=== PATIENT | female | born 1950 | race Caucasian/White ===

== ENCOUNTER → 2018-07-20 | Outpatient (CLI) | payer MEDICARE, OTHER ==
--- NOTE | 2018-07-23 17:42 | XCELERA REPORT ---
[address] [address] Lower Extremity Arterial Evaluation Name: GENTRY MENDOZA Age: 67 yrs Gender: Female : 1950 Patient Status: Outpatient Patient Location: Study Date: 07/20/2018 10:54 AM Procedure: A color flow and duplex scan of the lower extremity arteries was performed bilaterally with velocity and waveform anaylsis. Reason For Study: ULCER Ordering Physician: INESSA PARKER Performed By: Mario Blackwood Measurements and Calculations Right Left CHUCKING MACHINE SET UP OPERATOR PSV 127.5 132.8 cm/sec Prox PFA PSV -74.6 -66.8 cm/sec Prox SFA PSV 74.2 97.4 cm/sec Mid SFA PSV -69.5 -126.5cm/sec Dist SFA PSV -72.2 -52.1 cm/sec Prox Pop A PSV 62.9 -92.6 cm/sec Dist SALUD PSV 41.8 88.0 cm/sec Prox SUPPLIER QUALITY SPECIALIST PSV 99.9 cm/sec Dist SUPPLIER QUALITY SPECIALIST PSV 86.6 cm/sec Christopher Pedis PSV 42.0 -84.0 cm/sec Right Side Arterial Evaluation Normal velocity and triphasic waveforms noted from the Common Femoral artery to the infrageniculate vessels. 0 % stenosis. Ankle Brachial index was not done, due to pain. Left Side Arterial Evaluation Normal velocity and triphasic waveforms noted from the Common Femoral artery to the infrageniculate vessels. 0 % stenosis. Ankle Brachial index was not done, due to bandages in place. Interpretation Summary No hemodynamically significant lesions in the bilateral lower extremities, on duplex imaging, at rest. : INESSA PARKER > Adryan Hess
== END ==
LOC: SP 10:22
PROVIDERS: ATTEND Nurse Practitioner
DX: E11.622 Type 2 diabetes mellitus with other skin ulcer (principal); L97.222 Non-pressure chronic ulcer of left calf with fat layer exposed
CPT/HCPCS: 93925

== ENCOUNTER → 2018-07-27 | Outpatient (CLI) | payer MEDICARE, OTHER ==
--- NOTE | 2018-07-27 12:58 | RADIOLOGY REPORT (SQ) ---
EXAM DESCRIPTION: TIBIA FIBULA LEFT COMPLETED DATE/TIME: 07/27/2018 12:21 pm REASON FOR STUDY: NON-PRESSURE CHRONIC ULCER OF LEFT CALF W FAT LAYER EXPOSED L97.222 NON-PRESSURE CHRONIC ULCER OF LEFT CALF W FAT LAYER COMPARISON: None. NUMBER OF VIEWS: Two views. TECHNIQUE: Two radiographic images acquired of the left tibia and fibula to include the knee and ank le in at least one projection. LIMITATIONS: None. FINDINGS: MINERALIZATION: Normal. BONES: No acute fracture. No lytic or blastic lesions. There is periosteal new bone along the dista l 3rd of the left tibia and fibula. This could be related to venous stasis. SOFT TISSUES: Soft tissue ulceration with bandages over the distal left tibia/fibula anterior soft ti ssues. OTHER: No soft tissue radiopaque foreign body or soft tissue gas. Advanced osteoarthritis left knee. Prominent dorsal and plantar calcaneal spurs IMPRESSION: No fracture. Prior osteal new bone along the left tibia and fibula diffusely, could be related to venous stasis TECHNICAL DOCUMENTATION: JOB ID: [id number] [email or web address] All Rights Reserved Reading location - IP/workstation name: [email or web address]
== END ==
LOC: OD 11:54
PROVIDERS: ATTEND Nurse Practitioner
DX: L97.222 Non-pressure chronic ulcer of left calf with fat layer exposed (principal); M17.12 Unilateral primary osteoarthritis, left knee; M77.32 Calcaneal spur, left foot

== ENCOUNTER 2019-03-28 16:15 | Inpatient (IN) | payer MEDICARE, OTHER ==
--- NOTE | 2019-03-28 16:25 | ER Document Report ---
ED Medical Screen (RME) - General Chief Complaint: Leg Pain Stated Complaint: LEG PAIN Time Seen by Provider: 03/28/19 16:19 Mode of Arrival: Ambulatory Information source: Patient Notes: Patient is being treated on an outpatient basis with the wound clinic for a left lower extremity infection. Patient does have a history of peripheral vascular disease chronic kidney disease and diabetes. Patient states her blood sugar has been elevated at times. Patient denies any fever. Patient is currently taking antibiotics to treat her leg infection. Patient states that the wound has been looking worse and she was advised to come here for additional treatment. I have greeted and performed a rapid initial assessment of this patient. A comprehensive ED assessment and evaluation of the patient, analysis of test results and completion of the medical decision making process will be conducted by additional ED providers. TRAVEL OUTSIDE OF THE [place] IN LAST 30 DAYS: No - Related Data Allergies/Adverse Reactions: No Known Allergies Allergy (Verified 03/28/19 16:16) Physical Exam - Vital signs Vitals: Temp Pulse Resp BP Pulse Ox 97.6 F 109 H 22 H 149/95 H 95 03/28/19 16:19 03/28/19 16:19 03/28/19 16:19 03/28/19 16:19 03/28/19 16:19 - General General appearance: Appears well, Alert Notes: Patient with bandage left lower extremity wound with obvious drainage seeping through wound. Course - Vital Signs Vital signs: Temp Pulse Resp BP Pulse Ox 97.6 F 109 H 22 H 149/95 H 95 03/28/19 16:19 03/28/19 16:19 03/28/19 16:19 03/28/19 16:19 03/28/19 16:19
[2019-03-28 17:06] LABS: ABSOLUTE BASOPHILS # (AUTO) 0.1 10^3/uL (0.0-0.2); ABSOLUTE EOSINOPHILS # (AUTO) 0.2 10^3/uL (0.0-0.6); ABSOLUTE LYMPHOCYTES (AUTO) 0.7 10^3/uL (0.5-4.7); ABSOLUTE MONOCYTES (AUTO) 0.8 10^3/uL (0.1-1.4); ABSOLUTE NEUT (AUTO) 5.6 10^3/uL (1.7-8.2); BASOPHILS % (AUTO) 1.1 % (0-2); EOSINOPHILS % (AUTO) 2.1 % (0-6); HEMATOCRIT 34.8 % (36.0-47.0); HEMOGLOBIN 10.9 g/dL (12.0-15.5); LYMPHOCYTES % (AUTO) 9.2 % (13-45); MEAN CORPUSCULAR HEMOGLOBIN 24.9 pg (27.0-33.4); MEAN CORPUSCULAR HGB CONC 31.5 g/dL (32.0-36.0); MEAN CORPUSCULAR VOLUME 79 fl (80-97); MONOCYTES % (AUTO) 10.5 % (3-13); PLATELET COUNT 211 10^3/uL (150-450); RED BLOOD COUNT 4.39 10^6/uL (3.72-5.28); RED CELL DISTRIBUTION WIDTH 19.8 % (11.5-14.0); SEGMENTED NEUTROPHILS % (AUTO) 77.1 % (42-78); TOTAL CELLS COUNTED % (AUTO) 100 %; WHITE BLOOD COUNT 7.3 10^3/uL (4.0-10.5)
[2019-03-28 17:30] LABS: ALANINE AMINOTRANSFERASE 19 U/L (9-52); ALBUMIN 3.3 g/dL (3.5-5.0); ALKALINE PHOSPHATASE 91 U/L (38-126); ANION GAP 5 (5-19); ASPARTATE AMINO TRANSFERASE 27 U/L (14-36); BILIRUBIN,DIRECT 0.3 mg/dL (0.0-0.4); BILIRUBIN,TOTAL 0.5 mg/dL (0.2-1.3); BLOOD UREA NITROGEN 31 mg/dL (7-20); CALCIUM 9.5 mg/dL (8.4-10.2); CARBON DIOXIDE 26 mmol/L (22-30); CHLORIDE 105 mmol/L (98-107); GLUCOSE 156 mg/dL (75-110); TOTAL PROTEIN 6.6 g/dL (6.3-8.2)
[2019-03-28] MEDS ORDERED: VANCOMYCIN HCL INJ 1000 MG VIAL IV ONE (20:13)
[2019-03-28] MEDS ORDERED: MORPHINE SULFATE 10 MG/ML INJ IV ONE (20:13)
--- NOTE | 2019-03-28 20:30 | EKG REPORT ---
SEVERITY:- ABNORMAL ECG - ATRIAL FIBRILLATION INCOMPLETE RBBB AND LAFB ANTERIOR INFARCT, OLD : Confirmed by: Bruce Salomon 28-Mar-2019 20:30:30
--- NOTE | 2019-03-28 20:40 | ER Document Report ---
ED General - General Chief Complaint: Leg Pain Stated Complaint: LEG PAIN Time Seen by Provider: 03/28/19 16:19 Mode of Arrival: Ambulatory TRAVEL OUTSIDE OF THE [place] IN LAST 30 DAYS: No - HPI Notes: Patient is a 68-year-old female that presents to the emergency department for ch ief complaint of left leg wound. She has a chronic wound on her left lower extremity that has been managed by wound care for the last 2 years. she states she saw them today and they were concerned that the wound has gotten significantly worse. She reports increased pain and redness over the left lower extremity for the last week. She reports significant increase in pain over her left lower extremity for the last week. She also reports increased drainage from the wound. She is currently on Cipro and states this is her "third round" of antibiotics. She is concerned that the wound is getting worse despite outpatient management. She denies fevers and chills. She denies any chest pain, cough, congestion, nausea/vomiting and abdominal pain. Patient usually takes hydrocodone at home which does give her some symptomatic improvement. She states she has not had any pain medication today. Past Medical History: Hypertension, CKD, peripheral vascular disease, diabetes Past Surgical History: Reviewed in chart Social History: Lives at home. Denies tobacco and alcohol use Family History: Reviewed and noncontributory for presenting illness Allergies: Reviewed, see documented allergy list. REVIEW OF SYSTEMS: CONSTITUTIONAL : No fever No chills No diaphoresis No recent illness EENT: No vision changes No congestion No sore throat CARDIOVASCULAR: No chest pain No palpitations RESPIRATORY: No shortness of breath No cough No difficulty breathing GASTROINTESTINAL: No abdominal pain No nausea No vomiting No diarrhea GENITOURINARY: No dysuria No hematuria No difficulty urinating MUSCULOSKELETAL: No back pain leg pain No arm pain SKIN: No rashes leg lesions LYMPHATIC: No swollen, enlarged glands. NEUROLOGICAL: No lightheadedness No headache No weakness No paresthesias PSYCHIATRIC: No anxiety No depression PHYSICAL EXAMINATION: Vital signs reviewed, nursing noted reviewed. GENERAL: Well-appearing, obese and in no acute distress. HEAD: Atraumatic, normocephalic. EYES: Eyes appear normal, extraocular movements intact, sclera anicteric, conjunctiva are normal. ENT: nares patent, oropharynx clear without exudates. Moist mucous membranes. NECK: Normal range of motion, supple without lymphadenopathy LUNGS: Breath sounds clear to auscultation bilaterally and equal. No wheezes rales or rhonchi. HEART: Regular rate and rhythm without murmurs ABDOMEN: Soft, nontender, normoactive bowel sounds. No rebound, guarding, or rigidity. No masses appreciated. EXTREMITIES: Left lower extremity wound and tenderness with surrounding erythema. Bilateral lower extremity edema. NEUROLOGICAL: No focal neurological deficits. Moves all extremities spontaneously Motor and sensory grossly intact on exam. PSYCH: Normal mood, normal affect. SKIN: Warm, Dry, normal turgor, circumferential left lower extremity wound with multiple areas of granulation tissue, copious amounts of serosanguineous drainage, diffusely erythematous and tender to palpation. - Related Data Allergies/Adverse Reactions: No Known Allergies Allergy (Verified 03/28/19 16:16) Past Medical History - General Information source: Patient - Social History Smoking Status: Never Smoker Chew tobacco use (# tins/day): No Drug Abuse: None Family History: Reviewed & Not Pertinent Patient has suicidal ideation: No Patient has homicidal ideation: No - Past Medical History Cardiac Medical History: Reports: Hx Atrial Fibrillation, Hx Hypertension Endocrine Medical History: Reports: Hx Diabetes Mellitus Type 2 Renal/ Medical History: Denies: Hx Peritoneal Dialysis Physical Exam - Vital signs Vitals: Temp Pulse Resp BP Pulse Ox 97.6 F 109 H 22 H 149/95 H 95 03/28/19 16:19 03/28/19 16:19 03/28/19 16:19 03/28/19 16:19 03/28/19 16:19 Course - Re-evaluation Re-evalutation: 03/28/19 20:40 vitals reviewed. Nursing notes reviewed. Patient is afebrile and nontoxic in appearance but was tachycardic and tachypneic meeting Sirs criteria. Blood cultures and lactate have been obtained. She has an extensive wound to her left lower extremity reports increased redness pain and drainage concerning for acute infection that is not responding to outpatient therapy with Cipro. Patient was given a dose of vancomycin in the ED. X-ray will be obtained to evaluate for underlying osteomyelitis. Patient's lab work shows no leukocytosis. She has baseline renal insufficiency and anemia. Patient's potassium did come back elevated at 6.0, repeat potassium has been ordered to confirm this lab test. Repeat potassium is still elevated. Patient given insulin, D50, Kayexalate, and calcium for her hyperkalemia. She will be admitted to the hospital for monitoring of her hyperkalemia as well as lower extremity infection. Care dis cussed with Dr. Isbell who has accepted admission. Laboratory 03/28/19 03/28/19 16:35 16:35 WBC 7.3 RBC 4.39 Hgb 10.9 L Hct 34.8 L MCV 79 L MCH 24.9 L MCHC 31.5 L RDW 19.8 H Plt Count 211 Seg Neutrophils % 77.1 Lymphocytes % 9.2 L Monocytes % 10.5 Eosinophils % 2.1 Basophils % 1.1 Absolute Neutrophils 5.6 Absolute Lymphocytes 0.7 Absolute Monocytes 0.8 Absolute Eosinophils 0.2 Absolute Basophils 0.1 Sodium 135.6 L Potassium 6.0 H* Chloride 105 Carbon Dioxide 26 Anion Gap 5 BUN 31 H Creatinine 1.54 H Est GFR ( Amer) 40 L Est GFR (Non-Af Amer) 33 L Glucose 156 H Calcium 9.5 Total Bilirubin 0.5 Direct Bilirubin 0.3 Neonat Total Bilirubin Not Reportable Neonat Direct Bilirubin Not Reportable Neonat Indirect Bili Not Reportable AST 27 ALT 19 Alkaline Phosphatase 91 Total Protein 6.6 Albumin 3.3 L 03/28/19 21:25 - Vital Signs Vital signs: Temp Pulse Resp BP Pulse Ox 97.6 F 109 H 22 H 149/95 H 95 03/28/19 16:19 03/28/19 16:19 03/28/19 16:19 03/28/19 16:19 03/28/19 16:19 - Laboratory Result Diagrams: 03/28/19 16:35 03/28/19 19:50 Laboratory results interpreted by me: 03/28/19 03/28/19 03/28/19 16:35 16:35 19:50 Hgb 10.9 L Hct 34.8 L MCV 79 L MCH 24.9 L MCHC 31.5 L RDW 19.8 H Lymphocytes % 9.2 L ESR Sodium 135.6 L Potassium 6.0 H* 5.6 H BUN 31 H Creatinine 1.54 H Est GFR ( Amer) 40 L Est GFR (Non-Af Amer) 33 L Glucose 156 H C-Reactive Protein Albumin 3.3 L 03/28/19 03/28/19 19:50 20:45 Hgb Hct MCV MCH MCHC RDW Lymphocytes % ESR 43 H Sodium Potassium BUN Creatinine Est GFR ( Amer) Est GFR (Non-Af Amer) Glucose C-Reactive Protein 24.1 H Albumin Discharge - Discharge Clinical Impression: Left leg cellulitis, Hyperkalemia Condition: Stable Disposition: ADMITTED INPATIENT Admitting Provider: Sukhi (Hospitalist) Unit Admitted: Telemetry
[2019-03-28] MEDS ORDERED: SODIUM POLYSTYRENE SULFONATE 15 GM/60 ML PO ONE (20:58)
[2019-03-28] MEDS ORDERED: INSULIN REG, HUMAN 100 UNIT/ML 3 ML VIAL (PYX) IV ONE (20:58)
[2019-03-28] MEDS ORDERED: CALCIUM GLUCONATE 1000 MG/10 ML INJ IV ONE (20:58)
[2019-03-28] MEDS ORDERED: DEXTROSE 50%-WATER 25 GM/50 ML DISP.SYRIN IV ONE (20:58)
[2019-03-28] MEDS ORDERED: MAG HYDROX/AL HYDROX/SIMETH SUSP 30 ML UDCUP PO PRN (21:18)
[2019-03-28] MEDS ORDERED: ONDANSETRON HCL INJ/PF 4 MG/2 ML SDV IV PRN (21:18)
[2019-03-28] MEDS ORDERED: MAGNESIUM HYDROXIDE SUSP 30 ML UDCUP PO PRN (21:18)
[2019-03-28] MEDS ORDERED: ACETAMINOPHEN 325 MG TABLET PO PRN (21:26)
[2019-03-28] MEDS ORDERED: INSULIN REG, HUMAN 100 UNIT/ML 3 ML VIAL (PYX) SUBCUT PRN (21:26)
[2019-03-28] MEDS ORDERED: PIPERACILLIN/TAZOBACTAM 3.375 GM VIAL IV ONE (21:27)
[2019-03-28] MEDS ORDERED: VANCOMYCIN HCL INJ 1000 MG VIAL IV SCH (21:30)
[2019-03-28] MEDS ORDERED: GLUCAGON,HUMAN RECOMB 1 MG INJ IM PRN (21:31)
[2019-03-28] MEDS ORDERED: DEXTROSE 50%-WATER 25 GM/50 ML DISP.SYRIN IV PRN ×2 (21:31)
[2019-03-28] MEDS ORDERED: DEXTROSE 40% GEL 15 GM TUBE PO PRN ×2 (21:31)
[2019-03-28] MEDS ORDERED: PIPERACILLIN SODIUM/TAZOBACTAM 3.375 GM in NORMAL SALINE 100 ML IV ONE (22:00)
[2019-03-28] MEDS ORDERED: HEPARIN SOD (PORCINE) 5,000 UNIT/ML 1 ML VIAL SUBCUT SCH (22:00)
--- NOTE | 2019-03-28 22:08 | RADIOLOGY REPORT (SQ) ---
EXAM DESCRIPTION: RadLex: XR TIBIA FIBULA 2 VIEWS Views: 2 CLINICAL HISTORY: 68 years Female, wound, diabetic COMPARISON: 07/27/2018 FINDINGS: Severe chronic degenerative changes are partially visualized in the knee, grossly similar to the prior exam. There is severe loss of joint space, sclerosis and remodeling of the tibial plateau. Slight lateral subluxation of the tibia is similar. No acute fracture. There is some chronic periosteal reaction along the distal shafts of the tibia and fibula. No suspicious focal lesion. No lytic bone changes. IMPRESSION: 1. No acute fracture 2. No radiographic evidence for osteomyelitis 3. Severe chronic degenerative changes of the knee, grossly similar to the 07/27/2018 exam
[2019-03-28] MEDS: RIVAROXABAN 10 MG TABLET PO SCH (23:20)
[2019-03-28] MEDS: GLIPIZIDE 5 MG TABLET PO SCH (23:20)
[2019-03-29] MEDS: MORPHINE SULFATE 10 MG/ML INJ IV PRN ×5 (00:02→16:23)
[2019-03-29] MEDS: NORMAL SALINE 1000 ML 1,000 ML IV PRN ×3 (00:12→12:32)
[2019-03-29] MEDS ORDERED: PIPERACILLIN/TAZOBACTAM 3.375 GM VIAL IV ONE (00:19)
--- NOTE | 2019-03-29 03:26 | PDOC H&P ---
History of Present Illness Admission Date/PCP: 03/28/19 21:14 Patient complains of: Worsening wound History of Present Illness: GENTRY JACOBS is a 68 year old female who presents to the emergency room with a worsening wound of her leg. She admits a chronic left lower extremity wound with a chronic/recurrent infection for over 2 years. She states that for the last several days she has noted increasing redness and swelling with tenderness to palpation over the entire anterior tibial surface of her left lower leg. This prompted her to make a visit to the wound clinic and she was subsequently redirected to the ER for admission. She describes the pain as a constant, mild to moderate achiness of the left anterior lower leg without radiation. The pain is slightly increased with palpation and more significantly increased with walking. She has not identified any alleviating factors for her pain. She admits prior similar episodes on numerous occasions in the past related to venous stasis ulcers of her bilateral lower extremities. In the emergency room she was found to have significant erythema and edema of the left lower extremity and antibiotic therapy was initiated at the request of the wound care clinic. Patient was subsequently admitted to the hospital for further care. Past Medical History Cardiac Medical History: Reports: Atrial Fibrillation, Hypertension Denies: DVT, Pulmonary Embolism Pulmonary Medical History: Denies: Asthma, Chronic Obstructive Pulmonary Disease (COPD) EENT Medical History: Denies: Cataracts, Ears - Hearing aids Neurological Medical History: Denies: Hemorrhagic CVA, Ischemic CVA, Multiple Sclerosis, Seizures Endocrine Medical History: Reports: Diabetes Mellitus Type 2, Obesity Denies: Diabetes Mellitus Type 1, Hyperthyroidism, Hypothyroidism Renal/ Medical History: Reports: Chronic Kidney Disease Denies: Nephrolithiasis Malignancy Medical History: Reports: Breast Cancer GI Medical History: Denies: Cirrhosis, Hepatitis Musculoskeltal Medical History: Denies: Arthritis, Gout Skin Medical History: Denies: Eczema, Psoriasis Psychiatric Medical History: Denies: Alcohol Dependency, Substance Abuse, Tobacco Dependency Traumatic Medical History: Reports: None Hematology: Denies: Anemia, Bleeding Tendencies Infectious Medical History: Reports: Methicillin-Resistant Staph Aureus - And a previous infection of a venous stasis ulcer requiring vancomycin Past Surgical History Past Surgical History: For prior skin graft attempts for leg ulcerations, all failed. Past Surgical History: Reports: Other - Right lumpectomy and axillary lymph node dissection Social History Information Source: Patient Lives with: Spouse/Significant other Smoking Status: Never Smoker Frequency of Alcohol Use: Occasional Hx Recreational Drug Use: No Drugs: None Hx Prescription Drug Abuse: No - Advance Directive Resuscitation Status: Full Code Surrogate healthcare decision maker:: Vikram Jacobs Family History Family History: DM, Malignancy, Other - Kidney disease. denies: CAD, Hypertension Parental Family History Reviewed: Yes Children Family History Reviewed: No Sibling(s) Family History Reviewed.: Yes Medication/Allergy Home Medications: Furosemide [Lasix 20 mg Tablet] 20 mg PO DAILY 03/28/19 Glipizide [Glocotrol 5 Mg Tablet] 5 mg PO Q12 03/28/19 Hydrocodone/Acetaminophen [[place] 5-325 mg Tablet] 1 tab PO Q8HP PRN 03/28/19 Metoprolol Tartrate [Lopressor] 50 mg PO DAILY 03/28/19 Rivaroxaban [Xarelto] 20 mg PO QPM 03/28/19 Allergies/Adverse Reactions: adhesive Allergy (Verified 03/29/19 01:43) bacitracin [From Neosporin ([id number])] Allergy (Verified 03/29/19 01:43) latex Allergy (Verified 03/29/19 01:43) neomycin [From Neosporin ([id number])] Allergy (Verified 03/29/19 01:43) polymyxin B [From Neosporin ([id number])] Allergy (Verified 03/29/19 01:43) sulfur dioxide Allergy (Verified 03/29/19 01:43) Review of Systems Constitutional: ABSENT: anorexia, chills, fever(s) Eyes: ABSENT: visual disturbances, other - Eye pain Ears: ABSENT: hearing changes, other - Ear pain Nose, Mouth, and Throat: ABSENT: mouth pain, sore throat Cardiovascular: ABSENT: chest pain, palpitations Respiratory: ABSENT: cough, dyspnea Gastrointestinal: ABSENT: abdominal pain, constipation, diarrhea, nausea, vomiting Genitourinary: ABSENT: dysuria, hematuria Musculoskeletal: ABSENT: back pain, joint swelling, muscle weakness Integumentary: PRESENT: as per HPI, erythema, wounds. ABSENT: pruritus, rash Neurological: ABSENT: confusion, convulsions, focal weakness, memory loss, syncope Psychiatric: ABSENT: anxiety, depression Endocrine: ABSENT: cold intolerance, heat intolerance Hematologic/Lymphatic: ABSENT: easy bleeding, easy bruising Physical Exam Vital Signs: Temp Pulse Resp BP Pulse Ox 97.6 F 109 H 22 H 149/95 H 95 03/28/19 16:19 03/28/19 16:19 03/28/19 16:19 03/28/19 16:19 03/28/19 16:19 Intake & Output 03/26/19 03/27/19 03/28/19 23:59 23:59 23:59 Weight 131.5 kg General appearance: PRESENT: no acute distress, cooperative, morbidly obese Head exam: PRESENT: atraumatic, normocephalic Eye exam: ABSENT: conjunctival injection, scleral icterus Ear exam: PRESENT: normal external ear exam. ABSENT: bleeding, drainage Mouth exam: PRESENT: dry mucosa, neck supple Neck exam: ABSENT: thyromegaly, tracheal deviation Respiratory exam: PRESENT: clear to auscultation dwayne, symmetrical, unlabored Cardiovascular exam: PRESENT: RRR. ABSENT: clicks, gallop, rubs Pulses: PRESENT: normal radial pulses. ABSENT: normal dorsalis pedis pul - Dorsalis pedis pulses are mildly diminished bilaterally secondary to chronic edema of the lower extremities. Vascular exam: PRESENT: normal capillary refill, other - Circumferential venous stasis changes of the bilateral lower extremities.. ABSENT: pallor GI/Abdominal exam: PRESENT: normal bowel sounds, soft Rectal exam: PRESENT: deferred Extremities exam: PRESENT: pedal edema - Bilateral lower extremities, +2 edema - Bilateral lower extremities Musculoskeletal exam: ABSENT: deformity, dislocation Neurological exam: PRESENT: alert, oriented to person, oriented to place, oriented to time, oriented to situation, CN II-XII grossly intact. ABSENT: motor sensory deficit Psychiatric exam: PRESENT: appropriate affect, normal mood Skin exam: PRESENT: dry, erythema - Left anterior tibial surface/wound, warm, other - Venous stasis ulceration with superficial cellulitis left anterior tibial surface.. ABSENT: jaundice, rash, urticaria Results Laboratory Results: 03/28/19 16:35 03/28/19 19:50 03/28/19 03/28/19 03/28/19 16:35 16:35 19:50 WBC 7.3 RBC 4.39 Hgb 10.9 L Hct 34.8 L MCV 79 L MCH 24.9 L MCHC 31.5 L RDW 19.8 H Plt Count 211 Seg Neutrophils % 77.1 Lymphocytes % 9.2 L Monocytes % 10.5 Eosinophils % 2.1 Basophils % 1.1 Absolute Neutrophils 5.6 Absolute Lymphocytes 0.7 Absolute Monocytes 0.8 Absolute Eosinophils 0.2 Absolute Basophils 0.1 Sodium 135.6 L Potassium 6.0 H* 5.6 H Chloride 105 Carbon Dioxide 26 Anion Gap 5 BUN 31 H Creatinine 1.54 H Est GFR ( Amer) 40 L Est GFR (Non-Af Amer) 33 L Glucose 156 H Calcium 9.5 Total Bilirubin 0.5 AST 27 ALT 19 Alkaline Phosphatase 91 Total Protein 6.6 Albumin 3.3 L Assessment and Plan - Diagnosis (1) Chronic venous hypertension with inflammation Qualifiers: Laterality: left Qualified Code(s): I87.322 - Chronic venous hypertension (idiopathic) with inflammation of left lower extremity Is this a current diagnosis for this admission?: Yes Plan: Patient will be treated with IV antibiotics utilizing vancomycin and Zosyn. She will be monitored closely with daily CBCs and metabolic profiles. Additionally she will have a daily magnesium level performed. Consultation with the wound care clinic/general surgery for further input into her management will be undertaken during the daytime hours. (2) Chronic venous hypertension with ulcer Is this a current diagnosis for this admission?: Yes Plan: Patient will be treated with IV antibiotics utilizing vancomycin and Zosyn. She will be monitored closely with daily CBCs and metabolic profiles. Additionally she will have a daily magnesium level performed. Consultation with the wound care clinic/general surgery for further input into her management will be undertaken during the daytime hours. (3) Chronic venous stasis dermatitis of both lower extremities Is this a current diagnosis for this admission?: Yes Plan: Patient will be treated with IV antibiotics utilizing vancomycin and Zosyn. She will be monitored closely with daily CBCs and metabolic profiles. Additionally she will have a daily magnesium level performed. Consultation with the wound care clinic/general surgery for further input into her management will be undertaken during the daytime hours. (4) Hyperkalemia Is this a current diagnosis for this admission?: Yes Plan: Patient was treated emergently in the emergency room and will be treated with IV fluid and monitoring of her potassium level with daily metabolic profiles and magnesium levels. (5) Chronic kidney disease, stage III (moderate) Is this a current diagnosis for this admission?: Yes Plan: Patient's chronic kidney disease will be monitored on a daily basis with metabolic profiles. Further evaluation be performed as needed. (6) Diabetes mellitus type 2 in obese Is this a current diagnosis for this admission?: Yes Plan: Hemoglobin A1c will be obtained to evaluate the patient's current therapy. She will be continued on her current medication and a sliding scale utilizing regular insulin for the treatment of hyperglycemia will be instituted according to the results of before meals and at bedtime Accu-Cheks. (7) Essential hypertension Is this a current diagnosis for this admission?: Yes Plan: Patient be continued on her usual medications for hypertension. Her vital signs were followed closely throughout her hospital course with changes made to her regimen only if required. (8) Morbid obesity with BMI of 45.0-49.9, adult Is this a current diagnosis for this admission?: Yes Plan: A dietary consultation will be obtained for patient's evaluation and recommendations for diet and lifestyle changes that may help to improve the patient's overall health and well-being. - Time Time Spent with patient: 25-34 minutes Medications reviewed and adjusted accordingly: Yes Anticipated discharge: Home - Inpatient Certification Based on my medical assessment, after consideration of the patient's comorbidities, presenting symptoms, or acuity I expect that the services needed warrant INPATIENT care.: Yes I certify that my determination is in accordance with my understanding of Medicare's requirements for reasonable and necessary INPATIENT services [42 CFR 412.3e].: Yes Medical Necessity: Failure to Improve With Outpatient Therapy, Significant C omorbidiites Make Outpatient Treatment Too Risky, Need Close Monitoring Due to Risk of Patient Decompensation, Need for IV Antibiotics, Risk of Complication if Not Cared For in Hospital
--- NOTE | 2019-03-29 03:31 | ADVANCED CARE ---
- Diagnosis (1) Chronic venous hypertension with inflammation Diagnosis Current: Yes (2) Chronic venous hypertension with ulcer Diagnosis Current: Yes (3) Chronic venous stasis dermatitis of both lower extremities Diagnosis Current: Yes (4) Hyperkalemia Diagnosis Current: Yes (5) Chronic kidney disease, stage III (moderate) Diagnosis Current: Yes (6) Diabetes mellitus type 2 in obese Diagnosis Current: Yes (7) Essential hypertension Diagnosis Current: Yes (8) Morbid obesity with BMI of 45.0-49.9, adult Diagnosis Current: Yes Attendance: Patient and myself Resuscitation Status: Full Code Discussion: After discussion the patient wishes to remain a full CODE STATUS for any cardiac or respiratory arrest that may occur during her hospital course. She further wishes to name her son Vikram Jacobs as her designated surrogate medical decision maker. She is not desirous of discussing a living will at this point in time. Care Planning Goals: 1. Patient remained full CODE STATUS for resuscitation during his hospital stay. 2. Vikram Jacobs will be named as her designated surrogate medical decision- maker. Document(s) Completed: Following will be entered into the patient's permanent medical record and medical orders via the EMR data and order filler: 1. Patient remained full CODE STATUS for resuscitation during his hospital stay. 2. Vikram Jacobs will be named as her designated surrogate medical decision- maker. Time Spent: 10 minutes
[2019-03-29] MEDS: PANTOPRAZOLE SODIUM 40 MG TABLET.DR PO SCH ×2 (05:57→17:37)
[2019-03-29 07:20] LABS: HEMOGLOBIN 10.2 g/dL (12.0-15.5); MEAN CORPUSCULAR HEMOGLOBIN 24.5 pg (27.0-33.4); MEAN CORPUSCULAR VOLUME 79 fl (80-97); PLATELET COUNT 190 10^3/uL (150-450); RED BLOOD COUNT 4.17 10^6/uL (3.72-5.28); RED CELL DISTRIBUTION WIDTH 19.4 % (11.5-14.0); WHITE BLOOD COUNT 5.1 10^3/uL (4.0-10.5)
[2019-03-29 07:45] LABS: ANION GAP 5 (5-19); BLOOD UREA NITROGEN 28 mg/dL (7-20); CALCIUM 9.2 mg/dL (8.4-10.2); CARBON DIOXIDE 26 mmol/L (22-30); CHLORIDE 108 mmol/L (98-107); GLUCOSE 95 mg/dL (75-110); POTASSIUM 4.9 mmol/L (3.6-5.0)
[2019-03-29 07:59] LABS: FREE T3 4.41 pg/mL (2.77-5.27); FREE T4 (FREE THYROXINE) 1.43 ng/dL (0.78-2.19)
[2019-03-29 08:13] LABS: THYROID STIMULATING HORMONE 2.05 uIU/mL (0.47-4.68)
[2019-03-29] MEDS: GLIPIZIDE 5 MG TABLET PO SCH ×2 (10:44→18:17)
[2019-03-29] MEDS: DOCUSATE SODIUM 100 MG CAPSULE PO SCH ×2 (10:44→17:34)
[2019-03-29] MEDS: FUROSEMIDE 20 MG TABLET PO SCH (10:44)
[2019-03-29] MEDS: METOPROLOL TARTRATE 50 MG TABLET PO SCH (10:45)
[2019-03-29] MEDS ORDERED: FLUCONAZOLE 100 MG TABLET PO ONE (12:30)
--- NOTE | 2019-03-29 13:36 | PDOC PROGRESS REPORT ---
Subjective Progress Note for:: 03/29/19 Subjective:: GENTRY MENDOZA is a 68 year old female who presents to the emergency room with a worsening wound of her leg. She admits a chronic left lower extremity wound with a chronic/recurrent infection for over 2 years. She states that for the last several days she has noted increasing redness and swelling with tenderness to palpation over the entire anterior tibial surface of her left lower leg. This prompted her to make a visit to the wound clinic and she was subsequently redirected to the ER for admission. She describes the pain as a constant, mild to moderate achiness of the left anterior lower leg without radiation. The pain is slightly increased with palpation and more significantly increased with walking. She has not identified any alleviating factors for her pain. She admits prior similar episodes on numerous occasions in the past related to venous stasis ulcers of her bilateral lower extremities. In the emergency room she was found to have significant erythema and edema of the left lower extremity and antibiotic therapy was initiated at the request of the wound care clinic. Patient was subsequently admitted to the hospital for further care. 03/29/2019. No acute events overnight. Patient complaining of bilateral lower extremity pain worse on the left side. Stating that she has been having chronic bilateral lower extremity ulcers worse on the left side for the last 20 years with extensive work-up. Patient does not want to involve surgery and does not want to have any surgeries at this point. Patient wants to continue medical care at this point. Patient denies any fever, chills, nausea, vomiting, diarrhea, constipation or any urinary symptoms. Reason For Visit: CHRONIC WOUND INFECTIN,HYPERKALEMIA Physical Exam Vital Signs: Temp Pulse Resp BP Pulse Ox 97.5 F 78 18 113/65 99 03/29/19 09:00 03/29/19 09:00 03/29/19 09:00 03/29/19 09:00 03/28/19 23:13 Intake & Output 03/28/19 03/29/19 03/30/19 06:59 06:59 06:59 Intake Total 1100 983 Output Total 1300 Balance -200 983 Weight 135 kg General appearance: PRESENT: morbidly obese Head exam: PRESENT: atraumatic, normocephalic Respiratory exam: PRESENT: clear to auscultation dwayne. ABSENT: rales, rhonchi, wheezes Cardiovascular exam: PRESENT: RRR. ABSENT: diastolic murmur, rubs, systolic murmur GI/Abdominal exam: PRESENT: normal bowel sounds, soft. ABSENT: distended, guarding, mass, organolmegaly, rebound, tenderness Extremities exam: PRESENT: full ROM, other - Left lower extremity multiple shallow ulcers over the woods. No active discharge. No foul smell.. ABSENT: calf tenderness, clubbing, pedal edema Neurological exam: PRESENT: alert, awake, oriented to person, oriented to place, oriented to time, oriented to situation, CN II-XII grossly intact. ABSENT: motor sensory deficit Results Laboratory Results: 03/29/19 05:52 03/29/19 05:52 03/28/19 03/28/19 03/28/19 16:35 16:35 19:50 WBC 7.3 RBC 4.39 Hgb 10.9 L Hct 34.8 L MCV 79 L MCH 24.9 L MCHC 31.5 L RDW 19.8 H Plt Count 211 Seg Neutrophils % 77.1 Lymphocytes % 9.2 L Monocytes % 10.5 Eosinophils % 2.1 Basophils % 1.1 Absolute Neutrophils 5.6 Absolute Lymphocytes 0.7 Absolute Monocytes 0.8 Absolute Eosinophils 0.2 Absolute Basophils 0.1 Sodium 135.6 L Potassium 6.0 H* 5.6 H Chloride 105 Carbon Dioxide 26 Anion Gap 5 BUN 31 H Creatinine 1.54 H Est GFR ( Amer) 40 L Est GFR (Non-Af Amer) 33 L Glucose 156 H Lactic Acid Calcium 9.5 Magnesium Total Bilirubin 0.5 AST 27 ALT 19 Alkaline Phosphatase 91 C-Reactive Protein Total Protein 6.6 Albumin 3.3 L TSH Free T4 Free T3 pg/mL 03/28/19 03/28/19 03/29/19 19:50 20:45 05:52 WBC 5.1 RBC 4.17 Hgb 10.2 L Hct 33.0 L MCV 79 L MCH 24.5 L MCHC 31.0 L RDW 19.4 H Plt Count 190 Seg Neutrophils % Lymphocytes % Monocytes % Eosinophils % Basophils % Absolute Neutrophils Absolute Lymphocytes Absolute Monocytes Absolute Eosinophils Absolute Basophils Sodium Potassium Chloride Carbon Dioxide Anion Gap BUN Creatinine Est GFR ( Amer) Est GFR (Non-Af Amer) Glucose Lactic Acid 1.0 Calcium Magnesium Total Bilirubin AST ALT Alkaline Phosphatase C-Reactive Protein 24.1 H Total Protein Albumin TSH Free T4 Free T3 pg/mL 03/29/19 03/29/19 05:52 05:52 WBC RBC Hgb Hct MCV MCH MCHC RDW Plt Count Seg Neutrophils % Lymphocytes % Monocytes % Eosinophils % Basophils % Absolute Neutrophils Absolute Lymphocytes Absolute Monocytes Absolute Eosinophils Absolute Basophils Sodium 138.5 Potassium 4.9 Chloride 108 H Carbon Dioxide 26 Anion Gap 5 BUN 28 H Creatinine 1.40 H Est GFR ( Amer) 45 L Est GFR (Non-Af Amer) 37 L Glucose 95 Lactic Acid Calcium 9.2 Magnesium 2.1 Total Bilirubin AST ALT Alkaline Phosphatase C-Reactive Protein Total Protein Albumin TSH 2.05 Free T4 1.43 Free T3 pg/mL 4.41 Impressions: Tibia/Fibula X-Ray 03/28/19 20:14 IMPRESSION: 1. No acute fracture 2. No radiographic evidence for osteomyelitis 3. Severe chronic degenerative changes of the knee, grossly similar to the 07/27/2018 exam Assessment and Plan - Diagnosis (1) Infected stasis ulcer of left lower extremity Is this a current diagnosis for this admission?: Yes Plan: Has established care as outpatient in the wound clinic. Received p.o. a ntibiotics which were not effective. Patient has had extensive bilateral lower extremity work-up and a skin graft from upper thigh to left lower extremity which has failed. Patient sees Dr. Katarina Hess vascular surgeon as outpatient. Patient does not want surgery to be involved. She does not want any surgery at this point. Day 2 IV antibiotics. Day 2 IV vancomycin. Continue wound care, follow-up wound and blood culture. (2) Chronic venous stasis dermatitis of both lower extremities Is this a current diagnosis for this admission?: Yes Plan: Patient had established care as outpatient in the wound clinic with Dr. Katarina Hess. Continue wound care, compression stockings, lower extremity elevation. Outpatient wound clinic follow-up. (3) Morbid obesity with BMI of 45.0-49.9, adult Is this a current diagnosis for this admission?: Yes Plan: Diet and lifestyle modification advised. (4) Diabetes mellitus type 2 in obese Is this a current diagnosis for this admission?: Yes Plan: Well controlled. A1c 6.9. Diabetic diet, sliding scale insulin, long-acting insulin, pre-meal insulin, Accu-Chek, hypoglycemia protocol. Adjust dosage as needed. Restart home meds upon discharge. Outpatient PCP follow-up.
[2019-03-29] MEDS: RIVAROXABAN 10 MG TABLET PO SCH (17:37)
[2019-03-29] MEDS: INSULIN REG, HUMAN 100 UNIT/ML 3 ML VIAL (PYX) SUBCUT SCH ×2 (18:17→21:53)
[2019-03-29] MEDS: VANCOMYCIN HCL 1,000 MG in DEXTROSE 5%-WATER 250 ML IV SCH (21:52)
[2019-03-30 05:16] LABS: HEMATOCRIT 34.5 % (36.0-47.0); HEMOGLOBIN 10.8 g/dL (12.0-15.5); MEAN CORPUSCULAR HEMOGLOBIN 24.6 pg (27.0-33.4); MEAN CORPUSCULAR HGB CONC 31.2 g/dL (32.0-36.0); MEAN CORPUSCULAR VOLUME 79 fl (80-97); PLATELET COUNT 165 10^3/uL (150-450); RED BLOOD COUNT 4.37 10^6/uL (3.72-5.28); RED CELL DISTRIBUTION WIDTH 19.6 % (11.5-14.0); WHITE BLOOD COUNT 5.3 10^3/uL (4.0-10.5)
[2019-03-30 05:32] LABS: ANION GAP 7 (5-19); BLOOD UREA NITROGEN 28 mg/dL (7-20); CALCIUM 9.5 mg/dL (8.4-10.2); CARBON DIOXIDE 24 mmol/L (22-30); CHLORIDE 106 mmol/L (98-107); GLUCOSE 151 mg/dL (75-110); POTASSIUM 4.8 mmol/L (3.6-5.0)
[2019-03-30] MEDS: PANTOPRAZOLE SODIUM 40 MG TABLET.DR PO SCH ×2 (06:21→18:52)
[2019-03-30] MEDS: INSULIN REG, HUMAN 100 UNIT/ML 3 ML VIAL (PYX) SUBCUT SCH ×4 (07:36→21:08)
--- NOTE | 2019-03-30 10:48 | PDOC PROGRESS REPORT ---
Subjective Progress Note for:: 03/30/19 Subjective:: GENTRY MENDOZA is a 68 year old female who presents to the emergency room with a worsening wound of her leg. She admits a chronic left lower extremity wound with a chronic/recurrent infection for over 2 years. She states that for the last several days she has noted increasing redness and swelling with tenderness to palpation over the entire anterior tibial surface of her left lower leg. This prompted her to make a visit to the wound clinic and she was subsequently redirected to the ER for admission. She describes the pain as a constant, mild to moderate achiness of the left anterior lower leg without radiation. The pain is slightly increased with palpation and more significantly increased with walking. She has not identified any alleviating factors for her pain. She admits prior similar episodes on numerous occasions in the past related to venous stasis ulcers of her bilateral lower extremities. In the emergency room she was found to have significant erythema and edema of the left lower extremity and antibiotic therapy was initiated at the request of the wound care clinic. Patient was subsequently admitted to the hospital for further care. 03/29/2019. No acute events overnight. Patient complaining of bilateral lower extremity pain worse on the left side. Stating that she has been having chronic bilateral lower extremity ulcers worse on the left side for the last 20 years with extensive work-up. Patient does not want to involve surgery and does not want to have any surgeries at this point. Patient wants to continue medical care at this point. Patient denies any fever, chills, nausea, vomiting, diarrhea, constipation or any urinary symptoms. 03/30/2019. No acute events overnight. Patient stating that her bilateral lower extremity pain improving compared to yesterday, denies any fever, chills, nausea, vomiting, diarrhea, constipation or any urinary symptoms. Patient still adamant about not undergoing any surgery and does not want surgery to be consulted. She was advised that we will better if at least we consult Dr. Katarina Hess and she agreed to it. Reason For Visit: CHRONIC WOUND INFECTIN,HYPERKALEMIA Physical Exam Vital Signs: Temp Pulse Resp BP Pulse Ox 97.8 F 65 18 149/77 H 98 03/30/19 09:06 03/30/19 09:06 03/30/19 09:06 03/30/19 09:06 03/30/19 09:06 Intake & Output 03/29/19 03/30/19 03/31/19 06:59 06:59 06:59 Intake Total 1100 2683 Output Total 1300 4100 Balance -200 -1417 Weight 135 kg 136 kg General appearance: PRESENT: no acute distress, morbidly obese, well-developed, well-nourished Head exam: PRESENT: atraumatic, normocephalic Respiratory exam: PRESENT: clear to auscultation dwyane. ABSENT: rales, rhonchi, wheezes Cardiovascular exam: PRESENT: RRR. ABSENT: diastolic murmur, rubs, systolic murmur GI/Abdominal exam: PRESENT: normal bowel sounds, soft. ABSENT: distended, guarding, mass, organolmegaly, rebound, tenderness Extremities exam: PRESENT: full ROM, other - Bilateral lower extremity venous s tasis. Left lower extremity anterior woods multiple shallow ulcers, granulation tissue. No active discharge.. ABSENT: calf tenderness, clubbing, pedal edema Neurological exam: PRESENT: alert, awake, oriented to person, oriented to place, oriented to time, oriented to situation, CN II-XII grossly intact. ABSENT: motor sensory deficit Results Laboratory Results: 03/30/19 04:41 03/30/19 04:41 03/30/19 03/30/19 04:41 04:41 WBC 5.3 RBC 4.37 Hgb 10.8 L Hct 34.5 L MCV 79 L MCH 24.6 L MCHC 31.2 L RDW 19.6 H Plt Count 165 Sodium 136.6 L Potassium 4.8 Chloride 106 Carbon Dioxide 24 Anion Gap 7 BUN 28 H Creatinine 1.49 H Est GFR ( Amer) 42 L Est GFR (Non-Af Amer) 35 L Glucose 151 H Calcium 9.5 Magnesium 2.0 Impressions: Tibia/Fibula X-Ray 03/28/19 20:14 IMPRESSION: 1. No acute fracture 2. No radiographic evidence for osteomyelitis 3. Severe chronic degenerative changes of the knee, grossly similar to the 07/27/2018 exam Assessment and Plan - Diagnosis (1) Infected stasis ulcer of left lower extremity Is this a current diagnosis for this admission?: Yes Plan: Has established care as outpatient in the wound clinic. Received p.o. antibiotics which were not effective. Patient has had extensive bilateral lower extremity work-up and a skin graft from upper thigh to left lower extremity which has failed. Patient sees Dr. Katarina Hess vascular surgeon as outpatient. Patient does not want surgery to be involved. She does not want any surgery at this point. Day 3 IV antibiotics. Day 3 IV vancomycin. Received 1 dose of Zosyn on admission. Continue wound care, follow-up wound and blood culture. Dr. Katarina Hess consulted. Pending recommendations. (2) Chronic venous stasis dermatitis of both lower extremities Is this a current diagnosis for this admission?: Yes Plan: Patient had established care as outpatient in the wound clinic with Dr. Katarina Hess. Continue wound care, compression stockings, lower extremity elevation. Outpatient wound clinic follow-up. (3) Morbid obesity with BMI of 45.0-49.9, adult Is this a current diagnosis for this admission?: Yes Plan: Diet and lifestyle modification advised. (4) Diabetes mellitus type 2 in obese Is this a current diagnosis for this admission?: Yes Plan: Well controlled. A1c 6.9. Diabetic diet, sliding scale insulin, long-acting insulin, pre-meal insulin, Accu-Chek, hypoglycemia protocol. Adjust dosage as needed. Restart home meds upon discharge. Outpatient PCP follow-up. (5) Acute kidney injury superimposed on CKD Is this a current diagnosis for this admission?: Yes Plan: Likely due to vancomycin. Baseline 1.5. Renally adjust vancomycin dosage. BMP tomorrow. Monitor volume status and electrolytes. Replace as needed. If no improvement will switch vancomycin to p.o. based on wound culture sensitivity. (6) Anemia Qualifiers: Anemia type: unspecified type Qualified Code(s): D64.9 - Anemia, unspecified Is this a current diagnosis for this admission?: Yes Plan: Likely combination of anemia of chronic disease and CKD. Denies any nosebleeds, hematemesis, hemoptysis, hematochezia, melena, hematuria, vaginal bleeding, easy bruising or any history of malignancy. Pending iron panel. Monitor H&H. (7) Morbid obesity with BMI of 40.0-44.9, adult Is this a current diagnosis for this admission?: Yes Plan: Diet and lifestyle modification recommended.
[2019-03-30 11:10] LABS: IRON(TIBC) 36.9 ug/dL (37-170)
[2019-03-30 11:32] LABS: ABSOLUTE RETICS # 0.049 10^6/uL (0.028-0.122); RETICULOCYTE COUNT (AUTO) 1.12 % (0.66-2.85)
[2019-03-30] MEDS: METOPROLOL TARTRATE 50 MG TABLET PO SCH (11:38)
[2019-03-30] MEDS: FUROSEMIDE 20 MG TABLET PO SCH (11:39)
[2019-03-30] MEDS: DOCUSATE SODIUM 100 MG CAPSULE PO SCH ×2 (11:39→19:00)
[2019-03-30] MEDS: GLIPIZIDE 5 MG TABLET PO SCH ×2 (11:41→18:41)
[2019-03-30 11:47] LABS: FERRITIN 9.95 ng/mL (11.1-264.0)
[2019-03-30 12:19] LABS: FOLATE > 20.00 ng/mL (>2.76)
[2019-03-30] MEDS: NORMAL SALINE 1000 ML 1,000 ML IV PRN ×2 (13:05→19:52)
[2019-03-30] MEDS ORDERED: ONDANSETRON HCL INJ/PF 4 MG/2 ML SDV IV PRN (13:30)
[2019-03-30] MEDS: MORPHINE SULFATE 10 MG/ML INJ IV PRN ×3 (15:19→22:33)
[2019-03-30] MEDS: RIVAROXABAN 10 MG TABLET PO SCH (18:40)
[2019-03-30] MEDS: VANCOMYCIN HCL 1,000 MG in DEXTROSE 5%-WATER 250 ML IV SCH (21:08)
[2019-03-30] MEDS: TEMAZEPAM 15 MG CAPSULE PO PRN (21:09)
[2019-03-31 05:14] LABS: HEMATOCRIT 31.8 % (36.0-47.0); HEMOGLOBIN 10.1 g/dL (12.0-15.5); MEAN CORPUSCULAR HEMOGLOBIN 24.9 pg (27.0-33.4); MEAN CORPUSCULAR HGB CONC 31.8 g/dL (32.0-36.0); MEAN CORPUSCULAR VOLUME 79 fl (80-97); PLATELET COUNT 163 10^3/uL (150-450); RED BLOOD COUNT 4.06 10^6/uL (3.72-5.28); RED CELL DISTRIBUTION WIDTH 19.5 % (11.5-14.0); WHITE BLOOD COUNT 4.5 10^3/uL (4.0-10.5)
[2019-03-31 05:34] LABS: ANION GAP 5 (5-19); BLOOD UREA NITROGEN 25 mg/dL (7-20); CALCIUM 9.5 mg/dL (8.4-10.2); CARBON DIOXIDE 24 mmol/L (22-30); CHLORIDE 108 mmol/L (98-107); GLUCOSE 101 mg/dL (75-110); POTASSIUM 4.7 mmol/L (3.6-5.0)
[2019-03-31] MEDS: MORPHINE SULFATE 10 MG/ML INJ IV PRN ×4 (06:40→20:25)
[2019-03-31] MEDS: PANTOPRAZOLE SODIUM 40 MG TABLET.DR PO SCH ×2 (06:40→17:50)
[2019-03-31] MEDS: NORMAL SALINE 1000 ML 1,000 ML IV PRN (06:41)
[2019-03-31] MEDS: INSULIN REG, HUMAN 100 UNIT/ML 3 ML VIAL (PYX) SUBCUT SCH ×4 (07:31→21:27)
[2019-03-31] MEDS ORDERED: DAPTOMYCIN INJ 500 MG VIAL IV SCH (11:00)
[2019-03-31] MEDS: FUROSEMIDE 20 MG TABLET PO SCH (11:02)
[2019-03-31] MEDS: DOCUSATE SODIUM 100 MG CAPSULE PO SCH ×2 (11:03→17:50)
[2019-03-31] MEDS: GLIPIZIDE 5 MG TABLET PO SCH ×2 (11:03→17:50)
[2019-03-31] MEDS: METOPROLOL TARTRATE 50 MG TABLET PO SCH (11:03)
--- NOTE | 2019-03-31 11:08 | PDOC PROGRESS REPORT ---
Subjective Progress Note for:: 03/31/19 Subjective:: GENTRY MENDOZA is a 68 year old female who presents to the emergency room with a worsening wound of her leg. She admits a chronic left lower extremity wound with a chronic/recurrent infection for over 2 years. She states that for the last several days she has noted increasing redness and swelling with tenderness to palpation over the entire anterior tibial surface of her left lower leg. This prompted her to make a visit to the wound clinic and she was subsequently redirected to the ER for admission. She describes the pain as a constant, mild to moderate achiness of the left anterior lower leg without radiation. The pain is slightly increased with palpation and more significantly increased with walking. She has not identified any alleviating factors for her pain. She admits prior similar episodes on numerous occasions in the past related to venous stasis ulcers of her bilateral lower extremities. In the emergency room she was found to have significant erythema and edema of the left lower extremity and antibiotic therapy was initiated at the request of the wound care clinic. Patient was subsequently admitted to the hospital for further care. 03/29/2019. No acute events overnight. Patient complaining of bilateral lower extremity pain worse on the left side. Stating that she has been having chronic bilateral lower extremity ulcers worse on the left side for the last 20 years with extensive work-up. Patient does not want to involve surgery and does not want to have any surgeries at this point. Patient wants to continue medical care at this point. Patient denies any fever, chills, nausea, vomiting, diarrhea, constipation or any urinary symptoms. 03/30/2019. No acute events overnight. Patient stating that her bilateral lower extremity pain improving compared to yesterday, denies any fever, chills, nausea, vomiting, diarrhea, constipation or any urinary symptoms. Patient still adamant about not undergoing any surgery and does not want surgery to be consulted. She was advised that we will better if at least we consult Dr. Katarina Hess and she agreed to it. 03/31/2019. No acute events overnight, reporting moderate improvement of bilateral lower extremity pain, denies any fever, chills, nausea, vomiting, diarrhea, constipation or any urinary symptoms. Wound culture is positive for MRSA and MSSA. Reason For Visit: CHRONIC WOUND INFECTIN,HYPERKALEMIA Physical Exam Vital Signs: Temp Pulse Resp BP Pulse Ox 97.7 F 76 18 136/74 H 95 03/31/19 08:51 03/31/19 08:51 03/31/19 08:51 03/31/19 08:51 03/31/19 08:51 Intake & Output 03/30/19 03/31/19 04/01/19 06:59 06:59 06:59 Intake Total 2683 5534 Output Total 4100 2600 Balance -1417 2934 Weight 136 kg 135.9 kg General appearance: PRESENT: no acute distress, obese, well-developed, well- nourished Head exam: PRESENT: atraumatic, normocephalic Respiratory exam: PRESENT: clear to auscultation dwayne. ABSENT: rales, rhonchi, wheezes Cardiovascular exam: PRESENT: RRR. ABSENT: diastolic murmur, rubs, systolic murmur GI/Abdominal exam: PRESENT: normal bowel sounds, soft. ABSENT: distended, guarding, mass, organolmegaly, rebound, tenderness Neurological exam: PRESENT: alert, awake, oriented to person, oriented to place, oriented to time, oriented to situation, CN II-XII grossly intact. ABSENT: motor sensory deficit Results Laboratory Results: 03/31/19 04:51 03/31/19 04:51 03/30/19 03/30/19 03/31/19 04:41 04:41 04:51 WBC 4.5 RBC 4.06 Hgb 10.1 L Hct 31.8 L MCV 79 L MCH 24.9 L MCHC 31.8 L RDW 19.5 H Plt Count 163 Retic Count (auto) 1.12 Absolute Retic 0.049 Sodium Potassium Chloride Carbon Dioxide Anion Gap BUN Creatinine Est GFR ( Amer) Est GFR (Non-Af Amer) Glucose Calcium Magnesium Iron 36.9 L TIBC 441 % Saturation 8 Ferritin 9.95 L Vitamin B12 290.0 Folate > 20.00 03/31/19 04:51 WBC RBC Hgb Hct MCV MCH MCHC RDW Plt Count Retic Count (auto) Absolute Retic Sodium 137.0 Potassium 4.7 Chloride 108 H Carbon Dioxide 24 Anion Gap 5 BUN 25 H Creatinine 1.42 H Est GFR ( Amer) 44 L Est GFR (Non-Af Amer) 37 L Glucose 101 Calcium 9.5 Magnesium 1.9 Iron TIBC % Saturation Ferritin Vitamin B12 Folate 03/29/19 10:54 Leg - Cellulitis Gram Stain - Final 03/29/19 10:54 Leg - Cellulitis Wound Culture - Final Mrsa (Meth Resis Staph Aureus) Staphylococcus Aureus Impressions: Tibia/Fibula X-Ray 03/28/19 20:14 IMPRESSION: 1. No acute fracture 2. No radiographic evidence for osteomyelitis 3. Severe chronic degenerative changes of the knee, grossly similar to the 07/27/2018 exam Assessment and Plan - Diagnosis (1) Infected stasis ulcer of left lower extremity Is this a current diagnosis for this admission?: Yes Plan: Due to MRSA/MSSA. Has established care as outpatient in the wound clinic. Received p.o. antibiotics which were not effective. Patient has had extensive bilateral lower extremity work-up and a skin graft from upper thigh to left lower extremity which has failed. Patient sees Dr. Katarina Hess vascular surgeon as outpatient. Patient does not want surgery to be involved. She does not want any surgery at this point. Day 4 IV antibiotics. Day 1 daptomycin. Day 3 IV vancomycin. DC vancomycin. Note: Wound cultures positive for MRSA/MSSA sensitive Bactrim, daptomycin and vancomycin only. Not a candidate for Bactrim and vancomycin due to worsening KLEBER. Switch to daptomycin. Received 1 dose of Zosyn on admission. Continue wound care, follow-up wound and blood culture. Dr. Katarina Hess consulted. Pending recommendations. (2) Chronic venous stasis dermatitis of both lower extremities Is this a current diagnosis for this admission?: Yes Plan: Patient had established care as outpatient in the wound clinic with Dr. Katarina Hess. Continue wound care, compression stockings, lower extremity elevation. Outpatient wound clinic follow-up. (3) Morbid obesity with BMI of 45.0-49.9, adult Is this a current diagnosis for this admission?: Yes Plan: Diet and lifestyle modification advised. (4) Diabetes mellitus type 2 in obese Is this a current diagnosis for this admission?: Yes Plan: Well controlled. A1c 6.9. Diabetic diet, sliding scale insulin, long-acting insulin, pre-meal insulin, Accu-Chek, hypoglycemia protocol. Adjust dosage as needed. Restart home meds upon discharge. Outpatient PCP follow-up. (5) Acute kidney injury superimposed on CKD Is this a current diagnosis for this admission?: Yes Plan: Likely due to vancomycin. Baseline 1.5. DC vancomycin. BMP tomorrow. Monitor volume status and electrolytes. Replace as needed. If no improvement will consult nephrology. (6) Anemia Qualifiers: Anemia type: unspecified type Qualified Code(s): D64.9 - Anemia, unspecified Is this a current diagnosis for this admission?: Yes Plan: Likely combination of anemia of chronic disease and CKD. Denies any nosebleeds, hematemesis, hemoptysis, hematochezia, melena, hematuria, vaginal bleeding, easy bruising or any history of malignancy. 03/30/2019. Serum iron 36.9, TIBC 441, saturation 8, ferritin 9.95. Pending stool occult blood. If positive will consult GI/surgery for endoscopy/colonoscopy. Start on supplemental ferrous sulfate. Monitor H&H.
[2019-03-31] MEDS: DAPTOMYCIN IV SCH (13:11)
[2019-03-31] MEDS: NORMAL SALINE IV SCH (13:11)
--- NOTE | 2019-03-31 13:36 | RADIOLOGY REPORT (SQ) ---
EXAM DESCRIPTION: CHEST SINGLE VIEW COMPLETED DATE/TIME: 03/31/2019 1:18 pm REASON FOR STUDY: CENTRAL LINE PLACEMENT VERIFICATION COMPARISON: None. EXAM PARAMETERS: NUMBER OF VIEWS: One view. TECHNIQUE: Single frontal radiographic view of the chest acquired. RADIATION DOSE: NA LIMITATIONS: None. FINDINGS: LUNGS AND PLEURA: No opacities, masses or pneumothorax. No pleural effusion. MEDIASTINUM AND HILAR STRUCTURES: No masses. Contour normal. HEART AND VASCULAR STRUCTURES: Cardiomegaly. BONES: No acute findings. HARDWARE: Central line on the left side. Tip of the catheter in the region of the cavoatrial junctio n. OTHER: No other significant finding. IMPRESSION: NO PNEUMOTHORAX FOLLOWING CENTRAL LINE PLACEMENT. TECHNICAL DOCUMENTATION: JOB ID: [id number] [employer]- All Rights Reserved Reading location - IP/workstation name: [email or web address]
[2019-03-31] MEDS: RIVAROXABAN 10 MG TABLET PO SCH (17:50)
[2019-03-31] MEDS: TEMAZEPAM 15 MG CAPSULE PO PRN (20:26)
[2019-04-01] MEDS: MORPHINE SULFATE 10 MG/ML INJ IV PRN ×3 (00:35→20:38)
[2019-04-01] MEDS: PANTOPRAZOLE SODIUM 40 MG TABLET.DR PO SCH ×2 (05:37→17:18)
[2019-04-01] MEDS: INSULIN REG, HUMAN 100 UNIT/ML 3 ML VIAL (PYX) SUBCUT SCH ×4 (07:55→22:01)
[2019-04-01] MEDS: GLIPIZIDE 5 MG TABLET PO SCH ×2 (10:34→17:18)
[2019-04-01] MEDS: DOCUSATE SODIUM 100 MG CAPSULE PO SCH ×2 (10:35→17:32)
[2019-04-01] MEDS: FUROSEMIDE 20 MG TABLET PO SCH ×2 (10:35→17:18)
[2019-04-01] MEDS: METOPROLOL TARTRATE 50 MG TABLET PO SCH (10:35)
--- NOTE | 2019-04-01 12:38 | PDOC PROGRESS REPORT ---
Subjective Progress Note for:: 04/01/19 Subjective:: GENTRY MENDOZA is a 68 year old female who presents to the emergency room with a worsening wound of her leg. She admits a chronic left lower extremity wound with a chronic/recurrent infection for over 2 years. She states that for the last several days she has noted increasing redness and swelling with tenderness to palpation over the entire anterior tibial surface of her left lower leg. This prompted her to make a visit to the wound clinic and she was subsequently redirected to the ER for admission. She describes the pain as a constant, mild to moderate achiness of the left anterior lower leg without radiation. The pain is slightly increased with palpation and more significantly increased with walking. She has not identified any alleviating factors for her pain. She admits prior similar episodes on numerous occasions in the past related to venous stasis ulcers of her bilateral lower extremities. In the emergency room she was found to have significant erythema and edema of the left lower extremity and antibiotic therapy was initiated at the request of the wound care clinic. Patient was subsequently admitted to the hospital for further care. 03/29/2019. No acute events overnight. Patient complaining of bilateral lower extremity pain worse on the left side. Stating that she has been having chronic bilateral lower extremity ulcers worse on the left side for the last 20 years with extensive work-up. Patient does not want to involve surgery and does not want to have any surgeries at this point. Patient wants to continue medical care at this point. Patient denies any fever, chills, nausea, vomiting, diarrhea, constipation or any urinary symptoms. 03/30/2019. No acute events overnight. Patient stating that her bilateral lower extremity pain improving compared to yesterday, denies any fever, chills, nausea, vomiting, diarrhea, constipation or any urinary symptoms. Patient still adamant about not undergoing any surgery and does not want surgery to be consulted. She was advised that we will better if at least we consult Dr. Katarina Hess and she agreed to it. 03/31/2019. No acute events overnight, reporting moderate improvement of bilateral lower extremity pain, denies any fever, chills, nausea, vomiting, diarrhea, constipation or any urinary symptoms. Wound culture is positive for MRSA and MSSA. 04/01/2019. No acute events overnight. Reporting moderate improvement of bilateral lower extremity pain. Denies any fever, chills, nausea, vomiting, diarrhea, constipation or any urinary symptoms. Pending PT and vascular surgeon evaluation. Reason For Visit: CHRONIC WOUND INFECTIN,HYPERKALEMIA Physical Exam Vital Signs: Temp Pulse Resp BP Pulse Ox 97.7 F 80 18 174/77 H 99 04/01/19 12:07 04/01/19 12:07 04/01/19 12:07 04/01/19 12:07 04/01/19 12:07 Intake & Output 03/31/19 04/01/19 04/02/19 06:59 06:59 06:59 Intake Total 5534 3077 Output Total 2600 2925 Balance 2934 152 Weight 135.9 kg 165.4 kg General appearance: PRESENT: no acute distress, well-developed, well-nourished Head exam: PRESENT: atraumatic, normocephalic Respiratory exam: PRESENT: clear to auscultation dwayne. ABSENT: rales, rhonchi, wheezes Cardiovascular exam: PRESENT: RRR. ABSENT: diastolic murmur, rubs, systolic murmur GI/Abdominal exam: PRESENT: normal bowel sounds, soft. ABSENT: distended, guarding, mass, organolmegaly, rebound, tenderness Extremities exam: PRESENT: full ROM. ABSENT: calf tenderness, clubbing, pedal edema Neurological exam: PRESENT: alert, awake, oriented to person, oriented to place, oriented to time, oriented to situation, CN II-XII grossly intact. ABSENT: motor sensory deficit Skin exam: PRESENT: other - Left lower extremity below-knee anterior aspect several shallow ulcers, with granulation tissue, no active discharge. Results Laboratory Results: 03/31/19 04:51 03/31/19 04:51 03/29/19 10:54 Leg - Cellulitis Gram Stain - Final 03/29/19 10:54 Leg - Cellulitis Wound Culture - Final Mrsa (Meth Resis Staph Aureus) Staphylococcus Aureus Impressions: Tibia/Fibula X-Ray 03/28/19 20:14 IMPRESSION: 1. No acute fracture 2. No radiographic evidence for osteomyelitis 3. Severe chronic degenerative changes of the knee, grossly similar to the 07/27/2018 exam Chest X-Ray 03/31/19 13:00 IMPRESSION: NO PNEUMOTHORAX FOLLOWING CENTRAL LINE PLACEMENT. Assessment and Plan - Diagnosis (1) Infected stasis ulcer of left lower extremity Is this a current diagnosis for this admission?: Yes Plan: Improving. Due to MRSA/MSSA. Has established care as outpatient in the wound clinic. Received p.o. antibiotics which were not effective. Patient has had extensive bilateral lower extremity work-up and a skin graft from upper thigh to left lower extremity which has failed. Patient sees Dr. Katarina Hess vascular surgeon as outpatient. Patient does not want surgery to be involved. She does not want any surgery at this point. Day 5 IV antibiotics. Day 2 daptomycin. Day 3 IV vancomycin. DC vancomycin. Note: Wound cultures positive for MRSA/MSSA sensitive Bactrim, daptomycin and vancomycin only. Not a candidate for Bactrim and vancomycin due to worsening KLEBER. Switch to daptomycin. Received 1 dose of Zosyn on admission. Continue wound care, follow-up wound and blood culture. Dr. Katarina Hess consulted. Pending recommendations. (2) Chronic venous stasis dermatitis of both lower extremities Is this a current diagnosis for this admission?: Yes Plan: Patient had established care as outpatient in the wound clinic with Dr. Katarina Hess. Continue wound care, compression stockings, lower extremity elevation. Outpatient wound clinic follow-up. (3) Morbid obesity with BMI of 45.0-49.9, adult Is this a current diagnosis for this admission?: Yes Plan: Diet and lifestyle modification advised. (4) Diabetes mellitus type 2 in obese Is this a current diagnosis for this admission?: Yes Plan: Well controlled. A1c 6.9. Diabetic diet, sliding scale insulin, long-acting insulin, pre-meal insulin, Accu-Chek, hypoglycemia protocol. Adjust dosage as needed. Restart home meds upon discharge. Outpatient PCP follow-up. (5) Acute kidney injury superimposed on CKD Is this a current diagnosis for this admission?: Yes Plan: Likely due to vancomycin. Baseline 1.5. DC vancomycin 03/30/2019. BMP tomorrow. Monitor volume status and electrolytes. Replace as needed. If no improvement will consult nephrology. (6) Anemia Qualifiers: Anemia type: unspecified type Qualified Code(s): D64.9 - Anemia, unspecified Is this a current diagnosis for this admission?: Yes Plan: Likely combination of anemia of chronic disease and CKD. Denies any nosebleeds, hematemesis, hemoptysis, hematochezia, melena, hematuria, vaginal bleeding, easy bruising or any history of malignancy. 03/30/2019. Serum iron 36.9, TIBC 441, saturation 8, ferritin 9.95. Pending stool occult blood. If positive will consult GI/surgery for endoscopy/colonoscopy. Start on supplemental ferrous sulfate. Monitor H&H. (7) Hypertension Is this a current diagnosis for this admission?: Yes Plan: Not optimized. Switch metoprolol once daily to Coreg 12.5 mg p.o. twice daily. Increase Lasix to 20 mg p.o. twice daily. Monitor vitals, adjust meds as needed. Outpatient PCP follow-up.
[2019-04-01] MEDS: DAPTOMYCIN IV SCH (13:17)
[2019-04-01] MEDS: NORMAL SALINE IV SCH (13:17)
[2019-04-01] MEDS: RIVAROXABAN 10 MG TABLET PO SCH (17:18)
--- NOTE | 2019-04-01 18:37 | PDOC CONSULTATION ---
Consultation Consult Date: 04/01/19 Provider Consulted: NA MARTÍNEZ Consult reason:: Left leg ulcer, cellulitis. History of Present Illness Admission Date/PCP: 03/28/19 21:14 History of Present Illness: GENTRY MENDOZA is a 68 year old female Past Medical History Cardiac Medical History: Reports: Atrial Fibrillation, Hypertension Denies: DVT, Pulmonary Embolism Pulmonary Medical History: Denies: Asthma, Chronic Obstructive Pulmonary Disease (COPD) EENT Medical History: Denies: Cataracts, Ears - Hearing aids Neurological Medical History: Denies: Hemorrhagic CVA, Ischemic CVA, Multiple Sclerosis, Seizures Endocrine Medical History: Reports: Diabetes Mellitus Type 2, Obesity Denies: Diabetes Mellitus Type 1, Hyperthyroidism, Hypothyroidism Renal/ Medical History: Reports: Chronic Kidney Disease Denies: Nephrolithiasis Malignancy Medical History: Reports: Breast Cancer GI Medical History: Denies: Cirrhosis, Hepatitis Musculoskeltal Medical History: Denies: Arthritis, Gout Skin Medical History: Denies: Eczema, Psoriasis Psychiatric Medical History: Denies: Alcohol Dependency, Substance Abuse, Tobacco Dependency Traumatic Medical History: Reports: None Hematology: Denies: Anemia, Bleeding Tendencies Infectious Medical History: Reports: Methicillin-Resistant Staph Aureus - And a previous infection of a venous stasis ulcer requiring vancomycin Past Surgical History Past Surgical History: Reports: Other - Right lumpectomy and axillary lymph node dissection Social History Lives with: Spouse/Significant other Smoking Status: Never Smoker Number of Years Smokin Frequency of Alcohol Use: Occasional Hx Recreational Drug Use: No Drugs: None Hx Prescription Drug Abuse: No - Advance Directive Resuscitation Status: Full Code Family History Family History: DM, Malignancy, Other - Kidney disease. denies: CAD, Hypertension Parental Family History Reviewed: No Children Family History Reviewed: No Sibling(s) Family History Reviewed.: No Medication/Allergy Home Medications: Furosemide [Lasix 20 mg Tablet] 20 mg PO DAILY 03/28/19 Glipizide [Glocotrol 5 Mg Tablet] 5 mg PO Q12 03/28/19 Hydrocodone/Acetaminophen [[place] 5-325 mg Tablet] 1 tab PO Q8HP PRN 03/28/19 Metoprolol Tartrate [Lopressor] 50 mg PO DAILY 03/28/19 Rivaroxaban [Xarelto] 20 mg PO QPM 03/28/19 Allergies/Adverse Reactions: adhesive Allergy (Verified 03/29/19 01:43) bacitracin [From Neosporin ([id number])] Allergy (Verified 03/29/19 01:43) latex Allergy (Verified 03/29/19 01:43) neomycin [From Neosporin ([id number])] Allergy (Verified 03/29/19 01:43) polymyxin B [From Neosporin ([id number])] Allergy (Verified 03/29/19 01:43) sulfur dioxide Allergy (Verified 03/29/19 01:43) Physical Exam Vital Signs: Temp Pulse Resp BP Pulse Ox 97.7 F 82 18 174/77 H 99 04/01/19 12:07 04/01/19 14:00 04/01/19 12:07 04/01/19 12:07 04/01/19 12:07 Intake & Output 03/31/19 04/01/19 04/02/19 06:59 06:59 06:59 Intake Total 5534 3077 50 Output Total 2600 2925 Balance 2934 152 50 Weight 135.9 kg 165.4 kg Additional comments: Constitutional: Well-developed well-nourished lady, obese body habitus. No apparent acute distress. Eyes: Mucous membranes pink and moist, pupils equal and reactive to light. Co njunctiva normal. Cornea normal. Respiratory: Normal respiratory effort. Skin: Significant for stasis changes, hyperpigmentation, fragile skin and ulceration in the left leg. Psychiatric: Judgment, memory, insight seem normal. Mood is pleasant and appropriate. Extremities: Upper extremities show normal range of movement. Pulses present noted to the radial arteries. Capillary refill normal. No cyanosis noted. No muscle wasting noted. Lower extremities show Significant for stasis changes, hyperpigmentation, fragile skin and ulceration in the left leg. Results Laboratory Results: 03/31/19 04:51 03/31/19 04:51 Impressions: Tibia/Fibula X-Ray 03/28/19 20:14 IMPRESSION: 1. No acute fracture 2. No radiographic evidence for osteomyelitis 3. Severe chronic degenerative changes of the knee, grossly similar to the 07/27/2018 exam Chest X-Ray 03/31/19 13:00 IMPRESSION: NO PNEUMOTHORAX FOLLOWING CENTRAL LINE PLACEMENT. Assessment & Plan - Diagnosis (1) Infected stasis ulcer of left lower extremity Is this a current diagnosis for this admission?: Yes (2) Diabetes mellitus type 2 in obese Is this a current diagnosis for this admission?: Yes (3) Essential hypertension Is this a current diagnosis for this admission?: Yes (4) Morbid obesity with BMI of 40.0-44.9, adult Is this a current diagnosis for this admission?: Yes - Plan Summary Plan Summary: This patient is well-known to me she is being treated at the wound clinic for ch ronic stasis dermatitis in the left lower extremity. She has been hospitalized for cellulitis which is recurrent. At this point her wounds actually seem much better than I have noted in some time. I would continue existing treatment which is topical application of Xeroform. I would add use of sequential compression devices. Leg elevation while seated or in bed. Little evidence of cellulitis remains locally and I defer to the primary physicians. I believe she can be discharged whenever her parameters white blood cell count and so forth are adequately controlled. At home she will resume her normal regime of compression and dressings at the wound clinic and by an home health.
[2019-04-01] MEDS: CARVEDILOL 6.25 MG TABLET PO SCH (22:01)
[2019-04-02] MEDS: MORPHINE SULFATE 10 MG/ML INJ IV PRN (05:30)
[2019-04-02] MEDS: PANTOPRAZOLE SODIUM 40 MG TABLET.DR PO SCH (05:31)
[2019-04-02] MEDS ORDERED: DIPHENHYDRAMINE HCL 25 MG CAPSULE PO PRN (05:59)
[2019-04-02 06:05] LABS: ABSOLUTE EOSINOPHILS # (AUTO) 0.2 10^3/uL (0.0-0.6); ABSOLUTE LYMPHOCYTES (AUTO) 0.6 10^3/uL (0.5-4.7); ABSOLUTE MONOCYTES (AUTO) 0.5 10^3/uL (0.1-1.4); ABSOLUTE NEUT (AUTO) 3.2 10^3/uL (1.7-8.2); BASOPHILS % (AUTO) 1.1 % (0-2); EOSINOPHILS % (AUTO) 4.1 % (0-6); HEMATOCRIT 33.8 % (36.0-47.0); HEMOGLOBIN 10.6 g/dL (12.0-15.5); LYMPHOCYTES % (AUTO) 13.5 % (13-45); MEAN CORPUSCULAR HEMOGLOBIN 24.5 pg (27.0-33.4); MEAN CORPUSCULAR HGB CONC 31.4 g/dL (32.0-36.0); MEAN CORPUSCULAR VOLUME 78 fl (80-97); MONOCYTES % (AUTO) 11.6 % (3-13); PLATELET COUNT 184 10^3/uL (150-450); RED BLOOD COUNT 4.33 10^6/uL (3.72-5.28); RED CELL DISTRIBUTION WIDTH 18.8 % (11.5-14.0); SEGMENTED NEUTROPHILS % (AUTO) 69.7 % (42-78); TOTAL CELLS COUNTED % (AUTO) 100 %; WHITE BLOOD COUNT 4.5 10^3/uL (4.0-10.5)
[2019-04-02 06:28] LABS: ALANINE AMINOTRANSFERASE 22 U/L (9-52); ALBUMIN 2.9 g/dL (3.5-5.0); ALKALINE PHOSPHATASE 85 U/L (38-126); ASPARTATE AMINO TRANSFERASE 21 U/L (14-36); BILIRUBIN,DIRECT 0.2 mg/dL (0.0-0.4); BILIRUBIN,TOTAL 0.7 mg/dL (0.2-1.3); BLOOD UREA NITROGEN 23 mg/dL (7-20); CALCIUM 9.7 mg/dL (8.4-10.2); CARBON DIOXIDE 27 mmol/L (22-30); GLUCOSE 112 mg/dL (75-110); POTASSIUM 4.2 mmol/L (3.6-5.0)
[2019-04-02 06:40] LABS: ANION GAP 6 (5-19); CHLORIDE 105 mmol/L (98-107)
[2019-04-02] MEDS: INSULIN REG, HUMAN 100 UNIT/ML 3 ML VIAL (PYX) SUBCUT SCH ×2 (07:33→12:21)
[2019-04-02] MEDS: GLIPIZIDE 5 MG TABLET PO SCH (09:41)
[2019-04-02] MEDS: DOCUSATE SODIUM 100 MG CAPSULE PO SCH (09:41)
[2019-04-02] MEDS: FUROSEMIDE 20 MG TABLET PO SCH (09:42)
[2019-04-02] MEDS: CARVEDILOL 6.25 MG TABLET PO SCH (09:42)
[2019-04-02] MEDS: DAPTOMYCIN IV SCH (11:46)
[2019-04-02] MEDS: NORMAL SALINE IV SCH (11:46)
[2019-04-02] MEDS ORDERED: AMLODIPINE BESYLATE 5 MG TABLET PO ONE (12:00)
[2019-04-02 12:44] VITALS: BP 136/74
--- NOTE | 2019-04-02 13:56 | PDOC DISCHARGE SUMMARY ---
General - Admit/Disc Date/PCP Admission Date/Primary Care Provider: 03/28/19 21:14 Discharge Date: 04/02/19 - Discharge Diagnosis (1) Infected stasis ulcer of left lower extremity Is this a current diagnosis for this admission?: Yes (2) Chronic venous stasis dermatitis of both lower extremities Is this a current diagnosis for this admission?: Yes (3) Morbid obesity with BMI of 45.0-49.9, adult Is this a current diagnosis for this admission?: Yes (4) Diabetes mellitus type 2 in obese Is this a current diagnosis for this admission?: Yes (5) Acute kidney injury superimposed on CKD Is this a current diagnosis for this admission?: Yes (6) Anemia Is this a current diagnosis for this admission?: Yes (7) Hypertension Is this a current diagnosis for this admission?: Yes - Additional Information Resuscitation Status: Full Code Discharge Diet: Diabetic Discharge Activity: Activity As Tolerated, Balance Activity w/Rest, Keep Legs Elevated Prescriptions: Amlodipine Besylate [Norvasc 2.5 mg Tablet] 2.5 mg PO DAILY 30 Days #30 tablet Metoprolol Tartrate [Lopressor] 50 mg PO BID 30 Days #60 tablet Home Medications: Furosemide [Lasix 20 mg Tablet] 20 mg PO DAILY 03/28/19 Glipizide [Glucotrol 5 mg Tablet] 5 mg PO Q12 03/28/19 Hydrocodone/Acetaminophen [[place] 5-325 mg Tablet] 1 tab PO Q8HP PRN 03/28/19 Rivaroxaban [Xarelto] 20 mg PO QPM 03/28/19 Amlodipine Besylate [Norvasc 2.5 mg Tablet] 2.5 mg PO DAILY 30 Days #30 tablet 04/02/19 Metoprolol Tartrate [Lopressor] 50 mg PO BID 30 Days #60 tablet 04/02/19 History of Present Illness History of Present Illness: GENTRY MENDOZA is a 68 year old female who presents to the emergency room with a worsening wound of her leg. She admits a chronic left lower extremity wound with a chronic/recurrent infection for over 2 years. She states that for the last several days she has noted increasing redness and swelling with tenderness to palpation over the entire anterior tibial surface of her left lower leg. This prompted her to make a visit to the wound clinic and she was subsequently redirected to the ER for admission. She describes the pain as a constant, mild to moderate achiness of the left anterior lower leg without radiation. The pain is slightly increased with palpation and more significantly increased with walking. She has not identified any alleviating factors for her pain. She admits prior similar episodes on numerous occasions in the past related to venous stasis ulcers of her bilateral lower extremities. In the emergency room she was found to have significant erythema and edema of the left lower extremity and antibiotic therapy was initiated at the request of the wound care clinic. Patient was subsequently admitted to the hospital for further care. Hospital Course Hospital Course: (1) Infected stasis ulcer of left lower extremity Significant improvement. Wound culture positive for MRSA/MSSA. Has established care as outpatient in the wound clinic. Received p.o. antibiotics which were not effective. Patient has had extensive bilateral lower extremity work-up and a skin graft from upper thigh to left lower extremity which has failed. Patient sees Dr. Katarina Hess vascular surgeon as outpatient. Patient does not want surgery to be involved. She does not want any surgery at this point. Received 6 days of IV antibiotics. Received 3 days of daptomycin. Received 3 days of IV vancomycin. It had to be stopped due to worsening renal function. Received 1 dose of Zosyn on admission. Note: Wound cultures positive for MRSA/MSSA sensitive Bactrim, daptomycin and vancomycin only. Not a candidate for Bactrim and vancomycin due to worsening KLEBER. Switched to daptomycin. Dr. Katarina Hess consulted saw the patient and commended follow-up as outpatient. Refer to note. (2) Chronic venous stasis dermatitis of both lower extremities Patient had established care as outpatient in the wound clinic with Dr. Katarina Hess. Continue wound care, compression stockings, lower extremity elevation. Outpatient wound clinic follow-up. (3) Morbid obesity with BMI of 45.0-49.9, adult Diet and lifestyle modification advised. (4) Diabetes mellitus type 2 in obese Well controlled. A1c 6.9. Diabetic diet, sliding scale insulin, long-acting insulin, pre-meal insulin, Accu-Chek, hypoglycemia protocol. Adjust dosage as needed. Asked to restart home meds upon discharge. Follow-up with PCP. (5) Acute kidney injury superimposed on CKD Likely due to vancomycin. Baseline 1.5. DC vancomycin 03/30/2019. BMP tomorrow. Monitor volume status and electrolytes. Replace as needed. If no improvement will consult nephrology. (6) Anemia Likely combination of anemia of chronic disease and CKD. Denied any nosebleeds, hematemesis, hemoptysis, hematochezia, melena, hematuria, vaginal bleeding, easy bruising or any history of malignancy. 03/30/2019. Serum iron 36.9, TIBC 441, saturation 8, ferritin 9.95. H&H remained stable. Stool guaiac ordered unfortunately not done. As per primary nurse had a bowel movement last night and was not collected. Has not had a bowel movement today. (7) Hypertension Not optimized. Increased metoprolol to 50 mg bid and added amlodipine 2.5 mg p.o. daily. Increase Lasix to 20 mg p.o. twice daily. Monitor vitals, adjust meds as needed. Outpatient PCP follow-up. Discharged on metoprolol 50 mg p.o. twice daily, amlodipine 2.5 mg p.o. daily, Lasix 20 mg p.o. daily. (8) A. fib RVR Rate controlled and anticoagulated with Xarelto. Discharged on metoprolol 50 mg p.o. twice daily and Xarelto. Physical Exam Vital Signs: Temp Pulse Resp BP Pulse Ox 97.6 F 76 20 136/74 H 98 04/02/19 12:40 04/02/19 12:40 04/02/19 12:40 04/02/19 12:40 04/02/19 12:40 Intake & Output 04/01/19 04/02/19 04/03/19 06:59 06:59 06:59 Intake Total 3077 1680 290 Output Total 2925 2600 900 Balance 152 -920 -610 Weight 165.4 kg 167.9 kg General appearance: PRESENT: obese Head exam: PRESENT: atraumatic, normocephalic Respiratory exam: PRESENT: clear to auscultation dwayne. ABSENT: rales, rhonchi, wheezes Cardiovascular exam: PRESENT: RRR. ABSENT: diastolic murmur, rubs, systolic murmur GI/Abdominal exam: PRESENT: normal bowel sounds, soft. ABSENT: distended, guarding, mass, organolmegaly, rebound, tenderness Extremities exam: PRESENT: full ROM. ABSENT: calf tenderness, clubbing, pedal edema Musculoskeletal exam: PRESENT: other - Left lower extremity below-knee anterior aspect multiple shallow ulcers, clean noninfected. Neurological exam: PRESENT: alert, awake, oriented to person, oriented to place, oriented to time, oriented to situation, CN II-XII grossly intact. ABSENT: motor sensory deficit Results Laboratory Results: 04/02/19 05:50 04/02/19 05:50 04/02/19 04/02/19 05:50 05:50 WBC 4.5 RBC 4.33 Hgb 10.6 L Hct 33.8 L MCV 78 L MCH 24.5 L MCHC 31.4 L RDW 18.8 H Plt Count 184 Seg Neutrophils % 69.7 Lymphocytes % 13.5 Monocytes % 11.6 Eosinophils % 4.1 Basophils % 1.1 Absolute Neutrophils 3.2 Absolute Lymphocytes 0.6 Absolute Monocytes 0.5 Absolute Eosinophils 0.2 Absolute Basophils 0.0 Sodium 138.2 Potassium 4.2 Chloride 105 Carbon Dioxide 27 Anion Gap 6 BUN 23 H Creatinine 1.38 H Est GFR ( Amer) 46 L Est GFR (Non-Af Amer) 38 L Glucose 112 H Calcium 9.7 Total Bilirubin 0.7 AST 21 ALT 22 Alkaline Phosphatase 85 Total Protein 6.0 L Albumin 2.9 L Impressions: Tibia/Fibula X-Ray 03/28/19 20:14 IMPRESSION: 1. No acute fracture 2. No radiographic evidence for osteomyelitis 3. Severe chronic degenerative changes of the knee, grossly similar to the 07/27/2018 exam Chest X-Ray 03/31/19 13:00 IMPRESSION: NO PNEUMOTHORAX FOLLOWING CENTRAL LINE PLACEMENT. Qualifiers - * PATIENT BEING DISCHARGED WITH ANY OF THE FOLLOWING DIAGNOSIS: No Acute Heart Failure - Is this a Heart Failure Patient?: No
[2019-04-02] MEDS ORDERED: METOPROLOL TARTRATE 50 MG TABLET PO SCH (22:00)
--- NOTE | 2019-05-15 17:35 | OPERATIVE REPORT E ---
Operative Report NAME: GENTRY MENDOZA : 1950 AGE: 68Y DATE OF SURGERY: 03/31/2019 ROOM: 403 OPERATION: PLACEMENT OF CENTRAL LINE. SURGEON: XIN MELTNO M.D. ANESTHESIA: Local. INDICATION: This is a 68-year-old female, admitted for infected wounds of the lower extremities, and needed IV antibiotics. She has poor peripheral veins for IV access, and I was requested to place a central line on 03/31/2019. PROCEDURE: The patient was placed in Trendelenburg position and left internal jugular vein identified with ultrasound. The left neck was subsequently prepped and draped in the usual sterile fashion. Local anesthesia infiltrated along the side of the internal jugular vein. Again with the use of the ultrasound, the left internal jugular vein was subsequently punctured percutaneously, and fluid aspirated was dark blood and nonpulsatile. Guidewire passed through the needle toward the area of the superior vena cava, and the needle was removed and the puncture site dilated, and a triple lumen catheter inserted through the guidewire to a distance of about 18 cm. The guidewire was removed and all three ports aspirated blood easily. The catheter was then anchored to the skin with 3-0 silk. Biopatch placed at the insertion site and a transparent dressing placed around the Biopatch and catheter. Chest x-ray was then obtained, which showed good position of the catheter in the cavoatrial area and no evidence of pneumothorax. The patient tolerated the procedure well. DICTATING PHYSICIAN: XIN MELTON M.D. [id number] PHY#: [id number] ID: [id number] JOB#: [id number] ACCT: [id number] cc:XIN MELTON M.D. >
== END 2019-04-02 15:28 | disposition home or self-care (01) | DRG 300 ==
LOC: ER 16:15 → EH 21:14 → 4N 22:48
PROVIDERS: ADMIT Emergency Medicine; ATTEND Emergency Medicine
PROC: 02HV33Z Insertion of Infusion Device into Superior Vena Cava, Percutaneous Approach (ICD-10-PCS; principal; 2019-03-31)
PROC: B548ZZA Ultrasonography of Superior Vena Cava, Guidance (ICD-10-PCS; 2019-03-31)
DX: I87.332 Chronic venous hypertension (idiopathic) with ulcer and inflammation of left lower extremity (principal); L97.829 Non-pressure chronic ulcer of other part of left lower leg with unspecified severity; Z68.42 Body mass index [BMI] 45.0-49.9, adult; N17.9 Acute kidney failure, unspecified; L97.828 Non-pressure chronic ulcer of other part of left lower leg with other specified severity; L03.116 Cellulitis of left lower limb; E11.622 Type 2 diabetes mellitus with other skin ulcer; E66.01 Morbid (severe) obesity due to excess calories; B95.62 Methicillin resistant Staphylococcus aureus infection as the cause of diseases classified elsewhere; E11.22 Type 2 diabetes mellitus with diabetic chronic kidney disease; I12.9 Hypertensive chronic kidney disease with stage 1 through stage 4 chronic kidney disease, or unspecified chronic kidney disease; N18.9 Chronic kidney disease, unspecified; I48.91 Unspecified atrial fibrillation; I87.2 Venous insufficiency (chronic) (peripheral); N18.3 Chronic kidney disease, stage 3 (moderate); E87.5 Hyperkalemia; D63.1 Anemia in chronic kidney disease; Z79.02 Long term (current) use of antithrombotics/antiplatelets; Z79.84 Long term (current) use of oral hypoglycemic drugs; Z88.1 Allergy status to other antibiotic agents; Z88.8 Allergy status to other drugs, medicaments and biological substances; Z91.040 Latex allergy status
CPT/HCPCS: 11042; 11045; 36415; 71045; 80048; 80053; 82607; 82728; 82746; 82962; 83036; 83540; 83550; 83605; 83735; 84132; 84439; 84443; 84481; 85025; 85027; 85045; 85652; 86140; 87040; 87070; 87077; 87186; 87205; 93005; 93010; 96374; 96375; 99284; C1751; J0610; J0878; J1815; J2270; J2543; J3370; J3490; J7030; J7050; J7060

== ENCOUNTER → 2019-04-25 | Outpatient (CLI) | payer MEDICARE, OTHER ==
[2019-04-25 15:27] LABS: ABSOLUTE EOSINOPHILS # (AUTO) 0.2 10^3/uL (0.0-0.6); ABSOLUTE LYMPHOCYTES (AUTO) 0.8 10^3/uL (0.5-4.7); ABSOLUTE MONOCYTES (AUTO) 0.7 10^3/uL (0.1-1.4); ABSOLUTE NEUT (AUTO) 5.6 10^3/uL (1.7-8.2); BASOPHILS % (AUTO) 0.6 % (0-2); EOSINOPHILS % (AUTO) 2.3 % (0-6); HEMATOCRIT 36.2 % (36.0-47.0); HEMOGLOBIN 11.2 g/dL (12.0-15.5); LYMPHOCYTES % (AUTO) 10.9 % (13-45); MEAN CORPUSCULAR HEMOGLOBIN 24.4 pg (27.0-33.4); MEAN CORPUSCULAR HGB CONC 30.9 g/dL (32.0-36.0); MEAN CORPUSCULAR VOLUME 79 fl (80-97); MONOCYTES % (AUTO) 9.7 % (3-13); PLATELET COUNT 244 10^3/uL (150-450); RED CELL DISTRIBUTION WIDTH 18.2 % (11.5-14.0); SEGMENTED NEUTROPHILS % (AUTO) 76.5 % (42-78); TOTAL CELLS COUNTED % (AUTO) 100 %; WHITE BLOOD COUNT 7.4 10^3/uL (4.0-10.5)
[2019-04-25 15:48] LABS: ALANINE AMINOTRANSFERASE 19 U/L (9-52); ALBUMIN 3.6 g/dL (3.5-5.0); ALKALINE PHOSPHATASE 103 U/L (38-126); ANION GAP 8 (5-19); ASPARTATE AMINO TRANSFERASE 21 U/L (14-36); BILIRUBIN,DIRECT 0.3 mg/dL (0.0-0.4); BILIRUBIN,TOTAL 0.5 mg/dL (0.2-1.3); BLOOD UREA NITROGEN 32 mg/dL (7-20); C-REACTIVE PROTEIN 25.5 mg/L (<10.0); CALCIUM 10.1 mg/dL (8.4-10.2); CARBON DIOXIDE 26 mmol/L (22-30); CHLORIDE 106 mmol/L (98-107); GLUCOSE 167 mg/dL (75-110); POTASSIUM 4.9 mmol/L (3.6-5.0); TOTAL PROTEIN 7.1 g/dL (6.3-8.2)
[2019-04-25 16:05] LABS: ERYTHROCYTE SEDIMENTATION RATE 51 mm/hr (0-30)
== END ==
LOC: WC 14:54
PROVIDERS: ATTEND Nurse Practitioner Family
DX: L97.222 Non-pressure chronic ulcer of left calf with fat layer exposed (principal)
CPT/HCPCS: 36415; 80053; 85025; 85652; 86140

== ENCOUNTER → 2019-06-28 | Outpatient (CLI) | payer MEDICARE, OTHER | LOC: SP 09:53 | PROVIDERS: ATTEND Surgery | DX: L97.522 Non-pressure chronic ulcer of other part of left foot with fat layer exposed (principal) | CPT/HCPCS: 93925; 93970 ==

== ENCOUNTER → 2019-07-07 | Outpatient (CLI) | payer MEDICARE, OTHER ==
--- NOTE | 2019-07-07 14:31 | RADIOLOGY REPORT (SQ) ---
EXAM DESCRIPTION: TIBIA FIBULA LEFT COMPLETED DATE/TIME: 07/07/2019 2:17 pm REASON FOR STUDY: NON-PRESSURE CHRONIC ULCER OF LEFT CALF W FAT LAYER EXPOSED L97.222 NON-PRESSURE CHRONIC ULCER OF LEFT CALF W FAT LAYER E11.622 TYPE 2 DIABETES MELLITUS WITH OTHER SKIN ULCER COMPARISON: None. NUMBER OF VIEWS: Two views. TECHNIQUE: Two radiographic images acquired of the left tibia and fibula to include the knee and ank le in at least one projection. LIMITATIONS: None. FINDINGS: MINERALIZATION: Normal. BONES: There is smooth subperiosteal new bone in the mid to distal fibula and tibia. There is no bon e destruction. SOFT TISSUES: No obvious swelling or foreign body. OTHER: No other significant finding. IMPRESSION: There is benign-appearing subperiosteal new bone in the distal tibia and fibula. Consid er three-phase bone scan for further evaluation. There is no evidence of osteomyelitis. TECHNICAL DOCUMENTATION: JOB ID: [id number] [employer]- All Rights Reserved Reading location - IP/workstation name: [email or web address]
[2019-07-07 14:35] LABS: ABSOLUTE EOSINOPHILS # (AUTO) 0.2 10^3/uL (0.0-0.6); ABSOLUTE LYMPHOCYTES (AUTO) 0.8 10^3/uL (0.5-4.7); ABSOLUTE MONOCYTES (AUTO) 0.5 10^3/uL (0.1-1.4); ABSOLUTE NEUT (AUTO) 4.1 10^3/uL (1.7-8.2); BASOPHILS % (AUTO) 0.8 % (0-2); EOSINOPHILS % (AUTO) 3.1 % (0-6); HEMATOCRIT 35.8 % (36.0-47.0); HEMOGLOBIN 11.1 g/dL (12.0-15.5); LYMPHOCYTES % (AUTO) 13.8 % (13-45); MEAN CORPUSCULAR HEMOGLOBIN 23.7 pg (27.0-33.4); MEAN CORPUSCULAR VOLUME 77 fl (80-97); MONOCYTES % (AUTO) 9.1 % (3-13); PLATELET COUNT 238 10^3/uL (150-450); RED BLOOD COUNT 4.68 10^6/uL (3.72-5.28); RED CELL DISTRIBUTION WIDTH 17.9 % (11.5-14.0); SEGMENTED NEUTROPHILS % (AUTO) 73.2 % (42-78); TOTAL CELLS COUNTED % (AUTO) 100 %; WHITE BLOOD COUNT 5.6 10^3/uL (4.0-10.5)
[2019-07-07 14:55] LABS: ALBUMIN 3.4 g/dL (3.5-5.0); ALKALINE PHOSPHATASE 79 U/L (38-126); ANION GAP 8 (5-19); ASPARTATE AMINO TRANSFERASE 19 U/L (14-36); BILIRUBIN,DIRECT 0.2 mg/dL (0.0-0.4); BILIRUBIN,TOTAL 0.6 mg/dL (0.2-1.3); BLOOD UREA NITROGEN 25 mg/dL (7-20); CALCIUM 10.5 mg/dL (8.4-10.2); CARBON DIOXIDE 28 mmol/L (22-30); CHLORIDE 103 mmol/L (98-107); GLUCOSE 162 mg/dL (75-110); POTASSIUM 4.9 mmol/L (3.6-5.0); TOTAL PROTEIN 6.9 g/dL (6.3-8.2)
[2019-07-07 15:28] LABS: ERYTHROCYTE SEDIMENTATION RATE 38 mm/hr (0-30)
== END ==
LOC: WC 13:44
PROVIDERS: ATTEND Surgery
DX: E11.622 Type 2 diabetes mellitus with other skin ulcer (principal); L97.222 Non-pressure chronic ulcer of left calf with fat layer exposed
CPT/HCPCS: 36415; 80053; 83036; 85025; 85652; 86140

== ENCOUNTER → 2019-08-02 | Outpatient (CLI) | payer MEDICARE, OTHER ==
--- NOTE | 2019-08-02 15:50 | RADIOLOGY REPORT (SQ) ---
EXAM DESCRIPTION: NM 3 PHASE BONE SCAN COMPLETED DATE/TIME: 08/02/2019 12:43 pm REASON FOR STUDY: (L97.222)NON-PRESSURE CHRONIC ULCER OF LEFT CALF W FAT LAYER EXPOSED L97.222 NON- PRESSURE CHRONIC ULCER OF LEFT CALF W FAT LAYER COMPARISON: No available imaging studies for comparison. RADIONUCLIDE AND DOSE: 21.8 millicuries Tc99m HDP. The route of agent administration: Intravenous. ADDITIONAL DRUGS AND DOSES: None. TECHNIQUE: Following injection of the radiopharmaceutical, serial blood flow images acquired. Equil ibrium blood pool images then acquired. Routine delayed images at 3 hour acquired of the areas of cl inical concern with additional focused images as needed. AREA OF INTEREST: Legs LIMITATIONS: Patient refused whole-body scan. Imaging was obtained of the lower legs FINDINGS: VASCULAR FLOW IMAGES: Asymmetric area of increased blood flow noted within the left lower extremity. BLOOD POOL IMAGES: Blood pool images demonstrate asymmetrically increased uptake within the soft tiss ues of the left lower leg. BONES: Increased uptake at the knees and feet bilaterally in a pattern most suggestive of degenerativ e change. There is additional diffuse uptake noted on the delayed images in the tibia and midfoot on the left. KIDNEYS: Not imaged OTHER: No other significant finding. IMPRESSION: 1. Asymmetric increased uptake within the flow and blood pool images of the left lower extremity compatible with hyperemia and likely corresponding to known ulceration. 2. Delayed images demonstrate mild diffuse increased uptake within the left distal tib-fib likely co rresponding to known periosteal reaction and likely reactive. COMMENT: Quality measure 147: Current bone scan is compared with any available plain radiographs, p rior bone scans, and CT/MRI. TECHNICAL DOCUMENTATION: JOB ID: [id number] [employer]- All Rights Reserved Reading location - IP/workstation name: [email or web address]
== END ==
LOC: RAD 08:30
PROVIDERS: ATTEND Nurse Practitioner Family
DX: L97.222 Non-pressure chronic ulcer of left calf with fat layer exposed (principal)
CPT/HCPCS: 78315; A9561; Q9969

== ENCOUNTER → 2019-08-30 | Outpatient (CLI) | payer MEDICARE, OTHER ==
[2019-08-30 13:48] LABS: ABSOLUTE BASOPHILS # (AUTO) 0.1 10^3/uL (0.0-0.2); ABSOLUTE EOSINOPHILS # (AUTO) 0.2 10^3/uL (0.0-0.6); ABSOLUTE LYMPHOCYTES (AUTO) 0.6 10^3/uL (0.5-4.7); ABSOLUTE MONOCYTES (AUTO) 0.4 10^3/uL (0.1-1.4); ABSOLUTE NEUT (AUTO) 3.7 10^3/uL (1.7-8.2); BASOPHILS % (AUTO) 1.1 % (0-2); HEMATOCRIT 34.2 % (36.0-47.0); HEMOGLOBIN 10.6 g/dL (12.0-15.5); LYMPHOCYTES % (AUTO) 12.7 % (13-45); MEAN CORPUSCULAR HEMOGLOBIN 24.1 pg (27.0-33.4); MEAN CORPUSCULAR HGB CONC 30.9 g/dL (32.0-36.0); MEAN CORPUSCULAR VOLUME 78 fl (80-97); MONOCYTES % (AUTO) 8.5 % (3-13); PLATELET COUNT 215 10^3/uL (150-450); RED BLOOD COUNT 4.39 10^6/uL (3.72-5.28); RED CELL DISTRIBUTION WIDTH 17.3 % (11.5-14.0); SEGMENTED NEUTROPHILS % (AUTO) 73.7 % (42-78); TOTAL CELLS COUNTED % (AUTO) 100 %
[2019-08-30 14:18] LABS: ALBUMIN 3.2 g/dL (3.5-5.0); ALKALINE PHOSPHATASE 77 U/L (38-126); ANION GAP 9 (5-19); ASPARTATE AMINO TRANSFERASE 19 U/L (14-36); BILIRUBIN,DIRECT 0.1 mg/dL (0.0-0.4); BILIRUBIN,TOTAL 0.4 mg/dL (0.2-1.3); BLOOD UREA NITROGEN 32 mg/dL (7-20); C-REACTIVE PROTEIN 23.4 mg/L (<10.0); CALCIUM 9.9 mg/dL (8.4-10.2); CARBON DIOXIDE 26 mmol/L (22-30); CHLORIDE 104 mmol/L (98-107); GLUCOSE 202 mg/dL (75-110); POTASSIUM 4.5 mmol/L (3.6-5.0); TOTAL PROTEIN 6.5 g/dL (6.3-8.2)
[2019-08-30 14:35] LABS: ERYTHROCYTE SEDIMENTATION RATE 42 mm/hr (0-30)
== END ==
LOC: OD 12:01
PROVIDERS: ATTEND Preventive Medicine Undersea and Hyperbaric Medicine
DX: L97.222 Non-pressure chronic ulcer of left calf with fat layer exposed (principal)
CPT/HCPCS: 36415; 80053; 85025; 85652; 86140

== ENCOUNTER 2019-10-11 14:22 | Inpatient (IN) | payer MEDICARE, OTHER ==
--- NOTE | 2019-10-11 16:42 | ER Document Report ---
ED Medical Screen (RME) - General Chief Complaint: Leg Pain Stated Complaint: LEFT LEG PAIN Time Seen by Provider: 10/11/19 16:36 Primary Care Provider: STEVENSON RAMOS DPM [Primary Care Provider] - Follow up as needed Mode of Arrival: Wheelchair Information source: Patient Notes: 69-year-old female with history of diabetes and leg sore for over a year presents emergency department for worsening wound. She reports she was at the wound care center and they sent her over here. She reports area has increased in redness and the wound is deeper. Denies fever vomiting. Reports the wound started after she tripped and fell on her leg and had a rug burn on the carpet. I have greeted and performed a rapid initial assessment of this patient. A comprehensive ED assessment and evaluation of the patient, analysis of test results and completion of the medical decision making process will be conducted by additional ED providers. TRAVEL OUTSIDE OF THE [place] IN LAST 30 DAYS: No - Related Data Allergies/Adverse Reactions: adhesive Allergy (Verified 03/29/19 01:43) bacitracin [From Neosporin ([id number])] Allergy (Verified 03/29/19 01:43) latex Allergy (Verified 03/29/19 01:43) neomycin [From Neosporin ([id number]-[id number])] Allergy (Verified 03/29/19 01:43) polymyxin B [From Neosporin ([id number]-sxb-beoeu)] Allergy (Verified 03/29/19 01:43) sulfur dioxide Allergy (Verified 03/29/19 01:43) Past Medical History - Past Medical History Cardiac Medical History: Reports: Hx Atrial Fibrillation, Hx Hypertension Denies: Hx DVT, Hx Pulmonary Embolism Pulmonary Medical History: Denies: Hx Asthma, Hx COPD Neurological Medical History: Denies: Hx Seizures Endocrine Medical History: Reports: Hx Diabetes Mellitus Type 2. Denies: Hx Diabetes Mellitus Type 1, Hx Hyperthyroidism, Hx Hypothyroidism Renal/ Medical History: Denies: Hx Peritoneal Dialysis Malignancy Medical History: Reports: Hx Breast Cancer GI Medical History: Denies: Hx Cirrhosis, Hx Hepatitis Musculoskeltal Medical History: Denies Hx Arthritis, Denies Hx Gout Skin Medical History: Denies Hx Eczema, Denies Hx Psoriasis Infectious Medical History: Reports: Hx MRSA - And a previous infection of a venous stasis ulcer requiring vancomycin. Denies: Hx Hepatitis Past Surgical History: Reports: Other - Right lumpectomy and axillary lymph node dissection Physical Exam - Vital signs Vitals: Temp Pulse Resp BP Pulse Ox 97.9 F 78 18 123/72 97 10/11/19 16:13 10/11/19 16:13 10/11/19 16:13 10/11/19 16:13 10/11/19 16:13 Course - Vital Signs Vital signs: Temp Pulse Resp BP Pulse Ox 97.9 F 78 18 123/72 97 10/11/19 16:13 10/11/19 16:13 10/11/19 16:13 10/11/19 16:13 10/11/19 16:13 Doctor's Discharge - Discharge Referrals: STEVENSON RAMOS DPM [Primary Care Provider] - Follow up as needed
[2019-10-11] MEDS ORDERED: OXYCODONE-ACETAMINOPHEN 5-325 MG TABLET PO ONE (16:43)
--- NOTE | 2019-10-11 17:49 | RADIOLOGY REPORT (SQ) ---
EXAM DESCRIPTION: TIBIA FIBULA LEFT COMPLETED DATE/TIME: 10/11/2019 5:16 pm REASON FOR STUDY: infection COMPARISON: None. NUMBER OF VIEWS: Two views. TECHNIQUE: Two radiographic images acquired of the left tibia and fibula to include the knee and ank le in at least one projection. LIMITATIONS: None. FINDINGS: MINERALIZATION: Normal. BONES: No fracture dislocation. There is some smooth subperiosteal new bone in the tibia. There is some slightly irregular subperiosteal new bone in the fibula. SOFT TISSUES: No obvious swelling or foreign body. OTHER: No other significant finding. IMPRESSION: Cannot exclude osteomyelitis in the fibula. TECHNICAL DOCUMENTATION: JOB ID: [id number] [employer]- All Rights Reserved Reading location - IP/workstation name: [email or web address]
[2019-10-11 18:27] LABS: ABSOLUTE BASOPHILS # (AUTO) 0.1 10^3/uL (0.0-0.2); ABSOLUTE EOSINOPHILS # (AUTO) 0.4 10^3/uL (0.0-0.6); ABSOLUTE LYMPHOCYTES (AUTO) 0.9 10^3/uL (0.5-4.7); ABSOLUTE MONOCYTES (AUTO) 0.6 10^3/uL (0.1-1.4); ABSOLUTE NEUT (AUTO) 5.5 10^3/uL (1.7-8.2); BASOPHILS % (AUTO) 1.4 % (0-2); EOSINOPHILS % (AUTO) 4.7 % (0-6); HEMATOCRIT 32.7 % (36.0-47.0); HEMOGLOBIN 10.1 g/dL (12.0-15.5); LYMPHOCYTES % (AUTO) 12.4 % (13-45); MEAN CORPUSCULAR HEMOGLOBIN 24.2 pg (27.0-33.4); MEAN CORPUSCULAR HGB CONC 30.9 g/dL (32.0-36.0); MEAN CORPUSCULAR VOLUME 78 fl (80-97); MONOCYTES % (AUTO) 7.4 % (3-13); PLATELET COUNT 337 10^3/uL (150-450); RED BLOOD COUNT 4.19 10^6/uL (3.72-5.28); RED CELL DISTRIBUTION WIDTH 17.5 % (11.5-14.0); SEGMENTED NEUTROPHILS % (AUTO) 74.1 % (42-78); TOTAL CELLS COUNTED % (AUTO) 100 %; WHITE BLOOD COUNT 7.5 10^3/uL (4.0-10.5)
[2019-10-11 18:46] LABS: ALBUMIN 3.2 g/dL (3.5-5.0); ALKALINE PHOSPHATASE 113 U/L (38-126); ANION GAP 9 (5-19); ASPARTATE AMINO TRANSFERASE 20 U/L (14-36); BILIRUBIN,DIRECT 0.3 mg/dL (0.0-0.4); BILIRUBIN,TOTAL 0.4 mg/dL (0.2-1.3); BLOOD UREA NITROGEN 20 mg/dL (7-20); CALCIUM 10.1 mg/dL (8.4-10.2); CARBON DIOXIDE 29 mmol/L (22-30); CHLORIDE 99 mmol/L (98-107); GLUCOSE 170 mg/dL (75-110); POTASSIUM 4.8 mmol/L (3.6-5.0); TOTAL PROTEIN 6.9 g/dL (6.3-8.2)
--- NOTE | 2019-10-11 21:41 | ER Document Report ---
ED Extremity Problem, Lower - General Chief Complaint: Leg Pain Stated Complaint: LEFT LEG PAIN Time Seen by Provider: 10/11/19 16:36 Primary Care Provider: STEVENSON RAMOS DPM [ACTIVE STAFF] - Follow up as needed Mode of Arrival: Wheelchair Notes: 69-year-old woman with a chronic diabetic ulcer and cellulitis presents to the emergency department. She states that she was seen at the wound care clinic earlier today and told to come to the emergency department where she needs to be given IV antibiotics. Patient states that she is a diabetic and she has been dealing with this ulcer for some time. It is now gotten redder, more swollen and painful. TRAVEL OUTSIDE OF THE [place] IN LAST 30 DAYS: No - Related Data Allergies/Adverse Reactions: adhesive Allergy (Verified 10/11/19 16:42) bacitracin [From Neosporin ([id number]-[id number])] Allergy (Verified 10/11/19 16:42) latex Allergy (Verified 10/11/19 16:42) neomycin [From Neosporin ([id number]-gpt-yoimp)] Allergy (Verified 10/11/19 16:42) polymyxin B [From Neosporin ([id number]-hdg-gmqam)] Allergy (Verified 10/11/19 16:42) sulfur dioxide Allergy (Verified 10/11/19 16:42) Home Medications: hydrocodone,glipizide Past Medical History - General Information source: Patient - Social History Smoking Status: Never Smoker Frequency of alcohol use: None Family History: DM, Malignancy, Other - Kidney disease. denies: CAD, Hypertension Patient has suicidal ideation: No Patient has homicidal ideation: No - Past Medical History Cardiac Medical History: Reports: Hx Atrial Fibrillation, Hx Hypertension Denies: Hx DVT, Hx Pulmonary Embolism Pulmonary Medical History: Denies: Hx Asthma, Hx COPD Neurological Medical History: Denies: Hx Seizures Endocrine Medical History: Reports: Hx Diabetes Mellitus Type 2. Denies: Hx Diabetes Mellitus Type 1, Hx Hyperthyroidism, Hx Hypothyroidism Renal/ Medical History: Denies: Hx Peritoneal Dialysis Malignancy Medical History: Reports: Hx Breast Cancer GI Medical History: Denies: Hx Cirrhosis, Hx Hepatitis Musculoskeletal Medical History: Denies Hx Arthritis, Denies Hx Gout Skin Medical History: Denies Hx Eczema, Denies Hx Psoriasis Infectious Medical History: Reports: Hx MRSA - And a previous infection of a venous stasis ulcer requiring vancomycin. Denies: Hx Hepatitis Past Surgical History: Reports: Other - Right lumpectomy and axillary lymph node dissection - Immunizations Hx Pneumococcal Vaccination: 10/04/13 Physical Exam - Vital signs Vitals: Temp Pulse Resp BP Pulse Ox 97.9 F 78 18 123/72 97 10/11/19 16:13 10/11/19 16:13 10/11/19 16:13 10/11/19 16:13 10/11/19 16:13 Course - Re-evaluation Re-evalutation: 10/11/19 22:12 Chronic diabetic ulcer with no increased signs and symptoms of infection. History of MRSA and worsening symptoms sent to the emergency department from wound care clinic today for admission and IV antibiotics. Discussed the patient with the hospitalist I reviewed the patient's current status, labs, blood cultures, wound culture and IV antibiotics were discussed. He will admit the patient to the hospital for further evaluation and treatment. - Vital Signs Vital signs: Temp Pulse Resp BP Pulse Ox 97.9 F 78 18 123/72 97 10/11/19 16:13 10/11/19 16:13 10/11/19 16:13 10/11/19 16:13 10/11/19 16:13 - Laboratory Result Diagrams: 10/11/19 17:44 10/11/19 17:44 Laboratory results interpreted by me: 10/11/19 10/11/19 17:44 17:44 Hgb 10.1 L Hct 32.7 L MCV 78 L MCH 24.2 L MCHC 30.9 L RDW 17.5 H Lymph % (Auto) 12.4 L Sodium 136.5 L Creatinine 1.57 H Est GFR ( Amer) 39 L Est GFR (MDRD) Non-Af 32 L Glucose 170 H Albumin 3.2 L 10/11/19 22:14 I have reviewed laboratory data and used this information for the treatment decisions regarding the patient. - Diagnostic Test Radiology reviewed: Image reviewed, Reports reviewed - X-ray left tib-fib: Findings with some concern for early osteomyelitis in the fibula. Discharge - Discharge Clinical Impression: Left leg cellulitis, Infected stasis ulcer of left lower extremity Condition: Good Disposition: ADMITTED INPATIENT Admitting Provider: Sukhi (Hospitalist) Unit Admitted: Medical Floor Referrals: STEVENSON RAMOS DPM [ACTIVE STAFF] - Follow up as needed
[2019-10-11] MEDS ORDERED: PIPERACILLIN/TAZOBACTAM 3.375 GM VIAL IV ONE (22:05)
[2019-10-11] MEDS ORDERED: VANCOMYCIN HCL INJ 1000 MG VIAL IV ONE (22:06)
[2019-10-11] MEDS ORDERED: MAG HYDROX/AL HYDROX/SIMETH SUSP 30 ML UDCUP PO PRN (22:53)
[2019-10-11] MEDS ORDERED: MAGNESIUM HYDROXIDE SUSP 30 ML UDCUP PO PRN (22:53)
[2019-10-11] MEDS ORDERED: PROMETHAZINE HCL INJ 25 MG/1 ML VIAL IV PRN (22:53)
[2019-10-11] MEDS ORDERED: ACETAMINOPHEN 325 MG TABLET PO PRN (22:59)
[2019-10-11] MEDS ORDERED: MORPHINE SULFATE 10 MG/ML INJ IV PRN ×2 (22:59)
[2019-10-11] MEDS ORDERED: LORAZEPAM INJ 2 MG/1 ML VIAL IV PRN (23:00)
[2019-10-11] MEDS ORDERED: VANCOMYCIN HCL INJ 1000 MG VIAL IV SCH (23:00)
[2019-10-11] MEDS ORDERED: PIPERACILLIN/TAZOBACTAM 3.375 GM VIAL IV SCH (23:00)
[2019-10-11] MEDS ORDERED: DEXTROSE 40% GEL 15 GM TUBE PO PRN ×2 (23:02)
[2019-10-11] MEDS ORDERED: GLUCAGON,HUMAN RECOMB 1 MG INJ IM PRN (23:02)
[2019-10-11] MEDS ORDERED: DEXTROSE 50%-WATER 25 GM/50 ML DISP.SYRIN IV PRN ×2 (23:02)
[2019-10-11] MEDS ORDERED: VANCOMYCIN HCL INJ 1000 MG VIAL IV PRN (23:44)
[2019-10-11] MEDS ORDERED: VANCOMYCIN HCL 2,000 MG in DEXTROSE 5%-WATER 500 ML IV ONE (23:45)
--- NOTE | 2019-10-12 00:34 | PDOC H&P ---
History of Present Illness Admission Date/PCP: 10/11/2019 22:18 SHERLEY WONG MD Patient complains of: Worsening of left leg ulcer History of Present Illness: GENTRY MENDOZA is a 69 year old female who presented to the emergency room, at the behest of her wound care clinic provider after being seen today, for wo rsening of her left lower extremity wound. Patient was instructed to come to the emergency room for further evaluation and treatment with admission for IV antibiotic therapy due to increased redness and swelling of her left lower extremity with an increased depth of the ulceration over the anterior left woods. She admits chronic ulceration and recurrent infections of the left lower extremity for the last 3 years, including infection with MRSA. She admits to associated moderate generalized aching pain in the left lower extremity worsened by weightbearing and any pressure applied to the area. She denies all other associated or accompanying signs and symptoms. She admits to numerous prior s imilar episodes with several prior hospitalizations. She has not identified any additional aggravating or ameliorating factors for her left lower leg wound. In the emergency room she was found to have a chronic ulceration of the left lower extremity with acute erythema and edema at the margins of the wound consistent with an acute cellulitis. Wound and blood cultures were obtained and the patie nt was started on IV antibiotics, utilizing vancomycin and Zosyn, and admitted to the hospital for further evaluation treatment. Past Medical History Cardiac Medical History: Reports: Atrial Fibrillation, Hypertension Denies: Congestive Heart Failure, Coronary Artery Disease, DVT, Myocardial Infarction, Hyperlipidema, Pulmonary Embolism Pulmonary Medical History: Denies: Asthma, Chronic Obstructive Pulmonary Disease (COPD) EENT Medical History: Denies: Cataracts, Ears - Hearing aids Neurological Medical History: Denies: Hemorrhagic CVA, Ischemic CVA, Seizures Endocrine Medical History: Reports: Diabetes Mellitus Type 2, Obesity Denies: Diabetes Mellitus Type 1, Hyperthyroidism, Hypothyroidism Renal/ Medical History: Reports: Chronic Kidney Disease Denies: Nephrolithiasis Malignancy Medical History: Reports: Breast Cancer GI Medical History: Denies: Cirrhosis, Crohn's Disease, Gastroesophageal Reflux Disease, Hepatitis, Peptic Ulcer Disease, Ulcerative Colitis Musculoskeltal Medical History: Denies: Arthritis, Gout Skin Medical History: Denies: Eczema, Psoriasis Psychiatric Medical History: Denies: Alcohol Dependency, Substance Abuse, Tobacco Dependency Traumatic Medical History: Reports: None Hematology: Denies: Anemia, Bleeding Tendencies Infectious Medical History: Reports: Methicillin-Resistant Staph Aureus - And a previous infection of a venous stasis ulcer requiring vancomycin Past Surgical History Past Surgical History: Multiple skin grafts for wound treatment of leg ulcers without successful outcomes. Past Surgical History: Reports: Other - Right lumpectomy and axillary lymph node dissection Social History Information Source: Patient Lives with: Spouse/Significant other Smoking Status: Never Smoker Electronic Cigarette use?: No Frequency of Alcohol Use: Occasional Hx Recreational Drug Use: No Drugs: None Hx Prescription Drug Abuse: No - Advance Directive Resuscitation Status: Full Code Surrogate healthcare decision maker:: Vikram Mendoza Family History Family History: DM, Malignancy, Other - Kidney disease. denies: CAD, Hypertension Parental Family History Reviewed: Yes Children Family History Reviewed: No Sibling(s) Family History Reviewed.: Yes Medication/Allergy Home Medications: Furosemide [Lasix 20 mg Tablet] 20 mg PO DAILY 03/28/19 Glipizide [Glucotrol 5 mg Tablet] 5 mg PO Q12 03/28/19 Hydrocodone/Acetaminophen [[place] 5-325 mg Tablet] 1 tab PO Q8HP PRN 03/28/19 Rivaroxaban [Xarelto] 20 mg PO QPM 03/28/19 Amlodipine Besylate [Norvasc 2.5 mg Tablet] 2.5 mg PO DAILY 30 Days #30 tablet 04/02/19 Metoprolol Tartrate [Lopressor] 50 mg PO BID 30 Days #60 tablet 04/02/19 Allergies/Adverse Reactions: adhesive Allergy (Verified 10/11/19 16:42) bacitracin [From Neosporin ([id number])] Allergy (Verified 10/11/19 16:42) latex Allergy (Verified 10/11/19 16:42) neomycin [From Neosporin (tev-bmn-uzdon)] Allergy (Verified 10/11/19 16:42) polymyxin B [From Neosporin (sci-qhi-blyho)] Allergy (Verified 10/11/19 16:42) sulfur dioxide Allergy (Verified 10/11/19 16:42) Review of Systems Constitutional: ABSENT: chills, fever(s) Eyes: ABSENT: visual disturbances, other - Eye pain Ears: ABSENT: hearing changes, other - Ear pain Nose, Mouth, and Throat: ABSENT: headache(s), mouth pain, sore throat Cardiovascular: ABSENT: chest pain, palpitations Respiratory: ABSENT: cough, dyspnea Gastrointestinal: ABSENT: abdominal pain, constipation, diarrhea, nausea, vomiting Musculoskeletal: ABSENT: deformity, joint swelling Integumentary: PRESENT: as per HPI, wounds - Chronic ulceration of left lower extremity anterior tibial surface with newly noted local erythema and edema. ABSENT: pruritus, rash Neurological: ABSENT: confusion, convulsions, focal weakness, memory loss, syncope Psychiatric: ABSENT: anxiety, depression Endocrine: ABSENT: cold intolerance, heat intolerance, polydipsia, polyphagia, polyuria Hematologic/Lymphatic: ABSENT: easy bleeding, easy bruising Allergic/Immunologic: ABSENT: seasonal rhinorrhea Physical Exam Vital Signs: Temp Pulse Resp BP Pulse Ox 97.9 F 78 18 123/72 97 10/11/19 16:13 10/11/19 16:13 10/11/19 16:13 10/11/19 16:13 10/11/19 16:13 Intake & Output 10/09/19 10/10/19 10/11/19 23:59 23:59 23:59 Weight 140 kg General appearance: PRESENT: no acute distress, cooperative, morbidly obese Head exam: PRESENT: atraumatic, normocephalic Eye exam: PRESENT: conjunctiva pink. ABSENT: conjunctival injection, scleral icterus Ear exam: PRESENT: normal external ear exam. ABSENT: bleeding, drainage Mouth exam: PRESENT: dry mucosa, neck supple Neck exam: PRESENT: thyromegaly, tracheal deviation Respiratory exam: PRESENT: clear to auscultation dwayne, symmetrical, unlabored Cardiovascular exam: PRESENT: RRR. ABSENT: clicks, gallop, rubs Pulses: PRESENT: normal radial pulses. ABSENT: normal dorsalis pedis pul - Decreased dorsalis pedis pulses (trace to +1) of the bilateral lower extremities noted. Vascular exam: PRESENT: normal capillary refill. ABSENT: pallor GI/Abdominal exam: PRESENT: normal bowel sounds, soft Rectal exam: PRESENT: deferred Extremities exam: PRESENT: pedal edema - 2+, tenderness - Generalized tenderness to palpation over the left lower extremity anterior surface below the knee, +2 edema - 2+ pretibial pitting edema of the bilateral lower extremities left s lightly worse than right. ABSENT: joint swelling Musculoskeletal exam: ABSENT: deformity, dislocation Neurological exam: PRESENT: alert, oriented to person, oriented to place, oriented to time, oriented to situation, CN II-XII grossly intact. ABSENT: motor sensory deficit Psychiatric exam: PRESENT: appropriate affect, normal mood Skin exam: PRESENT: dry, warm, other - Chronic ulceration of left lower extremity anterior tibial surface with local erythema and edema at the margins of the large ulcer.. ABSENT: jaundice, rash, urticaria Results Laboratory Results: 10/11/19 17:44 10/11/19 17:44 10/11/19 10/11/19 17:44 17:44 WBC 7.5 RBC 4.19 Hgb 10.1 L Hct 32.7 L MCV 78 L MCH 24.2 L MCHC 30.9 L RDW 17.5 H Plt Count 337 Seg Neutrophils % 74.1 Sodium 136.5 L Potassium 4.8 Chloride 99 Carbon Dioxide 29 Anion Gap 9 BUN 20 Creatinine 1.57 H Est GFR ( Amer) 39 L Glucose 170 H Calcium 10.1 Total Bilirubin 0.4 AST 20 Alkaline Phosphatase 113 Total Protein 6.9 Albumin 3.2 L Impressions: Tibia/Fibula X-Ray 10/11/19 16:40 IMPRESSION: Cannot exclude osteomyelitis in the fibula. Assessment and Plan - Diagnosis (1) Infected stasis ulcer of left lower extremity Is this a current diagnosis for this admission?: Yes (2) Chronic venous stasis dermatitis of both lower extremities Is this a current diagnosis for this admission?: Yes (3) Anemia Qualifiers: Anemia type: due to chronic kidney disease Chronic kidney disease stage: stage 3 (moderate) Qualified Code(s): N18.3 - Chronic kidney disease, stage 3 (moderate); D63.1 - Anemia in chronic kidney disease Is this a current diagnosis for this admission?: Yes (4) Chronic kidney disease, stage III (moderate) Is this a current diagnosis for this admission?: Yes (5) Essential hypertension Is this a current diagnosis for this admission?: Yes (6) Diabetes mellitus type 2 in obese Is this a current diagnosis for this admission?: Yes (7) Morbid obesity with BMI of 45.0-49.9, adult Is this a current diagnosis for this admission?: Yes - Plan Summary Summary: Patient is admitted to the medical floor where she will receive routine supportive and symptomatic cares. She will receive IV antibiotics utilizing vancomycin and Zosyn. Blood and wound cultures have been obtained in the emergency room prior to antibiotic therapy initiation. A routine surgical consultation will be obtained for comanagement of wound care. Patient will receive morphine sulfate 2 to 4 mg IV every 2 hours on an as-needed basis for pain using a sliding scale for dosage. She will receive Ativan 1 mg IV every 4 hours as needed anxiety or restlessness. She will be continued on her usual home medications for her chronic medical illnesses as appropriate. She will be continued on a diabetic diet with cardiac corrections. She will have before meals and at bedtime Accu-Cheks with hyperglycemia being treated utilizing a sliding scale regular insulin and hypoglycemia being treated per established protocol. Daily CBCs, metabolic profiles and magnesium levels will be followed as needed. Hemoglobin A1c will be obtained. - Time Time Spent with patient: 15-24 minutes Medications reviewed and adjusted accordingly: Yes Anticipated discharge: Home - Inpatient Certification Based on my medical assessment, after consideration of the patient's comorbidities, presenting symptoms, or acuity I expect that the services needed warrant INPATIENT care.: Yes I certify that my determination is in accordance with my understanding of Medicare's requirements for reasonable and necessary INPATIENT services [42 CFR 412.3e].: Yes Medical Necessity: Need For IV Fluids, Need for IV Antibiotics, Risk of Complication if Not Cared For in Hospital
[2019-10-12] MEDS: MORPHINE SULFATE 10 MG/ML INJ IV PRN ×3 (01:34→07:38)
[2019-10-12] MEDS: PANTOPRAZOLE SODIUM 40 MG TABLET.DR PO SCH (05:22)
[2019-10-12] MEDS: GLIPIZIDE 5 MG TABLET PO SCH ×2 (07:40→16:02)
[2019-10-12] MEDS: INSULIN REG, HUMAN 100 UNIT/ML 3 ML VIAL (PYX) SUBCUT SCH ×2 (07:40→11:53)
[2019-10-12 07:44] LABS: HEMATOCRIT 30.2 % (36.0-47.0); HEMOGLOBIN 9.3 g/dL (12.0-15.5); MEAN CORPUSCULAR HEMOGLOBIN 23.8 pg (27.0-33.4); MEAN CORPUSCULAR HGB CONC 30.8 g/dL (32.0-36.0); MEAN CORPUSCULAR VOLUME 77 fl (80-97); PLATELET COUNT 261 10^3/uL (150-450); RED BLOOD COUNT 3.91 10^6/uL (3.72-5.28); RED CELL DISTRIBUTION WIDTH 17.1 % (11.5-14.0); WHITE BLOOD COUNT 6.8 10^3/uL (4.0-10.5)
[2019-10-12 08:14] LABS: ANION GAP 5 (5-19); BLOOD UREA NITROGEN 18 mg/dL (7-20); CALCIUM 9.7 mg/dL (8.4-10.2); CARBON DIOXIDE 28 mmol/L (22-30); CHLORIDE 103 mmol/L (98-107); GLUCOSE 175 mg/dL (75-110)
[2019-10-12] MEDS: TORSEMIDE 20 MG TABLET PO SCH (09:58)
[2019-10-12] MEDS: DOCUSATE SODIUM 100 MG CAPSULE PO SCH ×2 (09:58→17:10)
[2019-10-12] MEDS: METOPROLOL TARTRATE 50 MG TABLET PO SCH ×2 (10:00→17:31)
[2019-10-12] MEDS: PIPERACILLIN SODIUM/TAZOBACTAM 3.375 GM in NORMAL SALINE 100 ML IV SCH ×2 (10:08→17:28)
--- NOTE | 2019-10-12 10:59 | PDOC CONSULTATION ---
Consultation Consult Date: 10/12/19 Provider Consulted: XIN MELTON Consult reason:: Venous stasis ulcer along the left lower leg with cellulitis History of Present Illness Admission Date/PCP: 10/11/19 22:47 SHERLEY WONG MD History of Present Illness: GENTRY MENDOZA is a 69 year old female patient is claimed that she has been having problems with her left lower leg wound and being followed in the wound care center for the past 3 years. Patient sent to the ER by the wound care doct or on 10/11/2023 cellulitis. She denies any fever or chills. She has varicose veins in the left leg and she claims Dr. Hess supposed to do some extirpation of the varicose veins. Past Medical History Cardiac Medical History: Reports: Atrial Fibrillation, Hypertension Denies: Congestive Heart Failure, Coronary Artery Disease, DVT, Myocardial Infarction, Hyperlipidema, Pulmonary Embolism Pulmonary Medical History: Denies: Asthma, Chronic Obstructive Pulmonary Disease (COPD) EENT Medical History: Denies: Cataracts, Ears - Hearing aids Neurological Medical History: Denies: Hemorrhagic CVA, Ischemic CVA, Seizures Endocrine Medical History: Reports: Diabetes Mellitus Type 2, Obesity Denies: Diabetes Mellitus Type 1, Hyperthyroidism, Hypothyroidism Renal/ Medical History: Reports: Chronic Kidney Disease Denies: Nephrolithiasis Malignancy Medical History: Reports: Breast Cancer GI Medical History: Denies: Cirrhosis, Crohn's Disease, Gastroesophageal Reflux Disease, Hepatitis, Peptic Ulcer Disease, Ulcerative Colitis Musculoskeltal Medical History: Denies: Arthritis, Gout Skin Medical History: Denies: Eczema, Psoriasis Psychiatric Medical History: Denies: Alcohol Dependency, Substance Abuse, Tobacco Dependency Traumatic Medical History: Reports: None Hematology: Denies: Anemia, Bleeding Tendencies Infectious Medical History: Reports: Methicillin-Resistant Staph Aureus - And a previous infection of a venous stasis ulcer requiring vancomycin Past Surgical History Past Surgical History: Reports: Other - Right lumpectomy and axillary lymph node dissection Social History Lives with: Spouse/Significant other Smoking Status: Never Smoker Electronic Cigarette use?: No Frequency of Alcohol Use: Occasional Hx Recreational Drug Use: No Drugs: None Hx Prescription Drug Abuse: No - Advance Directive Resuscitation Status: Full Code Family History Family History: DM, Malignancy, Other - Kidney disease. denies: CAD, Hypertension Parental Family History Reviewed: Yes Children Family History Reviewed: No Medication/Allergy Home Medications: Furosemide [Lasix 20 mg Tablet] 20 mg PO DAILY 03/28/19 Glipizide [Glucotrol 5 mg Tablet] 5 mg PO Q12 03/28/19 Hydrocodone/Acetaminophen [[place] 5-325 mg Tablet] 1 tab PO Q8HP PRN 03/28/19 Rivaroxaban [Xarelto] 20 mg PO QPM 03/28/19 Amlodipine Besylate [Norvasc 2.5 mg Tablet] 2.5 mg PO DAILY 30 Days #30 tablet 04/02/19 Metoprolol Tartrate [Lopressor] 50 mg PO BID 30 Days #60 tablet 04/02/19 Ferrous Sulfate [Feosol 325 mg Tablet] 325 mg PO DAILY 10/12/19 Gabapentin [Neurontin 300 mg Capsule] 300 mg PO Q8HP PRN 10/12/19 Allergies/Adverse Reactions: adhesive Allergy (Verified 10/11/19 16:42) bacitracin [From Neosporin ([id number])] Allergy (Verified 10/11/19 16:42) latex Allergy (Verified 10/11/19 16:42) neomycin [From Neosporin ([id number])] Allergy (Verified 10/11/19 16:42) polymyxin B [From Neosporin ([id number])] Allergy (Verified 10/11/19 16:42) sulfur dioxide Allergy (Verified 10/11/19 16:42) Review of Systems Constitutional: PRESENT: as per HPI Musculoskeletal: PRESENT: other - Pains along the left lower leg stasis ulcer site. Physical Exam Vital Signs: Temp Pulse Resp BP Pulse Ox 98.5 F 117 H 20 114/50 L 96 10/12/19 08:28 10/12/19 08:28 10/12/19 08:28 10/12/19 08:28 10/12/19 08:28 Intake & Output 10/11/19 10/12/19 10/13/19 06:59 06:59 06:59 Intake Total 500 Balance 500 Weight 142.5 kg General appearance: PRESENT: mild distress Head exam: PRESENT: atraumatic Eye exam: PRESENT: conjunctiva pink Mouth exam: PRESENT: moist Neck exam: PRESENT: full ROM Respiratory exam: PRESENT: clear to auscultation dwayne Cardiovascular exam: PRESENT: RRR Pulses: PRESENT: normal radial pulses, other - Unable to definitely palpate left ankle per pulses. There is some edema that may preclude palpating the pulses the left foot is warm though Vascular exam: PRESENT: normal capillary refill GI/Abdominal exam: PRESENT: soft Rectal exam: PRESENT: deferred Extremities exam: PRESENT: tenderness - Along the almost circumferential full- thickness venous stasis ulcer but no definite necrotic area to debride at this time Musculoskeletal exam: PRESENT: ambulatory Neurological exam: PRESENT: alert, oriented to person, oriented to place, oriented to time, oriented to situation Psychiatric exam: PRESENT: appropriate affect Skin exam: PRESENT: other - Positive erythema along the venous stasis ulcer on the left lower leg just above the ankle. Results Laboratory Results: 10/12/19 06:48 10/12/19 06:48 10/11/19 10/11/19 10/12/19 17:44 17:44 06:48 WBC 7.5 6.8 RBC 4.19 3.91 Hgb 10.1 L 9.3 L Hct 32.7 L 30.2 L MCV 78 L 77 L MCH 24.2 L 23.8 L MCHC 30.9 L 30.8 L RDW 17.5 H 17.1 H Plt Count 337 261 Seg Neutrophils % 74.1 Sodium 136.5 L Potassium 4.8 Chloride 99 Carbon Dioxide 29 Anion Gap 9 BUN 20 Creatinine 1.57 H Est GFR ( Amer) 39 L Glucose 170 H Calcium 10.1 Magnesium Total Bilirubin 0.4 AST 20 Alkaline Phosphatase 113 Total Protein 6.9 Albumin 3.2 L 10/12/19 06:48 WBC RBC Hgb Hct MCV MCH MCHC RDW Plt Count Seg Neutrophils % Sodium 136.0 L Potassium 5.0 Chloride 103 Carbon Dioxide 28 Anion Gap 5 BUN 18 Creatinine 1.37 H Est GFR ( Amer) 46 L Glucose 175 H Calcium 9.7 Magnesium 2.0 Total Bilirubin AST Alkaline Phosphatase Total Protein Albumin 10/12/19 06:48 NT-Pro-B Natriuret Pep 3010 H Impressions: Tibia/Fibula X-Ray 10/11/19 16:40 IMPRESSION: Cannot exclude osteomyelitis in the fibula. Assessment & Plan - Diagnosis (1) Infected stasis ulcer of left lower extremity Is this a current diagnosis for this admission?: Yes - Time Time Spent: 30 to 50 Minutes - Inpatient Certification Medical Necessity: Need for Pain Control, Need for IV Antibiotics - Plan Summary Plan Summary: 69-year-old female with known venous insufficiency of the left leg is been having venous stasis ulcer along the left lower leg for the past 3 years. She has been going to the wound care center for this. Yesterday patient was referred to ED by wound care doctor for cellulitis of the left lower leg ulcer site. Recommendations: Start wet-to-dry dressing over the left leg venous ulcer every 12 hours. Continue with IV antibiotic therapy. We will follow-up the next 24 to 48hours to make sure there is no worsening of the ulcerative areas.
[2019-10-12] MEDS: OXYCODONE HCL IR 5 MG TABLET PO PRN ×2 (14:17→18:29)
--- NOTE | 2019-10-12 15:31 | PDOC PROGRESS REPORT ---
Subjective Progress Note for:: 10/12/19 Subjective:: The patient is a 69-year-old female with a past medical history of atrial fibrillation, hypertension, DM 2, obesity, CKD, and breast cancer who is followed by the wound care clinic for a chronic left lower extremity wound previously positive for MRSA and was admitted 10/11/2019 for cellulitis of the left lower extremity. Patient was seen on morning rounds. She is found resting in bed, comfortably, on room air preparing to eat her lunch. She tells me that she is feeling much better today. She does continue to have pain to her left lower leg, however, notes that this is also somewhat improved. She does declined to have me take off the dressing to look at the wound directly. She otherwise denies fever, chills, chest pain, palpitations, dyspnea, orthopnea, abdominal pain, nausea vomiting and diarrhea. She has a good appetite. She has no other questions or concerns. No concerns per nursing. Reason For Visit: CHRONIC VENOUS STASIS ULCER LEFT LOWER EXTREMITY Physical Exam Vital Signs: Temp Pulse Resp BP Pulse Ox 98.1 F 102 H 12 115/64 96 10/12/19 11:13 10/12/19 11:13 10/12/19 11:13 10/12/19 11:13 10/12/19 11:13 Intake & Output 10/11/19 10/12/19 10/13/19 06:59 06:59 06:59 Intake Total 600 Balance 600 Weight 142.5 kg General appearance: PRESENT: no acute distress, cooperative, morbidly obese, well-developed, well-nourished Head exam: PRESENT: atraumatic, normocephalic Eye exam: PRESENT: conjunctiva pink, EOMI, PERRLA. ABSENT: scleral icterus Ear exam: PRESENT: normal external ear exam Mouth exam: PRESENT: moist, tongue midline Respiratory exam: PRESENT: clear to auscultation dwayne, symmetrical, unlabored. ABSENT: rales, rhonchi, wheezes Cardiovascular exam: PRESENT: RRR, +S1, +S2. ABSENT: diastolic murmur, rubs, systolic murmur Pulses: PRESENT: normal dorsalis pedis pul Vascular exam: PRESENT: normal capillary refill GI/Abdominal exam: PRESENT: normal bowel sounds, soft. ABSENT: distended, guarding, mass, organolmegaly, rebound, tenderness Rectal exam: PRESENT: deferred Extremities exam: PRESENT: full ROM. ABSENT: calf tenderness, clubbing, pedal edema Neurological exam: PRESENT: alert, awake, oriented to person, oriented to place, oriented to time, oriented to situation, CN II-XII grossly intact. ABSENT: motor sensory deficit Psychiatric exam: PRESENT: appropriate affect, normal mood. ABSENT: homicidal ideation, suicidal ideation Skin exam: PRESENT: dry, warm, other - Wound to left lower extremity; not visual ized per patient request. Toes of the left foot with good cap refill; no erythema or edema. No erythema or edema extending proximally from the dry dressing to her mid lower leg.. ABSENT: cyanosis, intact, rash Results Laboratory Results: 10/12/19 06:48 10/12/19 06:48 10/11/19 10/11/19 10/12/19 17:44 17:44 06:48 WBC 7.5 6.8 RBC 4.19 3.91 Hgb 10.1 L 9.3 L Hct 32.7 L 30.2 L MCV 78 L 77 L MCH 24.2 L 23.8 L MCHC 30.9 L 30.8 L RDW 17.5 H 17.1 H Plt Count 337 261 Seg Neutrophils % 74.1 Sodium 136.5 L Potassium 4.8 Chloride 99 Carbon Dioxide 29 Anion Gap 9 BUN 20 Creatinine 1.57 H Est GFR ( Amer) 39 L Glucose 170 H Calcium 10.1 Magnesium Total Bilirubin 0.4 AST 20 Alkaline Phosphatase 113 Total Protein 6.9 Albumin 3.2 L 10/12/19 06:48 WBC RBC Hgb Hct MCV MCH MCHC RDW Plt Count Seg Neutrophils % Sodium 136.0 L Potassium 5.0 Chloride 103 Carbon Dioxide 28 Anion Gap 5 BUN 18 Creatinine 1.37 H Est GFR ( Amer) 46 L Glucose 175 H Calcium 9.7 Magnesium 2.0 Total Bilirubin AST Alkaline Phosphatase Total Protein Albumin 10/12/19 06:48 NT-Pro-B Natriuret Pep 3010 H Impressions: Tibia/Fibula X-Ray 10/11/19 16:40 IMPRESSION: Cannot exclude osteomyelitis in the fibula. Assessment and Plan - Diagnosis (1) Infected stasis ulcer of left lower extremity Is this a current diagnosis for this admission?: Yes Plan: Blood cultures pending. Wound culture shows gram-negative rods. Patient has been admitted to the medical floor. She is empirically placed on IV vancomycin and Zosyn. Surgery has been consulted; recommends continued wet-to-dry dressing changes. Keep extremity elevated. (2) Anemia Qualifiers: Anemia type: due to chronic kidney disease Chronic kidney disease stage: stage 3 (moderate) Qualified Code(s): N18.3 - Chronic kidney disease, stage 3 (moderate); D63.1 - Anemia in chronic kidney disease Is this a current diagnosis for this admission?: Yes Plan: Patient was admitted with her baseline hemoglobin of 10.1; has drifted down to 9.3 with IV fluids. Continue to monitor and replace as necessary. Continue multivitamin with iron supplementation. We will check anemia panel with a.m. lab work. (3) Chronic kidney disease, stage III (moderate) Is this a current diagnosis for this admission?: Yes Plan: Stable and at baseline renal function with a creatinine of 1.37 and BUN of 18. Avoid nephrotoxic medications as able. Pharmacy to dose vancomycin. Monitor chemistries. (4) Chronic venous stasis dermatitis of both lower extremities Is this a current diagnosis for this admission?: Yes Plan: Evaluation management as above. Followed by Dr. Katarina Hess as an outpatient. (5) Diabetes mellitus type 2 in obese Is this a current diagnosis for this admission?: Yes Plan: A1C 7.6% Patient is placed on a consistent carb/cardiac diet. Accu-Cheks before meals and at bedtime with Humalog for sliding scale coverage. Continue home dose glipizide. Hypoglycemia protocol. Registered dietitian is consulted. (6) Hypertension Is this a current diagnosis for this admission?: Yes Plan: Continue home dose amlodipine and metoprolol Cardiac diet. (7) Morbid obesity with BMI of 50.0-59.9, adult Is this a current diagnosis for this admission?: Yes Plan: Dietary discretion and lifestyle modification are recommended. We will have the registered dietitian meet with the patient. - Time Time Spent with patient: 25-34 minutes Medications reviewed and adjusted accordingly: Yes Anticipated discharge: Home with Homehealth
[2019-10-12] MEDS: INSULIN LISPRO 100 UNIT/ML 3 ML VIAL SUBCUT SCH (16:02)
[2019-10-12] MEDS: RIVAROXABAN 10 MG TABLET PO SCH (16:02)
[2019-10-12] MEDS: GABAPENTIN 300 MG CAPSULE PO PRN (18:30)
[2019-10-13] MEDS: INSULIN LISPRO 100 UNIT/ML 3 ML VIAL SUBCUT SCH ×5 (00:36→21:27)
[2019-10-13] MEDS: VANCOMYCIN HCL 1,250 MG in DEXTROSE 5%-WATER 250 ML IV SCH ×2 (00:41→21:07)
[2019-10-13] MEDS: PIPERACILLIN SODIUM/TAZOBACTAM 3.375 GM in NORMAL SALINE 100 ML IV SCH ×3 (02:30→17:13)
[2019-10-13 05:10] LABS: HEMATOCRIT 29.4 % (36.0-47.0); HEMOGLOBIN 9.2 g/dL (12.0-15.5); MEAN CORPUSCULAR HEMOGLOBIN 24.2 pg (27.0-33.4); MEAN CORPUSCULAR HGB CONC 31.3 g/dL (32.0-36.0); MEAN CORPUSCULAR VOLUME 77 fl (80-97); PLATELET COUNT 236 10^3/uL (150-450); RED BLOOD COUNT 3.81 10^6/uL (3.72-5.28); RED CELL DISTRIBUTION WIDTH 17.6 % (11.5-14.0); RETICULOCYTE COUNT (AUTO) 1.83 % (0.66-2.85)
[2019-10-13 05:18] LABS: ANION GAP 6 (5-19); BLOOD UREA NITROGEN 18 mg/dL (7-20); CALCIUM 9.7 mg/dL (8.4-10.2); CARBON DIOXIDE 27 mmol/L (22-30); CHLORIDE 104 mmol/L (98-107); GLUCOSE 115 mg/dL (75-110)
[2019-10-13] MEDS: PANTOPRAZOLE SODIUM 40 MG TABLET.DR PO SCH (06:10)
[2019-10-13] MEDS: AMLODIPINE BESYLATE 2.5 MG TABLET PO SCH (09:21)
[2019-10-13] MEDS: MULTIVITAMINS W-IRON TABLET, CHEWABLE PO SCH (09:22)
[2019-10-13] MEDS: GLIPIZIDE 5 MG TABLET PO SCH ×2 (09:23→17:12)
[2019-10-13] MEDS: METOPROLOL TARTRATE 50 MG TABLET PO SCH ×2 (09:23→17:13)
[2019-10-13] MEDS: FERROUS SULFATE 325 MG TABLET PO SCH (09:23)
[2019-10-13] MEDS: OXYCODONE HCL IR 5 MG TABLET PO PRN ×2 (09:24→16:22)
[2019-10-13] MEDS: DOCUSATE SODIUM 100 MG CAPSULE PO SCH ×2 (09:32→17:10)
[2019-10-13] MEDS: TORSEMIDE 20 MG TABLET PO SCH (09:32)
--- NOTE | 2019-10-13 11:59 | PDOC PROGRESS REPORT ---
Subjective Progress Note for:: 10/13/19 Subjective:: Less pains along the venous stasis ulcer site on the left leg Reason For Visit: CHRONIC VENOUS STASIS ULCER LEFT LOWER EXTREMITY Physical Exam Vital Signs: Temp Pulse Resp BP Pulse Ox 97.9 F 90 19 122/59 L 96 10/13/19 08:23 10/13/19 08:23 10/13/19 08:23 10/13/19 08:23 10/13/19 08:23 Intake & Output 10/12/19 10/13/19 10/14/19 06:59 06:59 06:59 Intake Total 1890 250 Balance 1890 250 Weight 142.5 kg 143.8 kg Exam: Inflammation along the left lower leg venous stasis ulcer site appears to be getting better. Results Laboratory Results: 10/13/19 04:37 10/13/19 04:37 10/13/19 10/13/19 04:37 04:37 WBC 5.0 RBC 3.81 Hgb 9.2 L Hct 29.4 L MCV 77 L MCH 24.2 L MCHC 31.3 L RDW 17.6 H Plt Count 236 Retic Count (auto) 1.83 Sodium 137.1 Potassium 5.0 Chloride 104 Carbon Dioxide 27 Anion Gap 6 BUN 18 Creatinine 1.40 H Est GFR ( Amer) 45 L Glucose 115 H Calcium 9.7 Iron 37.0 TIBC 342 % Saturation 11 Ferritin 13.30 Vitamin B12 497.0 Folate 14.80 10/12/19 06:48 NT-Pro-B Natriuret Pep 3010 H Impressions: Tibia/Fibula X-Ray 10/11/19 16:40 IMPRESSION: Cannot exclude osteomyelitis in the fibula. Assessment & Plan - Diagnosis (1) Infected stasis ulcer of left lower extremity Is this a current diagnosis for this admission?: Yes - Time Time Spent with patient: 15-24 minutes - Inpatient Certification Medical Necessity: Need for IV Antibiotics - Plan Summary Plan Summary: Plans: Continue with the wet-to-dry dressing to the left lower leg venous stasis ulcer 1-2 times a day. Continue IV antibiotics. Patient can be followed up at the wound care center on OPD basis when discharge d. We will sign off and call for any questions.
--- NOTE | 2019-10-13 12:51 | PDOC PROGRESS REPORT ---
Subjective Progress Note for:: 10/13/19 Reason For Visit: CHRONIC VENOUS STASIS ULCER LEFT LOWER EXTREMITY 10/13/2019 Infection of venous stasis ulcer left lower extremity Physical Exam Vital Signs: Temp Pulse Resp BP Pulse Ox 97.9 F 90 19 122/59 L 96 10/13/19 08:23 10/13/19 08:23 10/13/19 08:23 10/13/19 08:23 10/13/19 08:23 Intake & Output 10/12/19 10/13/19 10/14/19 06:59 06:59 06:59 Intake Total 1890 250 Balance 1890 250 Weight 142.5 kg 143.8 kg General appearance: PRESENT: no acute distress, other - Resting comfortably Respiratory exam: PRESENT: clear to auscultation dwayne. ABSENT: rales, rhonchi, wheezes Cardiovascular exam: PRESENT: RRR. ABSENT: diastolic murmur, rubs, systolic murmur Extremities exam: PRESENT: other - Deferred to surgery Neurological exam: PRESENT: alert, awake, oriented to person, oriented to place, oriented to time, oriented to situation, CN II-XII grossly intact. ABSENT: motor sensory deficit Skin exam: PRESENT: dry, intact, warm. ABSENT: cyanosis, rash Results Laboratory Results: 10/13/19 04:37 10/13/19 04:37 10/13/19 10/13/19 04:37 04:37 WBC 5.0 RBC 3.81 Hgb 9.2 L Hct 29.4 L MCV 77 L MCH 24.2 L MCHC 31.3 L RDW 17.6 H Plt Count 236 Retic Count (auto) 1.83 Sodium 137.1 Potassium 5.0 Chloride 104 Carbon Dioxide 27 Anion Gap 6 BUN 18 Creatinine 1.40 H Est GFR ( Amer) 45 L Glucose 115 H Calcium 9.7 Iron 37.0 TIBC 342 % Saturation 11 Ferritin 13.30 Vitamin B12 497.0 Folate 14.80 10/12/19 06:48 NT-Pro-B Natriuret Pep 3010 H Impressions: Tibia/Fibula X-Ray 10/11/19 16:40 IMPRESSION: Cannot exclude osteomyelitis in the fibula. Assessment and Plan - Diagnosis (1) Infected stasis ulcer of left lower extremity Is this a current diagnosis for this admission?: Yes (2) Morbid obesity with BMI of 50.0-59.9, adult Is this a current diagnosis for this admission?: Yes (3) Anemia Qualifiers: Anemia type: due to chronic kidney disease Chronic kidney disease stage: stage 3 (moderate) Qualified Code(s): N18.3 - Chronic kidney disease, stage 3 (moderate); D63.1 - Anemia in chronic kidney disease Is this a current diagnosis for this admission?: Yes (4) Chronic kidney disease, stage III (moderate) Is this a current diagnosis for this admission?: Yes (5) Essential hypertension Is this a current diagnosis for this admission?: Yes - Plan Summary Summary: 10/13/2019 Patient was seen by general surgery who recommended wet-to-dry dressings 1 or 2 times daily Continuation of IV antibiotics Follow-up with wound care on an outpatient basis Patient is currently on IV vancomycin and Zosyn Temperature 97.9 pulse of 90, blood pressure 122/59 ,O2 sat 96% on room air Globin has stabilized at 9.2 MCV is low at 77 MCH is low at 24 MCHC is low at 31 236,000 Patient came in with a creatinine of 1.57 it is now 1.40. Came in with a BUN of 20 and is now 18 B12 and folate is normal. Iron panel is normal. Glucose running high 256 Wound cultures growing out gram-negative rods, looks like Augmentin could be the antibiotic she is discharged home on, blood cultures are negative x24 hours Possibly discharge blood cultures have any 48 to 72 hours - Time Time Spent with patient: 25-34 minutes
[2019-10-13] MEDS: RIVAROXABAN 10 MG TABLET PO SCH (17:13)
[2019-10-13] MEDS: MORPHINE SULFATE 10 MG/ML INJ IV PRN (18:43)
[2019-10-14] MEDS: OXYCODONE HCL IR 5 MG TABLET PO PRN ×3 (01:51→17:30)
[2019-10-14] MEDS: MORPHINE SULFATE 10 MG/ML INJ IV PRN ×2 (03:30→23:18)
[2019-10-14] MEDS: PIPERACILLIN SODIUM/TAZOBACTAM 3.375 GM in NORMAL SALINE 100 ML IV SCH ×3 (03:31→17:26)
[2019-10-14 05:28] LABS: HEMATOCRIT 27.4 % (36.0-47.0); HEMOGLOBIN 8.7 g/dL (12.0-15.5); MEAN CORPUSCULAR HEMOGLOBIN 24.3 pg (27.0-33.4); MEAN CORPUSCULAR HGB CONC 31.7 g/dL (32.0-36.0); MEAN CORPUSCULAR VOLUME 77 fl (80-97); PLATELET COUNT 237 10^3/uL (150-450); RED BLOOD COUNT 3.57 10^6/uL (3.72-5.28); RED CELL DISTRIBUTION WIDTH 17.5 % (11.5-14.0); WHITE BLOOD COUNT 5.8 10^3/uL (4.0-10.5)
[2019-10-14] MEDS: GABAPENTIN 300 MG CAPSULE PO PRN (06:01)
[2019-10-14] MEDS: PANTOPRAZOLE SODIUM 40 MG TABLET.DR PO SCH (06:01)
[2019-10-14] MEDS: INSULIN LISPRO 100 UNIT/ML 3 ML VIAL SUBCUT SCH ×4 (08:13→22:50)
[2019-10-14] MEDS: GLIPIZIDE 5 MG TABLET PO SCH ×2 (08:13→17:26)
[2019-10-14] MEDS: TORSEMIDE 20 MG TABLET PO SCH (10:11)
[2019-10-14] MEDS: DOCUSATE SODIUM 100 MG CAPSULE PO SCH ×2 (10:11→17:32)
[2019-10-14] MEDS: METOPROLOL TARTRATE 50 MG TABLET PO SCH ×2 (10:20→17:26)
[2019-10-14] MEDS: FERROUS SULFATE 325 MG TABLET PO SCH (10:20)
[2019-10-14] MEDS: AMLODIPINE BESYLATE 2.5 MG TABLET PO SCH (10:20)
[2019-10-14] MEDS: MULTIVITAMINS W-IRON TABLET, CHEWABLE PO SCH (10:20)
--- NOTE | 2019-10-14 14:24 | PDOC PROGRESS REPORT ---
Subjective Progress Note for:: 10/14/19 Reason For Visit: CHRONIC VENOUS STASIS ULCER LEFT LOWER EXTREMITY 10/14/2019 Chronic venous stasis with a 3-year history of MRSA left lower extremity, obesity, anemia, chronic kidney disease, hypertension Physical Exam Vital Signs: Temp Pulse Resp BP Pulse Ox 97.4 F 83 19 131/67 H 100 10/14/19 08:00 10/14/19 08:00 10/14/19 08:00 10/14/19 08:00 10/14/19 08:00 Intake & Output 10/13/19 10/14/19 10/15/19 06:59 06:59 06:59 Intake Total 1890 1640 100 Output Total 1530 Balance 1890 110 100 Weight 143.8 kg 146.6 kg General appearance: PRESENT: no acute distress Respiratory exam: PRESENT: clear to auscultation dwayne. ABSENT: rales, rhonchi, wheezes Cardiovascular exam: PRESENT: RRR. ABSENT: diastolic murmur, rubs, systolic murmur Extremities exam: PRESENT: +1 edema, other - Chronic venous stasis of the left lower extremity, no significant edema. Neurological exam: PRESENT: alert, awake, oriented to person, oriented to place, oriented to time, oriented to situation, CN II-XII grossly intact. ABSENT: motor sensory deficit Psychiatric exam: PRESENT: appropriate affect, normal mood. ABSENT: homicidal ideation, suicidal ideation Results Laboratory Results: 10/14/19 04:55 10/13/19 04:37 10/14/19 04:55 WBC 5.8 RBC 3.57 L Hgb 8.7 L Hct 27.4 L MCV 77 L MCH 24.3 L MCHC 31.7 L RDW 17.5 H Plt Count 237 10/12/19 06:48 NT-Pro-B Natriuret Pep 3010 H Impressions: Tibia/Fibula X-Ray 10/11/19 16:40 IMPRESSION: Cannot exclude osteomyelitis in the fibula. Assessment and Plan - Diagnosis (1) Infected stasis ulcer of left lower extremity Is this a current diagnosis for this admission?: Yes (2) Morbid obesity with BMI of 50.0-59.9, adult Is this a current diagnosis for this admission?: Yes (3) Anemia Qualifiers: Anemia type: due to chronic kidney disease Chronic kidney disease stage: stage 3 (moderate) Qualified Code(s): N18.3 - Chronic kidney disease, stage 3 (moderate); D63.1 - Anemia in chronic kidney disease Is this a current diagnosis for this admission?: Yes (4) Chronic kidney disease, stage III (moderate) Is this a current diagnosis for this admission?: Yes (5) Essential hypertension Is this a current diagnosis for this admission?: Yes - Plan Summary Summary: 10/13/2019 Patient was seen by general surgery who recommended wet-to-dry dressings 1 or 2 times daily Continuation of IV antibiotics Follow-up with wound care on an outpatient basis Patient is currently on IV vancomycin and Zosyn Temperature 97.9 pulse of 90, blood pressure 122/59 ,O2 sat 96% on room air HemoGlobin has stabilized at 9.2 ,MCV is low at 77, MCH is low at 24, MCHC is low at 31 236,000 Patient came in with a creatinine of 1.57 it is now 1.40. Came in with a BUN of 20 and is now 18 B12 and folate is normal. Iron panel is normal. Glucose running high 256 Wound cultures growing out gram-negative rods, looks like Augmentin could be the antibiotic she is discharged home on, blood cultures are negative x24 hours Patient has had PICC lines the past. 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 She states since she has been here just in the last 48 hours her left leg is much less painful less red less edematous. Told her I think what we should do is continue the IV antibiotics for another couple of days and talk about sending her home on Wednesday on p.o. antibiotics. She already has home health established. She is already been to the wound care clinic She is agreeable to this Possibly discharge after blood cultures have any 48 to 72 hours 10/14/2019 Temperature 97.9, pulse 81, blood pressure 123/61 Plan to discharge patient Wednesday CBC is grossly normal hemoglobin is down slightly to 8.7 Patient's glucoses are still running slightly high 3 of IV vancomycin and Zosyn Plan to discharge home on Augmentin - Time Time Spent with patient: 25-34 minutes
[2019-10-14] MEDS: RIVAROXABAN 10 MG TABLET PO SCH (17:26)
[2019-10-14] MEDS: VANCOMYCIN HCL 1,250 MG in DEXTROSE 5%-WATER 250 ML IV SCH (22:50)
[2019-10-15] MEDS: PIPERACILLIN SODIUM/TAZOBACTAM 3.375 GM in NORMAL SALINE 100 ML IV SCH ×2 (02:04→09:48)
[2019-10-15] MEDS: OXYCODONE HCL IR 5 MG TABLET PO PRN ×3 (02:09→13:04)
[2019-10-15] MEDS: PANTOPRAZOLE SODIUM 40 MG TABLET.DR PO SCH (06:39)
[2019-10-15] MEDS: GABAPENTIN 300 MG CAPSULE PO PRN (06:39)
[2019-10-15] MEDS: GLIPIZIDE 5 MG TABLET PO SCH (08:06)
[2019-10-15] MEDS: INSULIN LISPRO 100 UNIT/ML 3 ML VIAL SUBCUT SCH ×2 (08:06→13:04)
[2019-10-15] MEDS: TORSEMIDE 20 MG TABLET PO SCH (09:41)
[2019-10-15] MEDS: DOCUSATE SODIUM 100 MG CAPSULE PO SCH (09:41)
[2019-10-15] MEDS: METOPROLOL TARTRATE 50 MG TABLET PO SCH (09:47)
[2019-10-15] MEDS: MULTIVITAMINS W-IRON TABLET, CHEWABLE PO SCH (09:47)
[2019-10-15] MEDS: FERROUS SULFATE 325 MG TABLET PO SCH (09:47)
[2019-10-15] MEDS: AMLODIPINE BESYLATE 2.5 MG TABLET PO SCH (09:47)
[2019-10-15 14:42] VITALS: BP 120/63
--- NOTE | 2019-10-15 15:58 | PDOC DISCHARGE SUMMARY ---
Impression - Admit/DC Date/PCP Admission Date/Primary Care Provider: 10/11/19 22:47 SHERLEY WONG MD Discharge Date: 10/15/19 - Discharge Diagnosis (1) Infected stasis ulcer of left lower extremity Is this a current diagnosis for this admission?: Yes (2) Morbid obesity with BMI of 50.0-59.9, adult Is this a current diagnosis for this admission?: Yes (3) Anemia Is this a current diagnosis for this admission?: Yes (4) Chronic kidney disease, stage III (moderate) Is this a current diagnosis for this admission?: Yes (5) Essential hypertension Is this a current diagnosis for this admission?: Yes - Assessment Summary: 10/13/2019 Patient was seen by general surgery who recommended wet-to-dry dressings 1 or 2 times daily Continuation of IV antibiotics Follow-up with wound care on an outpatient basis Patient is currently on IV vancomycin and Zosyn Temperature 97.9 pulse of 90, blood pressure 122/59 ,O2 sat 96% on room air HemoGlobin has stabilized at 9.2 ,MCV is low at 77, MCH is low at 24, MCHC is low at 31 236,000 Patient came in with a creatinine of 1.57 it is now 1.40. Came in with a BUN of 20 and is now 18 B12 and folate is normal. Iron panel is normal. Glucose running high 256 Wound cultures growing out gram-negative rods, looks like Augmentin could be the antibiotic she is discharged home on, blood cultures are negative x24 hours Patient has had PICC lines the past. 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 She states since she has been here just in the last 48 hours her left leg is much less painful less red less edematous. Told her I think what we should do is continue the IV antibiotics for another couple of days and talk about sending her home on Wednesday on p.o. antibiotics. She already has home health established. She is already been to the wound care clinic She is agreeable to this Possibly discharge after blood cultures have any 48 to 72 hours 10/14/2019 Temperature 97.9, pulse 81, blood pressure 123/61 Plan to discharge patient Wednesday CBC is grossly normal hemoglobin is down slightly to 8.7 Patient's glucoses are still running slightly high 3 of IV vancomycin and Zosyn Plan to discharge home on Augmentin 10/15/2019 She was discharged home today to follow-up with the wound care clinic Wet to dry dressings twice daily Wrote for Augmentin 875 number 20 tablets 1 twice daily White blood cell count is normal still 5.8 Patient is medically stable for discharge, she is to follow-up with her primary care provider next week - Additional Information Resuscitation Status: Full Code Discharge Diet: Diabetic Discharge Activity: Balance Activity w/Rest Referrals: Wound Care [Provider Group] SHERLEY WONG MD [Primary Care Provider] - NA MARTÍNEZ MD [ACTIVE STAFF] - Prescriptions: Amox Tr/Potassium Clavulanate [Augmentin 875-125 mg Tablet] 1 tab PO BID #20 tablet Home Medications: Furosemide [Lasix 20 mg Tablet] 20 mg PO DAILY 03/28/19 Glipizide [Glucotrol 5 mg Tablet] 5 mg PO Q12 03/28/19 Hydrocodone/Acetaminophen [[place] 5-325 mg Tablet] 1 tab PO Q8HP PRN 03/28/19 Rivaroxaban [Xarelto] 20 mg PO QPM 03/28/19 Amlodipine Besylate [Norvasc 2.5 mg Tablet] 2.5 mg PO DAILY 30 Days #30 tablet 04/02/19 Metoprolol Tartrate [Lopressor] 50 mg PO BID 30 Days #60 tablet 04/02/19 Ferrous Sulfate [Feosol 325 mg Tablet] 325 mg PO DAILY 10/12/19 Gabapentin [Neurontin 300 mg Capsule] 300 mg PO Q8HP PRN 10/12/19 Acetaminophen [Tylenol 325 mg Tablet] 650 mg PO Q4HP PRN tablet 10/15/19 Amox Tr/Potassium Clavulanate [Augmentin 875-125 mg Tablet] 1 tab PO BID #20 tablet 10/15/19 Docusate Sodium [Colace 100 mg Capsule] 100 mg PO BID capsule 10/15/19 Multivitamins W-Iron [Flintstones Chewable Multivit W/Fe Tab] 2 tab PO DAILY tab.chew 10/15/19 History of Present Illiness History of Present Illness: GENTRY MENDOZA is a 69 year old female Physical Exam Vital Signs: Temp Pulse Resp BP Pulse Ox 97.3 F 76 16 105/56 L 98 10/15/19 13:13 10/15/19 13:13 10/15/19 13:13 10/15/19 13:13 10/15/19 13:13 Intake & Output 10/14/19 10/15/19 10/16/19 06:59 06:59 06:59 Intake Total 8628 668 450 Output Total 1530 980 Balance 110 -312 450 Weight 146.6 kg 146.5 kg Results Laboratory Results: WBC 5.8 10^3/uL (4.0-10.5) 10/14/19 04:55 RBC 3.57 10^6/uL (3.72-5.28) L 10/14/19 04:55 Hgb 8.7 g/dL (12.0-15.5) L 10/14/19 04:55 Hct 27.4 % (36.0-47.0) L 10/14/19 04:55 MCV 77 fl (80-97) L 10/14/19 04:55 MCH 24.3 pg (27.0-33.4) L 10/14/19 04:55 MCHC 31.7 g/dL (32.0-36.0) L 10/14/19 04:55 RDW 17.5 % (11.5-14.0) H 10/14/19 04:55 Plt Count 237 10^3/uL (150-450) 10/14/19 04:55 Lymph % (Auto) 12.4 % (13-45) L 10/11/19 17:44 [place] % (Auto) 7.4 % (3-13) 10/11/19 17:44 Eos % (Auto) 4.7 % (0-6) 10/11/19 17:44 Baso % (Auto) 1.4 % (0-2) 10/11/19 17:44 Reticulocyte # 0.070 10^6/uL (0.028-0.122) 10/13/19 04:37 Absolute Neuts (auto) 5.5 10^3/uL (1.7-8.2) 10/11/19 17:44 Absolute Lymphs (auto) 0.9 10^3/uL (0.5-4.7) 10/11/19 17:44 Absolute Monos (auto) 0.6 10^3/uL (0.1-1.4) 10/11/19 17:44 Absolute Eos (auto) 0.4 10^3/uL (0.0-0.6) 10/11/19 17:44 Absolute Basos (auto) 0.1 10^3/uL (0.0-0.2) 10/11/19 17:44 Seg Neutrophils % 74.1 % (42-78) 10/11/19 17:44 Retic Count (auto) 1.83 % (0.66-2.85) 10/13/19 04:37 Sodium 137.1 mmol/L (137-145) 10/13/19 04:37 Potassium 5.0 mmol/L (3.6-5.0) 10/13/19 04:37 Chloride 104 mmol/L (98-107) 10/13/19 04:37 Carbon Dioxide 27 mmol/L (22-30) 10/13/19 04:37 Anion Gap 6 (5-19) 10/13/19 04:37 BUN 18 mg/dL (7-20) 10/13/19 04:37 Creatinine 1.40 mg/dL (0.52-1.25) H 10/13/19 04:37 Est GFR ( Amer) 45 (>60) L 10/13/19 04:37 Est GFR (MDRD) Non-Af 37 (>60) L 10/13/19 04:37 Glucose 115 mg/dL (75-110) H 10/13/19 04:37 POC Glucose 252 mg/dL (70-110) H 10/15/19 11:08 Hemoglobin A1c % 7.6 % (4.7-6.0) H 10/12/19 06:48 Calcium 9.7 mg/dL (8.4-10.2) 10/13/19 04:37 Magnesium 2.0 mg/dL (1.6-2.3) 10/12/19 06:48 Iron 37.0 ug/dL (37-170) 10/13/19 04:37 TIBC 342 ug/dL (250-450) 10/13/19 04:37 % Saturation 11 % 10/13/19 04:37 Ferritin 13.30 ng/mL (11.1-264.0) 10/13/19 04:37 Total Bilirubin 0.4 mg/dL (0.2-1.3) 10/11/19 17:44 Direct Bilirubin 0.3 mg/dL (0.0-0.4) 10/11/19 17:44 Neonat Total Bilirubin Not Reportable 10/11/19 17:44 Neonat Direct Bilirubin Not Reportable 10/11/19 17:44 Neonat Indirect Bili Not Reportable 10/11/19 17:44 AST 20 U/L (14-36) 10/11/19 17:44 ALT 14 U/L (<35) 10/11/19 17:44 Alkaline Phosphatase 113 U/L (38-126) 10/11/19 17:44 NT-Pro-B Natriuret Pep 3010 pg/mL (<125) H 10/12/19 06:48 Total Protein 6.9 g/dL (6.3-8.2) 10/11/19 17:44 Albumin 3.2 g/dL (3.5-5.0) L 10/11/19 17:44 Vitamin B12 497.0 pg/mL (239-931) 10/13/19 04:37 Folate 14.80 ng/mL (>2.76) 10/13/19 04:37 10/12/19 06:48 NT-Pro-B Natriuret Pep 3010 H Impressions: Tibia/Fibula X-Ray 10/11/19 16:40 IMPRESSION: Cannot exclude osteomyelitis in the fibula. Stroke Is this a Stroke Patient?: No Acute Heart Failure - Is this a Heart Failure Patient?: No
== END 2019-10-15 13:40 | disposition home or self-care (01) | DRG 300 ==
LOC: ER 14:22 → EH 22:47 → 4S 10-12 04:58
PROVIDERS: ADMIT Emergency Medicine; ATTEND Emergency Medicine
DX: I87.332 Chronic venous hypertension (idiopathic) with ulcer and inflammation of left lower extremity (principal); L03.116 Cellulitis of left lower limb; L97.829 Non-pressure chronic ulcer of other part of left lower leg with unspecified severity; Z68.43 Body mass index [BMI] 50.0-59.9, adult; E11.622 Type 2 diabetes mellitus with other skin ulcer; E66.01 Morbid (severe) obesity due to excess calories; E11.628 Type 2 diabetes mellitus with other skin complications; I48.91 Unspecified atrial fibrillation; N18.3 Chronic kidney disease, stage 3 (moderate); D63.1 Anemia in chronic kidney disease; I12.9 Hypertensive chronic kidney disease with stage 1 through stage 4 chronic kidney disease, or unspecified chronic kidney disease; E11.22 Type 2 diabetes mellitus with diabetic chronic kidney disease; Z85.3 Personal history of malignant neoplasm of breast; Z83.3 Family history of diabetes mellitus; Z86.14 Personal history of Methicillin resistant Staphylococcus aureus infection; Z88.8 Allergy status to other drugs, medicaments and biological substances; Z88.3 Allergy status to other anti-infective agents; Z91.040 Latex allergy status; Z79.84 Long term (current) use of oral hypoglycemic drugs
CPT/HCPCS: 36415; 80048; 80053; 82607; 82728; 82746; 82962; 83036; 83540; 83550; 83735; 83880; 85025; 85027; 85045; 87040; 87070; 87077; 87186; 87205; 99284; J1815; J2060; J2270; J2543; J3370; J3490; J7050; J7060

== ENCOUNTER 2020-05-11 10:33 | Inpatient (IN) | payer MEDICARE, OTHER ==
[2020-05-11 11:23] LABS: ABSOLUTE BASOPHILS # (AUTO) 0.1 10^3/uL (0.0-0.2); ABSOLUTE EOSINOPHILS # (AUTO) 0.1 10^3/uL (0.0-0.6); ABSOLUTE LYMPHOCYTES (AUTO) 0.5 10^3/uL (0.5-4.7); ABSOLUTE MONOCYTES (AUTO) 0.4 10^3/uL (0.1-1.4); BASOPHILS % (AUTO) 1.2 % (0-2); HEMOGLOBIN 16.1 g/dL (12.0-15.5); LYMPHOCYTES % (AUTO) 10.3 % (13-45); MEAN CORPUSCULAR HEMOGLOBIN 31.2 pg (27.0-33.4); MEAN CORPUSCULAR HGB CONC 32.8 g/dL (32.0-36.0); MEAN CORPUSCULAR VOLUME 95 fl (80-97); MONOCYTES % (AUTO) 8.1 % (3-13); PLATELET COUNT 101 10^3/uL (150-450); RED BLOOD COUNT 5.14 10^6/uL (3.72-5.28); RED CELL DISTRIBUTION WIDTH 15.7 % (11.5-14.0); SEGMENTED NEUTROPHILS % (AUTO) 79.4 % (42-78); TOTAL CELLS COUNTED % (AUTO) 100 %
[2020-05-11 11:25] LABS: PROTHROMBIN TIME 14.4 SEC (11.4-15.4)
--- NOTE | 2020-05-11 11:29 | RADIOLOGY REPORT (SQ) ---
EXAM DESCRIPTION: CHEST SINGLE VIEW IMAGES COMPLETED DATE/TIME: 05/11/2020 9:57 am REASON FOR STUDY: bed 6 difficulty breeathing COMPARISON: 03/31/2020 EXAM PARAMETERS: NUMBER OF VIEWS: One view. TECHNIQUE: Single frontal radiographic view of the chest acquired. RADIATION DOSE: NA LIMITATIONS: Respiratory motion obscures detail. FINDINGS: LUNGS AND PLEURA: Within the limits of the exam there is no evidence of acute consolidatio n. Evaluation for pneumothorax is limited. MEDIASTINUM AND HILAR STRUCTURES: No masses. Contour normal. HEART AND VASCULAR STRUCTURES: Moderate cardiomegaly. Probable mild pulmonary edema. BONES: No acute findings. HARDWARE: None in the chest. OTHER: No other significant finding. IMPRESSION: Moderate cardiomegaly with probably mild pulmonary edema. Evaluation is somewhat limite d due to motion. No focal consolidation. TECHNICAL DOCUMENTATION: JOB ID: [id number] 2010 [employer]- All Rights Reserved Reading location - IP/workstation name: [email or web address]
[2020-05-11 11:38] LABS: ALBUMIN 3.8 g/dL (3.5-5.0); ALKALINE PHOSPHATASE 94 U/L (38-126); ANION GAP 10 (5-19); ASPARTATE AMINO TRANSFERASE 27 U/L (14-36); BILIRUBIN,DIRECT 0.4 mg/dL (0.0-0.4); BILIRUBIN,TOTAL 2.2 mg/dL (0.2-1.3); BLOOD UREA NITROGEN 22 mg/dL (7-20); CALCIUM 10.8 mg/dL (8.4-10.2); CARBON DIOXIDE 26 mmol/L (22-30); CHLORIDE 102 mmol/L (98-107); GLUCOSE 207 mg/dL (75-110); POTASSIUM 4.6 mmol/L (3.6-5.0); TOTAL PROTEIN 7.6 g/dL (6.3-8.2)
[2020-05-11] MEDS ORDERED: METOPROLOL TARTRATE PF/INJ 5 MG/5 ML SDV IV ONE ×2 (11:41→18:29)
[2020-05-11 11:55] LABS: TROPONIN I 0.057 ng/mL
[2020-05-11] MEDS ORDERED: METOPROLOL TARTRATE 50 MG TABLET PO ONE (12:09)
[2020-05-11 12:54] LABS: VENOUS BLOOD BASE EXCESS -0.4 mmol/L; VENOUS BLOOD HCO3 27.5 mmol/L (20-32); VENOUS BLOOD PCO2 56.7 mmHg (35-63); VENOUS BLOOD PH 7.3 (7.30-7.42)
[2020-05-11] MEDS ORDERED: FUROSEMIDE INJ/PF 40 MG/4 ML SDV IV ONE (12:59)
[2020-05-11] MEDS ORDERED: MORPHINE SULFATE 10 MG/ML INJ IV ONE ×2 (13:01→15:27)
[2020-05-11] MEDS ORDERED: NITROGLYCERIN 2% OINTMENT 1 GM PACKET TP ONE (13:01)
[2020-05-11 15:09] LABS: APPEARANCE,URINE SLIGHTLY-CLOUDY; BILIRUBIN,URINE NEGATIVE (NEGATIVE); COLOR,URINE YELLOW; GLUCOSE, URINE NEGATIVE (NEGATIVE); KETONES,URINE NEGATIVE (NEGATIVE); LEUKOCYTE ESTERASE,URINE SMALL (NEGATIVE); NITRITE,URINE NEGATIVE (NEGATIVE); PROTEIN,URINE 100 mg/dL (NEGATIVE); URINE SPECIFIC GRAVITY 1.008; UROBILINOGEN,URINE NEGATIVE mg/dL (<2.0)
[2020-05-11] MEDS ORDERED: ONDANSETRON HCL INJ/PF 4 MG/2 ML SDV IV ONE ×2 (15:28→16:51)
--- NOTE | 2020-05-11 17:17 | RADIOLOGY REPORT (SQ) ---
EXAM DESCRIPTION: CTA CHEST IMAGES COMPLETED DATE/TIME: 05/11/2020 3:24 pm REASON FOR STUDY: elevated d dimer/a fib. D-dimer 6.93. COMPARISON: Chest radiograph same date. TECHNIQUE: CT scan of the chest performed using helical scanning technique with dynamic intravenous contrast injection. Images reviewed with lung, soft tissue and bone windows. Reconstructed coronal and sagittal MPR images reviewed. Additional 3 dimensional post-processing performed to develop Maximal Intensity Projection images (ME P). All images stored on PACS. All CT scanners at this facility use dose modulation, iterative reconstruction, and/or weight based d osing when appropriate to reduce radiation dose to as low as reasonably achievable (ALARA). [facility]: Dose Right [facility]: CareDose [facility]: Dose Right [facility]: Teradose 4D [facility]: [employer] CONTRAST TYPE AND DOSE: contrast/concentration: Isovue 350.00 mmol/ml; Total Contrast Delivered: 100 .0 ml; Total Saline Delivered: 80.0 ml Contrast bolus optimized for the pulmonary arteries. Not diagnostic for the aorta. RENAL FUNCTION: Creatinine 1.25 today. RADIATION DOSE: CT Rad equipment meets quality standard of care and radiation dose reduction techniq ues were employed. CTDIvol: 29.8 - 29.8 mGy. DLP: 989 mGy-cm. . LIMITATIONS: None. FINDINGS: LUNGS AND PLEURA: The trachea has normal caliber and appearance. No focal consolidation o r pleural effusion. Respiratory motion obscures detail somewhat. No suspicious pulmonary nodules ar e identified. AORTA AND GREAT VESSELS: No aneurysm. Contrast bolus not optimized for the aorta. HEART: There is marked cardiomegaly. No pericardial effusion. No significant coronary artery calcifi cations. PULMONARY ARTERIES: There is no pulmonary embolism. The pulmonary arteries are enlarged with main pu lmonary artery measuring 42 mm diameter, right pulmonary artery measuring 35 mm diameter and left pul monary artery measuring 33 mm diameter. HILAR AND MEDIASTINAL STRUCTURES: No identified masses or abnormal nodes. HARDWARE: None in the chest. UPPER ABDOMEN: There is reflux of contrast into the hepatic veins. Small hiatal hernia. THYROID AND OTHER SOFT TISSUES: No masses. No adenopathy. BONES: Spondylosis and degenerative disc disease in the thoracic spine. No suspicious bone lesions. 3D MIPS: Confirm above findings. OTHER: No other significant finding. IMPRESSION: 1. There is no pulmonary embolism. No acute pulmonary disease. 2. Marked cardiomegaly. There is reflux of contrast into the hepatic veins which can be seen with el evated right heart pressure/right heart failure. Clinical correlation. 3. Pulmonary artery enlargement which can be seen with pulmonary arterial hypertension. Echocardiogr am may provide additional information. COMMENT: Quality ID # [id number]: Final reports with documentation of one or more dose reduction techniques (e.g., Automated exposure control, adjustment of the mA and/or kV according to patient size, use of iterative reconstruction technique) TECHNICAL DOCUMENTATION: JOB ID: [id number] 2010 [email or web address]- All Rights Reserved Reading location - IP/workstation name: [email or web address]
[2020-05-11] MEDS ORDERED: NALOXONE HCL INJ/PF 0.4 MG/1 ML SDV ONE (18:38)
[2020-05-11] MEDS ORDERED: NALOXONE HCL INJ/PF 0.4 MG/1 ML SDV IV ONE (18:38)
[2020-05-11] MEDS ORDERED: CEFTRIAXONE 1 GM/D5W RTU 1 GM/50 ML RTUPB IV ONE (19:06)
[2020-05-11] MEDS ORDERED: AZITHROMYCIN INJ 500 MG VIAL IV ONE (19:07)
[2020-05-11] MEDS ORDERED: METRONIDAZOLE 500 MG/NS RTU 100 ML IV ONE (19:08)
--- NOTE | 2020-05-11 19:50 | EKG REPORT ---
SEVERITY:- ABNORMAL ECG - ATRIAL FIBRILLATION, V-RATE 77-155 LEFT ANTERIOR FASCICULAR BLOCK EXTENSIVE ANTEROLATERAL INFARCT, AGE INDETERMINATE : Confirmed by: Martin To MD 11-May-2020 19:50:02
--- NOTE | 2020-05-11 19:51 | EKG REPORT ---
SEVERITY:- ABNORMAL ECG - ATRIAL FIBRILLATION, V-RATE 70-144 NONSPECIFIC INTRAVENTRICULAR CONDUCTION DELAY ANTEROLATERAL INFARCT, OLD : Confirmed by: Martin To MD 11-May-2020 19:51:00
--- NOTE | 2020-05-11 20:06 | RADIOLOGY REPORT (SQ) ---
EXAM DESCRIPTION: CHEST SINGLE VIEW IMAGES COMPLETED DATE/TIME: 05/11/2020 7:36 pm REASON FOR STUDY: DB COMPARISON: CT angiogram chest 05/11/2020. Chest x-ray 05/11/2020 at 10:49 hours EXAM PARAMETERS: NUMBER OF VIEWS: One view. TECHNIQUE: Single frontal radiographic view of the chest acquired on 05/11/2020 at 19:38 hours. RADIATION DOSE: NA LIMITATIONS: None. FINDINGS: LUNGS AND PLEURA: No consolidation, pneumothorax or pleural effusion. MEDIASTINUM AND HILAR STRUCTURES: Stable. HEART AND VASCULAR STRUCTURES: The heart is enlarged. There is mild central vascular congestion. BONES: Multilevel degenerative changes at the spine. HARDWARE: None in the chest. IMPRESSION: Cardiomegaly. Mild central vascular congestion. TECHNICAL DOCUMENTATION: JOB ID: [id number] 2010 [employer]- All Rights Reserved Reading location - IP/workstation name: [email or web address]
[2020-05-11] MEDS ORDERED: MAG HYDROX/AL HYDROX/SIMETH SUSP 30 ML UDCUP PO PRN (20:16)
[2020-05-11] MEDS ORDERED: ONDANSETRON HCL INJ/PF 4 MG/2 ML SDV IV PRN (20:16)
[2020-05-11] MEDS ORDERED: MAGNESIUM HYDROXIDE SUSP 30 ML UDCUP PO PRN (20:16)
--- NOTE | 2020-05-11 20:18 | ER Document Report ---
Entered by JESUS VILLATORO SCRIBE 05/11/20 1147 Acting as scribe for:ABBIE CHAWLA MD ED Cardiac - General Chief Complaint: Shortness Of Breath Stated Complaint: SHORTNESS OF BREATH Time Seen by Provider: 05/11/20 11:14 Information source: Patient Notes: This 69 year old female patient presents to the emergency department today with complaints of an irregular fast heart rhythm. Patient reports she has chronic Afib and last night her heart rhythm was faster than normal. Patient states she takes Xarelto for her Afib and states she was not able to sleep last night. Denies chest pain, but states her chest is uncomfortable. Denies a history of CHF and states her lower extremities are normal in size. Patient reports loss of taste/smell, N, and V x1 this morning. Denies cough or fever. TRAVEL OUTSIDE OF THE [place] IN LAST 30 DAYS: No - Related Data Allergies/Adverse Reactions: adhesive Allergy (Verified 10/11/19 16:42) bacitracin [From Neosporin ([id number])] Allergy (Verified 10/11/19 16:42) latex Allergy (Verified 10/11/19 16:42) neomycin [From Neosporin ([id number]-[id number])] Allergy (Verified 10/11/19 16:42) polymyxin B [From Neosporin ([id number])] Allergy (Verified 10/11/19 16:42) sulfur dioxide Allergy (Verified 10/11/19 16:42) Home Medications: Gabapentin, Stool Softener, Iron, Lasix, Glipizide, Januvia, Xarelto Past Medical History - General Information source: Patient - Social History Smoking Status: Unknown if Ever Smoked Family History: DM, Malignancy, Other - Kidney disease - Past Medical History Cardiac Medical History: Reports: Hx Atrial Fibrillation, Hx Hypertension Denies: Hx Congestive Heart Failure Endocrine Medical History: Reports: Hx Diabetes Mellitus Type 2 Malignancy Medical History: Reports: Hx Breast Cancer Infectious Medical History: Reports: Hx MRSA - And a previous infection of a venous stasis ulcer requiring vancomycin Past Surgical History: Reports: Other - Right lumpectomy and axillary lymph node dissection - Immunizations Hx Pneumococcal Vaccination: 10/04/13 Review of Systems - Review of Systems Constitutional: See HPI. denies: Fever EENT: See HPI, Other - Loss of taste/smell Cardiovascular: See HPI, Heart racing. denies: Chest pain Respiratory: See HPI. denies: Cough Gastrointestinal: See HPI, Nausea, Vomiting - x1 Genitourinary: No symptoms reported Female Genitourinary: No symptoms reported Musculoskeletal: See HPI. denies: Leg swelling Skin: No symptoms reported Hematologic/Lymphatic: No symptoms reported Neurological/Psychological: No symptoms reported -: Yes All other systems reviewed and negative Physical Exam - Vital signs Vitals: Resp 20 05/11/20 10:39 - General General appearance: Alert In distress: Mild - HEENT Head: Normocephalic, Atraumatic Eyes: Normal Pupils: PERRL - Respiratory Respiratory status: No respiratory distress Chest status: Nontender Breath sounds: Other - Diminished in bases bilaterally. No: Rales Chest palpation: Normal - Cardiovascular Rhythm: Irregularly irregular. No: Tachycardia Murmur: No - Abdominal Inspection: Morbidly Obese Distension: No distension Bowel sounds: Normal Tenderness: Nontender - Extremities General upper extremity: Normal inspection. No: Edema Notes: Chronic stasis dermatitis of bilateral lower extremities. LLE is wrapped to cover a chronic ulcer. Brawny edema of RLE. No pitting edema of bilateral LE. - Neurological Neuro grossly intact: Yes Cognition: Normal Orientation: AAOx4 Speech: Normal - Psychological Associated symptoms: Normal affect, Normal mood - Skin Skin Temperature: Warm Skin Moisture: Dry Skin Color: Normal Course - Re-evaluation Re-evalutation: 05/11/20 12:13 Currently patient is IV is not working properly therefore change medications to Lopressor tartrate 50 mg p.o. at this time. 05/11/20 20:19 Patient had a sedative effect from the morphine that was given because patient to be sleepy and with decreased arousal and decreased respirations so therefore patient was given Narcan to reverse the morphine patient was placed on a BiPAP for perhaps 10 to 15minutes and patient was graduated from BiPAP to nasal cannula as patient's arousable status and inspiratory effort and respirations all improved patient became much more alert was able to talk and had no neurolo gical consequence. - Vital Signs Vital signs: Temp Pulse Resp BP Pulse Ox 98.5 F 124 H 16 152/94 H 92 05/11/20 10:54 05/11/20 10:54 05/11/20 18:30 05/11/20 17:31 05/11/20 18:30 05/11/20 20:20 Vital signs stable heart rate continues to range in the low 90s to 120 at this time. - Laboratory Result Diagrams: 05/11/20 10:43 05/11/20 10:43 Laboratory results interpreted by me: 05/11/20 05/11/20 05/11/20 10:43 10:43 10:43 Hgb 16.1 H Hct 49.0 H RDW 15.7 H Plt Count 101 L Lymph % (Auto) 10.3 L Seg Neutrophils % 79.4 H D-Dimer BUN 22 H Est GFR ( Amer) 51 L Est GFR (MDRD) Non-Af 42 L Glucose 207 H POC Glucose Calcium 10.8 H Total Bilirubin 2.2 H NT-Pro-B Natriuret Pep 97487 H Urine Protein Urine Blood Ur Leukocyte Esterase 05/11/20 05/11/20 05/11/20 10:43 14:23 18:34 Hgb Hct RDW Plt Count Lymph % (Auto) Seg Neutrophils % D-Dimer 6.73 H BUN Est GFR ( Amer) Est GFR (MDRD) Non-Af Glucose POC Glucose 183 H Calcium Total Bilirubin NT-Pro-B Natriuret Pep Urine Protein 100 H Urine Blood LARGE H Ur Leukocyte Esterase SMALL H 05/11/20 20:21 Laboratory shows a elevated d-dimer and an elevated BNP of 10,000 and urinalysis shows a large amount of blood leukocyte esterase small nitrite negative urine. Patient's hemoglobin was 16.1 consistent with some hemoconcentration. Patient is BUN is 22 and a bilirubin of 2.2 GFR is low at 42. - Diagnostic Test Radiology reviewed: Image reviewed, Reports reviewed Radiology results interpreted by me: 05/11/20 20:23 Chest x-ray initial showed some cardiomegaly but no evidence of congestive heart failure. Second chest x-ray shows cardiomegaly with some early changes of CHF present. CT scan angiogram of chest shows no pulmonary emboli or any other significant abnormality. - EKG Interpretation by Me Additional EKG results interpreted by me: 05/11/20 20:25 Twelve-lead EKG initial shows A. fib with a ventricular rate of 77 and 155 with a left anterior fascicular block. anterior lateral infarct age indeterminate. Second twelve-lead EKG shows A. fib ventricular rate [address]-T wave changes anterior lateral infarct old. Critical Care Note - Critical Care Note Total time excluding time spent on procedures (mins): 60 - Time spent with patient and congestive heart failure and rapid atrial fibrillation with RVR.. Management of atrial fib with tachycardia through IV medications for rate control and blood pressure management. Also determine if patient had had an acute [place] in the face of chest discomfort and RVR for over 24 hours. Discussion with admit hospitalist regarding patient's admission status. Discharge - Discharge Clinical Impression: CHF (congestive heart failure), Atrial fibrillation with rapid ventricular response, Venous stasis ulcer of left lower extremity, Morbid obesity with BMI of 50.0-59.9, adult, Chronic kidney disease, stage III (moderate) Condition: Fair Disposition: ADMITTED INPATIENT Admitting Provider: Sukhi (Hospitalist) Unit Admitted: I[facility] I personally performed the services described in the documentation, reviewed and edited the documentation which was dictated to the scribe in my presence, and it accurately records my words and actions.
[2020-05-11] MEDS ORDERED: MELATONIN 5 MG TABLET PO PRN (20:30)
[2020-05-11] MEDS ORDERED: LORAZEPAM INJ 2 MG/1 ML VIAL IV PRN (20:30)
[2020-05-11] MEDS ORDERED: GUAIFENESIN SYRP 200 MG/10 ML UDC PO PRN (20:30)
[2020-05-11] MEDS ORDERED: MORPHINE SULFATE 10 MG/ML INJ IV PRN (20:30)
[2020-05-11] MEDS ORDERED: DEXTROSE 40% GEL 15 GM TUBE PO PRN ×2 (20:33)
[2020-05-11] MEDS ORDERED: GLUCAGON,HUMAN RECOMB 1 MG INJ IM PRN (20:33)
[2020-05-11] MEDS ORDERED: DEXTROSE 50%-WATER 25 GM/50 ML DISP.SYRIN IV PRN ×2 (20:33)
[2020-05-11] MEDS ORDERED: RIVAROXABAN 15 MG TABLET PO ONE (21:30)
[2020-05-11 21:41] LABS: ARTERIAL BLOOD BASE EXCESS -5.5 mmol/L; ARTERIAL BLOOD H2CO3 3.19 mmol/L (1.05-1.35); ARTERIAL BLOOD HCO3 28.8 mmol/L (20-24); ARTERIAL BLOOD O2 SATURATION 92.6 % (94-98); ARTERIAL BLOOD PO2 93.1 mmHg (80-100); ARTERIAL BLOOD TOTAL CO2 32.1 mmol/L (21-25)
[2020-05-11 21:45] LABS: ARTERIAL BLOOD PH 7.05 (7.35-7.45)
[2020-05-11] MEDS ORDERED: RIVAROXABAN 15 MG TABLET ONE (21:49)
[2020-05-11] MEDS ORDERED: FUROSEMIDE INJ/PF 40 MG/4 ML SDV IV SCH (22:00)
[2020-05-11] MEDS: INSULIN REG, HUMAN 100 UNIT/ML 3 ML VIAL (PYX) SUBCUT SCH ×2 (22:18)
[2020-05-11 22:21] LABS: CREATINE KINASE MB 1.81 ng/mL (<4.55)
[2020-05-11] MEDS: METOPROLOL SUCCINATE 50 MG TAB.SR.24H PO SCH (22:21)
[2020-05-11 22:29] LABS: TROPONIN I 0.042 ng/mL
--- NOTE | 2020-05-11 23:13 | RADIOLOGY REPORT (SQ) ---
EXAM DESCRIPTION: Bilateral lower extremity venous duplex exam CLINICAL HISTORY: 69 years Female; elevated d dimer/bilat swollen legs TECHNIQUE: Multiple grayscale sonographic images of both legs were obtained utilizing a high-frequency linear array transducer supplemented with color Doppler, compression and augmentation techniques. COMPARISON: Bilateral lower extremity venous duplex exam 06/28/2019 FINDINGS: Exam is limited secondary to patient's body habitus. The mid and distal femoral vein was not visualized in either leg. Right leg veins: Normal compression and augmentation is identified from the level of the common femoral vein to the calf veins. Normal color flow and spectral waveforms. Subcutaneous edema is present in the lower leg. Calf veins are not well seen. No popliteal cyst at the common femoral vein the waveform is pulsatile raising the possibility of elevated right heart pressures or valvular heart disease. Left leg veins: Normal compression and augmentation is identified from the level of the common femoral vein to the calf veins. Normal color flow. The spectral waveforms at the level of the common femoral vein are pulsatile suggesting valvular heart disease or elevated right heart pressures. Edema is present in the lower leg. The calf veins are not well seen. A bandage is present in the left leg below the knee IMPRESSION: 1. Limited examination demonstrating no definitive lower extremity DVT bilaterally. 2. Pulsatile waveforms at the central veins bilaterally suggesting either elevated right heart pressures or valvular heart disease.
[2020-05-11 23:36] LABS: ARTERIAL BLOOD BASE EXCESS -4.5 mmol/L; ARTERIAL BLOOD HCO3 29.1 mmol/L (20-24); ARTERIAL BLOOD PO2 48.8 mmHg (80-100); ARTERIAL BLOOD TOTAL CO2 32.2 mmol/L (21-25)
[2020-05-11 23:44] LABS: ARTERIAL BLOOD FIO2 35%; ARTERIAL BLOOD PCO2 99.6 mmHg (35-45); ARTERIAL BLOOD PH 7.08 (7.35-7.45)
[2020-05-12] MEDS ORDERED: SUCCINYLCHOLINE CHLORIDE INJ 200 MG/10 ML VIAL IV ONE (00:54)
[2020-05-12] MEDS ORDERED: ETOMIDATE INJ/PF 20 MG/10 ML SDV IV ONE (00:54)
--- NOTE | 2020-05-12 01:22 | RADIOLOGY REPORT (SQ) ---
EXAM DESCRIPTION: XR CHEST 1 VIEW COMPLETED DATE/TME: 05/12/2020 00:00 CLINICAL HISTORY: 69 years, Female, post intubation COMPARISON: 05/11/2020 chest x-ray at 7:40 PM NUMBER OF VIEWS: 1 TECHNIQUE: Portable chest LIMITATIONS: None. FINDINGS: Cardiomegaly. Tip of the endotracheal tube is only 9.6 mm above the kota. Consider retraction by 2 to 3 cm. Enteric tube, the distal tip is not seen. No pneumothorax. Megaly. Atheromatous change thoracic aorta. Lungs clear IMPRESSION: Tip of the endotracheal tube is only 9.6 mm above the kota. Slight retraction recommended. Enteric tube partially seen. Other findings stable copyright 2010 [employer]- All Rights Reserved
[2020-05-12] MEDS ORDERED: RINGERS SOLUTION,LACTATED 1,000 ML IV PRN (03:02)
[2020-05-12] MEDS ORDERED: DEXTROSE 50%-WATER 25 GM/50 ML DISP.SYRIN IV PRN ×2 (03:02)
[2020-05-12] MEDS ORDERED: GLUCAGON,HUMAN RECOMB 1 MG INJ SUBCUT PRN (03:02)
[2020-05-12] MEDS ORDERED: DEXTROSE 40% GEL 15 GM TUBE PO PRN ×2 (03:02)
[2020-05-12 03:38] LABS: HEMATOCRIT 51.8 % (36.0-47.0); HEMOGLOBIN 16.5 g/dL (12.0-15.5); MEAN CORPUSCULAR HEMOGLOBIN 30.9 pg (27.0-33.4); MEAN CORPUSCULAR HGB CONC 31.9 g/dL (32.0-36.0); MEAN CORPUSCULAR VOLUME 97 fl (80-97); RED BLOOD COUNT 5.34 10^6/uL (3.72-5.28); RED CELL DISTRIBUTION WIDTH 15.6 % (11.5-14.0)
[2020-05-12 03:51] LABS: ANION GAP 8 (5-19); BLOOD UREA NITROGEN 27 mg/dL (7-20); CALCIUM 10.6 mg/dL (8.4-10.2); CARBON DIOXIDE 29 mmol/L (22-30); CHLORIDE 101 mmol/L (98-107); GLUCOSE 242 mg/dL (75-110); POTASSIUM 5.3 mmol/L (3.6-5.0)
[2020-05-12 03:54] LABS: ARTERIAL BLOOD HCO3 26.4 mmol/L (20-24); ARTERIAL BLOOD PO2 73.7 mmHg (80-100)
[2020-05-12 03:55] LABS: ARTERIAL BLOOD TOTAL CO2 28.8 mmol/L (21-25)
[2020-05-12 03:56] LABS: ARTERIAL BLOOD BASE EXCESS -4.6 mmol/L; ARTERIAL BLOOD FIO2 60%; ARTERIAL BLOOD O2 SATURATION 89.8 % (94-98); ARTERIAL BLOOD PH 7.16 (7.35-7.45)
[2020-05-12 03:57] LABS: ARTERIAL BLOOD PCO2 76.4 mmHg (35-45)
[2020-05-12 03:57] LABS: PLATELET COUNT 94 10^3/uL (150-450)
[2020-05-12 04:01] LABS: CREATINE KINASE MB 3.17 ng/mL (<4.55); TROPONIN I 0.041 ng/mL
[2020-05-12 04:04] LABS: ABSOLUTE LYMPHOCYTES# (MANUAL) 0.1 10^3/uL (0.5-4.7); ABSOLUTE MONOCYTES # (MANUAL) 0.4 10^3/uL (0.1-1.4); ANISOCYTOSIS 1+; BASOPHILS % (MANUAL) 0 % (0-2); EOSINOPHILS % (MANUAL) 1 % (0-6); LYMPHOCYTES % (MANUAL) 2 % (13-45); MONOCYTES % (MANUAL) 5 % (3-13); PLATELET COMMENT DECREASED; POLYCHROMASIA SLIGHT; SEGMENTED NEUTROPHILS % (MAN) 92 % (42-78); TOTAL CELLS COUNTED 100
[2020-05-12 04:05] LABS: OVALOCYTES SLIGHT; TEAR DROP CELLS SLIGHT
--- NOTE | 2020-05-12 05:54 | CRITICAL CARE ADMISSION REPORT ---
HPI Date:: 05/12/20 Time:: 01:00 Reason for ICU Reason:: Respiratory Failure Admission Date/Time & PCP: Admission Date/Time: 05/11/20 20:29 Primary Care Provider: HPI: 69-year-old female history of chronic atrial fibrillation, HTN, CHF, DM 2 as well as MRSA infection of a venous stasis ulcer and a history of breast cancer. Patient initially presented to the ED with complaints of palpitations and chest discomfort. She also reported a loss of taste and smell as well as nausea and vomiting x1. (Rapid Covid test negative). Upon arrival to the emergency room, she had atrial fibrillation with RVR which improved with metoprolol. At 1 point she was hypertensive (150s / 90s ) and was treated with nitroglycerin. She also complained of chest discomfort and was given morphine. Patient began to have mental status changes and became lethargic. She was given Narcan with good response. She again became less responsive and was started on BiPAP support and again administered Narcan. Patient awoke, was taken off the BiPAP and an ABG was obtained: 7.05/CO2 106/PaO2 93.1. She was placed back on BiPAP once again and a follow-up ABG showed only mild improvement. It was at this time that I was called by the medicine service who was originally going to accept her for admission. Upon arrival to the ED to evaluate the patient, she was being prepared for intubation. I spoke to her son Vikram who is her next of kin and despite her wishes to be DNR, he felt that intubation was appropriate at this time. Patient was intubated without event and she was transferred to the intensive care unit for vent weaning. Patient had received etomidate and succinylcholine for intubation. She remains intubated in the intensive care unit and is still lethargic with inconsistent minute ventilation on spontaneous mode. She has otherwise been hemodynamically stable with no rhythm instability. History obtained from:: Medical Record - Diagnosis/Plan (1) Respiratory failure requiring intubation Is this a current diagnosis for this admission?: Yes Plan: Patient is intermittently awake and alert. Her respiratory dynamics show good lung compliance with spontaneous respirations which are inconsistent ranging fro m 200 mL when sleeping to 700 mL when awake. Patient should remain on PRVC at this time until more consistently awake. Plan will be to extubate this morning if she continues to tolerate the weaning process. (2) Atrial fibrillation with rapid ventricular response Is this a current diagnosis for this admission?: Yes Plan: Rapid ventricular response had resolved in the emergency department. No subsequent events. Continue metoprolol. (3) Chronic kidney disease, stage III (moderate) Is this a current diagnosis for this admission?: Yes Plan: Patient has a mild but acute rise in her BUN and creatinine. We will continue to follow and administer IV fluids to optimize renal perfusion. Past Medical History Cardiac Medical History: Reports: Atrial Fibrillation, Hypertension Denies: Congestive Heart Failure, Coronary Artery Disease, DVT, Myocardial Infarction, Hyperlipidema, Pulmonary Embolism Pulmonary Medical History: Denies: Asthma, Chronic Obstructive Pulmonary Disease (COPD) EENT Medical History: Denies: Cataracts, Ears - Hearing aids Neurological Medical History: Denies: Hemorrhagic CVA, Ischemic CVA, Seizures Endocrine Medical History: Reports: Diabetes Mellitus Type 2 Denies: Diabetes Mellitus Type 1, Hyperthyroidism, Hypothyroidism Renal/ Medical History: Reports: Chronic Kidney Disease Denies: Nephrolithiasis Malignancy Medical History: Reports: Breast Cancer GI Medical History: Denies: Cirrhosis, Crohn's Disease, Gastroesophageal Reflux Disease, Hepatitis, Peptic Ulcer Disease, Ulcerative Colitis Musculoskeltal Medical History: Denies: Arthritis, Gout Skin Medical History: Denies: Eczema, Psoriasis Psychiatric Medical History: Denies: Alcohol Dependency, Depression, Substance Abuse, Tobacco Dependency Traumatic Medical History: Reports: None Hematology: Denies: Anemia, Bleeding Tendencies Infectious Medical History: Reports: Methicillin-Resistant Staph Aureus - previous infection of a venous stasis ulcer requiring vancomycin Past Surgical History Past Surgical History: Reports: Other - Right lumpectomy and axillary lymph node dissection Social/Family History - Social History Lives with: Spouse/Significant other Smoking Status: Never Smoker Frequency of Alcohol Use: Occasional Hx Recreational Drug Use: No Drugs: None Hx Prescription Drug Abuse: No - Medication/Allergies Home Medications: Furosemide [Lasix 20 mg Tablet] 20 mg PO DAILY 03/28/19 Glipizide [Glucotrol 5 mg Tablet] 5 mg PO Q12 03/28/19 Hydrocodone/Acetaminophen [Rodeo 5-325 mg Tablet] 1 tab PO Q8HP PRN 03/28/19 Rivaroxaban [Xarelto] 20 mg PO QPM 03/28/19 Amlodipine Besylate [Norvasc 2.5 mg Tablet] 2.5 mg PO DAILY 30 Days #30 tablet 04/02/19 Metoprolol Tartrate [Lopressor] 50 mg PO BID 30 Days #60 tablet 04/02/19 Ferrous Sulfate [Feosol 325 mg Tablet] 325 mg PO DAILY 10/12/19 Gabapentin [Neurontin 300 mg Capsule] 300 mg PO Q8HP PRN 10/12/19 Acetaminophen [Tylenol 325 mg Tablet] 650 mg PO Q4HP PRN tablet 10/15/19 Amox Tr/Potassium Clavulanate [Augmentin 875-125 mg Tablet] 1 tab PO BID #20 tablet 10/15/19 Docusate Sodium [Colace 100 mg Capsule] 100 mg PO BID capsule 10/15/19 Multivitamins W-Iron [Flintstones Chewable Multivit W/Fe Tab] 2 tab PO DAILY tab.chew 10/15/19 Allergies/Adverse Reactions: adhesive Allergy (Verified 10/11/19 16:42) bacitracin [From Neosporin ([id number])] Allergy (Verified 10/11/19 16:42) latex Allergy (Verified 10/11/19 16:42) neomycin [From Neosporin ([id number])] Allergy (Verified 10/11/19 16:42) polymyxin B [From Neosporin ([id number])] Allergy (Verified 10/11/19 16:42) sulfur dioxide Allergy (Verified 10/11/19 16:42) Review of Systems ROS unobtainable: Due to endotracheal tube, Due to mental status Physical Exam Vital Signs: Temp Pulse Resp BP Pulse Ox 97.7 F 93 12 149/107 H 96 05/12/20 03:37 05/12/20 02:17 05/12/20 02:17 05/12/20 02:17 05/12/20 03:35 Intake & Output 05/10/20 05/11/20 05/12/20 06:59 06:59 06:59 Output Total 935 Balance -935 Weight 145.3 kg Weight/Height Weight 145.3 kg Height 5 ft 6 in General appearance: PRESENT: morbidly obese Head exam: PRESENT: atraumatic, normocephalic Eye exam: PRESENT: conjunctival injection, EOMI, PERRLA Mouth exam: PRESENT: neck supple Throat exam: ABSENT: tonsillar erythema, tonsillar exudate Neck exam: PRESENT: full ROM Respiratory exam: PRESENT: decreased breath sounds, symmetrical Cardiovascular exam: PRESENT: irregular rhythm Extremities exam: PRESENT: pedal edema, +2 edema Neurological exam: PRESENT: CN II-XII grossly intact, other - Patient's mental status is inconsistent. Able to follow commands intermittently. Psychiatric exam: PRESENT: agitated, anxious Skin exam: PRESENT: rash, other - Erythema under left breast Tubes/Lines: PRESENT: Endotracheal Tube Laboratory/Radiographs Laboratory Results: 05/12/20 03:10 05/12/20 03:10 05/11/20 05/11/20 05/11/20 10:43 10:43 10:43 WBC 5.0 RBC 5.14 Hgb 16.1 H Hct 49.0 H MCV 95 MCH 31.2 MCHC 32.8 RDW 15.7 H Plt Count 101 L Seg Neutrophils % 79.4 H Carbonic Acid HCO3/H2CO3 Ratio ABG pH ABG pCO2 ABG pO2 ABG HCO3 ABG O2 Saturation ABG Base Excess VBG pH VBG pCO2 VBG HCO3 VBG Base Excess FiO2 Sodium 138.3 Potassium 4.6 Chloride 102 Carbon Dioxide 26 Anion Gap 10 BUN 22 H Creatinine 1.25 Est GFR ( Amer) 51 L Glucose 207 H Lactic Acid 1.7 Calcium 10.8 H Magnesium Total Bilirubin 2.2 H AST 27 Alkaline Phosphatase 94 Total Protein 7.6 Albumin 3.8 Urine Color Urine Appearance Urine pH Ur Specific Sloan Urine Protein Urine Glucose (UA) Urine Ketones Urine Blood Urine Nitrite Ur Leukocyte Esterase Urine WBC (Auto) Urine RBC (Auto) 05/11/20 05/11/20 05/11/20 12:20 12:51 14:23 WBC RBC Hgb Hct MCV MCH MCHC RDW Plt Count Seg Neutrophils % Carbonic Acid HCO3/H2CO3 Ratio ABG pH ABG pCO2 ABG pO2 ABG HCO3 ABG O2 Saturation ABG Base Excess VBG pH 7.30 VBG pCO2 56.7 VBG HCO3 27.5 VBG Base Excess -0.4 FiO2 Sodium Potassium Chloride Carbon Dioxide Anion Gap BUN Creatinine Est GFR ( Amer) Glucose Lactic Acid 1.3 Calcium Magnesium Total Bilirubin AST Alkaline Phosphatase Total Protein Albumin Urine Color YELLOW Urine Appearance SLIGHTLY-CLOUDY Urine pH 5.0 Ur Specific Sloan 1.008 Urine Protein 100 H Urine Glucose (UA) NEGATIVE Urine Ketones NEGATIVE Urine Blood LARGE H Urine Nitrite NEGATIVE Ur Leukocyte Esterase SMALL H Urine WBC (Auto) 34 Urine RBC (Auto) 18 05/11/20 05/11/20 05/11/20 18:26 21:27 23:10 WBC RBC Hgb Hct MCV MCH MCHC RDW Plt Count Seg Neutrophils % Carbonic Acid 3.19 H 3.00 H HCO3/H2CO3 Ratio 9:1 9:1 ABG pH 7.05 L* 7.08 L* ABG pCO2 106.0 H* 99.6 H* ABG pO2 93.1 48.8 L ABG HCO3 28.8 H 29.1 H ABG O2 Saturation 92.6 L 67.0 L ABG Base Excess -5.5 -4.5 VBG pH VBG pCO2 VBG HCO3 VBG Base Excess FiO2 44% 35% Sodium Potassium Chloride Carbon Dioxide Anion Gap BUN Creatinine Est GFR ( Amer) Glucose Lactic Acid 1.2 Calcium Magnesium Total Bilirubin AST Alkaline Phosphatase Total Protein Albumin Urine Color Urine Appearance Urine pH Ur Specific Sloan Urine Protein Urine Glucose (UA) Urine Ketones Urine Blood Urine Nitrite Ur Leukocyte Esterase Urine WBC (Auto) Urine RBC (Auto) 05/12/20 05/12/20 05/12/20 02:34 03:10 03:10 WBC 7.0 RBC 5.34 H Hgb 16.5 H Hct 51.8 H MCV 97 MCH 30.9 MCHC 31.9 L RDW 15.6 H Plt Count 94 L Seg Neutrophils % Not Reportable Carbonic Acid 2.30 H HCO3/H2CO3 Ratio 11:1 ABG pH 7.16 L* ABG pCO2 76.4 H* ABG pO2 73.7 L ABG HCO3 26.4 H ABG O2 Saturation 89.8 L ABG Base Excess -4.6 VBG pH VBG pCO2 VBG HCO3 VBG Base Excess FiO2 60% Sodium Potassium Chloride Carbon Dioxide Anion Gap BUN Creatinine Est GFR ( Amer) Glucose Lactic Acid Calcium Magnesium 2.0 Total Bilirubin AST Alkaline Phosphatase Total Protein Albumin Urine Color Urine Appearance Urine pH Ur Specific Sloan Urine Protein Urine Glucose (UA) Urine Ketones Urine Blood Urine Nitrite Ur Leukocyte Esterase Urine WBC (Auto) Urine RBC (Auto) 05/12/20 03:10 WBC RBC Hgb Hct MCV MCH MCHC RDW Plt Count Seg Neutrophils % Carbonic Acid HCO3/H2CO3 Ratio ABG pH ABG pCO2 ABG pO2 ABG HCO3 ABG O2 Saturation ABG Base Excess VBG pH VBG pCO2 VBG HCO3 VBG Base Excess FiO2 Sodium 138.0 Potassium 5.3 H Chloride 101 Carbon Dioxide 29 Anion Gap 8 BUN 27 H Creatinine 1.60 H Est GFR ( Amer) 38 L Glucose 242 H Lactic Acid Calcium 10.6 H Magnesium Total Bilirubin AST Alkaline Phosphatase Total Protein Albumin Urine Color Urine Appearance Urine pH Ur Specific Sloan Urine Protein Urine Glucose (UA) Urine Ketones Urine Blood Urine Nitrite Ur Leukocyte Esterase Urine WBC (Auto) Urine RBC (Auto) 05/11/20 05/11/20 05/11/20 10:43 12:20 21:40 Creatine Kinase 39 CK-MB (CK-2) Troponin I 0.057 0.054 NT-Pro-B Natriuret Pep [id number] H 05/11/20 05/12/20 05/12/20 21:40 03:10 03:10 Creatine Kinase 173 H CK-MB (CK-2) 1.81 3.17 Troponin I 0.042 0.041 NT-Pro-B Natriuret Pep 05/12/20 03:10 Creatine Kinase CK-MB (CK-2) Troponin I NT-Pro-B Natriuret Pep [id number] H Impressions: Venous Doppler Study 05/11/20 14:45 IMPRESSION: 1. Limited examination demonstrating no definitive lower extremity DVT bilaterally. 2. Pulsatile waveforms at the central veins bilaterally suggesting either elevated right heart pressures or valvular heart disease. Chest/Abdomen CTA 05/11/20 14:47 IMPRESSION: 1. There is no pulmonary embolism. No acute pulmonary disease. 2. Marked cardiomegaly. There is reflux of contrast into the hepatic veins which can be seen with elevated right heart pressure/right heart failure. Clinical correlation. 3. Pulmonary artery enlargement which can be seen with pulmonary arterial hypertension. Echocardiogram may provide additional information. Chest X-Ray 05/12/20 00:00 IMPRESSION: Tip of the endotracheal tube is only 9.6 mm above the kota. Slight retraction recommended. Enteric tube partially seen. Other findings stable copyright 2010 [email or web address]- All Rights Reserved All labs, radiographs, diagnostic studies and EKGs were personally reviewed: Yes In addition, reports of radiographic and diagnostic studies were read: Yes Critical Time Critical Time (minutes): 74 -: The care of a critically ill patient is dynamic. This note represents a static moment in the admission process. Orders and treatments may be given simultaneously and urgently, and time is not hospital sales representative of the treatment process. This patient requires Critical Care secondary to life threatening organ or limb dysfunction. Without Critical Care services, the patient is at risk for increased mortality and morbidity.
[2020-05-12] MEDS ORDERED: PANTOPRAZOLE SODIUM 40 MG TABLET.DR PO SCH (06:00)
[2020-05-12] MEDS: INSULIN REG, HUMAN 100 UNIT/ML 3 ML VIAL (PYX) SUBCUT SCH ×4 (06:06→23:59)
[2020-05-12] MEDS: HEPARIN SOD (PORCINE) 5,000 UNIT/ML 1 ML VIAL SUBCUT SCH ×3 (06:06→22:15)
--- NOTE | 2020-05-12 06:39 | PDOC H&P ---
History of Present Illness Admission Date/PCP: 05/11/2020 19:48 [facility] Patient complains of: Dyspnea History of Present Illness: GENTRY JACOBS is a 69 year old female who presents the emergency room with a 1 day history of dyspnea. At the time of my evaluation the patient was sedated therefore the following is taken from the best available reliable source. She admitted developing dyspnea last evening which progressively worsened over the course of the night becoming moderately severe and increased in severity with activity/exertion this morning resulting in her coming to the emergency room. Her dyspnea was accompanied by orthopnea and a generalized vague chest discomfo rt. Her dyspnea was associated with an increase in her heart rate which she first noted last night, that has persisted throughout the day and was still present in the ER. Her dyspnea was also associated with nausea and vomiting x1 this morning and dysgeusia. She denied other accompanying or associated signs and symptoms. She admitted prior similar episodes due to her atrial fibrillation with a rapid ventricular response. She had not identified any additional aggravating or ameliorating factors for her dyspnea. In the emergency room she was found to have a BNP of 10,100. Her EKG showed atrial fibrillation with a rapid ventricular response and her troponin was 0.057 with a repeat troponin several hours later of 0.054. Her D-dimer was 6.7 but her chest and abdomen CTA was negative for PEs but did demonstrate pulmonary artery enlargement and reflux of contrast into the pulmonary veins consistent with pulmonary hypertension and right-sided heart failure. She did confess to the emergency room physician that she had stopped taking Xarelto and her other medications 2 weeks ago because she could no longer afford medication. She was subsequently admitted to the hospital for further evaluation and treatment. Past Medical History Past Medical History: Patient was sedated at the time my evaluation and therefore past medical history, past surgical history, social history and family history are obtained from the best available reliable source. Cardiac Medical History: Reports: Atrial Fibrillation, Hypertension Denies: Congestive Heart Failure, Coronary Artery Disease, DVT, Myocardial Infarction, Hyperlipidema, Pulmonary Embolism Pulmonary Medical History: Denies: Asthma, Chronic Obstructive Pulmonary Disease (COPD) EENT Medical History: Denies: Cataracts, Ears - Hearing aids Neurological Medical History: Denies: Hemorrhagic CVA, Ischemic CVA, Seizures Endocrine Medical History: Reports: Diabetes Mellitus Type 2 Denies: Diabetes Mellitus Type 1, Hyperthyroidism, Hypothyroidism Renal/ Medical History: Reports: Chronic Kidney Disease Denies: Nephrolithiasis Malignancy Medical History: Reports: Breast Cancer GI Medical History: Denies: Cirrhosis, Crohn's Disease, Gastroesophageal Reflux Disease, Hepatitis, Peptic Ulcer Disease, Ulcerative Colitis Musculoskeltal Medical History: Denies: Arthritis, Gout Skin Medical History: Denies: Eczema, Psoriasis Psychiatric Medical History: Denies: Alcohol Dependency, Substance Abuse, Tobacco Dependency Traumatic Medical History: Reports: None Hematology: Denies: Anemia, Bleeding Tendencies Infectious Medical History: Reports: Methicillin-Resistant Staph Aureus - previous infection of a venous stasis ulcer requiring vancomycin Past Surgical History Past Surgical History: Patient was sedated at the time my evaluation and therefore past medical history, past surgical history, social history and family history are obtained from the best available reliable source. Past Surgical History: Reports: Other - Right lumpectomy and axillary lymph node dissection Social History Information Source: Patient Lives with: Spouse/Significant other Smoking Status: Never Smoker Electronic Cigarette use?: No Frequency of Alcohol Use: Occasional Hx Recreational Drug Use: No Drugs: None Hx Prescription Drug Abuse: No Past Social History Note: Patient was sedated at the time my evaluation and therefore past medical h istory, past surgical history, social history and family history are obtained from the best available reliable source. - Advance Directive Resuscitation Status: Full Code Surrogate healthcare decision maker:: Vikram Jacobs Family History Family History: DM, Malignancy, Other - Kidney disease. denies: CAD, Hypertension Family History: Patient was sedated at the time my evaluation and therefore past medical history, past surgical history, social history and family history are obtained from the best available reliable source. Parental Family History Reviewed: Yes Children Family History Reviewed: No Sibling(s) Family History Reviewed.: Yes Medication/Allergy Home Medications: Furosemide [Lasix 20 mg Tablet] 20 mg PO DAILY 03/28/19 Glipizide [Glucotrol 5 mg Tablet] 5 mg PO Q12 03/28/19 Hydrocodone/Acetaminophen [[place] 5-325 mg Tablet] 1 tab PO Q8HP PRN 03/28/19 Rivaroxaban [Xarelto] 20 mg PO QPM 03/28/19 Amlodipine Besylate [Norvasc 2.5 mg Tablet] 2.5 mg PO DAILY 30 Days #30 tablet 04/02/19 Metoprolol Tartrate [Lopressor] 50 mg PO BID 30 Days #60 tablet 04/02/19 Ferrous Sulfate [Feosol 325 mg Tablet] 325 mg PO DAILY 10/12/19 Gabapentin [Neurontin 300 mg Capsule] 300 mg PO Q8HP PRN 10/12/19 Acetaminophen [Tylenol 325 mg Tablet] 650 mg PO Q4HP PRN tablet 10/15/19 Amox Tr/Potassium Clavulanate [Augmentin 875-125 mg Tablet] 1 tab PO BID #20 tablet 10/15/19 Docusate Sodium [Colace 100 mg Capsule] 100 mg PO BID capsule 10/15/19 Multivitamins W-Iron [Flintstones Chewable Multivit W/Fe Tab] 2 tab PO DAILY tab.chew 10/15/19 Allergies/Adverse Reactions: adhesive Allergy (Verified 10/11/19 16:42) bacitracin [From Neosporin ([id number])] Allergy (Verified 10/11/19 16:42) latex Allergy (Verified 10/11/19 16:42) neomycin [From Neosporin ([id number])] Allergy (Verified 10/11/19 16:42) polymyxin B [From Neosporin ([id number])] Allergy (Verified 10/11/19 16:42) sulfur dioxide Allergy (Verified 10/11/19 16:42) Review of Systems ROS unobtainable: Other - Patient is sedated at the time of my evaluation therefore direct review of systems information is unavailable Physical Exam Vital Signs: Temp Pulse Resp BP Pulse Ox 98.5 F 124 H 16 152/94 H 92 05/11/20 10:54 05/11/20 10:54 05/11/20 18:30 05/11/20 17:31 05/11/20 18:30 Intake & Output 05/09/20 05/10/20 05/11/20 23:59 23:59 23:59 Output Total 720 Balance -720 Weight 152 kg General appearance: PRESENT: no acute distress, morbidly obese, other - Sedated Head exam: PRESENT: atraumatic, normocephalic Eye exam: PRESENT: conjunctiva pink. ABSENT: conjunctival injection, scleral icterus Ear exam: PRESENT: normal external ear exam. ABSENT: bleeding, drainage Mouth exam: PRESENT: dry mucosa, neck supple Neck exam: PRESENT: JVD - Bilateral at 30 degrees elevation. ABSENT: thyromegaly, tracheal deviation Respiratory exam: PRESENT: rales - Bibasilar fine rales, symmetrical. ABSENT: wheezes Cardiovascular exam: PRESENT: irregular rhythm - Irregularly irregular rate and rhythm. ABSENT: clicks, gallop, rubs Pulses: PRESENT: normal carotid pulses, normal radial pulses Vascular exam: PRESENT: normal capillary refill. ABSENT: pallor GI/Abdominal exam: PRESENT: normal bowel sounds, soft Rectal exam: PRESENT: deferred Extremities exam: PRESENT: pedal edema - Bipedal edema, other - 3+ pitting edema of the bilateral lower extremities left being worse than the right Musculoskeletal exam: ABSENT: deformity, dislocation Neurological exam: PRESENT: altered - Sedated at the time of my evaluation severely limiting examination, reflexes normal Psychiatric exam: PRESENT: other - Sedated precluding further evaluation Skin exam: PRESENT: dry, intact, warm, other - Venous stasis dermatitis of bilateral lower extremities is noted. ABSENT: jaundice, rash, urticaria Results Laboratory Results: 05/11/20 10:43 05/11/20 10:43 05/11/20 05/11/20 05/11/20 10:43 10:43 10:43 WBC 5.0 RBC 5.14 Hgb 16.1 H Hct 49.0 H MCV 95 MCH 31.2 MCHC 32.8 RDW 15.7 H Plt Count 101 L Seg Neutrophils % 79.4 H VBG pH VBG pCO2 VBG HCO3 VBG Base Excess Sodium 138.3 Potassium 4.6 Chloride 102 Carbon Dioxide 26 Anion Gap 10 BUN 22 H Creatinine 1.25 Est GFR ( Amer) 51 L Glucose 207 H Lactic Acid 1.7 Calcium 10.8 H Total Bilirubin 2.2 H AST 27 Alkaline Phosphatase 94 Total Protein 7.6 Albumin 3.8 Urine Color Urine Appearance Urine pH Ur Specific [place] Urine Protein Urine Glucose (UA) Urine Ketones Urine Blood Urine Nitrite Ur Leukocyte Esterase Urine WBC (Auto) Urine RBC (Auto) 05/11/20 05/11/20 05/11/20 12:20 12:51 14:23 WBC RBC Hgb Hct MCV MCH MCHC RDW Plt Count Seg Neutrophils % VBG pH 7.30 VBG pCO2 56.7 VBG HCO3 27.5 VBG Base Excess -0.4 Sodium Potassium Chloride Carbon Dioxide Anion Gap BUN Creatinine Est GFR ( Amer) Glucose Lactic Acid 1.3 Calcium Total Bilirubin AST Alkaline Phosphatase Total Protein Albumin Urine Color YELLOW Urine Appearance SLIGHTLY-CLOUDY Urine pH 5.0 Ur Specific [place] 1.008 Urine Protein 100 H Urine Glucose (UA) NEGATIVE Urine Ketones NEGATIVE Urine Blood LARGE H Urine Nitrite NEGATIVE Ur Leukocyte Esterase SMALL H Urine WBC (Auto) 34 Urine RBC (Auto) 18 05/11/20 18:26 WBC RBC Hgb Hct MCV MCH MCHC RDW Plt Count Seg Neutrophils % VBG pH VBG pCO2 VBG HCO3 VBG Base Excess Sodium Potassium Chloride Carbon Dioxide Anion Gap BUN Creatinine Est GFR ( Amer) Glucose Lactic Acid 1.2 Calcium Total Bilirubin AST Alkaline Phosphatase Total Protein Albumin Urine Color Urine Appearance Urine pH Ur Specific [place] Urine Protein Urine Glucose (UA) Urine Ketones Urine Blood Urine Nitrite Ur Leukocyte Esterase Urine WBC (Auto) Urine RBC (Auto) 05/11/20 05/11/20 10:43 12:20 Troponin I 0.057 0.054 NT-Pro-B Natriuret Pep 41223 H Impressions: Chest X-Ray 05/11/20 10:36 IMPRESSION: Moderate cardiomegaly with probably mild pulmonary edema. Evaluation is somewhat limited due to motion. No focal consolidation. Chest/Abdomen CTA 05/11/20 14:47 IMPRESSION: 1. There is no pulmonary embolism. No acute pulmonary disease. 2. Marked cardiomegaly. There is reflux of contrast into the hepatic veins which can be seen with elevated right heart pressure/right heart failure. Clinical correlation. 3. Pulmonary artery enlargement which can be seen with pulmonary arterial hypertension. Echocardiogram may provide additional information. Assessment and Plan - Diagnosis (1) Chronic atrial fibrillation with rapid ventricular response Is this a current diagnosis for this admission?: Yes (2) Acute right-sided congestive heart failure Is this a current diagnosis for this admission?: Yes (3) Chronic kidney disease, stage III (moderate) Is this a current diagnosis for this admission?: Yes (4) Diabetes mellitus type 2 in obese Is this a current diagnosis for this admission?: Yes (5) Essential hypertension Is this a current diagnosis for this admission?: Yes (6) Chronic venous stasis dermatitis of both lower extremities Is this a current diagnosis for this admission?: Yes (7) Morbid obesity Is this a current diagnosis for this admission?: Yes - Plan Summary Summary: The patient will be admitted to [facility] where she will receive routine supportive and symptomatic cares. She will be admitted per the congestive heart failure protocol routines. Her Xarelto will be restarted. A cardiology consultation with Dr. Gutiérrez will be obtained. The patient's hypertension and tachycardia will be controlled with IV and oral metoprolol. An echocardiogram will be obtained. Before meals and at bedtime Accu-Cheks will be obtained with sliding scale insulin for hyperglycemia and a hypoglycemic protocol in place. A diabetic and cardiac restricted diet will be provided. She will receive morphine sulfate 2 mg IV every 4 hours as needed for pain. She will receive Ativan 1 mg IV every 4 hours as needed for anxiety or restlessness. Additional laboratory and/or radiographic evaluations will be obtained as needed over and above those obtained as part of the congestive heart failure protocol. - Time Time Spent with patient: Less than 15 minutes Medications reviewed and adjusted accordingly: Yes Anticipated Discharge Disposition: Home with Home Health Anticipated Discharge Timeframe: within 72 hours - Inpatient Certification Based on my medical assessment, after consideration of the patient's comorbidities, presenting symptoms, or acuity I expect that the services needed warrant INPATIENT care.: Yes I certify that my determination is in accordance with my understanding of Medicare's requirements for reasonable and necessary INPATIENT services [42 CFR 412.3e].: Yes Medical Necessity: Significant Comorbidiites Make Outpatient Treatment Too Risky, Need Close Monitoring Due to Risk of Patient Decompensation, Need For Continuous Telemetry Monitoring, Risk of Complication if Not Cared For in Hospital
--- NOTE | 2020-05-12 06:56 | RADIOLOGY REPORT (SQ) ---
CLINICAL HISTORY: mental status changes COMPARISON: None. TECHNIQUE: CT HEAD WITHOUT IV CONTRAST on 05/12/2020 12:00 AM CDT This exam was performed according to our departmental dose-optimization program, which includes automated exposure control, adjustment of the mA and/or kV according to patient size and/or use of iterative reconstruction technique. FINDINGS: There is no acute hemorrhage, mass effect or midline shift. Coron[place]-white differentiation is preserved. There is no hydrocephalus. There is no significant volume loss for age. The calvarium is intact. Orbits and globes are unremarkable. There is a mucous retention cyst filling the right frontal sinus. Mastoid air cells are clear. IMPRESSION: No acute intracranial findings.
--- NOTE | 2020-05-12 06:59 | Progress Note ---
Provider Note Provider Note: The patient was initially consulted to the cardiology service but the admitting hospitalist however she decompensated in the ER, was intubated and transferred to the ICU where she remains, intubated. At this time I will defer further management to the ICU team. Please consult cardiology if clinically indicated.
[2020-05-12] MEDS ORDERED: DOCUSATE SODIUM 100 MG CAPSULE PO SCH (10:00)
[2020-05-12 10:11] LABS: ARTERIAL BLOOD BASE EXCESS 1.4 mmol/L; ARTERIAL BLOOD H2CO3 2.21 mmol/L (1.05-1.35); ARTERIAL BLOOD HCO3 31.4 mmol/L (20-24); ARTERIAL BLOOD O2 SATURATION 94.7 % (94-98); ARTERIAL BLOOD PH 7.25 (7.35-7.45); ARTERIAL BLOOD PO2 86.3 mmHg (80-100); ARTERIAL BLOOD TOTAL CO2 33.6 mmol/L (21-25)
[2020-05-12 10:12] LABS: ARTERIAL BLOOD FIO2 50%
[2020-05-12 10:13] LABS: ARTERIAL BLOOD PCO2 73.3 mmHg (35-45)
[2020-05-12] MEDS: METOPROLOL SUCCINATE 50 MG TAB.SR.24H PO SCH ×2 (11:33→22:17)
[2020-05-12] MEDS: FAMOTIDINE INJ/PF 20 MG/2 ML SDV IV SCH ×2 (11:33→22:15)
[2020-05-12] MEDS ORDERED: LORAZEPAM INJ 2 MG/1 ML VIAL ONE ×2 (12:06→18:14)
[2020-05-12] MEDS ORDERED: ALBUTEROL SULFATE 0.083% NEB 2.5 MG/3 ML AMPUL NEB PRN (12:06)
[2020-05-12] MEDS ORDERED: LORAZEPAM INJ 2 MG/1 ML VIAL IV ONE ×2 (12:30→18:30)
[2020-05-12] MEDS ORDERED: FUROSEMIDE INJ/PF 40 MG/4 ML SDV IV ONE ×2 (12:30→20:30)
[2020-05-12] MEDS ORDERED: ALBUTEROL SULFATE 0.083% NEB 2.5 MG/3 ML AMPUL NEB SCH (14:00)
[2020-05-12 17:15] LABS: ARTERIAL BLOOD BASE EXCESS 1.9 mmol/L; ARTERIAL BLOOD FIO2 50%; ARTERIAL BLOOD H2CO3 2.09 mmol/L (1.05-1.35); ARTERIAL BLOOD HCO3 31.2 mmol/L (20-24); ARTERIAL BLOOD O2 SATURATION 93.4 % (94-98); ARTERIAL BLOOD PH 7.27 (7.35-7.45); ARTERIAL BLOOD PO2 77.8 mmHg (80-100); ARTERIAL BLOOD TOTAL CO2 33.4 mmol/L (21-25)
[2020-05-12 17:16] LABS: ARTERIAL BLOOD PCO2 69.4 mmHg (35-45)
[2020-05-12] MEDS: RIVAROXABAN 15 MG TABLET PO SCH (19:37)
[2020-05-12] MEDS ORDERED: NITROGLYCERIN 2% OINTMENT 1 GM PACKET TP SCH (20:16)
[2020-05-13 05:34] LABS: BLOOD UREA NITROGEN 30 mg/dL (7-20); CALCIUM 10.6 mg/dL (8.4-10.2); CARBON DIOXIDE 30 mmol/L (22-30); CHLORIDE 103 mmol/L (98-107); GLUCOSE 168 mg/dL (75-110); POTASSIUM 3.9 mmol/L (3.6-5.0)
[2020-05-13] MEDS: INSULIN REG, HUMAN 100 UNIT/ML 3 ML VIAL (PYX) SUBCUT SCH ×3 (05:35→18:27)
[2020-05-13 05:39] LABS: ABSOLUTE LYMPHOCYTES (AUTO) 0.5 10^3/uL (0.5-4.7); ABSOLUTE MONOCYTES (AUTO) 0.7 10^3/uL (0.1-1.4); ABSOLUTE NEUT (AUTO) 6.4 10^3/uL (1.7-8.2); ANION GAP 5 (5-19); BASOPHILS % (AUTO) 0.5 % (0-2); EOSINOPHILS % (AUTO) 0.3 % (0-6); HEMOGLOBIN 15.7 g/dL (12.0-15.5); LYMPHOCYTES % (AUTO) 6.1 % (13-45); MEAN CORPUSCULAR HEMOGLOBIN 30.9 pg (27.0-33.4); MEAN CORPUSCULAR HGB CONC 32.7 g/dL (32.0-36.0); MEAN CORPUSCULAR VOLUME 94 fl (80-97); MONOCYTES % (AUTO) 9.1 % (3-13); RED BLOOD COUNT 5.09 10^6/uL (3.72-5.28); RED CELL DISTRIBUTION WIDTH 15.1 % (11.5-14.0); TOTAL CELLS COUNTED % (AUTO) 100 %; WHITE BLOOD COUNT 7.7 10^3/uL (4.0-10.5)
[2020-05-13 06:08] LABS: PLATELET COUNT 83 10^3/uL (150-450)
[2020-05-13] MEDS ORDERED: ETOMIDATE INJ/PF 20 MG/10 ML SDV IV ONE (08:30)
[2020-05-13 09:15] LABS: ARTERIAL BLOOD BASE EXCESS 5.5 mmol/L; ARTERIAL BLOOD H2CO3 1.12 mmol/L (1.05-1.35); ARTERIAL BLOOD HCO3 28.7 mmol/L (20-24); ARTERIAL BLOOD O2 SATURATION 97.2 % (94-98); ARTERIAL BLOOD PCO2 37.3 mmHg (35-45); ARTERIAL BLOOD PO2 85.4 mmHg (80-100); ARTERIAL BLOOD TOTAL CO2 29.8 mmol/L (21-25)
[2020-05-13 09:17] LABS: ARTERIAL BLOOD FIO2 40%
[2020-05-13] MEDS: FAMOTIDINE INJ/PF 20 MG/2 ML SDV IV SCH ×2 (09:28→22:47)
[2020-05-13] MEDS: METOPROLOL TARTRATE 25 MG TABLET PO SCH ×2 (09:34→22:48)
[2020-05-13] MEDS ORDERED: MORPHINE SULFATE 10 MG/ML INJ IV ONE (09:36)
[2020-05-13] MEDS ORDERED: MORPHINE SULFATE 10 MG/ML INJ ONE (09:39)
[2020-05-13] MEDS: MAGNESIUM SULFATE/D5W 1 GM/100 ML RTUPB IV SCH ×4 (10:06→22:49)
--- NOTE | 2020-05-13 14:27 | XCELERA REPORT ---
[address] [address] Transthoracic Echocardiogram Report Name: GENTRY MENDOZA Age: 69 yrs Gender: Female : 1950 Patient Status: Inpatient Patient Location: ICU^[id number] Study Date: 05/13/2020 09:55 AM Height: 66 in Weight: 335 lb BSA: 2.5 m2 Procedure: A complete two-dimensional transthoracic echocardiogram was performed (2D, M-mode, spectral and color flow Doppler). The study was technically difficult with many images being suboptimal in quality. Reason For Study: Acute right-sided congestive heart failure Ordering Physician: KATELIN DE SANTIAGO Performed By: Irene Telles Interpretation Summary Technically diffucult study. The patient was in atrial fibrillation throughout the study. The left ventricle is normal in size. Left ventricular systolic function is mildly reduced. The Ejection Fraction estimate is 40-45%. LV diastolic function could not be adequately assessed due to atrial fibrilation. Limited view of apex, can not exclude wall motion abnomality. Thrombus can not be excluded. LV diastolic function could not be adequately assessed due to atrial fibrilation. RV function is mildly reduced. Mild to moderate ENIO. Moderate LAE. Mild to moderate TR, trace PI. Elevated pulmonary pressures. Very small, hemodynamically insignificant circumferential pericardial effusion. MMode/2D Measurements & Calculations RVDd: 4.5 cm LVIDd: 5.1 cm FS: 27.2 % Ao root diam: 4.0 cm IVSd: 1.3 cm LVIDs: 3.7 cm EDV(Teich): 121.6 ml Ao root area: 12.4 cm2 LVPWd: 1.3 cm ESV(Teich): 57.6 ml LA dimension: 5.3 cm EF(Teich): 52.6 % Doppler Measurements & Calculations MV E max rosalba: MV P1/2t max rosalba: Ao V2 max: LV V1 max P.9 cm/sec 121.4 cm/sec 124.9 cm/sec 3.6 mmHg MV P1/2t: 39.6 msec Ao max PG: LV V1 max: MVA(P1/2t): 5.5 cm2 6.2 mmHg 95.3 cm/sec MV dec slope: 897.2 cm/sec2 MV dec time: 0.14 sec PA V2 max: PI end-d rosalba: TR max rosalba: MV P1/2t-pr_phl: 63.7 cm/sec 190.0 cm/sec 378.7 cm/sec 39.6 msec PA max P.6 mmHg TR max P.4 mmHg Left Ventricle The left ventricle is normal in size. Left ventricular systolic function is mildly reduced. The Ejection Fraction estimate is 40-45%. LV diastolic function could not be adequately assessed due to atrial fibrilation. Limited view of apex, can not exclude wall motion abnomality. Thrombus can not be excluded. Right Ventricle RV dilated. RV function is mildly reduced. Atria The right atrium is mild to moderately dilated. The left atrium is moderately dilated. There is no Doppler evidence for an interatrial shunt. Mitral Valve The mitral valve is normal in structure and function. There is no evidence of mitral valve prolapse. There is no mitral valve stenosis. There is no mitral regurgitation noted. Aortic Valve The aortic valve is normal in structure and functions normally. There is no aortic valve stenosis. No aortic regurgitation is present. Tricuspid Valve The tricuspid is normal in structure and function. There is a mild to moderate amount of tricuspid regurgitation. Best estimated right ventricular systolic pressure is elevated at 50-60mmHg. Pulmonic Valve The pulmonic valve is not well visualized. There is a trace or physiologic amount of pulmonic regurgitation. Great Vessels The pulmonary artery branches are not well visualized. The inferior vena cava appeared dilated and decreased < 50% with respiration (RAP 15-20 mmHg). Note patient is on vent. IVC 3.3 cm. Effusions Very small, hemodynamically insignificant circumferential pericardial effusion. : KATELIN DE SANTIAGO Antonio
[2020-05-13 16:48] LABS: ARTERIAL BLOOD FIO2 40%; ARTERIAL BLOOD H2CO3 1.23 mmol/L (1.05-1.35); ARTERIAL BLOOD HCO3 29.1 mmol/L (20-24); ARTERIAL BLOOD O2 SATURATION 98.8 % (94-98); ARTERIAL BLOOD PH 7.47 (7.35-7.45); ARTERIAL BLOOD TOTAL CO2 30.4 mmol/L (21-25)
[2020-05-13] MEDS ORDERED: PANTOPRAZOLE SODIUM 40 MG TABLET.DR PO SCH (18:00)
[2020-05-13] MEDS: RIVAROXABAN 15 MG TABLET PO SCH (18:28)
[2020-05-13] MEDS: FUROSEMIDE INJ/PF 40 MG/4 ML SDV IV SCH (18:28)
--- NOTE | 2020-05-13 18:28 | PDOC CRITICAL CARE PROG REPORT ---
General Date:: 05/13/20 ICU Day:: 2 Ventilator Day:: 2 Hospital Day:: 2 Resuscitation Status: Full Code Events in the past 12 to 24 Hours:: This 69-year-old female was admitted on 05/12/2020 with complaints of ch est pain. She was known to be in atrial fibrillation with rapid ventricular response. Incidentally, she also reported anosmia and dysgeusia. Rapid COVID testing was negative. In the emergency department, the patient initially was treated with metoprolol for rate control. This did slow down her ventricular rate; however, she apparently responded with significant elevation in her blood pressure. She was subsequently given nitroglycerin and morphine, which resulted in a precipitous drop in blood pressure, associated with decreased mentation and CO2 retention. She was intubated for acute hypercapnic respiratory failure. However, she was also noted to have a significant Aa gradient. She was admitted to the ICU. 05/13: Has responded favorably to diuretic therapy. She has been on PSVT 07/08, FiO2 40%. Hemodynamically stable. AB.47, PCO2 41, PO2 132. Review of systems relevant to events:: Respiratory: Dyspnea Cardiovascular: Atrial fibrillation with rapid ventricular response Endocrine: Morbid obesity Reason for ICU Addmission:: Respiratory Failure - Medications: Medications reviewed and adjusted accordingly: Yes Physical Exam Vital Signs: Temp Pulse Resp BP Pulse Ox 98.7 F 96 16 124/60 94 05/13/20 08:00 05/13/20 16:58 05/13/20 16:58 05/13/20 16:58 05/13/20 16:58 Intake & Output 05/12/20 05/13/20 05/14/20 06:59 06:59 06:59 Intake Total 445 100 Output Total 3325 3887 960 Balance -1135 -3442 -860 Weight 145.3 kg 142.3 kg Weight/Height Weight 142.3 kg Height 1.68 m General appearance: PRESENT: no acute distress, obese, well-developed, well- nourished Head exam: PRESENT: atraumatic, normocephalic Eye exam: PRESENT: conjunctiva pink, EOMI, PERRLA. ABSENT: scleral icterus Ear exam: PRESENT: normal external ear exam Mouth exam: PRESENT: moist, tongue midline Neck exam: ABSENT: carotid bruit, JVD, lymphadenopathy, thyromegaly Respiratory exam: PRESENT: crackles. ABSENT: rales, rhonchi, wheezes Cardiovascular exam: PRESENT: irregular rhythm. ABSENT: diastolic murmur, rubs, systolic murmur GI/Abdominal exam: PRESENT: normal bowel sounds, soft. ABSENT: distended, guarding, mass, organolmegaly, rebound, tenderness Extremities exam: PRESENT: full ROM, pedal edema, +1 edema. ABSENT: calf tender ness, clubbing Musculoskeletal exam: PRESENT: normal inspection. ABSENT: deformity Neurological exam: PRESENT: alert, awake, reflexes normal, CN II-XII grossly intact. ABSENT: motor sensory deficit Psychiatric exam: PRESENT: agitated, anxious Skin exam: PRESENT: dry, intact, warm. ABSENT: cyanosis, rash Tubes/Lines: PRESENT: Endotracheal Tube Laboratory/Radiographs Laboratory Results: 05/13/20 04:30 05/13/20 04:30 05/13/20 05/13/20 05/13/20 04:30 04:30 09:00 WBC 7.7 RBC 5.09 Hgb 15.7 H Hct 48.0 H MCV 94 MCH 30.9 MCHC 32.7 RDW 15.1 H Plt Count 83 L Seg Neutrophils % 84.0 H Carbonic Acid 1.12 HCO3/H2CO3 Ratio 25:1 ABG pH 7.50 H ABG pCO2 37.3 ABG pO2 85.4 ABG HCO3 28.7 H ABG O2 Saturation 97.2 ABG Base Excess 5.5 FiO2 40% Sodium 137.3 Potassium 3.9 Chloride 103 Carbon Dioxide 30 Anion Gap 5 BUN 30 H Creatinine 1.49 H Est GFR ( Amer) 42 L Glucose 168 H Calcium 10.6 H Magnesium 1.6 05/13/20 16:25 WBC RBC Hgb Hct MCV MCH MCHC RDW Plt Count Seg Neutrophils % Carbonic Acid 1.23 HCO3/H2CO3 Ratio 23:1 ABG pH 7.47 H ABG pCO2 41.0 ABG pO2 132.0 H ABG HCO3 29.1 H ABG O2 Saturation 98.8 H ABG Base Excess 5.0 FiO2 40% Sodium Potassium Chloride Carbon Dioxide Anion Gap BUN Creatinine Est GFR ( Amer) Glucose Calcium Magnesium 05/11/20 14:23 Javier Catheter Urine Culture - Final Escherichia Coli 05/11/20 05/11/20 05/11/20 10:43 12:20 21:40 Creatine Kinase 39 CK-MB (CK-2) Troponin I 0.057 0.054 NT-Pro-B Natriuret Pep 25829 H 05/11/20 05/12/20 05/12/20 21:40 03:10 03:10 Creatine Kinase 173 H CK-MB (CK-2) 1.81 3.17 Troponin I 0.042 0.041 NT-Pro-B Natriuret Pep 05/12/20 05/13/20 03:10 04:30 Creatine Kinase CK-MB (CK-2) Troponin I NT-Pro-B Natriuret Pep 63845 H 80038 H Impressions: Venous Doppler Study 05/11/20 14:45 IMPRESSION: 1. Limited examination demonstrating no definitive lower extremity DVT bilaterally. 2. Pulsatile waveforms at the central veins bilaterally suggesting either elevated right heart pressures or valvular heart disease. Chest/Abdomen CTA 05/11/20 14:47 IMPRESSION: 1. There is no pulmonary embolism. No acute pulmonary disease. 2. Marked cardiomegaly. There is reflux of contrast into the hepatic veins which can be seen with elevated right heart pressure/right heart failure. Clinical correlation. 3. Pulmonary artery enlargement which can be seen with pulmonary arterial hypertension. Echocardiogram may provide additional information. Chest X-Ray 05/12/20 00:00 IMPRESSION: Tip of the endotracheal tube is only 9.6 mm above the kota. Slight retraction recommended. Enteric tube partially seen. Other findings stable copyright 2011 [email or web address]- All Rights Reserved Head CT 05/12/20 00:00 IMPRESSION: No acute intracranial findings. All labs, radiographs, diagnostic studies and EKGs were personally reviewed: Yes In addition, reports of radiographic and diagnostic studies were read: Yes Assessment and Plan - Diagnosis (1) Acute respiratory failure with hypoxia and hypercapnia Is this a current diagnosis for this admission?: Yes Plan: Extubate. Supplemental oxygen as needed to maintain SPO2 88+ percent. Continue DuoNeb/Pulmicort. (2) Acute systolic heart failure Is this a current diagnosis for this admission?: Yes Plan: Furosemide 40 mg IV daily. Continue Lopressor 25 mg p.o. twice daily. Continue Xarelto 15 mg p.o. nightly. (3) Atrial fibrillation with rapid ventricular response Is this a current diagnosis for this admission?: Yes Plan: Continue Xarelto. (5) Diabetes mellitus type 2 in obese Is this a current diagnosis for this admission?: Yes Plan: Insulin sliding scale for now. Uses glipizide 5 mg p.o. twice daily at home. Also takes Neurontin 300 mg p.o. 3 times daily. Critical Time Critical Time (minutes): 60 Level of Care: ICU -: 1. The care of a critical patient is a dynamic process. This note is a parts counter representative synopsis but static in nature. The timeframe for treatments given in order is not necessarily the actual time these treatments may have been done. 2. This patient requires critical care secondary to ongoing requirements for therapy not offered or safe outside the critical care environment. Transfer to a lower level of care will result in altered life or limb morbidity and mortality. 3. Multidisciplinary rounds completed. 4. ABCDE bundle addressed.
[2020-05-13] MEDS: PANTOPRAZOLE SODIUM 40 MG VIAL IV SCH (19:11)
[2020-05-13] MEDS ORDERED: MAGNESIUM SULFATE/D5W 1 GM/100 ML RTUPB IV ONE (22:36)
[2020-05-13 23:22] LABS: ARTERIAL BLOOD BASE EXCESS 4.5 mmol/L; ARTERIAL BLOOD H2CO3 2.39 mmol/L (1.05-1.35); ARTERIAL BLOOD HCO3 34.8 mmol/L (20-24); ARTERIAL BLOOD O2 SATURATION 98.4 % (94-98); ARTERIAL BLOOD PH 7.26 (7.35-7.45); ARTERIAL BLOOD PO2 142.7 mmHg (80-100); ARTERIAL BLOOD TOTAL CO2 37.2 mmol/L (21-25)
[2020-05-13 23:30] LABS: ARTERIAL BLOOD FIO2 60%
[2020-05-13 23:31] LABS: ARTERIAL BLOOD PCO2 79.3 mmHg (35-45)
[2020-05-14] MEDS ORDERED: FUROSEMIDE INJ/PF 100 MG/10 ML SDV IV ONE (00:30)
[2020-05-14] MEDS: INSULIN REG, HUMAN 100 UNIT/ML 3 ML VIAL (PYX) SUBCUT SCH ×4 (00:49→23:47)
[2020-05-14 00:54] LABS: ARTERIAL BLOOD BASE EXCESS 6.4 mmol/L; ARTERIAL BLOOD H2CO3 2.15 mmol/L (1.05-1.35); ARTERIAL BLOOD HCO3 35.6 mmol/L (20-24); ARTERIAL BLOOD O2 SATURATION 99.3 % (94-98); ARTERIAL BLOOD PH 7.32 (7.35-7.45); ARTERIAL BLOOD PO2 206.3 mmHg (80-100); ARTERIAL BLOOD TOTAL CO2 37.8 mmol/L (21-25)
[2020-05-14 00:55] LABS: ARTERIAL BLOOD FIO2 60%
[2020-05-14 00:56] LABS: ARTERIAL BLOOD PCO2 71.5 mmHg (35-45)
--- NOTE | 2020-05-14 07:57 | RADIOLOGY REPORT (SQ) ---
EXAM DESCRIPTION: XR CHEST 1 VIEW COMPLETED DATE/TME: 05/14/2020 00:00 CLINICAL HISTORY: 69 years Female, elevated Pco2/ respiratory status change COMPARISON: One day prior. NUMBER OF VIEWS/TECHNIQUE: 1/AP FINDINGS: Moderate central edema pattern. Right lateral thoracic/axillary clips.. Normal cardiac silhouette size. No pneumothorax. Stable bony thorax.Atherosclerotic vascular disease. Limitation: Leads/hardware/artifact. IMPRESSION: Interval extubation.
[2020-05-14 09:19] LABS: ANION GAP 6 (5-19); BLOOD UREA NITROGEN 33 mg/dL (7-20); CALCIUM 10.1 mg/dL (8.4-10.2); CARBON DIOXIDE 35 mmol/L (22-30); CHLORIDE 97 mmol/L (98-107); GLUCOSE 153 mg/dL (75-110); PHOSPHORUS 3.1 mg/dL (2.5-4.5); POTASSIUM 3.9 mmol/L (3.6-5.0)
[2020-05-14 09:30] LABS: MEAN CORPUSCULAR HEMOGLOBIN 30.9 pg (27.0-33.4); MEAN CORPUSCULAR HGB CONC 32.7 g/dL (32.0-36.0); MEAN CORPUSCULAR VOLUME 95 fl (80-97); RED BLOOD COUNT 5.18 10^6/uL (3.72-5.28); RED CELL DISTRIBUTION WIDTH 15.6 % (11.5-14.0); WHITE BLOOD COUNT 6.1 10^3/uL (4.0-10.5)
[2020-05-14 09:54] LABS: PLATELET COUNT 65 10^3/uL (150-450)
[2020-05-14] MEDS: CEFTRIAXONE 1 GM/D5W RTU 1 GM/50 ML RTUPB IV SCH (10:35)
[2020-05-14] MEDS: FAMOTIDINE INJ/PF 20 MG/2 ML SDV IV SCH (10:36)
[2020-05-14] MEDS: FUROSEMIDE INJ/PF 40 MG/4 ML SDV IV SCH (10:36)
[2020-05-14] MEDS: PANTOPRAZOLE SODIUM 40 MG VIAL IV SCH (10:36)
[2020-05-14 10:43] LABS: ARTERIAL BLOOD BASE EXCESS 6.6 mmol/L; ARTERIAL BLOOD H2CO3 2.16 mmol/L (1.05-1.35); ARTERIAL BLOOD O2 SATURATION 98.6 % (94-98); ARTERIAL BLOOD PH 7.32 (7.35-7.45); ARTERIAL BLOOD PO2 147.4 mmHg (80-100); ARTERIAL BLOOD TOTAL CO2 38.2 mmol/L (21-25)
[2020-05-14 10:44] LABS: ARTERIAL BLOOD FIO2 60%
[2020-05-14 10:48] LABS: ARTERIAL BLOOD PCO2 71.9 mmHg (35-45)
[2020-05-14] MEDS: METOPROLOL TARTRATE 25 MG TABLET PO SCH ×2 (13:43→22:20)
[2020-05-14 15:17] LABS: ARTERIAL BLOOD BASE EXCESS 7.4 mmol/L; ARTERIAL BLOOD H2CO3 1.75 mmol/L (1.05-1.35); ARTERIAL BLOOD HCO3 34.7 mmol/L (20-24); ARTERIAL BLOOD O2 SATURATION 97.2 % (94-98); ARTERIAL BLOOD PCO2 58.3 mmHg (35-45); ARTERIAL BLOOD PH 7.39 (7.35-7.45); ARTERIAL BLOOD PO2 97.5 mmHg (80-100); ARTERIAL BLOOD TOTAL CO2 36.4 mmol/L (21-25)
[2020-05-14 15:19] LABS: ARTERIAL BLOOD FIO2 40%
[2020-05-14] MEDS ORDERED: LORAZEPAM INJ 2 MG/1 ML VIAL IV PRN (21:03)
[2020-05-14] MEDS ORDERED: LORAZEPAM INJ 2 MG/1 ML VIAL ONE (21:03)
--- NOTE | 2020-05-14 21:04 | PDOC CRITICAL CARE PROG REPORT ---
General Date:: 05/14/20 ICU Day:: 3 Hospital Day:: 3 Resuscitation Status: Full Code Events in the past 12 to 24 Hours:: This 69-year-old female was admitted on 05/12/2020 with complaints of chest pain. She was known to be in atrial fibrillation with rapid ventricular response. Incidentally, she also reported anosmia and dysgeusia. Rapid COVID testing was negative. In the emergency department, the patient initially was treated with metoprolol for rate control. This did slow down her ventricular rate; however, she apparently responded with significant elevation in her blood pressure. She was subsequently given nitroglycerin and morphine, which resulted in a precipitous drop in blood pressure, associated with decreased mentation and CO2 retention. She was intubated for acute hypercapnic respiratory failure. However, she was also noted to have a significant Aa gradient. She was admitted to the ICU. 05/13: Has responded favorably to diuretic therapy. She has been on PSVT 07/08, FiO2 40%. Hemodynamically stable. AB.47, PCO2 41, PO2 132. 05/14: Successfully extubated yesterday. Spent the night on BiPAP 19/05, FiO2 60%. Currently, she is on face tent. Leopold, moans and groans. She does provide verbal responses. Unknown baseline mental status. He does have periods of lucidity and is conversant, especially with the nurse. It is come to our attention through the patient's son that the patient is a 2 pack/day smoker. Review of systems relevant to events:: Respiratory: Dyspnea Cardiovascular: Atrial fibrillation with rapid ventricular response Endocrine: Morbid obesity Reason for ICU Addmission:: Respiratory Failure - Medications: Medications reviewed and adjusted accordingly: Yes Physical Exam Vital Signs: Temp Pulse Resp BP Pulse Ox 98.5 F 68 23 H 125/80 89 L 05/14/20 10:00 05/14/20 08:00 05/14/20 14:07 05/14/20 14:07 05/14/20 14:07 Intake & Output 05/13/20 05/14/20 05/15/20 06:59 06:59 06:59 Intake Total 445 200 50 Output Total 3887 2180 410 Balance -3442 -1980 -360 Weight 142.3 kg 140.2 kg Weight/Height Weight 140.2 kg Height 1.68 m General appearance: PRESENT: no acute distress, morbidly obese, well-developed, well-nourished Head exam: PRESENT: atraumatic, normocephalic Eye exam: PRESENT: conjunctiva pink, EOMI, PERRLA. ABSENT: scleral icterus Mouth exam: PRESENT: moist, tongue midline Neck exam: ABSENT: carotid bruit, JVD, lymphadenopathy, thyromegaly Respiratory exam: PRESENT: decreased breath sounds, prolonged expiratory phas, rales, rhonchi GI/Abdominal exam: PRESENT: normal bowel sounds, soft. ABSENT: distended, guarding, mass, organolmegaly, rebound, tenderness Gentrourinary exam: PRESENT: indwelling catheter Extremities exam: PRESENT: full ROM, pedal edema, +1 edema. ABSENT: calf tenderness, clubbing Neurological exam: PRESENT: alert, awake, oriented to person, reflexes normal, CN II-XII grossly intact. ABSENT: motor sensory deficit Psychiatric exam: PRESENT: agitated, unusual affect Skin exam: PRESENT: dry, intact, warm. ABSENT: cyanosis, rash Laboratory/Radiographs Laboratory Results: 05/14/20 08:30 05/14/20 08:30 05/13/20 05/13/20 05/14/20 18:55 23:00 00:35 WBC RBC Hgb Hct MCV MCH MCHC RDW Plt Count Carbonic Acid 2.39 H 2.15 H HCO3/H2CO3 Ratio 14:1 16:1 ABG pH 7.26 L 7.32 L ABG pCO2 79.3 H* 71.5 H* ABG pO2 142.7 H 206.3 H ABG HCO3 34.8 H 35.6 H ABG O2 Saturation 98.4 H 99.3 H ABG Base Excess 4.5 6.4 FiO2 60% 60% Sodium Potassium Chloride Carbon Dioxide Anion Gap BUN Creatinine Est GFR ( Amer) Glucose Calcium Phosphorus Magnesium 1.8 05/14/20 05/14/20 05/14/20 08:30 08:30 10:26 WBC 6.1 RBC 5.18 Hgb 16.0 H Hct 49.0 H MCV 95 MCH 30.9 MCHC 32.7 RDW 15.6 H Plt Count 65 L Carbonic Acid 2.16 H HCO3/H2CO3 Ratio 16:1 ABG pH 7.32 L ABG pCO2 71.9 H* ABG pO2 147.4 H ABG HCO3 36.0 H ABG O2 Saturation 98.6 H ABG Base Excess 6.6 FiO2 60% Sodium 138.1 Potassium 3.9 Chloride 97 L Carbon Dioxide 35 H Anion Gap 6 BUN 33 H Creatinine 1.64 H Est GFR ( Amer) 37 L Glucose 153 H Calcium 10.1 Phosphorus 3.1 Magnesium 2.3 05/14/20 15:02 WBC RBC Hgb Hct MCV MCH MCHC RDW Plt Count Carbonic Acid 1.75 H HCO3/H2CO3 Ratio 19:1 ABG pH 7.39 ABG pCO2 58.3 H ABG pO2 97.5 ABG HCO3 34.7 H ABG O2 Saturation 97.2 ABG Base Excess 7.4 FiO2 40% Sodium Potassium Chloride Carbon Dioxide Anion Gap BUN Creatinine Est GFR ( Amer) Glucose Calcium Phosphorus Magnesium 05/11/20 05/11/20 05/11/20 10:43 12:20 21:40 Creatine Kinase 39 CK-MB (CK-2) Troponin I 0.057 0.054 NT-Pro-B Natriuret Pep 54981 H 05/11/20 05/12/20 05/12/20 21:40 03:10 03:10 Creatine Kinase 173 H CK-MB (CK-2) 1.81 3.17 Troponin I 0.042 0.041 NT-Pro-B Natriuret Pep 05/12/20 05/13/20 03:10 04:30 Creatine Kinase CK-MB (CK-2) Troponin I NT-Pro-B Natriuret Pep 45301 H 76250 H Impressions: Venous Doppler Study 05/11/20 14:45 IMPRESSION: 1. Limited examination demonstrating no definitive lower extremity DVT bilaterally. 2. Pulsatile waveforms at the central veins bilaterally suggesting either elevated right heart pressures or valvular heart disease. Chest/Abdomen CTA 05/11/20 14:47 IMPRESSION: 1. There is no pulmonary embolism. No acute pulmonary disease. 2. Marked cardiomegaly. There is reflux of contrast into the hepatic veins whic h can be seen with elevated right heart pressure/right heart failure. Clinical correlation. 3. Pulmonary artery enlargement which can be seen with pulmonary arterial hypertension. Echocardiogram may provide additional information. Head CT 05/12/20 00:00 IMPRESSION: No acute intracranial findings. Chest X-Ray 05/14/20 00:00 IMPRESSION: Interval extubation. All labs, radiographs, diagnostic studies and EKGs were personally reviewed: Yes In addition, reports of radiographic and diagnostic studies were read: Yes Assessment and Plan - Diagnosis (1) Acute respiratory failure with hypoxia and hypercapnia Is this a current diagnosis for this admission?: Yes Plan: Supplemental oxygen to maintain SpO2 88+%. BiPAP 16/8 nightly and PRN. Titrate FiO2 to maintain SpO2 88+%. (2) COPD exacerbation Is this a current diagnosis for this admission?: Yes Plan: Continue DuoNeb/Pulmicort. Albuterol as needed. Start Solu-Medrol 60 mg IV every 8 hours. (3) Acute systolic heart failure Is this a current diagnosis for this admission?: Yes Plan: Continue furosemide 50 mg IV daily. Continue Lopressor 25 mg p.o. twice daily. Continue Xarelto 15 mg p.o. nightly. (4) Atrial fibrillation with rapid ventricular response Is this a current diagnosis for this admission?: Yes (5) E. coli urinary tract infection Is this a current diagnosis for this admission?: Yes Plan: Start Rocephin. (6) Diabetes mellitus type 2 in obese Is this a current diagnosis for this admission?: Yes Plan: Insulin sliding scale for now. Uses glipizide 5 mg p.o. twice daily at home. Also takes Neurontin 300 mg p.o. 3 times daily. (7) Acute kidney injury superimposed on CKD Is this a current diagnosis for this admission?: Yes Plan: Renal dosing of medications. Avoid nephrotoxic medications. (8) Morbid obesity with BMI of 50.0-59.9, adult Is this a current diagnosis for this admission?: Yes Critical Time Critical Time (minutes): 60 Level of Care: ICU -: 1. The care of a critical patient is a dynamic process. This note is a tax representative synopsis but static in nature. The timeframe for treatments given in order is not necessarily the actual time these treatments may have been done. 2. This patient requires critical care secondary to ongoing requirements for therapy not offered or safe outside the critical care environment. Transfer to a lower level of care will result in altered life or limb morbidity and mortality. 3. Multidisciplinary rounds completed. 4. ABCDE bundle addressed.
[2020-05-14] MEDS: METHYLPREDNISOLONE INJ 125 MG/2 ML SDV IV SCH (22:23)
[2020-05-14] MEDS: RIVAROXABAN 15 MG TABLET PO SCH (22:35)
[2020-05-15 04:37] LABS: HEMOGLOBIN 16.7 g/dL (12.0-15.5); MEAN CORPUSCULAR HEMOGLOBIN 31.4 pg (27.0-33.4); MEAN CORPUSCULAR HGB CONC 33.4 g/dL (32.0-36.0); MEAN CORPUSCULAR VOLUME 94 fl (80-97); RED BLOOD COUNT 5.32 10^6/uL (3.72-5.28); RED CELL DISTRIBUTION WIDTH 15.2 % (11.5-14.0); WHITE BLOOD COUNT 5.4 10^3/uL (4.0-10.5)
[2020-05-15 04:53] LABS: PLATELET COUNT 83 10^3/uL (150-450)
[2020-05-15 04:54] LABS: ANION GAP 7 (5-19); BLOOD UREA NITROGEN 32 mg/dL (7-20); CALCIUM 10.4 mg/dL (8.4-10.2); CARBON DIOXIDE 36 mmol/L (22-30); CHLORIDE 96 mmol/L (98-107); GLUCOSE 193 mg/dL (75-110); POTASSIUM 3.7 mmol/L (3.6-5.0)
[2020-05-15 04:56] LABS: ABSOLUTE LYMPHOCYTES# (MANUAL) 0.2 10^3/uL (0.5-4.7); ABSOLUTE MONOCYTES # (MANUAL) 0.4 10^3/uL (0.1-1.4); BASOPHILS % (MANUAL) 0 % (0-2); EOSINOPHILS % (MANUAL) 0 % (0-6); LYMPHOCYTES % (MANUAL) 3 % (13-45); MONOCYTES % (MANUAL) 7 % (3-13); SEGMENTED NEUTROPHILS % (MAN) 90 % (42-78); TOTAL CELLS COUNTED 100
[2020-05-15 04:58] LABS: ANISOCYTOSIS SLIGHT; PLATELET COMMENT DECREASED
[2020-05-15] MEDS: METHYLPREDNISOLONE INJ 125 MG/2 ML SDV IV SCH ×2 (05:34→16:00)
[2020-05-15] MEDS: INSULIN REG, HUMAN 100 UNIT/ML 3 ML VIAL (PYX) SUBCUT SCH ×5 (05:34→23:05)
[2020-05-15] MEDS ORDERED: LORAZEPAM INJ 2 MG/1 ML VIAL IV ONE (08:30)
[2020-05-15] MEDS: CEFTRIAXONE 1 GM/D5W RTU 1 GM/50 ML RTUPB IV SCH (08:54)
[2020-05-15] MEDS: PANTOPRAZOLE SODIUM 40 MG VIAL IV SCH (09:03)
[2020-05-15] MEDS: FUROSEMIDE INJ/PF 40 MG/4 ML SDV IV SCH (09:03)
[2020-05-15] MEDS: METOPROLOL TARTRATE 25 MG TABLET PO SCH ×3 (11:08→23:06)
[2020-05-15] MEDS: METOPROLOL TARTRATE PF/INJ 5 MG/5 ML SDV IV PRN ×2 (13:03→18:29)
[2020-05-15] MEDS: RIVAROXABAN 15 MG TABLET PO SCH (17:59)
--- NOTE | 2020-05-15 20:52 | PDOC CRITICAL CARE PROG REPORT ---
General Date:: 05/15/20 ICU Day:: 4 Hospital Day:: 4 Resuscitation Status: Full Code Events in the past 12 to 24 Hours:: This 69-year-old female was admitted on 05/12/2020 with complaints of chest pain. She was known to be in atrial fibrillation with rapid ventricular response. Incidentally, she also reported anosmia and dysgeusia. Rapid COVID testing was negative. In the emergency department, the patient initially was treated with metoprolol for rate control. This did slow down her ventricular rate; however, she apparently responded with significant elevation in her blood pressure. She was subsequently given nitroglycerin and morphine, which resulted in a precipitous drop in blood pressure, associated with decreased mentation and CO2 retention. She was intubated for acute hypercapnic respiratory failure. However, she was also noted to have a significant Aa gradient. She was admitted to the ICU. 05/13: Has responded favorably to diuretic therapy. She has been on PSVT 10/, FiO2 40%. Hemodynamically stable. AB.47, PCO2 41, PO2 132. 05/14: Successfully extubated yesterday. Spent the night on BiPAP 19/05, FiO2 60%. Currently, she is on face tent. Mil[place], moans and groans. She does provide verbal responses. Unknown baseline mental status. He does have periods of lucidity and is conversant, especially with the nurse. It is come to our attention through the patient's son that the patient is a 2 pack/day smoker. 05/15: The patient's son is at the bedside today. Updated. He adds that he is under the impression that his mother is a DNR; however, he is not the power of estate planning attorney. He states that his and (patient's sister) maintains power of estate planning attorney and healthcare power of estate planning attorney responsibilities. Yesterday evening, the patient had a severe episode of delirium, characterized by screaming and howling and combative behavior. Was ultimately controlled with 0.5 mg Ativan. The patient's son also adds that at home, she predominately sleeps all day. She has been using the excuse that her primary care provider suggested that she "stay off her feet" to help relieve venous stasis and cellulitic problems in her lower extremities. She has taken this to mean that she should be on absolute bedrest. She remains in atrial fibrillation, rate controlled. Blood pressure elevated (SBP 942384). She remains extubated. He is on 5 LPM via nasal cannula. She is on BiPAP 19/05 during sleep. Review of systems relevant to events:: Respiratory: Dyspnea Cardiovascular: Atrial fibrillation with rapid ventricular response Endocrine: Morbid obesity Reason for ICU Addmission:: Respiratory Failure - Medications: Medications reviewed and adjusted accordingly: Yes Physical Exam Vital Signs: Temp Pulse Resp BP Pulse Ox 98.9 F 89 22 H 170/118 H 96 05/15/20 04:00 05/15/20 08:00 05/15/20 16:00 05/15/20 15:31 05/15/20 16:00 Intake & Output 05/14/20 05/15/20 05/16/20 06:59 06:59 06:59 Intake Total 200 50 50 Output Total 2180 2585 375 Balance -1980 -2535 -325 Weight 140.2 kg 137.4 kg Weight/Height Weight 137.4 kg Height 1.68 m General appearance: PRESENT: no acute distress, morbidly obese, well-developed, well-nourished Head exam: PRESENT: atraumatic, normocephalic Eye exam: PRESENT: conjunctiva pink, EOMI, PERRLA. ABSENT: scleral icterus Mouth exam: PRESENT: moist, tongue midline Neck exam: ABSENT: carotid bruit, JVD, lymphadenopathy, thyromegaly Respiratory exam: PRESENT: decreased breath sounds, prolonged expiratory phas, rales, rhonchi Cardiovascular exam: PRESENT: irregular rhythm. ABSENT: diastolic murmur, rubs, systolic murmur Pulses: PRESENT: normal dorsalis pedis pul GI/Abdominal exam: PRESENT: normal bowel sounds, soft. ABSENT: distended, guarding, mass, organolmegaly, rebound, tenderness Gentrourinary exam: PRESENT: indwelling catheter Extremities exam: PRESENT: full ROM, pedal edema, +1 edema, other - Bilateral lower extremity venous stasis changes. ABSENT: calf tenderness, clubbing Neurological exam: PRESENT: altered - But arousable, reflexes normal, CN II-XII grossly intact. ABSENT: motor sensory deficit Psychiatric exam: PRESENT: depressed, flat affect Focused psych exam: PRESENT: psychomotor agitation Skin exam: PRESENT: dry, intact, warm. ABSENT: cyanosis, rash Laboratory/Radiographs Laboratory Results: 05/15/20 04:27 05/15/20 04:27 05/15/20 05/15/20 04:27 04:27 WBC 5.4 RBC 5.32 H Hgb 16.7 H Hct 50.0 H MCV 94 MCH 31.4 MCHC 33.4 RDW 15.2 H Plt Count 83 L Seg Neutrophils % Not Reportable Sodium 139.0 Potassium 3.7 Chloride 96 L Carbon Dioxide 36 H Anion Gap 7 BUN 32 H Creatinine 1.55 H Est GFR ( Amer) 40 L Glucose 193 H Calcium 10.4 H Magnesium 2.1 05/11/20 05/11/20 05/11/20 10:43 12:20 21:40 Creatine Kinase 39 CK-MB (CK-2) Troponin I 0.057 0.054 NT-Pro-B Natriuret Pep [id number] H 05/11/20 05/12/20 05/12/20 21:40 03:10 03:10 Creatine Kinase 173 H CK-MB (CK-2) 1.81 3.17 Troponin I 0.042 0.041 NT-Pro-B Natriuret Pep 05/12/20 05/13/20 05/15/20 03:10 04:30 04:27 Creatine Kinase CK-MB (CK-2) Troponin I NT-Pro-B Natriuret Pep 71599 H 10344 H 8880 H Impressions: Venous Doppler Study 05/11/20 14:45 IMPRESSION: 1. Limited examination demonstrating no definitive lower extremity DVT bilaterally. 2. Pulsatile waveforms at the central veins bilaterally suggesting either elevated right heart pressures or valvular heart disease. Chest/Abdomen CTA 05/11/20 14:47 IMPRESSION: 1. There is no pulmonary embolism. No acute pulmonary disease. 2. Marked cardiomegaly. There is reflux of contrast into the hepatic veins which can be seen with elevated right heart pressure/right heart failure. Clinical correlation. 3. Pulmonary artery enlargement which can be seen with pulmonary arterial hypertension. Echocardiogram may provide additional information. Head CT 05/12/20 00:00 IMPRESSION: No acute intracranial findings. Chest X-Ray 05/14/20 00:00 IMPRESSION: Interval extubation. All labs, radiographs, diagnostic studies and EKGs were personally reviewed: Yes In addition, reports of radiographic and diagnostic studies were read: Yes Assessment and Plan - Diagnosis (1) Acute respiratory failure with hypoxia and hypercapnia Is this a current diagnosis for this admission?: Yes Plan: Supplemental oxygen to maintain SpO2 88+%. BiPAP 16/8 nightly and PRN. Titrate FiO2 to maintain SpO2 88+%. (2) COPD exacerbation Is this a current diagnosis for this admission?: Yes Plan: Continue DuoNeb/Pulmicort. Albuterol as needed. With clinical improvement in the interim and concerned that psychomotor agitation may be secondary to high-dose steroid therapy, decrease Solu-Medrol to 60 mg IV daily. (3) Acute systolic heart failure Is this a current diagnosis for this admission?: Yes Plan: Continue furosemide 50 mg IV daily. Continue Lopressor 25 mg p.o. twice daily. Continue Xarelto 15 mg p.o. nightly. (4) Atrial fibrillation with rapid ventricular response Is this a current diagnosis for this admission?: Yes Plan: Continue Xarelto. Increase Lopressor to 25 mg p.o. every 6 hours. (5) E. coli urinary tract infection Is this a current diagnosis for this admission?: Yes (6) Diabetes mellitus type 2 in obese Is this a current diagnosis for this admission?: Yes (7) Acute kidney injury superimposed on CKD Is this a current diagnosis for this admission?: Yes (8) Morbid obesity with BMI of 50.0-59.9, adult Is this a current diagnosis for this admission?: Yes (9) Delirium Is this a current diagnosis for this admission?: Yes Plan: Ativan 0.25 mg IV every 6 hours PRN. Restart gabapentin 300 mg p.o. every 8 hours. Critical Time Critical Time (minutes): 60 Level of Care: ICU -: 1. The care of a critical patient is a dynamic process. This note is a sales representative girls' apparel synopsis but static in nature. The timeframe for treatments given in order is not necessarily the actual time these treatments may have been done. 2. This patient requires critical care secondary to ongoing requirements for therapy not offered or safe outside the critical care environment. Transfer to a lower level of care will result in altered life or limb morbidity and mortality. 3. Multidisciplinary rounds completed. 4. ABCDE bundle addressed.
[2020-05-15] MEDS: GABAPENTIN 300 MG CAPSULE PO SCH (22:00)
[2020-05-15] MEDS: LORAZEPAM INJ 2 MG/1 ML VIAL IV PRN ×2 (22:01→22:30)
[2020-05-16] MEDS: METOPROLOL TARTRATE 25 MG TABLET PO SCH ×4 (05:10→18:22)
[2020-05-16] MEDS: GABAPENTIN 300 MG CAPSULE PO SCH ×4 (05:11→23:55)
[2020-05-16] MEDS: INSULIN REG, HUMAN 100 UNIT/ML 3 ML VIAL (PYX) SUBCUT SCH ×3 (05:16→17:19)
[2020-05-16 06:21] LABS: ARTERIAL BLOOD BASE EXCESS 7.1 mmol/L; ARTERIAL BLOOD H2CO3 2.14 mmol/L (1.05-1.35); ARTERIAL BLOOD HCO3 36.5 mmol/L (20-24); ARTERIAL BLOOD O2 SATURATION 98.4 % (94-98); ARTERIAL BLOOD PH 7.33 (7.35-7.45); ARTERIAL BLOOD PO2 136.8 mmHg (80-100); ARTERIAL BLOOD TOTAL CO2 38.7 mmol/L (21-25)
[2020-05-16 06:22] LABS: ARTERIAL BLOOD FIO2 60%
[2020-05-16 06:23] LABS: ARTERIAL BLOOD PCO2 71.2 mmHg (35-45)
[2020-05-16 07:49] LABS: HEMATOCRIT 48.6 % (36.0-47.0); MEAN CORPUSCULAR HEMOGLOBIN 31.2 pg (27.0-33.4); MEAN CORPUSCULAR HGB CONC 32.9 g/dL (32.0-36.0); MEAN CORPUSCULAR VOLUME 95 fl (80-97); PLATELET COUNT 100 10^3/uL (150-450); RED BLOOD COUNT 5.12 10^6/uL (3.72-5.28); RED CELL DISTRIBUTION WIDTH 14.8 % (11.5-14.0); WHITE BLOOD COUNT 6.5 10^3/uL (4.0-10.5)
[2020-05-16 08:17] LABS: ABSOLUTE LYMPHOCYTES# (MANUAL) 0.1 10^3/uL (0.5-4.7); ABSOLUTE MONOCYTES # (MANUAL) 0.1 10^3/uL (0.1-1.4); ANION GAP 7 (5-19); BASOPHILS % (MANUAL) 0 % (0-2); BLOOD UREA NITROGEN 45 mg/dL (7-20); CALCIUM 10.4 mg/dL (8.4-10.2); CARBON DIOXIDE 37 mmol/L (22-30); CHLORIDE 96 mmol/L (98-107); EOSINOPHILS % (MANUAL) 0 % (0-6); GLUCOSE 229 mg/dL (75-110); LYMPHOCYTES % (MANUAL) 1 % (13-45); MONOCYTES % (MANUAL) 2 % (3-13); POTASSIUM 3.9 mmol/L (3.6-5.0); SEGMENTED NEUTROPHILS % (MAN) 97 % (42-78); TOTAL CELLS COUNTED 100
[2020-05-16 08:18] LABS: ANISOCYTOSIS SLIGHT; OVALOCYTES SLIGHT; TOXIC GRANULATION SLIGHT
[2020-05-16 08:19] LABS: PLATELET COMMENT DECREASED
[2020-05-16] MEDS: CEFTRIAXONE 1 GM/D5W RTU 1 GM/50 ML RTUPB IV SCH (08:29)
--- NOTE | 2020-05-16 09:45 | RADIOLOGY REPORT (SQ) ---
EXAM DESCRIPTION: CHEST SINGLE VIEW IMAGES COMPLETED DATE/TIME: 05/16/2020 6:01 am REASON FOR STUDY: dyspnea COMPARISON: 05/14/2020 NUMBER OF VIEWS: One view. TECHNIQUE: Single frontal radiographic image of the chest acquired. LIMITATIONS: None. FINDINGS: LUNGS AND PLEURA: Airspace disease left upper and lower lobe not significantly changed. R ight lung is clear. MEDIASTINUM AND HEART: Stable heart size and mediastinal structures. BONY STRUCTURES: No acute findings. HARDWARE: None. OTHER: No other significant finding. IMPRESSION: STABLE APPEARANCE OF THE CHEST. TECHNICAL DOCUMENTATION: JOB ID: [id number] Reading location - IP/workstation name: [email or web address]
[2020-05-16] MEDS ORDERED: METHYLPREDNISOLONE INJ 125 MG/2 ML SDV IV SCH (10:00)
[2020-05-16] MEDS: PANTOPRAZOLE SODIUM 40 MG VIAL IV SCH (10:35)
[2020-05-16] MEDS: FUROSEMIDE INJ/PF 40 MG/4 ML SDV IV SCH (10:46)
[2020-05-16] MEDS: LORAZEPAM INJ 2 MG/1 ML VIAL IV PRN (16:11)
[2020-05-16] MEDS ORDERED: MORPHINE SULFATE 10 MG/ML INJ IV ONE (16:44)
[2020-05-16] MEDS ORDERED: MORPHINE SULFATE 10 MG/ML INJ ONE (16:52)
[2020-05-16] MEDS: METOPROLOL TARTRATE PF/INJ 5 MG/5 ML SDV IV PRN (17:20)
[2020-05-16] MEDS: RIVAROXABAN 15 MG TABLET PO SCH ×2 (17:20→18:20)
--- NOTE | 2020-05-16 17:54 | PDOC CRITICAL CARE PROG REPORT ---
General Date:: 05/16/20 ICU Day:: 5 Hospital Day:: 5 Resuscitation Status: Full Code Events in the past 12 to 24 Hours:: This 69-year-old female was admitted on 05/12/2020 with complaints of chest pain. She was known to be in atrial fibrillation with rapid ventricular response. Incidentally, she also reported anosmia and dysgeusia. Rapid COVID testing was negative. In the emergency department, the patient initially was treated with metoprolol for rate control. This did slow down her ventricular rate; however, she apparently responded with significant elevation in her blood pressure. She was subsequently given nitroglycerin and morphine, which resulted in a precipitous drop in blood pressure, associated with decreased mentation and CO2 retention. She was intubated for acute hypercapnic respiratory failure. However, she was also noted to have a significant Aa gradient. She was admitted to the ICU. 05/13: Has responded favorably to diuretic therapy. She has been on PSVT 07/08, FiO2 40%. Hemodynamically stable. AB.47, PCO2 41, PO2 132. 05/14: Successfully extubated yesterday. Spent the night on BiPAP 19/05, FiO2 60%. Currently, she is on face tent. [place], moans and groans. She does provide verbal responses. Unknown baseline mental status. He does have periods of lucidity and is conversant, especially with the nurse. It is come to our attention through the patient's son that the patient is a 2 pack/day smoker. 05/15: The patient's son is at the bedside today. Updated. He adds that he is under the impression that his mother is a DNR; however, he is not the power of real estate attorney. He states that his and (patient's sister) maintains power of real estate attorney and healthcare power of real estate attorney responsibilities. Yesterday evening, the patient had a severe episode of delirium, characterized by screaming and howling and combative behavior. Was ultimately controlled with 0.5 mg Ativan. The patient's son also adds that at home, she predominately sleeps all day. She has been using the excuse that her primary care provider suggested that she "stay off her feet" to help relieve venous stasis and cellulitic problems in her lower extremities. She has taken this to mean that she should be on absolute bedrest. She remains in atrial fibrillation, rate controlled. Blood pressure elevated (SBP 716981). She remains extubated. He is on 5 LPM via nasal cannula. She is on BiPAP 16/8 during sleep. 05/16: The patient did tolerate BiPAP 16/8 during sleep. Appears to be mentating somewhat better. Did not experience significant delirium overnight. Event dose was reduced to 0.25 mg; however, overnight staff reported that she did require an additional Ativan dose. Review of her ABG results suggest that her respiratory drive is quite sensitive to her PaO2. She demonstrates repeated episodes of acute hypercapnia and suppression of ventilatory drive when her PaO2 is over 100. Review of systems relevant to events:: Respiratory: Dyspnea Cardiovascular: Atrial fibrillation with rapid ventricular response Endocrine: Morbid obesity Reason for ICU Addmission:: Respiratory Failure - Medications: Medications reviewed and adjusted accordingly: Yes Physical Exam Vital Signs: Temp Pulse Resp BP Pulse Ox 98.0 F 87 21 H 99/65 L 99 05/16/20 12:00 05/16/20 12:00 05/16/20 12:00 05/16/20 12:00 05/16/20 12:00 Intake & Output 05/15/20 05/16/20 05/17/20 06:59 06:59 06:59 Intake Total 50 50 50 Output Total 2585 860 400 Balance -2535 -810 -350 Weight 137.4 kg 137.8 kg Weight/Height Weight 137.8 kg Height 1.68 m General appearance: PRESENT: no acute distress, morbidly obese, well-developed, well-nourished Head exam: PRESENT: atraumatic, normocephalic Mouth exam: PRESENT: moist, tongue midline Neck exam: ABSENT: carotid bruit, JVD, lymphadenopathy, thyromegaly Respiratory exam: PRESENT: decreased breath sounds, prolonged expiratory phas, rhonchi. ABSENT: rales, wheezes Cardiovascular exam: PRESENT: irregular rhythm. ABSENT: diastolic murmur, rubs, systolic murmur Pulses: PRESENT: normal dorsalis pedis pul GI/Abdominal exam: PRESENT: normal bowel sounds, soft. ABSENT: distended, guarding, mass, organolmegaly, rebound, tenderness Extremities exam: PRESENT: full ROM, other - Lateral lower extremity venous stasis changes. ABSENT: calf tenderness, clubbing, pedal edema Neurological exam: PRESENT: alert, awake, CN II-XII grossly intact. ABSENT: motor sensory deficit Psychiatric exam: ABSENT: agitated, anxious Skin exam: PRESENT: dry, intact, warm. ABSENT: cyanosis, rash Laboratory/Radiographs Laboratory Results: 05/16/20 07:27 05/16/20 07:27 05/16/20 05/16/20 05/16/20 06:11 06:11 06:11 WBC Cancelled RBC Cancelled Hgb Cancelled Hct Cancelled MCV Cancelled MCH Cancelled MCHC Cancelled RDW Cancelled Plt Count Cancelled Seg Neutrophils % Cancelled Carbonic Acid HCO3/H2CO3 Ratio ABG pH ABG pCO2 ABG pO2 ABG HCO3 ABG O2 Saturation ABG Base Excess FiO2 Sodium Cancelled Potassium Cancelled Chloride Cancelled Carbon Dioxide Cancelled Anion Gap Cancelled BUN Cancelled Creatinine Cancelled Est GFR ( Amer) Cancelled Est GFR (Non-Af Amer) Cancelled Glucose Cancelled Lactic Acid 1.3 Calcium Cancelled Magnesium Cancelled 05/16/20 05/16/20 05/16/20 06:12 07:27 07:27 WBC 6.5 RBC 5.12 Hgb 16.0 H Hct 48.6 H MCV 95 MCH 31.2 MCHC 32.9 RDW 14.8 H Plt Count 100 L Seg Neutrophils % Not Reportable Carbonic Acid 2.14 H HCO3/H2CO3 Ratio 17:1 ABG pH 7.33 L ABG pCO2 71.2 H* ABG pO2 136.8 H ABG HCO3 36.5 H ABG O2 Saturation 98.4 H ABG Base Excess 7.1 FiO2 60% Sodium 140.2 Potassium 3.9 Chloride 96 L Carbon Dioxide 37 H Anion Gap 7 BUN 45 H Creatinine 1.54 H Est GFR ( Amer) 40 L Est GFR (Non-Af Amer) Glucose 229 H Lactic Acid Calcium 10.4 H Magnesium 2.1 05/11/20 10:43 Blood Blood Culture - Final NO GROWTH IN 5 DAYS 05/11/20 05/11/20 05/11/20 10:43 12:20 21:40 Creatine Kinase 39 CK-MB (CK-2) Troponin I 0.057 0.054 NT-Pro-B Natriuret Pep 13466 H 05/11/20 05/12/20 05/12/20 21:40 03:10 03:10 Creatine Kinase 173 H CK-MB (CK-2) 1.81 3.17 Troponin I 0.042 0.041 NT-Pro-B Natriuret Pep 05/12/20 05/13/20 05/15/20 03:10 04:30 04:27 Creatine Kinase CK-MB (CK-2) Troponin I NT-Pro-B Natriuret Pep 34179 H 14068 H 8880 H 05/16/20 05/16/20 06:11 07:27 Creatine Kinase CK-MB (CK-2) Troponin I NT-Pro-B Natriuret Pep Cancelled 69935 H Impressions: Venous Doppler Study 05/11/20 14:45 IMPRESSION: 1. Limited examination demonstrating no definitive lower extremity DVT bilaterally. 2. Pulsatile waveforms at the central veins bilaterally suggesting either elevated right heart pressures or valvular heart disease. Chest/Abdomen CTA 05/11/20 14:47 IMPRESSION: 1. There is no pulmonary embolism. No acute pulmonary disease. 2. Marked cardiomegaly. There is reflux of contrast into the hepatic veins which can be seen with elevated right heart pressure/right heart failure. Clinical correlation. 3. Pulmonary artery enlargement which can be seen with pulmonary arterial hypertension. Echocardiogram may provide additional information. Head CT 05/12/20 00:00 IMPRESSION: No acute intracranial findings. Chest X-Ray 05/16/20 05:00 IMPRESSION: STABLE APPEARANCE OF THE CHEST. All labs, radiographs, diagnostic studies and EKGs were personally reviewed: Yes In addition, reports of radiographic and diagnostic studies were read: Yes Assessment and Plan - Diagnosis (1) Acute respiratory failure with hypoxia and hypercapnia Is this a current diagnosis for this admission?: Yes Plan: Supplemental oxygen to maintain SpO2 8893%. BiPAP 16/8 nightly and PRN. Titrate FiO2 to maintain SpO2 88-93%. (2) COPD exacerbation Is this a current diagnosis for this admission?: Yes Plan: Continue DuoNeb/Pulmicort. Albuterol as needed. With clinical improvement in the interim and concerned that psychomotor agitation may be secondary to high-dose steroid therapy, decrease Solu-Medrol to 60 mg IV daily. (3) Acute systolic heart failure Is this a current diagnosis for this admission?: Yes Plan: Continue furosemide 40 mg IV daily. Continue Lopressor 25 mg p.o. twice daily. Continue Xarelto 15 mg p.o. nightly. (4) Atrial fibrillation with rapid ventricular response Is this a current diagnosis for this admission?: Yes Plan: Continue Xarelto. Increase Lopressor to 25 mg p.o. every 6 hours. (5) E. coli urinary tract infection Is this a current diagnosis for this admission?: Yes (6) Diabetes mellitus type 2 in obese Is this a current diagnosis for this admission?: Yes (7) Acute kidney injury superimposed on CKD Is this a current diagnosis for this admission?: Yes (8) Morbid obesity with BMI of 50.0-59.9, adult Is this a current diagnosis for this admission?: Yes (9) Delirium Is this a current diagnosis for this admission?: Yes Critical Time Critical Time (minutes): 60 Level of Care: ICU -: 1. The care of a critical patient is a dynamic process. This note is a escrow representative synopsis but static in nature. The timeframe for treatments given in order is not necessarily the actual time these treatments may have been done. 2. This patient requires critical care secondary to ongoing requirements for therapy not offered or safe outside the critical care environment. Transfer to a lower level of care will result in altered life or limb morbidity and mortality. 3. Multidisciplinary rounds completed. 4. ABCDE bundle addressed.
[2020-05-16] MEDS ORDERED: BISACODYL 5 MG TABEC PO PRN (18:39)
[2020-05-17] MEDS: METOPROLOL TARTRATE 25 MG TABLET PO SCH ×5 (00:57→18:26)
[2020-05-17] MEDS: INSULIN REG, HUMAN 100 UNIT/ML 3 ML VIAL (PYX) SUBCUT SCH ×5 (00:59→23:58)
[2020-05-17] MEDS ORDERED: NORMAL SALINE 1000 ML 1,000 ML IV ONE (05:04)
[2020-05-17] MEDS: GABAPENTIN 300 MG CAPSULE PO SCH ×3 (05:44→21:53)
[2020-05-17 06:06] LABS: ANION GAP 7 (5-19); BLOOD UREA NITROGEN 53 mg/dL (7-20); CALCIUM 10.6 mg/dL (8.4-10.2); CARBON DIOXIDE 36 mmol/L (22-30); CHLORIDE 97 mmol/L (98-107); GLUCOSE 237 mg/dL (75-110); PHOSPHORUS 3.1 mg/dL (2.5-4.5); POTASSIUM 3.4 mmol/L (3.6-5.0)
[2020-05-17 06:14] LABS: ARTERIAL BLOOD BASE EXCESS 10.5 mmol/L; ARTERIAL BLOOD H2CO3 2.28 mmol/L (1.05-1.35); ARTERIAL BLOOD HCO3 40.3 mmol/L (20-24); ARTERIAL BLOOD O2 SATURATION 95.9 % (94-98); ARTERIAL BLOOD PH 7.34 (7.35-7.45); ARTERIAL BLOOD PO2 88.7 mmHg (80-100); ARTERIAL BLOOD TOTAL CO2 42.7 mmol/L (21-25)
[2020-05-17 06:17] LABS: ARTERIAL BLOOD FIO2 40%
[2020-05-17 06:18] LABS: ARTERIAL BLOOD PCO2 75.8 mmHg (35-45)
[2020-05-17] MEDS: CEFTRIAXONE 1 GM/D5W RTU 1 GM/50 ML RTUPB IV SCH (08:52)
[2020-05-17] MEDS ORDERED: HALOPERIDOL LACTATE INJ 5 MG/1 ML VIAL IV ONE ×2 (09:00→09:30)
[2020-05-17] MEDS: DOCUSATE SODIUM 100 MG CAPSULE PO SCH (09:20)
[2020-05-17] MEDS: PANTOPRAZOLE SODIUM 40 MG VIAL IV SCH (09:20)
[2020-05-17] MEDS: METHYLPREDNISOLONE INJ 40 MG/1 ML SDV IV SCH (09:20)
[2020-05-17] MEDS: FUROSEMIDE INJ/PF 40 MG/4 ML SDV IV SCH (09:20)
[2020-05-17] MEDS ORDERED: METHYLPREDNISOLONE INJ 125 MG/2 ML SDV IV SCH (10:00)
[2020-05-17] MEDS: LORAZEPAM INJ 2 MG/1 ML VIAL IV PRN ×2 (10:54→19:54)
[2020-05-17] MEDS ORDERED: POTASSIUM CHLORIDE 20 MEQ PACKET PO ONE (14:00)
[2020-05-17] MEDS: METOPROLOL TARTRATE PF/INJ 5 MG/5 ML SDV IV PRN ×2 (14:06→19:54)
[2020-05-17] MEDS: RIVAROXABAN 15 MG TABLET PO SCH ×2 (18:14→18:26)
--- NOTE | 2020-05-17 18:48 | PDOC CRITICAL CARE PROG REPORT ---
General Date:: 05/17/20 ICU Day:: 6 Hospital Day:: 6 Resuscitation Status: Full Code Events in the past 12 to 24 Hours:: This 69-year-old female was admitted on 05/12/2020 with complaints of chest pain. She was known to be in atrial fibrillation with rapid ventricular response. Incidentally, she also reported anosmia and dysgeusia. Rapid COVID testing was negative. In the emergency department, the patient initially was treated with metoprolol for rate control. This did slow down her ventricular rate; however, she apparently responded with significant elevation in her blood pressure. She was subsequently given nitroglycerin and morphine, which resulted in a precipitous drop in blood pressure, associated with decreased mentation and CO2 retention. She was intubated for acute hypercapnic respiratory failure. However, she was also noted to have a significant Aa gradient. She was admitted to the ICU. 05/13: Has responded favorably to diuretic therapy. She has been on PSVT 10/, FiO2 40%. Hemodynamically stable. AB.47, PCO2 41, PO2 132. 05/14: Successfully extubated yesterday. Spent the night on BiPAP 19/05, FiO2 60%. Currently, she is on face tent. [place], moans and groans. She does provide verbal responses. Unknown baseline mental status. He does have periods of lucidity and is conversant, especially with the nurse. It is come to our attention through the patient's son that the patient is a 2 pack/day smoker. 05/15: The patient's son is at the bedside today. Updated. He adds that he is under the impression that his mother is a DNR; however, he is not the power of superintendent service. He states that his and (patient's sister) maintains power of superintendent service and healthcare power of superintendent service responsibilities. Yesterday evening, the patient had a severe episode of delirium, characterized by screaming and howling and combative behavior. Was ultimately controlled with 0.5 mg Ativan. The patient's son also adds that at home, she predominately sleeps all day. She has been using the excuse that her primary care provider suggested that she "stay off her feet" to help relieve venous stasis and cellulitic problems in her lower extremities. She has taken this to mean that she should be on absolute bedrest. She remains in atrial fibrillation, rate controlled. Blood pressure elevated (SBP 554400). She remains extubated. He is on 5 LPM via nasal cannula. She is on BiPAP 16/8 during sleep. 05/16: The patient did tolerate BiPAP 16/8 during sleep. Appears to be mentating somewhat better. Did not experience significant delirium overnight. Event dose was reduced to 0.25 mg; however, overnight staff reported that she did require an additional Ativan dose. Review of her ABG results suggest that her respiratory drive is quite sensitive to her PaO2. She demonstrates repeated episodes of acute hypercapnia and suppression of ventilatory drive when her PaO2 is over 100. 05/17: The patient has been compliant with BiPAP during sleep. Still moans and groans. Notably, when she is interrupted, she is appropriately interactive but immediately resumes moaning and groaning. She denies pain, however. Review of systems relevant to events:: Respiratory: Dyspnea Cardiovascular: Atrial fibrillation with rapid ventricular response Endocrine: Morbid obesity Reason for ICU Addmission:: Respiratory Failure - Medications: Medications reviewed and adjusted accordingly: Yes Physical Exam Vital Signs: Temp Pulse Resp BP Pulse Ox 98.4 F 100 21 H 173/90 H 100 05/17/20 11:59 05/17/20 10:00 05/17/20 14:00 05/17/20 13:21 05/17/20 14:00 Intake & Output 05/16/20 05/17/20 05/18/20 06:59 06:59 06:59 Intake Total 50 50 50 Output Total 860 1775 825 Balance -810 -1725 -775 Weight 137.8 kg 135.3 kg Weight/Height Weight 135.3 kg Height 1.68 m General appearance: PRESENT: no acute distress, morbidly obese, well-developed, well-nourished Head exam: PRESENT: atraumatic, normocephalic Eye exam: PRESENT: conjunctiva pink, EOMI, PERRLA. ABSENT: scleral icterus Mouth exam: PRESENT: moist, tongue midline Neck exam: ABSENT: carotid bruit, JVD, lymphadenopathy, thyromegaly Respiratory exam: PRESENT: decreased breath sounds. ABSENT: rales, rhonchi, wheezes Cardiovascular exam: PRESENT: RRR. ABSENT: diastolic murmur, rubs, systolic murmur Pulses: PRESENT: normal dorsalis pedis pul GI/Abdominal exam: PRESENT: normal bowel sounds, soft. ABSENT: distended, guar ding, mass, organolmegaly, rebound, tenderness Extremities exam: PRESENT: full ROM, pedal edema, other - Lateral lower extremity venous stasis changes. ABSENT: calf tenderness, clubbing Neurological exam: PRESENT: alert, awake, CN II-XII grossly intact. ABSENT: motor sensory deficit Psychiatric exam: PRESENT: agitated Focused psych exam: PRESENT: delusional, psychomotor agitation Skin exam: PRESENT: dry, intact, warm. ABSENT: cyanosis, rash Laboratory/Radiographs Laboratory Results: 05/16/20 07:27 05/17/20 04:04 05/17/20 05/17/20 05/17/20 04:04 04:04 06:00 Carbonic Acid 2.28 H HCO3/H2CO3 Ratio 17:1 ABG pH 7.34 L ABG pCO2 75.8 H* ABG pO2 88.7 ABG HCO3 40.3 H ABG O2 Saturation 95.9 ABG Base Excess 10.5 FiO2 40% Sodium 140.1 Potassium 3.4 L Chloride 97 L Carbon Dioxide 36 H Anion Gap 7 BUN 53 H Creatinine 1.70 H Est GFR ( Amer) 36 L Glucose 237 H Calcium 10.6 H Phosphorus 3.1 Magnesium 2.0 Folate 6.51 05/11/20 12:51 Blood Blood Culture - Final NO GROWTH IN 5 DAYS 05/11/20 05/11/20 05/11/20 10:43 12:20 21:40 Creatine Kinase 39 CK-MB (CK-2) Troponin I 0.057 0.054 NT-Pro-B Natriuret Pep 85958 H 05/11/20 05/12/20 05/12/20 21:40 03:10 03:10 Creatine Kinase 173 H CK-MB (CK-2) 1.81 3.17 Troponin I 0.042 0.041 NT-Pro-B Natriuret Pep 05/12/20 05/13/20 05/15/20 03:10 04:30 04:27 Creatine Kinase CK-MB (CK-2) Troponin I NT-Pro-B Natriuret Pep 98596 H 88561 H 8880 H 05/16/20 05/16/20 06:11 07:27 Creatine Kinase CK-MB (CK-2) Troponin I NT-Pro-B Natriuret Pep Cancelled 27315 H Impressions: Venous Doppler Study 05/11/20 14:45 IMPRESSION: 1. Limited examination demonstrating no definitive lower extremity DVT bilaterally. 2. Pulsatile waveforms at the central veins bilaterally suggesting either elevated right heart pressures or valvular heart disease. Chest/Abdomen CTA 05/11/20 14:47 IMPRESSION: 1. There is no pulmonary embolism. No acute pulmonary disease. 2. Marked cardiomegaly. There is reflux of contrast into the hepatic veins which can be seen with elevated right heart pressure/right heart failure. Clinical correlation. 3. Pulmonary artery enlargement which can be seen with pulmonary arterial hypertension. Echocardiogram may provide additional information. Head CT 05/12/20 00:00 IMPRESSION: No acute intracranial findings. Chest X-Ray 05/16/20 05:00 IMPRESSION: STABLE APPEARANCE OF THE CHEST. All labs, radiographs, diagnostic studies and EKGs were personally reviewed: Yes In addition, reports of radiographic and diagnostic studies were read: Yes Assessment and Plan - Diagnosis (1) Acute respiratory failure with hypoxia and hypercapnia Is this a current diagnosis for this admission?: Yes Plan: Supplemental oxygen to maintain SpO2 8893%. BiPAP 16/8 nightly and PRN. Titrate FiO2 to maintain SpO2 88-93%. With decreasing FiO2 requirement, decrease steroids to 40 mg IV daily. (2) Delirium Is this a current diagnosis for this admission?: Yes Plan: Ativan 0.5 mg IV every 6 hours PRN. Restart gabapentin 300 mg p.o. every 8 hours. (3) COPD exacerbation Is this a current diagnosis for this admission?: Yes Plan: Continue DuoNeb/Pulmicort. Albuterol as needed. With clinical improvement in the interim and concerned that psychomotor agitation may be secondary to high-dose steroid therapy, decrease Solu-Medrol to 40 mg IV daily. (4) Acute systolic heart failure Is this a current diagnosis for this admission?: Yes Plan: Continue furosemide 40 mg IV daily. Continue Lopressor 25 mg p.o. twice daily. Continue Xarelto 15 mg p.o. nightly. (5) Atrial fibrillation with rapid ventricular response Is this a current diagnosis for this admission?: Yes Plan: Continue Xarelto. Increase Lopressor to 25 mg p.o. every 6 hours. (6) E. coli urinary tract infection Is this a current diagnosis for this admission?: Yes Plan: Continue Rocephin. (7) Diabetes mellitus type 2 in obese Is this a current diagnosis for this admission?: Yes (8) Acute kidney injury superimposed on CKD Is this a current diagnosis for this admission?: Yes (9) Morbid obesity with BMI of 50.0-59.9, adult Is this a current diagnosis for this admission?: Yes Critical Time Critical Time (minutes): 45 Level of Care: ICU -: 1. The care of a critical patient is a dynamic process. This note is a artists' booking representative synopsis but static in nature. The timeframe for treatments given in order is not necessarily the actual time these treatments may have been done. 2. This patient requires critical care secondary to ongoing requirements for therapy not offered or safe outside the critical care environment. Transfer to a lower level of care will result in altered life or limb morbidity and mortality. 3. Multidisciplinary rounds completed. 4. ABCDE bundle addressed.
[2020-05-18 04:27] LABS: ARTERIAL BLOOD BASE EXCESS 12.5 mmol/L; ARTERIAL BLOOD FIO2 40%; ARTERIAL BLOOD H2CO3 2.12 mmol/L (1.05-1.35); ARTERIAL BLOOD HCO3 41.7 mmol/L (20-24); ARTERIAL BLOOD O2 SATURATION 99.4 % (94-98); ARTERIAL BLOOD PCO2 70.5 mmHg (35-45); ARTERIAL BLOOD PH 7.39 (7.35-7.45); ARTERIAL BLOOD PO2 226.3 mmHg (80-100); ARTERIAL BLOOD TOTAL CO2 43.9 mmol/L (21-25)
[2020-05-18] MEDS: METOPROLOL TARTRATE 25 MG TABLET PO SCH ×4 (05:38→18:55)
[2020-05-18] MEDS: GABAPENTIN 300 MG CAPSULE PO SCH ×3 (05:38→21:10)
[2020-05-18] MEDS: INSULIN REG, HUMAN 100 UNIT/ML 3 ML VIAL (PYX) SUBCUT SCH ×4 (06:15→23:36)
[2020-05-18] MEDS: METOPROLOL TARTRATE PF/INJ 5 MG/5 ML SDV IV PRN ×2 (06:39→18:55)
[2020-05-18 06:49] LABS: HEMOGLOBIN 16.8 g/dL (12.0-15.5); MEAN CORPUSCULAR HGB CONC 32.9 g/dL (32.0-36.0); MEAN CORPUSCULAR VOLUME 94 fl (80-97); PLATELET COUNT 103 10^3/uL (150-450); RED CELL DISTRIBUTION WIDTH 14.8 % (11.5-14.0); WHITE BLOOD COUNT 8.1 10^3/uL (4.0-10.5)
[2020-05-18 07:01] LABS: ANION GAP 6 (5-19); BLOOD UREA NITROGEN 58 mg/dL (7-20); CALCIUM 10.8 mg/dL (8.4-10.2); CARBON DIOXIDE 35 mmol/L (22-30); CHLORIDE 100 mmol/L (98-107); GLUCOSE 220 mg/dL (75-110); PHOSPHORUS 2.4 mg/dL (2.5-4.5); POTASSIUM 3.6 mmol/L (3.6-5.0)
[2020-05-18 07:11] LABS: ABSOLUTE LYMPHOCYTES# (MANUAL) 0.3 10^3/uL (0.5-4.7); ABSOLUTE MONOCYTES # (MANUAL) 0.3 10^3/uL (0.1-1.4); ANISOCYTOSIS SLIGHT; BASOPHILS % (MANUAL) 0 % (0-2); EOSINOPHILS % (MANUAL) 0 % (0-6); LYMPHOCYTES % (MANUAL) 4 % (13-45); MONOCYTES % (MANUAL) 4 % (3-13); PLATELET COMMENT DECREASED; SEGMENTED NEUTROPHILS % (MAN) 92 % (42-78); TOTAL CELLS COUNTED 100
[2020-05-18] MEDS: CEFTRIAXONE 1 GM/D5W RTU 1 GM/50 ML RTUPB IV SCH (08:57)
[2020-05-18] MEDS: PANTOPRAZOLE SODIUM 40 MG VIAL IV SCH (11:13)
[2020-05-18] MEDS: DOCUSATE SODIUM 100 MG CAPSULE PO SCH (11:13)
[2020-05-18] MEDS: METHYLPREDNISOLONE INJ 40 MG/1 ML SDV IV SCH (11:13)
[2020-05-18] MEDS: FUROSEMIDE INJ/PF 40 MG/4 ML SDV IV SCH (11:13)
--- NOTE | 2020-05-18 18:01 | PDOC CRITICAL CARE PROG REPORT ---
General Date:: 05/18/20 ICU Day:: 7 Hospital Day:: 7 Resuscitation Status: Full Code Events in the past 12 to 24 Hours:: This 69-year-old female was admitted on 05/12/2020 with complaints of chest pain. She was known to be in atrial fibrillation with rapid ventricular response. Incidentally, she also reported anosmia and dysgeusia. Rapid COVID testing was negative. In the emergency department, the patient initially was treated with metoprolol for rate control. This did slow down her ventricular rate; however, she apparently responded with significant elevation in her blood pressure. She was subsequently given nitroglycerin and morphine, which resulted in a precipitous drop in blood pressure, associated with decreased mentation and CO2 retention. She was intubated for acute hypercapnic respiratory failure. However, she was also noted to have a significant Aa gradient. She was admitted to the ICU. 05/13: Has responded favorably to diuretic therapy. She has been on PSVT 10/, FiO2 40%. Hemodynamically stable. AB.47, PCO2 41, PO2 132. 05/14: Successfully extubated yesterday. Spent the night on BiPAP 19/05, FiO2 60%. Currently, she is on face tent. [place], moans and groans. She does provide verbal responses. Unknown baseline mental status. He does have periods of lucidity and is conversant, especially with the nurse. It is come to our attention through the patient's son that the patient is a 2 pack/day smoker. 05/15: The patient's son is at the bedside today. Updated. He adds that he is under the impression that his mother is a DNR; however, he is not the power of finish repair worker. He states that his and (patient's sister) maintains power of finish repair worker and healthcare power of finish repair worker responsibilities. Yesterday evening, the patient had a severe episode of delirium, characterized by screaming and howling and combative behavior. Was ultimately controlled with 0.5 mg Ativan. The patient's son also adds that at home, she predominately sleeps all day. She has been using the excuse that her primary care provider suggested that she "stay off her feet" to help relieve venous stasis and cellulitic problems in her lower extremities. She has taken this to mean that she should be on absolute bedrest. She remains in atrial fibrillation, rate controlled. Blood pressure elevated (SBP 126809). She remains extubated. He is on 5 LPM via nasal cannula. She is on BiPAP 16/8 during sleep. 05/16: The patient did tolerate BiPAP 16/8 during sleep. Appears to be mentating somewhat better. Did not experience significant delirium overnight. Event dose was reduced to 0.25 mg; however, overnight staff reported that she did require an additional Ativan dose. Review of her ABG results suggest that her respiratory drive is quite sensitive to her PaO2. She demonstrates repeated episodes of acute hypercapnia and suppression of ventilatory drive when her PaO2 is over 100. 05/17: The patient has been compliant with BiPAP during sleep. Still moans and groans. Notably, when she is interrupted, she is appropriately interactive but immediately resumes moaning and groaning. She denies pain, however. 05/18: The patient did wear BiPAP during sleep. Still moans and groans but is quite a bit more conversant today. The patient's sister is at the bedside to the visit. She is the healthcare power of finish repair worker. She was able to provide quite a bit of background information about the patient's recent deterioration in health. Review of systems relevant to events:: Respiratory: Dyspnea Cardiovascular: Atrial fibrillation with rapid ventricular response Endocrine: Morbid obesity Reason for ICU Addmission:: Respiratory Failure - Medications: Medications reviewed and adjusted accordingly: Yes Physical Exam Vital Signs: Temp Pulse Resp BP Pulse Ox 98.1 F 88 17 150/94 H 98 05/18/20 12:00 05/18/20 12:00 05/18/20 12:00 05/18/20 12:05/18/20 12:00 Intake & Output 05/17/20 05/18/20 05/19/20 06:59 06:59 06:59 Intake Total 50 50 Output Total 4106 8332 255 Balance -1028 -4234 -255 Weight 135.3 kg 133.1 kg Weight/Height Weight 133.1 kg Height 1.68 m General appearance: PRESENT: no acute distress, well-developed, well-nourished Head exam: PRESENT: atraumatic, normocephalic Eye exam: PRESENT: conjunctiva pink, EOMI, PERRLA. ABSENT: scleral icterus Mouth exam: PRESENT: moist, tongue midline Neck exam: ABSENT: carotid bruit, JVD, lymphadenopathy, thyromegaly Respiratory exam: PRESENT: decreased breath sounds, rales, rhonchi Cardiovascular exam: PRESENT: irregular rhythm. ABSENT: diastolic murmur, rubs, systolic murmur Pulses: PRESENT: normal carotid pulses GI/Abdominal exam: PRESENT: normal bowel sounds, soft. ABSENT: distended, guarding, mass, organolmegaly, rebound, tenderness Extremities exam: PRESENT: full ROM, pedal edema, +2 edema, other - Bilateral lower extremity venous stasis changes. ABSENT: calf tenderness, clubbing Musculoskeletal exam: PRESENT: normal inspection. ABSENT: deformity Neurological exam: PRESENT: alert, awake, reflexes normal, CN II-XII grossly intact. ABSENT: motor sensory deficit Psychiatric exam: PRESENT: agitated, depressed, flat affect Skin exam: PRESENT: dry, intact, warm. ABSENT: cyanosis, rash Laboratory/Radiographs Laboratory Results: 05/18/20 06:22 05/18/20 06:22 05/18/20 05/18/20 05/18/20 04:15 06:22 06:22 WBC 8.1 RBC 5.40 H Hgb 16.8 H Hct 51.0 H MCV 94 MCH 31.0 MCHC 32.9 RDW 14.8 H Plt Count 103 L Seg Neutrophils % Not Reportable Carbonic Acid 2.12 H HCO3/H2CO3 Ratio 19:1 ABG pH 7.39 ABG pCO2 70.5 H* ABG pO2 226.3 H ABG HCO3 41.7 H ABG O2 Saturation 99.4 H ABG Base Excess 12.5 FiO2 40% Sodium 140.9 Potassium 3.6 Chloride 100 Carbon Dioxide 35 H Anion Gap 6 BUN 58 H Creatinine 1.74 H Est GFR ( Amer) 35 L Glucose 220 H Calcium 10.8 H Phosphorus 2.4 L Magnesium 2.0 05/11/20 05/11/20 05/11/20 10:43 12:20 21:40 Creatine Kinase 39 CK-MB (CK-2) Troponin I 0.057 0.054 NT-Pro-B Natriuret Pep 45338 H 05/11/20 05/12/20 05/12/20 21:40 03:10 03:10 Creatine Kinase 173 H CK-MB (CK-2) 1.81 3.17 Troponin I 0.042 0.041 NT-Pro-B Natriuret Pep 05/12/20 05/13/20 05/15/20 03:10 04:30 04:27 Creatine Kinase CK-MB (CK-2) Troponin I NT-Pro-B Natriuret Pep 86622 H 04876 H 8880 H 05/16/20 05/16/20 06:11 07:27 Creatine Kinase CK-MB (CK-2) Troponin I NT-Pro-B Natriuret Pep Cancelled [id number] H Impressions: Venous Doppler Study 05/11/20 14:45 IMPRESSION: 1. Limited examination demonstrating no definitive lower extremity DVT bilaterally. 2. Pulsatile waveforms at the central veins bilaterally suggesting either elevated right heart pressures or valvular heart disease. Chest/Abdomen CTA 05/11/20 14:47 IMPRESSION: 1. There is no pulmonary embolism. No acute pulmonary disease. 2. Marked cardiomegaly. There is reflux of contrast into the hepatic veins which can be seen with elevated right heart pressure/right heart failure. Clinical correlation. 3. Pulmonary artery enlargement which can be seen with pulmonary arterial hypertension. Echocardiogram may provide additional information. Head CT 05/12/20 00:00 IMPRESSION: No acute intracranial findings. Chest X-Ray 05/16/20 05:00 IMPRESSION: STABLE APPEARANCE OF THE CHEST. All labs, radiographs, diagnostic studies and EKGs were personally reviewed: Yes In addition, reports of radiographic and diagnostic studies were read: Yes Assessment and Plan - Diagnosis (1) Acute respiratory failure with hypoxia and hypercapnia Is this a current diagnosis for this admission?: Yes Plan: Supplemental oxygen to maintain SpO2 8893%. BiPAP 16/8 nightly and PRN. Titrate FiO2 to maintain SpO2 88-93%. Continue Solu-Medrol 40 mg IV daily. (2) Delirium Is this a current diagnosis for this admission?: Yes Plan: Ativan 0.5 mg IV every 6 hours PRN. Continue gabapentin 300 mg p.o. every 8 hours. (3) COPD exacerbation Is this a current diagnosis for this admission?: Yes Plan: Continue DuoNeb/Pulmicort. Albuterol as needed. Continue Solu-Medrol 40 mg IV daily. (4) Acute systolic heart failure Is this a current diagnosis for this admission?: Yes Plan: Continue furosemide 40 mg IV daily. Continue Lopressor 25 mg p.o. twice daily. Continue Xarelto 15 mg p.o. nightly. (5) Atrial fibrillation with rapid ventricular response Is this a current diagnosis for this admission?: Yes Plan: Continue Xarelto. Increase Lopressor to 25 mg p.o. every 6 hours. (6) E. coli urinary tract infection Is this a current diagnosis for this admission?: Yes Plan: Continue Rocephin. (7) Diabetes mellitus type 2 in obese Is this a current diagnosis for this admission?: Yes (8) Acute kidney injury superimposed on CKD Is this a current diagnosis for this admission?: Yes Plan: Renal dosing of medications. Avoid nephrotoxic medications. (9) Morbid obesity with BMI of 50.0-59.9, adult Is this a current diagnosis for this admission?: Yes Plan Summary: The patient's sister had an opportunity to spend time and interview the patient today and make an assessment of the patient's current cognitive function, mental status and physical status. In fact, the patient's sister is a nurse. As the healthcare power of finish repair worker, the patient states that she feels the patient would most appropriately be managed with the intention of curative/definitive treatment but with clear instructions for no resuscitative efforts to be made in the event of cardiopulmonary arrest. Consequently, the patient will be made a DNR. The patient and patient's sister both understand that this does not mean that we will transition to comfort care measures. This does not mean we will abandon attempts at curative and definitive treatments. Furthermore, the patient's sister is requesting that options for placement in a long-term care facilities be investigated. Critical Time Critical Time (minutes): 90 Level of Care: ICU -: 1. The care of a critical patient is a dynamic process. This note is a retail sales representative synopsis but static in nature. The timeframe for treatments given in order is not necessarily the actual time these treatments may have been done. 2. This patient requires critical care secondary to ongoing requirements for therapy not offered or safe outside the critical care environment. Transfer to a lower level of care will result in altered life or limb morbidity and mortality. 3. Multidisciplinary rounds completed. 4. ABCDE bundle addressed.
[2020-05-18] MEDS: RIVAROXABAN 15 MG TABLET PO SCH (18:54)
[2020-05-18] MEDS: METOPROLOL TARTRATE 50 MG TABLET PO SCH (21:10)
[2020-05-19] MEDS: INSULIN REG, HUMAN 100 UNIT/ML 3 ML VIAL (PYX) SUBCUT SCH ×4 (05:42→23:57)
[2020-05-19] MEDS: METOPROLOL TARTRATE 50 MG TABLET PO SCH ×3 (05:43→22:11)
[2020-05-19] MEDS: GABAPENTIN 300 MG CAPSULE PO SCH ×3 (05:43→22:03)
[2020-05-19 07:09] LABS: ARTERIAL BLOOD BASE EXCESS 9.7 mmol/L; ARTERIAL BLOOD H2CO3 2.19 mmol/L (1.05-1.35); ARTERIAL BLOOD HCO3 39.3 mmol/L (20-24); ARTERIAL BLOOD O2 SATURATION 96.6 % (94-98); ARTERIAL BLOOD PH 7.35 (7.35-7.45); ARTERIAL BLOOD PO2 94.7 mmHg (80-100); ARTERIAL BLOOD TOTAL CO2 41.5 mmol/L (21-25)
[2020-05-19 07:10] LABS: ARTERIAL BLOOD FIO2 3L; ARTERIAL BLOOD PCO2 72.9 mmHg (35-45)
[2020-05-19] MEDS: CEFTRIAXONE 1 GM/D5W RTU 1 GM/50 ML RTUPB IV SCH (08:57)
[2020-05-19] MEDS: METHYLPREDNISOLONE INJ 40 MG/1 ML SDV IV SCH (09:14)
[2020-05-19] MEDS: DOCUSATE SODIUM 100 MG CAPSULE PO SCH (09:14)
[2020-05-19] MEDS: FUROSEMIDE INJ/PF 40 MG/4 ML SDV IV SCH (09:14)
[2020-05-19] MEDS: PANTOPRAZOLE SODIUM 40 MG VIAL IV SCH (09:25)
--- NOTE | 2020-05-19 12:27 | PDOC CRITICAL CARE PROG REPORT ---
General Date:: 05/19/20 ICU Day:: 8 Hospital Day:: 8 Resuscitation Status: Full Code Events in the past 12 to 24 Hours:: This 69-year-old female was admitted on 05/12/2020 with complaints of chest pain. She was known to be in atrial fibrillation with rapid ventricular response. Incidentally, she also reported anosmia and dysgeusia. Rapid COVID testing was negative. In the emergency department, the patient initially was treated with metoprolol for rate control. This did slow down her ventricular rate; however, she apparently responded with significant elevation in her blood pressure. She was subsequently given nitroglycerin and morphine, which resulted in a precipitous drop in blood pressure, associated with decreased mentation and CO2 retention. She was intubated for acute hypercapnic respiratory failure. However, she was also noted to have a significant Aa gradient. She was admitted to the ICU. 05/13: Has responded favorably to diuretic therapy. She has been on PSVT 07/08, FiO2 40%. Hemodynamically stable. AB.47, PCO2 41, PO2 132. 05/14: Successfully extubated yesterday. Spent the night on BiPAP 19/05, FiO2 60%. Currently, she is on face tent. [place], moans and groans. She does provide verbal responses. Unknown baseline mental status. He does have periods of lucidity and is conversant, especially with the nurse. It is come to our attention through the patient's son that the patient is a 2 pack/day smoker. 05/15: The patient's son is at the bedside today. Updated. He adds that he is under the impression that his mother is a DNR; however, he is not the power of title attorney. He states that his and (patient's sister) maintains power of title attorney and healthcare power of title attorney responsibilities. Yesterday evening, the patient had a severe episode of delirium, characterized by screaming and howling and combative behavior. Was ultimately controlled with 0.5 mg Ativan. The patient's son also adds that at home, she predominately sleeps all day. She has been using the excuse that her primary care provider suggested that she "stay off her feet" to help relieve venous stasis and cellulitic problems in her lower extremities. She has taken this to mean that she should be on absolute bedrest. She remains in atrial fibrillation, rate controlled. Blood pressure elevated (SBP 946590). She remains extubated. He is on 5 LPM via nasal cannula. She is on BiPAP 16/8 during sleep. 05/16: The patient did tolerate BiPAP 16/8 during sleep. Appears to be mentating somewhat better. Did not experience significant delirium overnight. Event dose was reduced to 0.25 mg; however, overnight staff reported that she did require an additional Ativan dose. Review of her ABG results suggest that her respiratory drive is quite sensitive to her PaO2. She demonstrates repeated episodes of acute hypercapnia and suppression of ventilatory drive when her PaO2 is over 100. 05/17: The patient has been compliant with BiPAP during sleep. Still moans and groans. Notably, when she is interrupted, she is appropriately interactive but immediately resumes moaning and groaning. She denies pain, however. 05/18: The patient did wear BiPAP during sleep. Still moans and groans but is quite a bit more conversant today. The patient's sister is at the bedside to the visit. She is the healthcare power of title attorney. She was able to provide quite a bit of background information about the patient's recent deterioration in health. 05/19: Mentation has significantly improved over the past 2 days. She is compliant with nighttime BiPAP (and during sleep). On 2 LPM via nasal cannula when awake. Review of systems relevant to events:: Respiratory: Dyspnea Cardiovascular: Atrial fibrillation with rapid ventricular response Endocrine: Morbid obesity Reason for ICU Addmission:: Respiratory Failure - Medications: Medications reviewed and adjusted accordingly: Yes Physical Exam Vital Signs: Temp Pulse Resp BP Pulse Ox 98.1 F 84 21 H 128/89 H 100 05/19/20 08:00 05/19/20 10:00 05/19/20 10:22 05/19/20 10:22 05/19/20 10:22 Intake & Output 05/18/20 05/19/20 05/20/20 06:59 06:59 06:59 Intake Total 50 250 550 Output Total 4386 5820 235 Balance -9995 1230 315 Weight 133.1 kg 131.9 kg Weight/Height Weight 131.9 kg Height 1.68 m General appearance: PRESENT: no acute distress, morbidly obese, well-developed, well-nourished Head exam: PRESENT: atraumatic, normocephalic Eye exam: PRESENT: conjunctiva pink, EOMI, PERRLA. ABSENT: scleral icterus Mouth exam: PRESENT: moist, tongue midline Neck exam: ABSENT: carotid bruit, JVD, lymphadenopathy, thyromegaly Respiratory exam: PRESENT: decreased breath sounds. ABSENT: rales, rhonchi, wheezes GI/Abdominal exam: PRESENT: normal bowel sounds, soft. ABSENT: distended, guarding, mass, organolmegaly, rebound, tenderness Musculoskeletal exam: PRESENT: normal inspection. ABSENT: deformity Neurological exam: PRESENT: alert, awake, CN II-XII grossly intact. ABSENT: motor sensory deficit Psychiatric exam: PRESENT: agitated, flat affect. ABSENT: anxious Skin exam: PRESENT: dry, intact, warm. ABSENT: cyanosis, rash Laboratory/Radiographs Laboratory Results: 05/18/20 06:22 05/18/20 06:22 05/19/20 06:45 Carbonic Acid 2.19 H HCO3/H2CO3 Ratio 17:1 ABG pH 7.35 ABG pCO2 72.9 H* ABG pO2 94.7 ABG HCO3 39.3 H ABG O2 Saturation 96.6 ABG Base Excess 9.7 FiO2 3L 05/11/20 05/11/20 05/11/20 10:43 12:20 21:40 Creatine Kinase 39 CK-MB (CK-2) Troponin I 0.057 0.054 NT-Pro-B Natriuret Pep 81086 H 05/11/20 05/12/20 05/12/20 21:40 03:10 03:10 Creatine Kinase 173 H CK-MB (CK-2) 1.81 3.17 Troponin I 0.042 0.041 NT-Pro-B Natriuret Pep 05/12/20 05/13/20 05/15/20 03:10 04:30 04:27 Creatine Kinase CK-MB (CK-2) Troponin I NT-Pro-B Natriuret Pep 43678 H 47003 H 8880 H 05/16/20 05/16/20 06:11 07:27 Creatine Kinase CK-MB (CK-2) Troponin I NT-Pro-B Natriuret Pep Cancelled 55559 H Impressions: Venous Doppler Study 05/11/20 14:45 IMPRESSION: 1. Limited examination demonstrating no definitive lower extremity DVT bilaterally. 2. Pulsatile waveforms at the central veins bilaterally suggesting either elevated right heart pressures or valvular heart disease. Chest/Abdomen CTA 05/11/20 14:47 IMPRESSION: 1. There is no pulmonary embolism. No acute pulmonary disease. 2. Marked cardiomegaly. There is reflux of contrast into the hepatic veins which can be seen with elevated right heart pressure/right heart failure. Clinical correlation. 3. Pulmonary artery enlargement which can be seen with pulmonary arterial hypertension. Echocardiogram may provide additional information. Head CT 05/12/20 00:00 IMPRESSION: No acute intracranial findings. Chest X-Ray 05/16/20 05:00 IMPRESSION: STABLE APPEARANCE OF THE CHEST. All labs, radiographs, diagnostic studies and EKGs were personally reviewed: Yes In addition, reports of radiographic and diagnostic studies were read: Yes Assessment and Plan - Diagnosis (1) Acute respiratory failure with hypoxia and hypercapnia Is this a current diagnosis for this admission?: Yes Plan: Supplemental oxygen to maintain SpO2 8893%. BiPAP 16/8 nightly and PRN. Titrate FiO2 to maintain SpO2 88-93%. Continue Solu-Medrol 40 mg IV daily. (2) Delirium Is this a current diagnosis for this admission?: Yes Plan: * Based on conversation with the patient's sister yesterday, it is clear that the patient has had prolonged bereavement and depressive mood disorder. This certainly must be contributing to her affect and mental status. Start Celexa 20 mg p.o. daily. * Ativan 0.5 mg IV every 6 hours PRN. * Continue gabapentin 300 mg p.o. every 8 hours. (3) COPD exacerbation Is this a current diagnosis for this admission?: Yes Plan: Continue DuoNeb/Pulmicort. Albuterol as needed. Continue Solu-Medrol 40 mg IV daily. (4) Acute systolic heart failure Is this a current diagnosis for this admission?: Yes Plan: Continue furosemide 40 mg IV daily. Replete potassium today. Continue Lopressor 25 mg p.o. twice daily. Continue Xarelto 15 mg p.o. nightly. (5) Acute kidney injury superimposed on CKD Is this a current diagnosis for this admission?: Yes Plan: * Monitor creatinine. * Will withhold diuretic due to rising creatinine (1.3->--->1.7). * Renal dosing of medications. * Avoid nephrotoxic medications. (6) Atrial fibrillation with rapid ventricular response Is this a current diagnosis for this admission?: Yes Plan: Continue Xarelto. Continue Lopressor 25 mg p.o. every 6 hours. (7) E. coli urinary tract infection Is this a current diagnosis for this admission?: Yes (8) Diabetes mellitus type 2 in obese Is this a current diagnosis for this admission?: Yes (9) Morbid obesity with BMI of 50.0-59.9, adult Is this a current diagnosis for this admission?: Yes Plan Summary: OK to transfer to [facility] from pulmonary/critical care standpoint. Critical Time Critical Time (minutes): 45 Level of Care: ICU -: 1. The care of a critical patient is a dynamic process. This note is a patient access representative synopsis but static in nature. The timeframe for treatments given in order is not necessarily the actual time these treatments may have been done. 2. This patient requires critical care secondary to ongoing requirements for therapy not offered or safe outside the critical care environment. Transfer to a lower level of care will result in altered life or limb morbidity and mortality. 3. Multidisciplinary rounds completed. 4. ABCDE bundle addressed.
[2020-05-19] MEDS: GLIPIZIDE 5 MG TABLET PO SCH (17:27)
[2020-05-19] MEDS: RIVAROXABAN 15 MG TABLET PO SCH (17:28)
[2020-05-20] MEDS: LORAZEPAM INJ 2 MG/1 ML VIAL IV PRN ×3 (01:12→23:05)
[2020-05-20] MEDS: METOPROLOL TARTRATE 50 MG TABLET PO SCH ×3 (05:31→22:39)
[2020-05-20] MEDS: GABAPENTIN 300 MG CAPSULE PO SCH ×3 (05:31→22:38)
[2020-05-20] MEDS: INSULIN REG, HUMAN 100 UNIT/ML 3 ML VIAL (PYX) SUBCUT SCH ×4 (05:41→22:39)
[2020-05-20 05:45] LABS: HEMOGLOBIN 17.1 g/dL (12.0-15.5); MEAN CORPUSCULAR HEMOGLOBIN 31.2 pg (27.0-33.4); MEAN CORPUSCULAR HGB CONC 32.9 g/dL (32.0-36.0); MEAN CORPUSCULAR VOLUME 95 fl (80-97); RED BLOOD COUNT 5.47 10^6/uL (3.72-5.28); RED CELL DISTRIBUTION WIDTH 14.5 % (11.5-14.0); WHITE BLOOD COUNT 7.5 10^3/uL (4.0-10.5)
[2020-05-20 06:12] LABS: PLATELET COUNT 81 10^3/uL (150-450)
[2020-05-20 06:14] LABS: ABSOLUTE LYMPHOCYTES# (MANUAL) 0.3 10^3/uL (0.5-4.7); ABSOLUTE MONOCYTES # (MANUAL) 0.2 10^3/uL (0.1-1.4); BASOPHILS % (MANUAL) 1 % (0-2); EOSINOPHILS % (MANUAL) 0 % (0-6); LYMPHOCYTES % (MANUAL) 4 % (13-45); MONOCYTES % (MANUAL) 2 % (3-13); SEGMENTED NEUTROPHILS % (MAN) 93 % (42-78); TOTAL CELLS COUNTED 100
[2020-05-20 06:15] LABS: TOXIC GRANULATION SLIGHT
[2020-05-20 06:16] LABS: ANISOCYTOSIS SLIGHT; OVALOCYTES SLIGHT; PLATELET COMMENT DECREASED; POIKILOCYTOSIS SLIGHT; TEAR DROP CELLS SLIGHT; TOXIC VACUOLATION PRESENT
[2020-05-20 06:48] LABS: ALBUMIN 3.3 g/dL (3.5-5.0); ALKALINE PHOSPHATASE 70 U/L (38-126); ANION GAP 7 (5-19); ASPARTATE AMINO TRANSFERASE 28 U/L (14-36); BILIRUBIN,DIRECT 0.5 mg/dL (0.0-0.4); BILIRUBIN,TOTAL 1.9 mg/dL (0.2-1.3); BLOOD UREA NITROGEN 73 mg/dL (7-20); CALCIUM 10.1 mg/dL (8.4-10.2); CARBON DIOXIDE 36 mmol/L (22-30); CHLORIDE 95 mmol/L (98-107); GLUCOSE 267 mg/dL (75-110); POTASSIUM 4.1 mmol/L (3.6-5.0); TOTAL PROTEIN 6.5 g/dL (6.3-8.2)
--- NOTE | 2020-05-20 09:36 | PDOC PROGRESS REPORT ---
Subjective Progress Note for:: 05/20/20 Subjective:: 69-year-old female was admitted on 05/12/2020 with complaints of chest pain. She was known to be in atrial fibrillation with rapid ventricular response. Incidentally, she also reported anosmia and dysgeusia. Rapid COVID testing was negative. In the emergency department, the patient initially was treated with metoprolol for rate control. This did slow down her ventricular rate; however, she apparently responded with significant elevation in her blood pressure. She was subsequently given nitroglycerin and morphine, which resulted in a precipitous drop in blood pressure, associated with decreased mentation and CO2 retention. She was intubated for acute hypercapnic respiratory failure. However, she was also noted to have a significant Aa gradient. She was admitted to the ICU. 05/13: Has responded favorably to diuretic therapy. She has been on PSVT 07/08, FiO2 40%. Hemodynamically stable. AB.47, PCO2 41, PO2 132. 05/14: Successfully extubated yesterday. Spent the night on BiPAP 19/05, FiO2 60%. Currently, she is on face tent. Stephanie, moans and groans. She does provide verbal responses. Unknown baseline mental status. He does have periods of lucidity and is conversant, especially with the nurse. It is come to our attention through the patient's son that the patient is a 2 pack/day smoker. 05/15: The patient's son is at the bedside today. Updated. He adds that he is under the impression that his mother is a DNR; however, he is not the power of defense attorney. He states that his and (patient's sister) maintains power of defense attorney and healthcare power of defense attorney responsibilities. Yesterday evening, the patient had a severe episode of delirium, characterized by screaming and howling and combative behavior. Was ultimately controlled with 0.5 mg Ativan. The patient's son also adds that at home, she predominately sleeps all day. She has been using the excuse that her primary care provider suggested that she "stay o ff her feet" to help relieve venous stasis and cellulitic problems in her lower extremities. She has taken this to mean that she should be on absolute bedrest. She remains in atrial fibrillation, rate controlled. Blood pressure elevated (SBP 185591). She remains extubated. He is on 5 LPM via nasal cannula. She is on BiPAP 16/8 during sleep. 05/16: The patient did tolerate BiPAP 16/8 during sleep. Appears to be mentating somewhat better. Did not experience significant delirium overnight. Event dose was reduced to 0.25 mg; however, overnight staff reported that she did require an additional Ativan dose. Review of her ABG results suggest that her respiratory drive is quite sensitive to her PaO2. She demonstrates repeated episodes of acute hypercapnia and suppression of ventilatory drive when her PaO2 is over 100. 05/17: The patient has been compliant with BiPAP during sleep. Still moans and groans. Notably, when she is interrupted, she is appropriately interactive but immediately resumes moaning and groaning. She denies pain, however. 05/18: The patient did wear BiPAP during sleep. Still moans and groans but is quite a bit more conversant today. The patient's sister is at the bedside to the visit. She is the healthcare power of defense attorney. She was able to provide qu ite a bit of background information about the patient's recent deterioration in health. 05/19: Mentation has significantly improved over the past 2 days. She is compliant with nighttime BiPAP (and during sleep). On 2 LPM via nasal cannula when awake. 05/20/2020-patient is confused and lethargic this morning for agitation received Ativan last night. Physical therapy is in the room try to work with the patient. Patient able to give me her name and unable to give further information. No acute events in the last 24 hours. Heart rate is around 98 this morning. Patient needed BiPAP during the night. In the daytime she can be on oxygen 2 L via nasal cannula. Cover test is negative during the hospital stay. Patient came in with chest pains found to have A. fib with RVR and elevated blood pressure she was given nitroglycerin and morphine that led to hypotension associated with decreased mentation and a CO2 retention. She was admitted to ICU for hypercapnic respiratory failure status post intubation and extubation. WBC count is 7500. Febrile. Reason For Visit: RESPIRATORY FAILURE,AFIB WITH RVR (RESOLVED) Physical Exam Vital Signs: Temp Pulse Resp BP Pulse Ox 97.8 F 90 20 134/66 H 93 05/20/20 08:08 05/20/20 09:15 05/20/20 09:15 05/20/20 08:08 05/20/20 09:15 Intake & Output 05/19/20 05/20/20 05/21/20 06:59 06:59 06:59 Intake Total 250 790 Output Total 1482 0885 Balance -1230 -1015 Weight 131.9 kg 133.1 kg General appearance: PRESENT: no acute distress, morbidly obese Head exam: PRESENT: atraumatic Eye exam: PRESENT: conjunctiva pink, PERRLA Ear exam: PRESENT: normal external ear exam Mouth exam: PRESENT: neck supple Teeth exam: PRESENT: poor dentation Neck exam: PRESENT: lymphadenopathy Respiratory exam: PRESENT: decreased breath sounds Cardiovascular exam: PRESENT: irregular rhythm, tachycardia GI/Abdominal exam: PRESENT: normal bowel sounds, soft. ABSENT: distended, guarding, mass, organolmegaly, rebound, tenderness Rectal exam: PRESENT: deferred Extremities exam: PRESENT: full ROM. ABSENT: calf tenderness, clubbing, pedal edema Neurological exam: PRESENT: alert, awake, oriented to person, oriented to place, oriented to time, oriented to situation, CN II-XII grossly intact. ABSENT: motor sensory deficit Psychiatric exam: PRESENT: appropriate affect, normal mood. ABSENT: homicidal ideation, suicidal ideation Results Laboratory Results: 05/20/20 04:54 05/20/20 04:54 05/20/20 05/20/20 04:54 04:54 WBC 7.5 RBC 5.47 H Hgb 17.1 H Hct 52.0 H MCV 95 MCH 31.2 MCHC 32.9 RDW 14.5 H Plt Count 81 L Seg Neutrophils % Not Reportable Sodium 138.4 Potassium 4.1 Chloride 95 L Carbon Dioxide 36 H Anion Gap 7 BUN 73 H Creatinine 1.52 H Est GFR ( Amer) 41 L Glucose 267 H Calcium 10.1 Magnesium 1.9 Total Bilirubin 1.9 H AST 28 Alkaline Phosphatase 70 Total Protein 6.5 Albumin 3.3 L 05/11/20 05/11/20 05/11/20 10:43 12:20 21:40 Creatine Kinase 39 CK-MB (CK-2) Troponin I 0.057 0.054 NT-Pro-B Natriuret Pep 15355 H 05/11/20 05/12/20 05/12/20 21:40 03:10 03:10 Creatine Kinase 173 H CK-MB (CK-2) 1.81 3.17 Troponin I 0.042 0.041 NT-Pro-B Natriuret Pep 05/12/20 05/13/20 05/15/20 03:10 04:30 04:27 Creatine Kinase CK-MB (CK-2) Troponin I NT-Pro-B Natriuret Pep 14497 H 64675 H 8880 H 05/16/20 05/16/20 06:11 07:27 Creatine Kinase CK-MB (CK-2) Troponin I NT-Pro-B Natriuret Pep Cancelled 24102 H Impressions: Venous Doppler Study 05/11/20 14:45 IMPRESSION: 1. Limited examination demonstrating no definitive lower extremity DVT bilaterally. 2. Pulsatile waveforms at the central veins bilaterally suggesting either elevated right heart pressures or valvular heart disease. Chest/Abdomen CTA 05/11/20 14:47 IMPRESSION: 1. There is no pulmonary embolism. No acute pulmonary disease. 2. Marked cardiomegaly. There is reflux of contrast into the hepatic veins which can be seen with elevated right heart pressure/right heart failure. Clinical correlation. 3. Pulmonary artery enlargement which can be seen with pulmonary arterial hypertension. Echocardiogram may provide additional information. Head CT 05/12/20 00:00 IMPRESSION: No acute intracranial findings. Chest X-Ray 05/16/20 05:00 IMPRESSION: STABLE APPEARANCE OF THE CHEST. Assessment and Plan - Diagnosis (1) Acute respiratory failure with hypoxia and hypercapnia Is this a current diagnosis for this admission?: Yes Plan: Supplemental oxygen to maintain SpO2 8893%. BiPAP 16/8 nightly and PRN. Titrate FiO2 to maintain SpO2 88-93%. Continue Solu-Medrol 40 mg IV daily. 05/20/2020-patient admitted to ICU for acute respiratory failure with hypoxia and hypercapnia status post intubation and extubation. Pulse ox is 98% on 3 L this morning. Plan is to continue IV Solu-Medrol 40 mg daily patient needs to be on BiPAP at night and oxygen 2 L with nasal cannula in the morning. (2) Delirium Is this a current diagnosis for this admission?: Yes Plan: * Based on conversation with the patient's sister yesterday, it is clear that the patient has had prolonged bereavement and depressive mood disorder. This certainly must be contributing to her affect and mental status. Start Celexa 20 mg p.o. daily. * Ativan 0.5 mg IV every 6 hours PRN. * Continue gabapentin 300 mg p.o. every 8 hours. (3) COPD exacerbation Is this a current diagnosis for this admission?: Yes Plan: Continue DuoNeb/Pulmicort. Albuterol as needed. Continue Solu-Medrol 40 mg IV daily. (4) Acute systolic heart failure Is this a current diagnosis for this admission?: Yes Plan: Continue furosemide 40 mg IV daily. Replete potassium today. Continue Lopressor 25 mg p.o. twice daily. Continue Xarelto 15 mg p.o. nightly. 05/20/2020-EF is 40 to 45% and a left ventricular diastolic function unable to be assessed because of the atrial fibrillation. Patient is receiving Lasix 40 mg IV daily serum potassium is 4.1. Plan is to change the IV Lasix to p.o. from today. (5) Atrial fibrillation with rapid ventricular response Is this a current diagnosis for this admission?: Yes Plan: Continue Xarelto. Continue Lopressor 25 mg p.o. every 6 hours. 05/20/2020-heart rate today is 98 in A. fib. Presently on Lopressor 25 mg p.o. every 6 hours, to continue Xarelto at this time. (6) Chronic kidney disease, stage III (moderate) Is this a current diagnosis for this admission?: No Plan: 05/20/2020-serum creatinine today is 1.5 CKD stable at this time. (7) Morbid obesity Is this a current diagnosis for this admission?: No Plan: 05/20/2020-patient BMI is more than 47 diet exercise weight loss lifestyle kareen fications discussed with the patient. (8) Infected stasis ulcer of left lower extremity Is this a current diagnosis for this admission?: Yes Plan: 05/20/2020-patient has a chronic stasis ulcer on the left lower extremity. Getting regular dressings. - Plan Summary Summary: The patient will be admitted to [facility] where she will receive routine supportive and symptomatic cares. She will be admitted per the congestive heart failure protocol routines. Her Xarelto will be restarted. A cardiology consultation with Dr. Gutiérrez will be obtained. The patient's hypertension and tachycardia will be controlled with IV and oral metoprolol. An echocardiogram will be obtained. Before meals and at bedtime Accu-Cheks will be obtained with sliding scale insulin for hyperglycemia and a hypoglycemic protocol in place. A diabetic and cardiac restricted diet will be provided. She will receive morphine sulfate 2 mg IV every 4 hours as needed for pain. She will receive Ativan 1 mg IV every 4 hours as needed for anxiety or restlessness. Additional laboratory and/or radiographic evaluations will be obtained as needed over and above those obtained as part of the congestive heart failure protocol. - Time Anticipated Discharge Disposition: [facility] Facility Anticipated Discharge Timeframe: within 72 hours
[2020-05-20] MEDS: ACETAMINOPHEN 325 MG TABLET PO PRN ×2 (10:02→18:39)
[2020-05-20] MEDS: CEFTRIAXONE 1 GM/D5W RTU 1 GM/50 ML RTUPB IV SCH (10:03)
[2020-05-20] MEDS: FUROSEMIDE 40 MG TABLET PO SCH (10:04)
[2020-05-20] MEDS: DOCUSATE SODIUM 100 MG CAPSULE PO SCH (10:04)
[2020-05-20] MEDS: CITALOPRAM HYDROBROMIDE 20 MG TABLET PO SCH (10:04)
[2020-05-20] MEDS: METHYLPREDNISOLONE INJ 40 MG/1 ML SDV IV SCH (10:04)
[2020-05-20] MEDS: FERROUS SULFATE 325 MG TABLET PO SCH (10:04)
[2020-05-20] MEDS: PANTOPRAZOLE SODIUM 40 MG VIAL IV SCH (10:04)
[2020-05-20] MEDS: GLIPIZIDE 5 MG TABLET PO SCH ×2 (10:04→17:31)
[2020-05-20] MEDS: CYANOCOBALAMIN (VITAMIN B-12) 1,000 MCG TABLET PO SCH (10:04)
[2020-05-20] MEDS: RIVAROXABAN 15 MG TABLET PO SCH (17:31)
[2020-05-21] MEDS: LORAZEPAM INJ 2 MG/1 ML VIAL IV PRN (03:12)
[2020-05-21] MEDS: GABAPENTIN 300 MG CAPSULE PO SCH ×3 (05:44→22:09)
[2020-05-21] MEDS: METOPROLOL TARTRATE 50 MG TABLET PO SCH ×3 (05:44→22:09)
[2020-05-21] MEDS: CEFTRIAXONE 1 GM/D5W RTU 1 GM/50 ML RTUPB IV SCH (07:58)
[2020-05-21] MEDS: INSULIN REG, HUMAN 100 UNIT/ML 3 ML VIAL (PYX) SUBCUT SCH ×4 (08:04→23:20)
--- NOTE | 2020-05-21 10:24 | PDOC PROGRESS REPORT ---
Subjective Progress Note for:: 05/21/20 Subjective:: Patient drowsy this a.m. Requires constant verbal and tactile stimulation to remain awake. Minimally interactive. Answer simple questions with one-word answers Reason For Visit: RESPIRATORY FAILURE,AFIB WITH RVR (RESOLVED) Physical Exam Vital Signs: Temp Pulse Resp BP Pulse Ox 97.7 F 69 19 97/80 L 94 05/21/20 07:15 05/21/20 07:15 05/21/20 07:15 05/21/20 07:15 05/21/20 07:15 Intake & Output 05/20/20 05/21/20 05/22/20 06:59 06:59 06:59 Intake Total 790 2256 Output Total 1805 970 Balance -1015 1286 Weight 133.1 kg 132.3 kg General appearance: PRESENT: no acute distress, morbidly obese, other - Drowsy. Requires constant stimulation to remain awake. According to nursing staff this is how she is in the morning Head exam: PRESENT: atraumatic, normocephalic Eye exam: PRESENT: conjunctiva pink Mouth exam: PRESENT: moist Neck exam: ABSENT: JVD Respiratory exam: PRESENT: clear to auscultation dwayne, decreased breath sounds - There entry diminished at bases bilaterally, symmetrical, unlabored. ABSENT: accessory muscle use Cardiovascular exam: PRESENT: irregular rhythm, +S1, +S2 Vascular exam: PRESENT: normal capillary refill GI/Abdominal exam: PRESENT: normal bowel sounds, soft. ABSENT: distended, tenderness Rectal exam: PRESENT: deferred Extremities exam: ABSENT: calf tenderness, pedal edema, tenderness Neurological exam: PRESENT: other - As noted above, patient requires consistent verbal and tactile stimulation to remain awake. Once awake she answers questions with simple one-word answers. Psychiatric exam: ABSENT: agitated, anxious Skin exam: PRESENT: dry, normal color, warm Results Laboratory Results: 05/20/20 04:54 05/20/20 04:54 05/11/20 05/11/20 05/11/20 10:43 12:20 21:40 Creatine Kinase 39 CK-MB (CK-2) Troponin I 0.057 0.054 NT-Pro-B Natriuret Pep 68186 H 05/11/20 05/12/20 05/12/20 21:40 03:10 03:10 Creatine Kinase 173 H CK-MB (CK-2) 1.81 3.17 Troponin I 0.042 0.041 NT-Pro-B Natriuret Pep 05/12/20 05/13/20 05/15/20 03:10 04:30 04:27 Creatine Kinase CK-MB (CK-2) Troponin I NT-Pro-B Natriuret Pep 34105 H 33675 H 8880 H 05/16/20 05/16/20 06:11 07:27 Creatine Kinase CK-MB (CK-2) Troponin I NT-Pro-B Natriuret Pep Cancelled 43327 H Impressions: Venous Doppler Study 05/11/20 14:45 IMPRESSION: 1. Limited examination demonstrating no definitive lower extremity DVT bilaterally. 2. Pulsatile waveforms at the central veins bilaterally suggesting either elevated right heart pressures or valvular heart disease. Chest/Abdomen CTA 05/11/20 14:47 IMPRESSION: 1. There is no pulmonary embolism. No acute pulmonary disease. 2. Marked cardiomegaly. There is reflux of contrast into the hepatic veins which can be seen with elevated right heart pressure/right heart failure. Clinical correlation. 3. Pulmonary artery enlargement which can be seen with pulmonary arterial hypertension. Echocardiogram may provide additional information. Head CT 05/12/20 00:00 IMPRESSION: No acute intracranial findings. Chest X-Ray 05/16/20 05:00 IMPRESSION: STABLE APPEARANCE OF THE CHEST. Assessment and Plan - Diagnosis (1) Acute respiratory failure with hypoxia and hypercapnia Is this a current diagnosis for this admission?: Yes Plan: Patient required endotracheal intubation this hospitalization Given patient's AMS will check ABG, I am only meeting the patient this a.m. for the first time but according to the nursing staff this is how she tends to be in the morning hours Continue supplemental oxygen with SPO2 goal of 88 to 93% Continue BiPAP 16/8 nightly and PRN titrate FiO2 to keep SPO2 88 to 93% Continue methylprednisolone 40 mg IV daily (2) COPD exacerbation Is this a current diagnosis for this admission?: Yes Plan: As noted above, continue methylprednisolone 40 mg IV daily Continue albuterol nebs every 2 hours as needed (3) Acute systolic heart failure Is this a current diagnosis for this admission?: Yes Plan: Per echo on 05/20/2020 LVEF is 40 to 45% however they were unable to assess LV diastolic function 2/2 atrial fibrillation Patient appears relatively euvolemic 24-hour fluid balance +1286 Show weight which can be considered accurate was 152 kg on 05/11/2020, patient is down 19.7 kg since admission and up 0.2 kg in the past 24 hours Continue furosemide to 40 mg p.o. daily Continue metoprolol tartrate 50 mg p.o. every 8 hours, may need to down titrate 2/2 BP Patient does not have room in her BP for additional afterload reduction (4) Atrial fibrillation with rapid ventricular response Is this a current diagnosis for this admission?: Yes Plan: Continue rivaroxaban 15 mg p.o. daily Continue beta-renard as noted above for rate control, may need to down titrate 2/2 BP (5) Delirium Is this a current diagnosis for this admission?: Yes Plan: Per previous providers assessment it is felt that the patient has prolonged bereavement and depressive mood disorder Continue citalopram 20 mg p.o. daily (started this hospitalization) Continue lorazepam 0.5 mg IV every 4 hours as needed agitation/anxiety Continue gabapentin 300 mg p.o. every 8 hours (6) Chronic kidney disease, stage III (moderate) Is this a current diagnosis for this admission?: No Plan: Renal function overall stable Continue to avoid nephrotoxins Monitor (7) Stasis dermatitis of left lower extremity with venous ulcer due to chronic peripheral venous hypertension Is this a current diagnosis for this admission?: Yes Plan: Tinea current dressing changes and monitor for signs of infection - Plan Summary Summary: The patient will be admitted to [facility] where she will receive routine supportive and symptomatic cares. She will be admitted per the congestive heart failure protocol routines. Her Xarelto will be restarted. A cardiology consultation with Dr. Gutiérrez will be obtained. The patient's hypertension and tachycardia will be controlled with IV and oral metoprolol. An echocardiogram will be obtained. Before meals and at bedtime Accu-Cheks will be obtained with sliding scale insulin for hyperglycemia and a hypoglycemic protocol in place. A diabetic and cardiac restricted diet will be provided. She will receive morphine sulfate 2 mg IV every 4 hours as needed for pain. She will receive Ativan 1 mg IV every 4 hours as needed for anxiety or restlessness. Additional laboratory and/or radiographic evaluations will be obtained as needed over and above those obtained as part of the congestive heart failure protocol. - Time Time Spent with patient: 25-34 minutes Medications reviewed and adjusted accordingly: Yes Anticipated Discharge Disposition: TBD Anticipated Discharge Timeframe: TBD
[2020-05-21 10:54] LABS: ARTERIAL BLOOD BASE EXCESS 12.7 mmol/L; ARTERIAL BLOOD H2CO3 2.16 mmol/L (1.05-1.35); ARTERIAL BLOOD HCO3 41.8 mmol/L (20-24); ARTERIAL BLOOD O2 SATURATION 96.6 % (94-98); ARTERIAL BLOOD PH 7.38 (7.35-7.45); ARTERIAL BLOOD PO2 92.1 mmHg (80-100)
[2020-05-21 10:55] LABS: ARTERIAL BLOOD FIO2 2L
[2020-05-21 11:04] LABS: ARTERIAL BLOOD PCO2 71.7 mmHg (35-45)
[2020-05-21] MEDS: DOCUSATE SODIUM 100 MG CAPSULE PO SCH (11:04)
[2020-05-21] MEDS: CITALOPRAM HYDROBROMIDE 20 MG TABLET PO SCH (11:04)
[2020-05-21] MEDS: FUROSEMIDE 40 MG TABLET PO SCH (11:05)
[2020-05-21] MEDS: GLIPIZIDE 5 MG TABLET PO SCH ×2 (11:05→17:35)
[2020-05-21] MEDS: FERROUS SULFATE 325 MG TABLET PO SCH (11:05)
[2020-05-21] MEDS: CYANOCOBALAMIN (VITAMIN B-12) 1,000 MCG TABLET PO SCH (11:06)
--- NOTE | 2020-05-21 11:11 | Progress Note ---
Provider Note Provider Note: ABG reviewed. Patient's ABG remains at her baseline over the preceding several days. She remains hypercapnic (PaCO2 71.7) but no more so than prior days. Adequate oxygenation noted with a PaO2 of 92
[2020-05-21] MEDS: METHYLPREDNISOLONE INJ 40 MG/1 ML SDV IV SCH (11:12)
[2020-05-21] MEDS: ACETAMINOPHEN 325 MG TABLET PO PRN (15:25)
[2020-05-21] MEDS: RIVAROXABAN 15 MG TABLET PO SCH (16:47)
[2020-05-22] MEDS: GABAPENTIN 300 MG CAPSULE PO SCH ×3 (05:41→21:19)
[2020-05-22] MEDS: METOPROLOL TARTRATE 50 MG TABLET PO SCH ×3 (05:42→21:19)
[2020-05-22] MEDS: INSULIN REG, HUMAN 100 UNIT/ML 3 ML VIAL (PYX) SUBCUT SCH ×4 (08:07→21:19)
[2020-05-22 08:57] LABS: HEMATOCRIT 52.6 % (36.0-47.0); HEMOGLOBIN 17.4 g/dL (12.0-15.5); MEAN CORPUSCULAR HEMOGLOBIN 31.3 pg (27.0-33.4); MEAN CORPUSCULAR HGB CONC 33.1 g/dL (32.0-36.0); MEAN CORPUSCULAR VOLUME 95 fl (80-97); RED BLOOD COUNT 5.57 10^6/uL (3.72-5.28); RED CELL DISTRIBUTION WIDTH 14.7 % (11.5-14.0)
[2020-05-22 09:12] LABS: ALKALINE PHOSPHATASE 70 U/L (38-126); ANION GAP 8 (5-19); ASPARTATE AMINO TRANSFERASE 23 U/L (14-36); BILIRUBIN,DIRECT 0.2 mg/dL (0.0-0.4); BILIRUBIN,TOTAL 1.7 mg/dL (0.2-1.3); BLOOD UREA NITROGEN 67 mg/dL (7-20); CALCIUM 9.8 mg/dL (8.4-10.2); CARBON DIOXIDE 36 mmol/L (22-30); CHLORIDE 89 mmol/L (98-107); GLUCOSE 254 mg/dL (75-110); POTASSIUM 3.5 mmol/L (3.6-5.0); TOTAL PROTEIN 6.3 g/dL (6.3-8.2)
[2020-05-22 09:18] LABS: ABSOLUTE LYMPHOCYTES# (MANUAL) 0.5 10^3/uL (0.5-4.7); ABSOLUTE MONOCYTES # (MANUAL) 0.8 10^3/uL (0.1-1.4); BASOPHILS % (MANUAL) 0 % (0-2); EOSINOPHILS % (MANUAL) 1 % (0-6); LYMPHOCYTES % (MANUAL) 5 % (13-45); MONOCYTES % (MANUAL) 8 % (3-13); SEGMENTED NEUTROPHILS % (MAN) 86 % (42-78); TOTAL CELLS COUNTED 100
[2020-05-22 09:23] LABS: ANISOCYTOSIS SLIGHT; OVALOCYTES 1+; PLATELET COMMENT DECREASED
[2020-05-22 09:24] LABS: PLATELET COUNT 87 10^3/uL (150-450)
[2020-05-22] MEDS ORDERED: POTASSIUM CHLORIDE 20 MEQ PACKET PO ONE (09:56)
[2020-05-22] MEDS: DOCUSATE SODIUM 100 MG CAPSULE PO SCH (10:03)
[2020-05-22] MEDS: METHYLPREDNISOLONE INJ 40 MG/1 ML SDV IV SCH (10:03)
[2020-05-22] MEDS: GLIPIZIDE 5 MG TABLET PO SCH ×2 (10:04→17:15)
[2020-05-22] MEDS: CYANOCOBALAMIN (VITAMIN B-12) 1,000 MCG TABLET PO SCH (10:04)
[2020-05-22] MEDS: CITALOPRAM HYDROBROMIDE 20 MG TABLET PO SCH (10:04)
[2020-05-22] MEDS: FERROUS SULFATE 325 MG TABLET PO SCH (10:04)
[2020-05-22] MEDS: FUROSEMIDE 40 MG TABLET PO SCH (10:05)
[2020-05-22] MEDS ORDERED: LORAZEPAM INJ 2 MG/1 ML VIAL IV PRN (11:36)
--- NOTE | 2020-05-22 11:44 | PDOC PROGRESS REPORT ---
Subjective Progress Note for:: 05/22/20 Subjective:: Patient much more awake this a.m. Answers questions. Aware that she is in hospital but unable to say which hospital or which city the hospital is in. According to the nursing staff the patient sat up and ate breakfast and was fully awake/interactive prior to exam Reason For Visit: RESPIRATORY FAILURE,AFIB WITH RVR (RESOLVED) Physical Exam Vital Signs: Temp Pulse Resp BP Pulse Ox 97.9 F 71 18 120/68 96 05/22/20 07:22 05/22/20 07:22 05/22/20 07:22 05/22/20 07:22 05/22/20 09:06 Intake & Output 05/21/20 05/22/20 05/23/20 06:59 06:59 06:59 Intake Total 2256 590 Output Total 970 1175 Balance 1286 -585 Weight 132.3 kg 133.4 kg General appearance: PRESENT: no acute distress, cooperative, morbidly obese Head exam: PRESENT: atraumatic, normocephalic Eye exam: PRESENT: conjunctiva pink Mouth exam: PRESENT: moist, tongue midline Neck exam: ABSENT: JVD Respiratory exam: PRESENT: clear to auscultation dwayne, decreased breath sounds - Air entry diminished at bases bilaterally, symmetrical, unlabored. ABSENT: accessory muscle use Cardiovascular exam: PRESENT: irregular rhythm, +S1, +S2 Pulses: PRESENT: normal carotid pulses, normal radial pulses, +1 pedal pulses bilateral Vascular exam: PRESENT: normal capillary refill GI/Abdominal exam: PRESENT: normal bowel sounds, soft. ABSENT: distended, tenderness Rectal exam: PRESENT: deferred Extremities exam: ABSENT: calf tenderness, pedal edema Neurological exam: PRESENT: awake, oriented to place Psychiatric exam: PRESENT: unusual affect. ABSENT: agitated, anxious Skin exam: PRESENT: dry, normal color, warm Results Laboratory Results: 05/22/20 08:27 05/22/20 08:27 05/17/20 05/22/20 05/22/20 06:35 08:27 08:27 WBC 10.0 RBC 5.57 H Hgb 17.4 H Hct 52.6 H MCV 95 MCH 31.3 MCHC 33.1 RDW 14.7 H Plt Count 87 L Seg Neutrophils % Not Reportable Sodium 133.2 L Potassium 3.5 L Chloride 89 L Carbon Dioxide 36 H Anion Gap 8 BUN 67 H Creatinine 1.29 H Est GFR ( Amer) 49 L Glucose 254 H Calcium 9.8 Total Bilirubin 1.7 H AST 23 Alkaline Phosphatase 70 Total Protein 6.3 Albumin 3.0 L Vitamin B1 163.1 05/11/20 05/11/20 05/11/20 10:43 12:20 21:40 Creatine Kinase 39 CK-MB (CK-2) Troponin I 0.057 0.054 NT-Pro-B Natriuret Pep [id number] H 05/11/20 05/12/20 05/12/20 21:40 03:10 03:10 Creatine Kinase 173 H CK-MB (CK-2) 1.81 3.17 Troponin I 0.042 0.041 NT-Pro-B Natriuret Pep 05/12/20 05/13/20 05/15/20 03:10 04:30 04:27 Creatine Kinase CK-MB (CK-2) Troponin I NT-Pro-B Natriuret Pep 28125 H 91596 H 8880 H 05/16/20 05/16/20 06:11 07:27 Creatine Kinase CK-MB (CK-2) Troponin I NT-Pro-B Natriuret Pep Cancelled 27150 H Impressions: Venous Doppler Study 05/11/20 14:45 IMPRESSION: 1. Limited examination demonstrating no definitive lower extremity DVT bilaterally. 2. Pulsatile waveforms at the central veins bilaterally suggesting either elevated right heart pressures or valvular heart disease. Chest/Abdomen CTA 05/11/20 14:47 IMPRESSION: 1. There is no pulmonary embolism. No acute pulmonary disease. 2. Marked cardiomegaly. There is reflux of contrast into the hepatic veins which can be seen with elevated right heart pressure/right heart failure. Clinical correlation. 3. Pulmonary artery enlargement which can be seen with pulmonary arterial hypertension. Echocardiogram may provide additional information. Head CT 05/12/20 00:00 IMPRESSION: No acute intracranial findings. Chest X-Ray 05/16/20 05:00 IMPRESSION: STABLE APPEARANCE OF THE CHEST. Assessment and Plan - Diagnosis (1) Acute respiratory failure with hypoxia and hypercapnia Is this a current diagnosis for this admission?: Yes Plan: Patient required endotracheal intubation this hospitalization ABG from 05/21/2020 noted. Patient's PCO2 remained in the 70s which is been her baseline for the past several days. She also had adequate oxygenation. Continue supplemental oxygen with SPO2 goal of 88 to 93% Continue BiPAP 16/8 nightly and PRN titrate FiO2 to keep SPO2 88 to 93% Decrease methylprednisolone to 20 mg IV daily (2) COPD exacerbation Is this a current diagnosis for this admission?: Yes Plan: As noted above, decrease methylprednisolone dose Continue albuterol nebs every 2 hours as needed (3) Acute systolic heart failure Is this a current diagnosis for this admission?: Yes Plan: Per echo on 05/20/2020 LVEF is 40 to 45% however they were unable to assess LV diastolic function 2/2 atrial fibrillation Patient appears relatively euvolemic 24-hour fluid balance -585 First weight which can be considered accurate was 152 kg on 05/11/2020, patient is down 18.6 kg since admission and up 1.1 kg in the past 24 hours which does not seem accurate if her I/O is accurate Continue furosemide to 40 mg p.o. daily Continue metoprolol tartrate 50 mg p.o. every 8 hours Patient does not have room in her BP for additional afterload reduction (4) Atrial fibrillation with rapid ventricular response Is this a current diagnosis for this admission?: Yes Plan: HR now controlled Continue beta-renard as noted above for rate control Continue rivaroxaban 15 mg p.o. daily (5) Delirium Is this a current diagnosis for this admission?: Yes Plan: Per previous providers assessment it is felt that the patient has prolonged bereavement and depressive mood disorder Continue citalopram 20 mg p.o. daily (started this hospitalization) Decrease lorazepam 0.25 mg IV every 4 hours as needed agitation/anxiety, staff reports that 0.5 mg over sedates patient that she does require occasional doses for agitation Continue gabapentin 300 mg p.o. every 8 hours (6) Chronic kidney disease, stage III (moderate) Is this a current diagnosis for this admission?: No Plan: Renal function continues to improve Steroids likely contributing to azotemia Continue to avoid nephrotoxins Monitor (7) Stasis dermatitis of left lower extremity with venous ulcer due to chronic peripheral venous hypertension Is this a current diagnosis for this admission?: Yes Plan: Continue current dressing changes and monitor for signs of infection, none present - Plan Summary Summary: The patient will be admitted to [facility] where she will receive routine supportive and symptomatic cares. She will be admitted per the congestive heart failure protocol routines. Her Xarelto will be restarted. A cardiology consultation with Dr. Gutiérrez will be obtained. The patient's hypertension and tachycardia will be controlled with IV and oral metoprolol. An echocardiogram will be obtained. Before meals and at bedtime Accu-Cheks will be obtained with sliding scale insulin for hyperglycemia and a hypoglycemic protocol in place. A diabetic and cardiac restricted diet will be provided. She will receive morphine sulfate 2 mg IV every 4 hours as needed for pain. She will receive Ativan 1 mg IV every 4 hours as needed for anxiety or restlessness. Additional laboratory and/or radiographic evaluations will be obtained as needed over and above those obtained as part of the congestive heart failure protocol. - Time Time Spent with patient: 15-24 minutes Medications reviewed and adjusted accordingly: Yes Anticipated Discharge Disposition: TBD Anticipated Discharge Timeframe: TBD
--- NOTE | 2020-05-22 11:51 | Progress Note ---
Provider Note Provider Note: Review of patient's CBC/BMP it appears that she is hemoconcentrated. Will stop IV furosemide and change to furosemide 40 mg p.o. daily
[2020-05-22] MEDS: RIVAROXABAN 15 MG TABLET PO SCH (16:14)
[2020-05-22] MEDS: ACETAMINOPHEN 325 MG TABLET PO PRN (23:34)
[2020-05-23] MEDS: GABAPENTIN 300 MG CAPSULE PO SCH ×3 (05:13→21:45)
[2020-05-23] MEDS: METOPROLOL TARTRATE 50 MG TABLET PO SCH ×3 (05:13→21:45)
[2020-05-23 06:04] LABS: HEMATOCRIT 48.7 % (36.0-47.0); MEAN CORPUSCULAR HEMOGLOBIN 30.7 pg (27.0-33.4); MEAN CORPUSCULAR HGB CONC 32.8 g/dL (32.0-36.0); MEAN CORPUSCULAR VOLUME 93 fl (80-97); RED BLOOD COUNT 5.22 10^6/uL (3.72-5.28); RED CELL DISTRIBUTION WIDTH 14.5 % (11.5-14.0); WHITE BLOOD COUNT 8.4 10^3/uL (4.0-10.5)
[2020-05-23 06:24] LABS: ANION GAP 5 (5-19); BLOOD UREA NITROGEN 64 mg/dL (7-20); CALCIUM 9.6 mg/dL (8.4-10.2); CARBON DIOXIDE 37 mmol/L (22-30); CHLORIDE 90 mmol/L (98-107); GLUCOSE 299 mg/dL (75-110)
[2020-05-23 06:35] LABS: ABSOLUTE LYMPHOCYTES# (MANUAL) 0.8 10^3/uL (0.5-4.7); ABSOLUTE MONOCYTES # (MANUAL) 0.2 10^3/uL (0.1-1.4); BASOPHILS % (MANUAL) 0 % (0-2); EOSINOPHILS % (MANUAL) 0 % (0-6); LYMPHOCYTES % (MANUAL) 9 % (13-45); MONOCYTES % (MANUAL) 2 % (3-13); SEGMENTED NEUTROPHILS % (MAN) 89 % (42-78); TOTAL CELLS COUNTED 100
[2020-05-23 06:39] LABS: ANISOCYTOSIS SLIGHT; POIKILOCYTOSIS SLIGHT; TOXIC GRANULATION 1+
[2020-05-23 06:40] LABS: BURR CELLS SLIGHT; OVALOCYTES SLIGHT; PLATELET COMMENT DECREASED; PLATELET COUNT 73 10^3/uL (150-450)
[2020-05-23] MEDS: INSULIN REG, HUMAN 100 UNIT/ML 3 ML VIAL (PYX) SUBCUT SCH ×4 (07:52→21:45)
[2020-05-23] MEDS: CITALOPRAM HYDROBROMIDE 20 MG TABLET PO SCH (09:32)
[2020-05-23] MEDS: DOCUSATE SODIUM 100 MG CAPSULE PO SCH (09:32)
[2020-05-23] MEDS: FERROUS SULFATE 325 MG TABLET PO SCH (09:32)
[2020-05-23] MEDS: GLIPIZIDE 5 MG TABLET PO SCH ×2 (09:34→17:14)
[2020-05-23] MEDS: CYANOCOBALAMIN (VITAMIN B-12) 1,000 MCG TABLET PO SCH (09:34)
[2020-05-23] MEDS: METHYLPREDNISOLONE INJ 40 MG/1 ML SDV IV SCH (09:46)
[2020-05-23] MEDS ORDERED: FUROSEMIDE 40 MG TABLET PO SCH (10:00)
--- NOTE | 2020-05-23 11:32 | PDOC PROGRESS REPORT ---
Subjective Progress Note for:: 05/23/20 Subjective:: Upon entering patient's room patient was somnolent but easily arousable with verbal stimuli. She is interactive this morning but remains encephalopathic Reason For Visit: RESPIRATORY FAILURE,AFIB WITH RVR (RESOLVED) Physical Exam Vital Signs: Temp Pulse Resp BP Pulse Ox 97.8 F 76 21 H 117/81 95 05/23/20 10:00 05/23/20 07:18 05/23/20 07:18 05/23/20 07:18 05/23/20 07:18 Intake & Output 05/22/20 05/23/20 05/24/20 06:59 06:59 06:59 Intake Total 590 1427 Output Total 1175 825 Balance -585 602 Weight 133.4 kg 132.4 kg General appearance: PRESENT: no acute distress, cooperative, morbidly obese Head exam: PRESENT: atraumatic, normocephalic Eye exam: PRESENT: conjunctiva pink. ABSENT: scleral icterus Mouth exam: PRESENT: moist, tongue midline Neck exam: ABSENT: JVD Respiratory exam: PRESENT: clear to auscultation dwayne, decreased breath sounds - Air entry diminished at bases bilaterally, symmetrical, unlabored. ABSENT: accessory muscle use Cardiovascular exam: PRESENT: irregular rhythm, +S1, +S2 Pulses: PRESENT: +1 pedal pulses bilateral Vascular exam: PRESENT: normal capillary refill GI/Abdominal exam: PRESENT: normal bowel sounds, soft. ABSENT: distended, tenderness Rectal exam: PRESENT: deferred Extremities exam: PRESENT: +1 edema - Medial pretibial edema bilaterally. Bilateral venous stasis changes noted. Dressing intact on LLE. ABSENT: calf tenderness Neurological exam: PRESENT: alert, altered - Patient is aware that she is in the hospital however is unable to state which hospital. With prompting she is more oriented. Psychiatric exam: PRESENT: unusual affect. ABSENT: agitated, anxious Skin exam: PRESENT: dry, normal color, warm Results Laboratory Results: 05/23/20 05:10 05/23/20 05:10 05/23/20 05/23/20 05:10 05:10 WBC 8.4 RBC 5.22 Hgb 16.0 H Hct 48.7 H MCV 93 MCH 30.7 MCHC 32.8 RDW 14.5 H Plt Count 73 L Seg Neutrophils % Not Reportable Sodium 132.3 L Potassium 4.0 Chloride 90 L Carbon Dioxide 37 H Anion Gap 5 BUN 64 H Creatinine 1.29 H Est GFR ( Amer) 49 L Glucose 299 H Calcium 9.6 05/11/20 05/11/20 05/11/20 10:43 12:20 21:40 Creatine Kinase 39 CK-MB (CK-2) Troponin I 0.057 0.054 NT-Pro-B Natriuret Pep [id number] H 05/11/20 05/12/20 05/12/20 21:40 03:10 03:10 Creatine Kinase 173 H CK-MB (CK-2) 1.81 3.17 Troponin I 0.042 0.041 NT-Pro-B Natriuret Pep 05/12/20 05/13/20 05/15/20 03:10 04:30 04:27 Creatine Kinase CK-MB (CK-2) Troponin I NT-Pro-B Natriuret Pep 00278 H 85136 H 8880 H 05/16/20 05/16/20 06:11 07:27 Creatine Kinase CK-MB (CK-2) Troponin I NT-Pro-B Natriuret Pep Cancelled [id number] H Impressions: Venous Doppler Study 05/11/20 14:45 IMPRESSION: 1. Limited examination demonstrating no definitive lower extremity DVT bilaterally. 2. Pulsatile waveforms at the central veins bilaterally suggesting either elevated right heart pressures or valvular heart disease. Chest/Abdomen CTA 05/11/20 14:47 IMPRESSION: 1. There is no pulmonary embolism. No acute pulmonary disease. 2. Marked cardiomegaly. There is reflux of contrast into the hepatic veins which can be seen with elevated right heart pressure/right heart failure. Clinical correlation. 3. Pulmonary artery enlargement which can be seen with pulmonary arterial hypertension. Echocardiogram may provide additional information. Head CT 05/12/20 00:00 IMPRESSION: No acute intracranial findings. Chest X-Ray 05/16/20 05:00 IMPRESSION: STABLE APPEARANCE OF THE CHEST. Assessment and Plan - Diagnosis (1) Acute respiratory failure with hypoxia and hypercapnia Is this a current diagnosis for this admission?: Yes Plan: Patient required endotracheal intubation this hospitalization ABG from 05/21/2020 noted. Patient's PCO2 remained in the 70s which is been her baseline for the past several days. She also had adequate oxygenation. Continue supplemental oxygen with SPO2 goal of 88 to 93% Continue BiPAP 16/8 nightly and PRN titrate FiO2 to keep SPO2 88 to 93% Continue methylprednisolone 20 mg IV daily (2) COPD exacerbation Is this a current diagnosis for this admission?: Yes Plan: As noted above, continue methylprednisolone Continue albuterol nebs every 2 hours as needed (3) Acute systolic heart failure Is this a current diagnosis for this admission?: Yes Plan: Per echo on 05/20/2020 LVEF is 40 to 45% however they were unable to assess LV diastolic function 2/2 atrial fibrillation Patient appears somewhat hemoconcentrated based on labs and clinically appears euvolemic 24-hour fluid balance + 602 First weight which can be considered accurate was 152 kg on 05/11/2020, patient is down 19.6 kg since admission and down 1 kg in the past 24 hours which does not seem accurate if her I/O is accurate Decrease furosemide to 20 mg p.o. daily (patient's [employer] dose) Continue metoprolol tartrate 50 mg p.o. every 8 hours Patient does not have room in her BP for additional afterload reduction (4) Atrial fibrillation with rapid ventricular response Is this a current diagnosis for this admission?: Yes Plan: HR now controlled Continue beta-renard as noted above for rate control Continue rivaroxaban 15 mg p.o. daily (5) Delirium Is this a current diagnosis for this admission?: Yes Plan: Per previous providers assessment it is felt that the patient has prolonged bereavement and depressive mood disorder Continue citalopram 20 mg p.o. daily (started this hospitalization) Continue lorazepam 0.25 mg IV every 4 hours as needed agitation/anxiety Continue gabapentin 300 mg p.o. every 8 hours (6) Chronic kidney disease, stage III (moderate) Is this a current diagnosis for this admission?: No Plan: Renal function stable over past 24 hours Steroids likely contributing to azotemia Continue to avoid nephrotoxins Monitor (7) Stasis dermatitis of left lower extremity with venous ulcer due to chronic peripheral venous hypertension Is this a current diagnosis for this admission?: Yes Plan: Continue current dressing changes and monitor for signs of infection, none present - Plan Summary Summary: The patient will be admitted to [facility] where she will receive routine supportive and symptomatic cares. She will be admitted per the congestive heart failure protocol routines. Her Xarelto will be restarted. A cardiology consultation with Dr. Gutiérrez will be obtained. The patient's hypertension and tachycardia will be controlled with IV and oral metoprolol. An echocardiogram will be obtained. Before meals and at bedtime Accu-Cheks will be obtained with sliding scale insulin for hyperglycemia and a hypoglycemic protocol in place. A diabetic and cardiac restricted diet will be provided. She will receive morphine sulfate 2 mg IV every 4 hours as needed for pain. She will receive Ativan 1 mg IV every 4 hours as needed for anxiety or restlessness. Additional laboratory and/or radiographic evaluations will be obtained as needed over and above those obtained as part of the congestive heart failure protocol. - Time Time Spent with patient: 15-24 minutes Medications reviewed and adjusted accordingly: Yes Anticipated Discharge Disposition: Shelter Facility Anticipated Discharge Timeframe: TBD
[2020-05-23] MEDS: RIVAROXABAN 15 MG TABLET PO SCH (17:14)
[2020-05-24] MEDS: METOPROLOL TARTRATE 50 MG TABLET PO SCH ×3 (06:00→22:32)
[2020-05-24] MEDS: GABAPENTIN 300 MG CAPSULE PO SCH ×3 (06:00→22:32)
[2020-05-24] MEDS: INSULIN REG, HUMAN 100 UNIT/ML 3 ML VIAL (PYX) SUBCUT SCH ×4 (11:02→22:32)
[2020-05-24] MEDS: METHYLPREDNISOLONE INJ 40 MG/1 ML SDV IV SCH (11:17)
[2020-05-24] MEDS: DOCUSATE SODIUM 100 MG CAPSULE PO SCH (11:18)
[2020-05-24] MEDS: CYANOCOBALAMIN (VITAMIN B-12) 1,000 MCG TABLET PO SCH (11:18)
[2020-05-24] MEDS: GLIPIZIDE 5 MG TABLET PO SCH ×2 (11:18→17:48)
[2020-05-24] MEDS: FUROSEMIDE 20 MG TABLET PO SCH (11:19)
[2020-05-24] MEDS: CITALOPRAM HYDROBROMIDE 20 MG TABLET PO SCH (11:19)
[2020-05-24] MEDS: FERROUS SULFATE 325 MG TABLET PO SCH (11:19)
[2020-05-24] MEDS ORDERED: SIMETHICONE 80 MG TAB.CHEW PO PRN (16:57)
[2020-05-24] MEDS: RIVAROXABAN 15 MG TABLET PO SCH (17:49)
--- NOTE | 2020-05-24 17:51 | PDOC PROGRESS REPORT ---
Subjective Progress Note for:: 05/24/20 Subjective:: Patient much more interactive today. Denies pain. When asked where she is she was able to state that she is at [facility] Reason For Visit: RESPIRATORY FAILURE,AFIB WITH RVR (RESOLVED) Physical Exam Vital Signs: Temp Pulse Resp BP Pulse Ox 98.0 F 75 19 102/60 98 05/24/20 11:28 05/24/20 14:00 05/24/20 11:28 05/24/20 11:28 05/24/20 11:28 Intake & Output 05/23/20 05/24/20 05/25/20 06:59 06:59 06:59 Intake Total 1427 632 Output Total 825 1425 Balance 602 -793 Weight 132.4 kg 137.3 kg General appearance: PRESENT: no acute distress, cooperative, morbidly obese Head exam: PRESENT: atraumatic, normocephalic Eye exam: PRESENT: conjunctiva pink Mouth exam: PRESENT: moist, tongue midline Neck exam: ABSENT: JVD Respiratory exam: PRESENT: clear to auscultation dwayne, decreased breath sounds - There entry diminished at bases bilaterally, symmetrical. ABSENT: accessory muscle use, unlabored Cardiovascular exam: PRESENT: irregular rhythm, +S1, +S2 Pulses: PRESENT: +1 pedal pulses bilateral GI/Abdominal exam: PRESENT: normal bowel sounds, soft. ABSENT: distended, tenderness Rectal exam: PRESENT: deferred Gentrourinary exam: PRESENT: indwelling catheter Extremities exam: PRESENT: pedal edema - Minimal pretibial edema bilaterally, other - Bilateral venous stasis changes noted on lower extremities distal to knee. ABSENT: calf tenderness Neurological exam: PRESENT: alert, awake, oriented to person, oriented to place, oriented to situation Psychiatric exam: PRESENT: normal mood, unusual affect. ABSENT: agitated, anxious Skin exam: PRESENT: dry, normal color, warm Results Laboratory Results: 05/23/20 05:10 05/23/20 05:10 05/11/20 05/11/20 05/11/20 10:43 12:20 21:40 Creatine Kinase 39 CK-MB (CK-2) Troponin I 0.057 0.054 NT-Pro-B Natriuret Pep [id number] H 05/11/20 05/12/20 05/12/20 21:40 03:10 03:10 Creatine Kinase 173 H CK-MB (CK-2) 1.81 3.17 Troponin I 0.042 0.041 NT-Pro-B Natriuret Pep 05/12/20 05/13/20 05/15/20 03:10 04:30 04:27 Creatine Kinase CK-MB (CK-2) Troponin I NT-Pro-B Natriuret Pep 84735 H 76935 H 8880 H 05/16/20 05/16/20 06:11 07:27 Creatine Kinase CK-MB (CK-2) Troponin I NT-Pro-B Natriuret Pep Cancelled [id number] H Impressions: Venous Doppler Study 05/11/20 14:45 IMPRESSION: 1. Limited examination demonstrating no definitive lower extremity DVT bilaterally. 2. Pulsatile waveforms at the central veins bilaterally suggesting either elevated right heart pressures or valvular heart disease. Chest/Abdomen CTA 05/11/20 14:47 IMPRESSION: 1. There is no pulmonary embolism. No acute pulmonary disease. 2. Marked cardiomegaly. There is reflux of contrast into the hepatic veins which can be seen with elevated right heart pressure/right heart failure. Clinical correlation. 3. Pulmonary artery enlargement which can be seen with pulmonary arterial hypertension. Echocardiogram may provide additional information. Head CT 05/12/20 00:00 IMPRESSION: No acute intracranial findings. Chest X-Ray 05/16/20 05:00 IMPRESSION: STABLE APPEARANCE OF THE CHEST. Assessment and Plan - Diagnosis (1) Acute respiratory failure with hypoxia and hypercapnia Is this a current diagnosis for this admission?: Yes Plan: Patient required endotracheal intubation this hospitalization ABG from 05/21/2020 noted. Patient's PCO2 remained in the 70s which is been her baseline for the past several days. She also had adequate oxygenation. Continue supplemental oxygen with SPO2 goal of 88 to 93% Continue BiPAP 16/8 nightly and PRN titrate FiO2 to keep SPO2 88 to 93% Stop methylprednisolone Start prednisone 20 mg p.o. starting tomorrow and taper to off (2) COPD exacerbation Is this a current diagnosis for this admission?: Yes Plan: As noted above Continue albuterol nebs every 2 hours as needed (3) Acute systolic heart failure Is this a current diagnosis for this admission?: Yes Plan: Per echo on 05/20/2020 LVEF is 40 to 45% however they were unable to assess LV diastolic function 2/2 atrial fibrillation Patient appears somewhat hemoconcentrated based on labs and clinically appears euvolemic 24-hour fluid balance -793 First weight which can be considered accurate was 152 kg on 05/11/2020, patient is down 14.7 kg since admission and up 4.9 kg in the past 24 hours which is not accurate Hold furosemide for now Continue metoprolol tartrate 50 mg p.o. every 8 hours Patient does not have room in her BP for additional afterload reduction (4) Atrial fibrillation with rapid ventricular response Is this a current diagnosis for this admission?: Yes Plan: HR now controlled Continue beta-renard as noted above for rate control Continue rivaroxaban 15 mg p.o. daily (5) Delirium Is this a current diagnosis for this admission?: Yes Plan: Per previous providers assessment it is felt that the patient has prolonged bereavement and depressive mood disorder Continue citalopram 20 mg p.o. daily (started this hospitalization) Continue lorazepam 0.25 mg IV every 4 hours as needed agitation/anxiety Continue gabapentin 300 mg p.o. every 8 hours (6) Chronic kidney disease, stage III (moderate) Is this a current diagnosis for this admission?: No Plan: Steroids likely contributing to azotemia Continue to avoid nephrotoxins BMP in a.m. 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 She will be admitted per the congestive heart failure protocol routines. Her Xarelto will be restarted. A cardiology consultation with Dr. Gutiérrez will be obtained. The patient's hypertension and tachycardia will be controlled with IV and oral metoprolol. An echocardiogram will be obtained. Before meals and at bedtime Accu-Cheks will be obtained with sliding scale insulin for hyperglycemia and a hypoglycemic protocol in place. A diabetic and cardiac restricted diet will be provided. She will receive morphine sulfate 2 mg IV every 4 hours as needed for pain. She will receive Ativan 1 mg IV every 4 hours as needed for anxiety or restlessness. Additional laboratory and/or radiographic evaluations will be obtained as needed over and above those obtained as part of the congestive heart failure protocol. - Time Time Spent with patient: 15-24 minutes Medications reviewed and adjusted accordingly: Yes Anticipated Discharge Disposition: Long-Term Facility Anticipated Discharge Timeframe: TBD
[2020-05-25] MEDS: METOPROLOL TARTRATE 50 MG TABLET PO SCH ×3 (05:10→21:08)
[2020-05-25] MEDS: GABAPENTIN 300 MG CAPSULE PO SCH ×3 (05:10→21:08)
[2020-05-25 07:22] LABS: HEMATOCRIT 47.3 % (36.0-47.0); HEMOGLOBIN 15.6 g/dL (12.0-15.5); MEAN CORPUSCULAR HEMOGLOBIN 31.2 pg (27.0-33.4); MEAN CORPUSCULAR HGB CONC 32.9 g/dL (32.0-36.0); MEAN CORPUSCULAR VOLUME 95 fl (80-97); PLATELET COUNT 112 10^3/uL (150-450); RED CELL DISTRIBUTION WIDTH 14.5 % (11.5-14.0)
[2020-05-25 07:49] LABS: BLOOD UREA NITROGEN 53 mg/dL (7-20); CALCIUM 9.6 mg/dL (8.4-10.2); CHLORIDE 92 mmol/L (98-107); GLUCOSE 282 mg/dL (75-110); POTASSIUM 4.3 mmol/L (3.6-5.0)
[2020-05-25 07:58] LABS: ANION GAP 2 (5-19); CARBON DIOXIDE 39 mmol/L (22-30)
[2020-05-25] MEDS: INSULIN REG, HUMAN 100 UNIT/ML 3 ML VIAL (PYX) SUBCUT SCH ×4 (08:20→21:07)
[2020-05-25] MEDS: DOCUSATE SODIUM 100 MG CAPSULE PO SCH (09:43)
[2020-05-25] MEDS: CITALOPRAM HYDROBROMIDE 20 MG TABLET PO SCH (09:43)
[2020-05-25] MEDS: GLIPIZIDE 5 MG TABLET PO SCH ×2 (09:43→18:21)
[2020-05-25] MEDS: FERROUS SULFATE 325 MG TABLET PO SCH (09:43)
[2020-05-25] MEDS: CYANOCOBALAMIN (VITAMIN B-12) 1,000 MCG TABLET PO SCH (09:44)
[2020-05-25] MEDS ORDERED: PREDNISONE 20 MG TABLET PO SCH (10:00)
--- NOTE | 2020-05-25 13:42 | PDOC PROGRESS REPORT ---
Subjective Progress Note for:: 05/25/20 Subjective:: Patient less interactive today. Somnolent upon entering room but arousable to verbal and light tactile stimuli Reason For Visit: RESPIRATORY FAILURE,AFIB WITH RVR (RESOLVED) Physical Exam Vital Signs: Temp Pulse Resp BP Pulse Ox 97.9 F 80 15 132/86 H 100 05/25/20 11:51 05/25/20 11:51 05/25/20 11:51 05/25/20 11:51 05/25/20 11:51 Intake & Output 05/24/20 05/25/20 05/26/20 06:59 06:59 06:59 Intake Total 632 657 236 Output Total 1425 1250 175 Balance -793 -593 61 Weight 137.3 kg 138.2 kg 138.2 kg General appearance: PRESENT: no acute distress, cooperative, morbidly obese Head exam: PRESENT: atraumatic, normocephalic Eye exam: PRESENT: conjunctiva pink. ABSENT: scleral icterus Mouth exam: PRESENT: moist, tongue midline Neck exam: ABSENT: JVD Respiratory exam: PRESENT: clear to auscultation dwayne, decreased breath sounds, symmetrical, unlabored. ABSENT: accessory muscle use Cardiovascular exam: PRESENT: irregular rhythm, +S1, +S2 Pulses: PRESENT: normal carotid pulses, +1 pedal pulses bilateral Vascular exam: PRESENT: normal capillary refill GI/Abdominal exam: PRESENT: normal bowel sounds, soft. ABSENT: distended, tenderness Rectal exam: PRESENT: deferred Extremities exam: PRESENT: +1 edema - To 1 mm pretibial edema bilaterally. ABSENT: calf tenderness Neurological exam: PRESENT: oriented to person, oriented to place, oriented to situation, other - Able to state that she is in the hospital Psychiatric exam: PRESENT: unusual affect. ABSENT: agitated, anxious Skin exam: PRESENT: dry, normal color, warm Results Laboratory Results: 05/25/20 06:37 05/25/20 06:37 05/25/20 05/25/20 06:37 06:37 WBC 9.0 RBC 5.00 Hgb 15.6 H Hct 47.3 H MCV 95 MCH 31.2 MCHC 32.9 RDW 14.5 H Plt Count 112 L Sodium 133.4 L Potassium 4.3 Chloride 92 L Carbon Dioxide 39 H Anion Gap 2 L BUN 53 H Creatinine 1.21 Est GFR ( Amer) 53 L Glucose 282 H Calcium 9.6 05/11/20 05/11/20 05/11/20 10:43 12:20 21:40 Creatine Kinase 39 CK-MB (CK-2) Troponin I 0.057 0.054 NT-Pro-B Natriuret Pep [id number] H 05/11/20 05/12/20 05/12/20 21:40 03:10 03:10 Creatine Kinase 173 H CK-MB (CK-2) 1.81 3.17 Troponin I 0.042 0.041 NT-Pro-B Natriuret Pep 05/12/20 05/13/20 05/15/20 03:10 04:30 04:27 Creatine Kinase CK-MB (CK-2) Troponin I NT-Pro-B Natriuret Pep 41670 H 34593 H 8880 H 05/16/20 05/16/20 06:11 07:27 Creatine Kinase CK-MB (CK-2) Troponin I NT-Pro-B Natriuret Pep Cancelled [id number] H Impressions: Venous Doppler Study 05/11/20 14:45 IMPRESSION: 1. Limited examination demonstrating no definitive lower extremity DVT bilaterally. 2. Pulsatile waveforms at the central veins bilaterally suggesting either elevated right heart pressures or valvular heart disease. Chest/Abdomen CTA 05/11/20 14:47 IMPRESSION: 1. There is no pulmonary embolism. No acute pulmonary disease. 2. Marked cardiomegaly. There is reflux of contrast into the hepatic veins w hich can be seen with elevated right heart pressure/right heart failure. Clinical correlation. 3. Pulmonary artery enlargement which can be seen with pulmonary arterial hypertension. Echocardiogram may provide additional information. Head CT 05/12/20 00:00 IMPRESSION: No acute intracranial findings. Chest X-Ray 05/16/20 05:00 IMPRESSION: STABLE APPEARANCE OF THE CHEST. Assessment and Plan - Diagnosis (1) Acute respiratory failure with hypoxia and hypercapnia Is this a current diagnosis for this admission?: Yes Plan: Patient required endotracheal intubation this hospitalization ABG from 05/21/2020 noted. Patient's PCO2 remained in the 70s which is been her baseline for the past several days. She also had adequate oxygenation. Continue supplemental oxygen with SPO2 goal of 88 to 93% Continue BiPAP 16/8 nightly and PRN titrate FiO2 to keep SPO2 88 to 93% Continue prednisone, patient received 20 mg p.o. today - decreased to 15 mg p.o. for tomorrow continue slow steroid taper to off (2) COPD exacerbation Is this a current diagnosis for this admission?: Yes Plan: As noted above Continue albuterol nebs every 2 hours as needed (3) Acute systolic heart failure Is this a current diagnosis for this admission?: Yes Plan: Per echo on 05/20/2020 LVEF is 40 to 45% however they were unable to assess LV diastolic function 2/2 atrial fibrillation Patient continues to appear somewhat hemoconcentrated based on labs and clinically appears euvolemic 24-hour fluid balance -593 First weight which can be considered accurate was 152 kg on 05/11/2020, patient is down 14.7 kg since admission and stable over past 24 hours Continue to hold furosemide Continue metoprolol tartrate 50 mg p.o. every 8 hours BP slightly higher today, if remains higher will consider adding additional afterload reduction (4) Atrial fibrillation with rapid ventricular response Is this a current diagnosis for this admission?: Yes Plan: HR now controlled Continue beta-renard as noted above for rate control Continue rivaroxaban 15 mg p.o. daily (5) Delirium Is this a current diagnosis for this admission?: Yes Plan: Per previous providers assessment it is felt that the patient has prolonged bereavement and depressive mood disorder Continue citalopram 20 mg p.o. daily (started this hospitalization) Continue lorazepam 0.25 mg IV every 4 hours as needed agitation/anxiety Continue gabapentin 300 mg p.o. every 8 hours (6) Chronic kidney disease, stage III (moderate) Is this a current diagnosis for this admission?: No Plan: Steroids likely contributing to azotemia Creatinine now WNL Continue to avoid nephrotoxins Monitor periodically (7) Stasis dermatitis of left lower extremity with venous ulcer due to chronic peripheral venous hypertension Is this a current diagnosis for this admission?: Yes Plan: Continue current dressing changes and monitor for signs of infection, none present - Time Time Spent with patient: 15-24 minutes Medications reviewed and adjusted accordingly: Yes Anticipated Discharge Disposition: Care Home Facility Anticipated Discharge Timeframe: TBD
[2020-05-25] MEDS: RIVAROXABAN 15 MG TABLET PO SCH (16:25)
[2020-05-26] MEDS: METOPROLOL TARTRATE 50 MG TABLET PO SCH ×3 (05:43→22:05)
[2020-05-26] MEDS: GABAPENTIN 300 MG CAPSULE PO SCH ×3 (05:43→22:06)
[2020-05-26] MEDS: FERROUS SULFATE 325 MG TABLET PO SCH (09:58)
[2020-05-26] MEDS: CITALOPRAM HYDROBROMIDE 20 MG TABLET PO SCH (09:58)
[2020-05-26] MEDS: DOCUSATE SODIUM 100 MG CAPSULE PO SCH (09:58)
[2020-05-26] MEDS: CYANOCOBALAMIN (VITAMIN B-12) 1,000 MCG TABLET PO SCH (09:58)
[2020-05-26] MEDS: GLIPIZIDE 5 MG TABLET PO SCH ×2 (09:58→17:37)
[2020-05-26] MEDS: PREDNISONE 20 MG TABLET PO SCH (09:58)
--- NOTE | 2020-05-26 10:32 | PDOC PROGRESS REPORT ---
Subjective Progress Note for:: 05/26/20 Subjective:: No complaints. Patient states she does not have much of an appetite today. Reason For Visit: RESPIRATORY FAILURE,AFIB WITH RVR (RESOLVED) Physical Exam Vital Signs: Temp Pulse Resp BP Pulse Ox 98.1 F 65 20 102/53 L 94 05/26/20 08:22 05/26/20 08:22 05/26/20 08:22 05/26/20 08:22 05/26/20 08:22 Intake & Output 05/25/20 05/26/20 05/27/20 06:59 06:59 06:59 Intake Total 657 863 Output Total 1250 975 Balance -593 -112 Weight 138.2 kg 137.2 kg General appearance: PRESENT: no acute distress, cooperative, morbidly obese Head exam: PRESENT: atraumatic, normocephalic Eye exam: PRESENT: conjunctiva pink. ABSENT: scleral icterus Mouth exam: PRESENT: moist, tongue midline Neck exam: ABSENT: JVD Respiratory exam: PRESENT: clear to auscultation dwayne, decreased breath sounds - Air entry diminished at bases bilaterally, prolonged expiratory phas, symmetrical, unlabored. ABSENT: accessory muscle use Cardiovascular exam: PRESENT: irregular rhythm, +S1, +S2 Pulses: PRESENT: normal radial pulses, +1 pedal pulses bilateral Vascular exam: PRESENT: normal capillary refill GI/Abdominal exam: PRESENT: normal bowel sounds, soft. ABSENT: distended, tenderness Rectal exam: PRESENT: deferred Gentrourinary exam: PRESENT: indwelling catheter Extremities exam: PRESENT: other - 1 mm pretibial edema bilaterally. Bilateral venous stasis changes noted below knee. ABSENT: calf tenderness Neurological exam: PRESENT: alert, awake, oriented to person, oriented to place, oriented to situation Psychiatric exam: PRESENT: unusual affect. ABSENT: agitated, anxious Skin exam: PRESENT: dry, normal color, warm Results Laboratory Results: 05/25/20 06:37 05/25/20 06:37 05/11/20 05/11/20 05/11/20 10:43 12:20 21:40 Creatine Kinase 39 CK-MB (CK-2) Troponin I 0.057 0.054 NT-Pro-B Natriuret Pep [id number] H 05/11/20 05/12/20 05/12/20 21:40 03:10 03:10 Creatine Kinase 173 H CK-MB (CK-2) 1.81 3.17 Troponin I 0.042 0.041 NT-Pro-B Natriuret Pep 05/12/20 05/13/20 05/15/20 03:10 04:30 04:27 Creatine Kinase CK-MB (CK-2) Troponin I NT-Pro-B Natriuret Pep 68881 H 44985 H 8880 H 05/16/20 05/16/20 06:11 07:27 Creatine Kinase CK-MB (CK-2) Troponin I NT-Pro-B Natriuret Pep Cancelled [id number] H Impressions: Venous Doppler Study 05/11/20 14:45 IMPRESSION: 1. Limited examination demonstrating no definitive lower extremity DVT bilaterally. 2. Pulsatile waveforms at the central veins bilaterally suggesting either elevated right heart pressures or valvular heart disease. Chest/Abdomen CTA 05/11/20 14:47 IMPRESSION: 1. There is no pulmonary embolism. No acute pulmonary disease. 2. Marked cardiomegaly. There is reflux of contrast into the hepatic veins which can be seen with elevated right heart pressure/right heart failure. Clinical correlation. 3. Pulmonary artery enlargement which can be seen with pulmonary arterial hypertension. Echocardiogram may provide additional information. Head CT 05/12/20 00:00 IMPRESSION: No acute intracranial findings. Chest X-Ray 05/16/20 05:00 IMPRESSION: STABLE APPEARANCE OF THE CHEST. Assessment and Plan - Diagnosis (1) Acute respiratory failure with hypoxia and hypercapnia Is this a current diagnosis for this admission?: Yes Plan: Patient required endotracheal intubation this hospitalization ABG from 05/21/2020 noted. Patient's PCO2 remained in the 70s which is been her baseline for the past several days. She also had adequate oxygenation. Continue supplemental oxygen with SPO2 goal of 88 to 93% Continue BiPAP 16/8 nightly and PRN titrate FiO2 to keep SPO2 88 to 93% Continue prednisone, 15 mg p.o. daily (dose #1, 05/26/20) continue slow steroid taper to off (2) COPD exacerbation Is this a current diagnosis for this admission?: Yes Plan: As noted above Continue albuterol nebs every 2 hours as needed (3) Acute systolic heart failure Is this a current diagnosis for this admission?: Yes Plan: Per echo on 05/20/2020 LVEF is 40 to 45% however they were unable to assess LV d iastolic function 2/2 atrial fibrillation Patient continues to appear somewhat hemoconcentrated based on labs and clinically appears euvolemic 24-hour fluid balance -112 First weight which can be considered accurate was 152 kg on 05/11/2020, patient is down 14.8 kg since admission and down 1 kg in past 24 hours Continue to hold furosemide Continue metoprolol tartrate 50 mg p.o. every 8 hours BP will not tolerate additional afterload reduction at this time (4) Atrial fibrillation with rapid ventricular response Is this a current diagnosis for this admission?: Yes Plan: HR now controlled Continue beta-renard as noted above for rate control Continue rivaroxaban 15 mg p.o. daily (5) Delirium Is this a current diagnosis for this admission?: Yes Plan: Patient's mental status waxes and wanes, today she is better than yesterday Per previous providers assessment it is felt that the patient has prolonged bereavement and depressive mood disorder Continue citalopram 20 mg p.o. daily (started this hospitalization) Continue gabapentin 300 mg p.o. every 8 hours (6) Chronic kidney disease, stage III (moderate) Is this a current diagnosis for this admission?: No Plan: Steroids likely contributing to azotemia Creatinine now WNL Continue to avoid nephrotoxins CMP in a.m. (7) Stasis dermatitis of left lower extremity with venous ulcer due to chronic peripheral venous hypertension Is this a current diagnosis for this admission?: Yes Plan: Continue current dressing changes and monitor for signs of infection, none pres ent (8) Type 2 diabetes mellitus Is this a current diagnosis for this admission?: Yes Plan: Glucose more significantly elevated since starting on prednisone Add basal (glargine) insulin 10 units subcutaneous daily, titrate as needed - hopefully insulin needs will go down as steroids weaned Continue glipizide 5 mg p.o. twice daily Continue FS BS with SSI correction scale, but change SSI from regular to lispro to avoid insulin stacking - Time Time Spent with patient: 15-24 minutes Anticipated Discharge Disposition: Group Home Facility Anticipated Discharge Timeframe: TBD
[2020-05-26] MEDS: INSULIN REG, HUMAN 100 UNIT/ML 3 ML VIAL (PYX) SUBCUT SCH (12:07)
[2020-05-26] MEDS ORDERED: INSULIN GLARGINE,HUM.REC.ANLOG 1,000 UNIT/10 ML VIAL SUBCUT SCH (14:00)
[2020-05-26] MEDS: INSULIN LISPRO 100 UNIT/ML 3 ML VIAL SUBCUT SCH ×3 (15:31→22:04)
[2020-05-26] MEDS: ACETAMINOPHEN 325 MG TABLET PO PRN ×2 (15:34→20:15)
[2020-05-26] MEDS: RIVAROXABAN 15 MG TABLET PO SCH (17:37)
[2020-05-27] MEDS: METOPROLOL TARTRATE 50 MG TABLET PO SCH ×3 (05:02→22:36)
[2020-05-27] MEDS: GABAPENTIN 300 MG CAPSULE PO SCH ×3 (05:02→22:35)
[2020-05-27 06:18] LABS: HEMATOCRIT 46.8 % (36.0-47.0); HEMOGLOBIN 15.6 g/dL (12.0-15.5); MEAN CORPUSCULAR HEMOGLOBIN 31.2 pg (27.0-33.4); MEAN CORPUSCULAR HGB CONC 33.3 g/dL (32.0-36.0); MEAN CORPUSCULAR VOLUME 94 fl (80-97); PLATELET COUNT 134 10^3/uL (150-450); RED BLOOD COUNT 4.98 10^6/uL (3.72-5.28); WHITE BLOOD COUNT 7.7 10^3/uL (4.0-10.5)
--- NOTE | 2020-05-27 06:45 | PDOC PROGRESS REPORT ---
Subjective Progress Note for:: 05/27/20 Subjective:: States that she is doing well. She states she had a good night sleep. Denies pain or other discomfort. Reason For Visit: RESPIRATORY FAILURE,AFIB WITH RVR (RESOLVED) Physical Exam Vital Signs: Temp Pulse Resp BP Pulse Ox 98.1 F 59 L 16 109/61 94 05/27/20 03:34 05/27/20 03:34 05/27/20 03:34 05/27/20 03:34 05/27/20 04:35 Intake & Output 05/25/20 05/26/20 05/27/20 06:59 06:59 06:59 Intake Total 657 863 237 Output Total 1257 909 625 Balance -503 112 388 Weight 138.2 kg 137.2 kg General appearance: PRESENT: no acute distress, cooperative, morbidly obese Head exam: PRESENT: atraumatic, normocephalic Eye exam: PRESENT: conjunctiva pink. ABSENT: scleral icterus Mouth exam: PRESENT: moist, tongue midline Neck exam: ABSENT: JVD Respiratory exam: PRESENT: decreased breath sounds - Air entry diminished at bases bilaterally, prolonged expiratory phas, symmetrical, unlabored. ABSENT: accessory muscle use Cardiovascular exam: PRESENT: irregular rhythm, +S1, +S2 Pulses: PRESENT: normal carotid pulses, normal radial pulses, +1 pedal pulses bilateral GI/Abdominal exam: PRESENT: normal bowel sounds, soft. ABSENT: distended, firm, guarding, rigid, tenderness Rectal exam: PRESENT: deferred Extremities exam: PRESENT: +1 edema - No meter pretibial edema bilaterally, other - Chronic venous stasis changes noted bilaterally. ABSENT: calf tenderness Neurological exam: PRESENT: alert, altered, oriented to person, oriented to pl [place], oriented to situation Psychiatric exam: PRESENT: appropriate affect. ABSENT: agitated, anxious Skin exam: PRESENT: dry, normal color, warm Results Laboratory Results: 05/27/20 05:21 05/27/20 05:21 WBC 7.7 RBC 4.98 Hgb 15.6 H Hct 46.8 MCV 94 MCH 31.2 MCHC 33.3 RDW 14.0 Plt Count 134 L 05/11/20 05/11/20 05/11/20 10:43 12:20 21:40 Creatine Kinase 39 CK-MB (CK-2) Troponin I 0.057 0.054 NT-Pro-B Natriuret Pep [id number] H 05/11/20 05/12/20 05/12/20 21:40 03:10 03:10 Creatine Kinase 173 H CK-MB (CK-2) 1.81 3.17 Troponin I 0.042 0.041 NT-Pro-B Natriuret Pep 05/12/20 05/13/20 05/15/20 03:10 04:30 04:27 Creatine Kinase CK-MB (CK-2) Troponin I NT-Pro-B Natriuret Pep 71168 H 83392 H 8880 H 05/16/20 05/16/20 06:11 07:27 Creatine Kinase CK-MB (CK-2) Troponin I NT-Pro-B Natriuret Pep Cancelled [id number] H Impressions: Venous Doppler Study 05/11/20 14:45 IMPRESSION: 1. Limited examination demonstrating no definitive lower extremity DVT bilaterally. 2. Pulsatile waveforms at the central veins bilaterally suggesting either elevated right heart pressures or valvular heart disease. Chest/Abdomen CTA 05/11/20 14:47 IMPRESSION: 1. There is no pulmonary embolism. No acute pulmonary disease. 2. Marked cardiomegaly. There is reflux of contrast into the hepatic veins which can be seen with elevated right heart pressure/right heart failure. Clinical correlation. 3. Pulmonary artery enlargement which can be seen with pulmonary arterial hypertension. Echocardiogram may provide additional information. Head CT 05/12/20 00:00 IMPRESSION: No acute intracranial findings. Chest X-Ray 05/16/20 05:00 IMPRESSION: STABLE APPEARANCE OF THE CHEST. Assessment and Plan - Diagnosis (1) Acute respiratory failure with hypoxia and hypercapnia Is this a current diagnosis for this admission?: Yes Plan: Patient required endotracheal intubation this hospitalization ABG from 05/21/2020 noted. Patient's PCO2 remained in the 70s which is been her baseline for the past several days. She also had adequate oxygenation. Continue supplemental oxygen with SPO2 goal of 88 to 93% Continue BiPAP 16/8 nightly and PRN titrate FiO2 to keep SPO2 88 to 93% Continue prednisone, 15 mg p.o. daily (dose #2) continue slow steroid taper to off (2) COPD exacerbation Is this a current diagnosis for this admission?: Yes Plan: As noted above Continue albuterol nebs every 2 hours as needed (3) Acute systolic heart failure Is this a current diagnosis for this admission?: Yes Plan: Per echo on 05/20/2020 LVEF is 40 to 45% however they were unable to assess LV diastolic function 2/2 atrial fibrillation Patient continues to appear somewhat hemoconcentrated/volume contracted based on labs and clinically appears euvolemic 24-hour fluid balance -376 Weights are not accurate - first weight which can be considered accurate was 152 kg on 05/11/2020, adding to daily weights patient is down 19.1 kg since admission and down 4.3 kg in past 24 hours Continue to hold furosemide Continue metoprolol tartrate 50 mg p.o. every 8 hours BP will not tolerate additional afterload reduction at this time (4) Atrial fibrillation with rapid ventricular response Is this a current diagnosis for this admission?: Yes Plan: HR now controlled Continue beta-renard as noted above for rate control Continue rivaroxaban 15 mg p.o. daily (5) Delirium Is this a current diagnosis for this admission?: Yes Plan: Patient's mental status waxes and wanes, this morning she is very interactive and seems to be quite oriented Per previous providers assessment it is felt that the patient has prolonged bereavement and depressive mood disorder Continue citalopram 20 mg p.o. daily (started this hospitalization) Continue gabapentin 300 mg p.o. every 8 hours (6) Chronic kidney disease, stage III (moderate) Is this a current diagnosis for this admission?: No Plan: Steroids likely contributing to azotemia Creatinine WNL on last chemistry, CMP pending this a.m. Continue to avoid nephrotoxins (7) Stasis dermatitis of left lower extremity with venous ulcer due to chronic peripheral venous hypertension Is this a current diagnosis for this admission?: Yes Plan: Continue current dressing changes and monitor for signs of infection, none present (8) Type 2 diabetes mellitus Is this a current diagnosis for this admission?: Yes Plan: Glucose more significantly elevated since starting on prednisone Continue basal (glargine) insulin but increase to 15 units subcutaneous daily, titrate as needed - hopefully insulin needs will go down as steroids weaned Continue glipizide 5 mg p.o. twice daily Continue FS BS with SSI correction scale, but change SSI from regular to lispro to avoid insulin stacking - Time Time Spent with patient: 15-24 minutes Medications reviewed and adjusted accordingly: Yes Anticipated Discharge Disposition: [facility] Anticipated Discharge Timeframe: within 48 hours
[2020-05-27 06:47] LABS: ALBUMIN 2.7 g/dL (3.5-5.0); ALKALINE PHOSPHATASE 107 U/L (38-126); ASPARTATE AMINO TRANSFERASE 31 U/L (14-36); BILIRUBIN,DIRECT 0.6 mg/dL (0.0-0.4); BILIRUBIN,TOTAL 1.6 mg/dL (0.2-1.3); BLOOD UREA NITROGEN 47 mg/dL (7-20); CALCIUM 10.1 mg/dL (8.4-10.2); CARBON DIOXIDE 35 mmol/L (22-30); CHLORIDE 94 mmol/L (98-107); GLUCOSE 218 mg/dL (75-110); POTASSIUM 4.7 mmol/L (3.6-5.0); TOTAL PROTEIN 5.7 g/dL (6.3-8.2)
[2020-05-27 07:10] LABS: ANION GAP 4 (5-19)
[2020-05-27] MEDS: INSULIN LISPRO 100 UNIT/ML 3 ML VIAL SUBCUT SCH ×4 (08:07→22:37)
[2020-05-27] MEDS: CYANOCOBALAMIN (VITAMIN B-12) 1,000 MCG TABLET PO SCH (09:32)
[2020-05-27] MEDS: FERROUS SULFATE 325 MG TABLET PO SCH (09:32)
[2020-05-27] MEDS: GLIPIZIDE 5 MG TABLET PO SCH ×2 (09:32→18:07)
[2020-05-27] MEDS: CITALOPRAM HYDROBROMIDE 20 MG TABLET PO SCH (09:33)
[2020-05-27] MEDS: DOCUSATE SODIUM 100 MG CAPSULE PO SCH (09:33)
[2020-05-27] MEDS: PREDNISONE 20 MG TABLET PO SCH (09:34)
[2020-05-27] MEDS: INSULIN GLARGINE,HUM.REC.ANLOG 1,000 UNIT/10 ML VIAL SUBCUT SCH (12:00)
[2020-05-27] MEDS: ACETAMINOPHEN 325 MG TABLET PO PRN (14:11)
[2020-05-27] MEDS: RIVAROXABAN 15 MG TABLET PO SCH (18:07)
--- NOTE | 2020-05-27 18:42 | Progress Note ---
Provider Note Provider Note: As part of patient's screening process for SNF a SARS-CoV-2 screen was sent. Patient is positive. Will start ascorbic acid/zinc/vitamin D/melatonin/famotidine and transfer to COVID unit when bed available. She is asymptomatic at this time and on room air. She is already fully anticoagulated with rivaroxaban. If patient declines will evaluate for Remdesivir.
[2020-05-27] MEDS ORDERED: MICONAZOLE NITRATE 200 MG/SUPP (3 SUPP/BOX) VG SCH (20:00)
[2020-05-27] MEDS: ASCORBIC ACID 500 MG TABLET PO SCH (22:35)
[2020-05-27] MEDS: ZINC SULFATE 220 MG CAPSULE PO SCH (22:35)
[2020-05-27] MEDS: MELATONIN 5 MG TABLET PO SCH (22:36)
[2020-05-27] MEDS: FAMOTIDINE 20 MG TABLET PO SCH (22:36)
[2020-05-27] MEDS: MICONAZOLE NITRATE 200 MG/SUPP (3 SUPP/BOX) VG SCH (22:38)
[2020-05-28] MEDS: GABAPENTIN 300 MG CAPSULE PO SCH ×3 (05:18→22:40)
[2020-05-28] MEDS: METOPROLOL TARTRATE 50 MG TABLET PO SCH ×3 (05:18→22:39)
[2020-05-28 06:21] LABS: HEMATOCRIT 44.5 % (36.0-47.0); HEMOGLOBIN 14.6 g/dL (12.0-15.5); MEAN CORPUSCULAR HEMOGLOBIN 30.9 pg (27.0-33.4); MEAN CORPUSCULAR HGB CONC 32.9 g/dL (32.0-36.0); MEAN CORPUSCULAR VOLUME 94 fl (80-97); PLATELET COUNT 122 10^3/uL (150-450); RED BLOOD COUNT 4.74 10^6/uL (3.72-5.28); WHITE BLOOD COUNT 6.2 10^3/uL (4.0-10.5)
[2020-05-28 06:56] LABS: BLOOD UREA NITROGEN 41 mg/dL (7-20); CALCIUM 9.6 mg/dL (8.4-10.2); GLUCOSE 131 mg/dL (75-110); POTASSIUM 4.1 mmol/L (3.6-5.0)
[2020-05-28 07:01] LABS: CARBON DIOXIDE 35 mmol/L (22-30); CHLORIDE 96 mmol/L (98-107)
[2020-05-28 07:07] LABS: ANION GAP 4 (5-19)
[2020-05-28] MEDS: INSULIN LISPRO 100 UNIT/ML 3 ML VIAL SUBCUT SCH ×4 (08:23→22:38)
[2020-05-28] MEDS: ZINC SULFATE 220 MG CAPSULE PO SCH (11:22)
[2020-05-28] MEDS: CHOLECALCIFEROL (D3) 1,000 UNIT (25 MCG) TABLET PO SCH (11:22)
[2020-05-28] MEDS: PREDNISONE 20 MG TABLET PO SCH (11:23)
[2020-05-28] MEDS: GLIPIZIDE 5 MG TABLET PO SCH ×2 (11:24→17:20)
[2020-05-28] MEDS: FERROUS SULFATE 325 MG TABLET PO SCH (11:24)
[2020-05-28] MEDS: ASCORBIC ACID 500 MG TABLET PO SCH ×2 (11:24→17:20)
[2020-05-28] MEDS: INSULIN GLARGINE,HUM.REC.ANLOG 1,000 UNIT/10 ML VIAL SUBCUT SCH (11:25)
[2020-05-28] MEDS: DOCUSATE SODIUM 100 MG CAPSULE PO SCH (11:25)
[2020-05-28] MEDS: CITALOPRAM HYDROBROMIDE 20 MG TABLET PO SCH (11:25)
[2020-05-28] MEDS: CYANOCOBALAMIN (VITAMIN B-12) 1,000 MCG TABLET PO SCH (11:25)
[2020-05-28] MEDS: FAMOTIDINE 20 MG TABLET PO SCH ×2 (11:25→22:41)
--- NOTE | 2020-05-28 16:14 | PDOC PROGRESS REPORT ---
Subjective Progress Note for:: 05/28/20 Subjective:: Patient was seen on morning rounds. She is found resting bed, comfortably, on room air. She is alert and oriented to self and place; seems somewhat confused otherwise. She complains of constipation. Otherwise she denies all complaints; no fever, chills, chest pain, dyspnea, abd pain, nausea and vomiting. She has no other questions or concerns. No concerns per nursing. Awaiting SNF placement. Reason For Visit: RESPIRATORY FAILURE,AFIB WITH RVR (RESOLVED) Physical Exam Vital Signs: Temp Pulse Resp BP Pulse Ox 98.0 F 61 18 102/56 L 100 05/28/20 11:05 05/28/20 14:00 05/28/20 11:05 05/28/20 11:05 05/28/20 11:05 Intake & Output 05/27/20 05/28/20 05/29/20 06:59 06:59 06:59 Intake Total 474 Output Total 850 400 Balance -376 -400 Weight 132.9 kg 132.9 kg General appearance: PRESENT: no acute distress, cooperative, morbidly obese, well-developed Head exam: PRESENT: atraumatic, normocephalic Eye exam: PRESENT: conjunctiva pink, EOMI, PERRLA. ABSENT: scleral icterus Mouth exam: PRESENT: moist, tongue midline Teeth exam: PRESENT: poor dentation Respiratory exam: PRESENT: clear to auscultation dwayne, symmetrical, unlabored. ABSENT: rales, rhonchi, wheezes Cardiovascular exam: PRESENT: irregular rhythm, +S1, +S2. ABSENT: diastolic murmur, rubs, systolic murmur Vascular exam: PRESENT: normal capillary refill GI/Abdominal exam: PRESENT: normal bowel sounds, soft. ABSENT: distended, guarding, mass, organolmegaly, rebound, tenderness Rectal exam: PRESENT: deferred Extremities exam: PRESENT: pedal edema - trace bilaterally, other - chronic venous stasis changes bilaterally. ABSENT: calf tenderness, clubbing Neurological exam: PRESENT: alert, awake, oriented to person, oriented to place, CN II-XII grossly intact. ABSENT: motor sensory deficit Psychiatric exam: PRESENT: appropriate affect, normal mood. ABSENT: homicidal ideation, suicidal ideation Skin exam: PRESENT: dry, intact, warm. ABSENT: cyanosis, rash Results Laboratory Results: 05/28/20 05:16 05/28/20 05:16 05/28/20 05/28/20 05:16 05:16 WBC 6.2 RBC 4.74 Hgb 14.6 Hct 44.5 MCV 94 MCH 30.9 MCHC 32.9 RDW 14.0 Plt Count 122 L Sodium 134.5 L Potassium 4.1 Chloride 96 L Carbon Dioxide 35 H Anion Gap 4 L BUN 41 H Creatinine 1.11 Est GFR ( Amer) 59 L Glucose 131 H Calcium 9.6 05/11/20 05/11/20 05/11/20 10:43 12:20 21:40 Creatine Kinase 39 CK-MB (CK-2) Troponin I 0.057 0.054 NT-Pro-B Natriuret Pep [id number] H 05/11/20 05/12/20 05/12/20 21:40 03:10 03:10 Creatine Kinase 173 H CK-MB (CK-2) 1.81 3.17 Troponin I 0.042 0.041 NT-Pro-B Natriuret Pep 05/12/20 05/13/20 05/15/20 03:10 04:30 04:27 Creatine Kinase CK-MB (CK-2) Troponin I NT-Pro-B Natriuret Pep 50668 H 60141 H 8880 H 05/16/20 05/16/20 06:11 07:27 Creatine Kinase CK-MB (CK-2) Troponin I NT-Pro-B Natriuret Pep Cancelled [id number] H Impressions: Venous Doppler Study 05/11/20 14:45 IMPRESSION: 1. Limited examination demonstrating no definitive lower extremity DVT bilaterally. 2. Pulsatile waveforms at the central veins bilaterally suggesting either elevated right heart pressures or valvular heart disease. Chest/Abdomen CTA 05/11/20 14:47 IMPRESSION: 1. There is no pulmonary embolism. No acute pulmonary disease. 2. Marked cardiomegaly. There is reflux of contrast into the hepatic veins which can be seen with elevated right heart pressure/right heart failure. Clinical correlation. 3. Pulmonary artery enlargement which can be seen with pulmonary arterial hypertension. Echocardiogram may provide additional information. Head CT 05/12/20 00:00 IMPRESSION: No acute intracranial findings. Chest X-Ray 05/16/20 05:00 IMPRESSION: STABLE APPEARANCE OF THE CHEST. Assessment and Plan - Diagnosis (1) Acute respiratory failure with hypoxia and hypercapnia Is this a current diagnosis for this admission?: Yes Plan: Patient required endotracheal intubation this hospitalization ABG from 05/21/2020 noted. Continue supplemental oxygen with SPO2 goal of 88 to 93%; currently maintaining SpO2 on RA Continue BiPAP 16/8 nightly and PRN titrate FiO2 to keep SPO2 88 to 93% Continue prednisone, 15 mg p.o. daily (dose #3); will decrease to 10 mg tomorrow. continue slow steroid taper to off (2) Acute systolic heart failure Is this a current diagnosis for this admission?: Yes Plan: Per echo on 05/20/2020 LVEF is 40 to 45% however they were unable to assess LV diastolic function 2/2 atrial fibrillation Clinically appears euvolemic Unfortunately, weights are not accurate - appears she may be down ~5kg this week and 13 kg since admission Resume home dose furosemide Continue metoprolol tartrate 50 mg p.o. every 8 hours Start low-dose lisinopril (3) Atrial fibrillation with rapid ventricular response Is this a current diagnosis for this admission?: Yes Plan: HR now controlled Continue beta-renard as noted above for rate control Continue rivaroxaban 15 mg p.o. daily (4) COPD exacerbation Is this a current diagnosis for this admission?: Yes Plan: Resolved. Continue steroid weaning. As needed nebulizer treatments. Supplemental oxygen and BiPAP as needed to maintain saturation; currently maintaining oxygen saturations on room air. Encourage pulmonary toilet. (5) Chronic kidney disease, stage III (moderate) Is this a current diagnosis for this admission?: No Plan: Creatinine WNL on last chemistry Resume home dose furosemide Continue to avoid nephrotoxins Strict I's and O's. (6) Delirium Is this a current diagnosis for this admission?: Yes Plan: Patient's mental status waxes and wanes, orientated to self and place only today Per previous providers assessment it is felt that the patient has prolonged bereavement and depressive mood disorder Continue citalopram 20 mg p.o. daily (started this hospitalization) Continue gabapentin 300 mg p.o. every 8 hours (7) Stasis dermatitis of left lower extremity with venous ulcer due to chronic peripheral venous hypertension Is this a current diagnosis for this admission?: Yes Plan: Continue current dressing changes and monitor for signs of infection, none present (8) Type 2 diabetes mellitus Is this a current diagnosis for this admission?: Yes Plan: Glucose more significantly elevated since starting on prednisone Continue basal (glargine) insulin but increase to 15 units subcutaneous daily, titrate as needed - hopefully insulin needs will go down as steroids weaned Continue glipizide 5 mg p.o. twice daily Continue FS BS with SSI correction scale Hypoglycemia protocol in place - Time Time Spent with patient: 35 or more minutes Medications reviewed and adjusted accordingly: Yes Anticipated Discharge Disposition: Snf Facility Anticipated Discharge Timeframe: when bed available - needs COVID (+) facility
[2020-05-28] MEDS: RIVAROXABAN 15 MG TABLET PO SCH (17:20)
[2020-05-28] MEDS: MELATONIN 5 MG TABLET PO SCH (22:39)
[2020-05-28] MEDS: MICONAZOLE NITRATE 200 MG/SUPP (3 SUPP/BOX) VG SCH (22:40)
[2020-05-29] MEDS: GABAPENTIN 300 MG CAPSULE PO SCH ×3 (06:27→21:33)
[2020-05-29] MEDS: INSULIN LISPRO 100 UNIT/ML 3 ML VIAL SUBCUT SCH ×4 (08:20→21:34)
[2020-05-29] MEDS: INSULIN GLARGINE,HUM.REC.ANLOG 1,000 UNIT/10 ML VIAL SUBCUT SCH (11:36)
[2020-05-29] MEDS: CYANOCOBALAMIN (VITAMIN B-12) 1,000 MCG TABLET PO SCH (11:37)
[2020-05-29] MEDS: ASCORBIC ACID 500 MG TABLET PO SCH ×2 (11:37→17:13)
[2020-05-29] MEDS: LISINOPRIL 5 MG TABLET PO SCH (11:37)
[2020-05-29] MEDS: ZINC SULFATE 220 MG CAPSULE PO SCH (11:37)
[2020-05-29] MEDS: FERROUS SULFATE 325 MG TABLET PO SCH (11:37)
[2020-05-29] MEDS: CHOLECALCIFEROL (D3) 1,000 UNIT (25 MCG) TABLET PO SCH (11:37)
[2020-05-29] MEDS: GLIPIZIDE 5 MG TABLET PO SCH ×2 (11:37→17:13)
[2020-05-29] MEDS: FAMOTIDINE 20 MG TABLET PO SCH ×2 (11:38→21:33)
[2020-05-29] MEDS: DOCUSATE SODIUM 100 MG CAPSULE PO SCH (11:38)
[2020-05-29] MEDS: PREDNISONE 20 MG TABLET PO SCH (11:38)
[2020-05-29] MEDS: METOPROLOL TARTRATE 50 MG TABLET PO SCH ×2 (11:38→21:33)
[2020-05-29] MEDS: FUROSEMIDE 20 MG TABLET PO SCH (11:38)
[2020-05-29] MEDS: CITALOPRAM HYDROBROMIDE 20 MG TABLET PO SCH (11:38)
--- NOTE | 2020-05-29 14:15 | PDOC PROGRESS REPORT ---
Subjective Progress Note for:: 05/29/20 Subjective:: Patient was seen on morning rounds. She is found resting bed, comfortably, on room air. She is alert and oriented to self. She is fidgeting with her blankets. She does not engage in conversation or follow directions, but does answer simple yes or no questions. Otherwise she denies all complaints; no fever, chills, chest pain, dyspnea, abd pain, nausea, vomiting, diarrhea, constipation. She does appear to be comfortable and is not noted to be in any acute distress at this time. No concerns per nursing. Awaiting SNF placement. Reason For Visit: RESPIRATORY FAILURE,AFIB WITH RVR (RESOLVED) Physical Exam Vital Signs: Temp Pulse Resp BP Pulse Ox 97.9 F 89 16 136/72 H 96 05/29/20 12:13 05/29/20 12:13 05/29/20 12:13 05/29/20 12:13 05/29/20 12:13 Intake & Output 05/28/20 05/29/20 05/30/20 06:59 06:59 06:59 Output Total 400 1505 Balance -400 -1505 Weight 132.9 kg 134 kg General appearance: PRESENT: no acute distress, morbidly obese, well-developed, well-nourished Head exam: PRESENT: atraumatic, normocephalic Eye exam: PRESENT: conjunctiva pink, EOMI, PERRLA. ABSENT: scleral icterus Mouth exam: PRESENT: moist, tongue midline Teeth exam: PRESENT: poor dentation Respiratory exam: PRESENT: clear to auscultation dwanye, decreased breath sounds - Bibasilar; secondary to body habitus, patient participation, and positioning, symmetrical, unlabored. ABSENT: rales, rhonchi, wheezes Cardiovascular exam: PRESENT: irregular rhythm, RRR. ABSENT: diastolic murmur, rubs, systolic murmur Pulses: PRESENT: normal dorsalis pedis pul Vascular exam: PRESENT: normal capillary refill GI/Abdominal exam: PRESENT: normal bowel sounds, soft. ABSENT: distended, guarding, mass, organolmegaly, rebound, tenderness Rectal exam: PRESENT: deferred Gentrourinary exam: PRESENT: indwelling catheter Extremities exam: PRESENT: full ROM, other - Venous stasis changes bilateral lower extremities. ABSENT: calf tenderness, clubbing, pedal edema Neurological exam: PRESENT: alert, awake, oriented to person, oriented to place, CN II-XII grossly intact. ABSENT: motor sensory deficit Psychiatric exam: PRESENT: flat affect, normal mood. ABSENT: homicidal ideation, suicidal ideation Skin exam: PRESENT: dry, intact, warm. ABSENT: cyanosis, rash Results Laboratory Results: 05/28/20 05:16 05/28/20 05:16 05/11/20 05/11/20 05/11/20 10:43 12:20 21:40 Creatine Kinase 39 CK-MB (CK-2) Troponin I 0.057 0.054 NT-Pro-B Natriuret Pep [id number] H 05/11/20 05/12/20 05/12/20 21:40 03:10 03:10 Creatine Kinase 173 H CK-MB (CK-2) 1.81 3.17 Troponin I 0.042 0.041 NT-Pro-B Natriuret Pep 05/12/20 05/13/20 05/15/20 03:10 04:30 04:27 Creatine Kinase CK-MB (CK-2) Troponin I NT-Pro-B Natriuret Pep 17888 H 95862 H 8880 H 05/16/20 05/16/20 06:11 07:27 Creatine Kinase CK-MB (CK-2) Troponin I NT-Pro-B Natriuret Pep Cancelled [id number] H Impressions: Venous Doppler Study 05/11/20 14:45 IMPRESSION: 1. Limited examination demonstrating no definitive lower extremity DVT bilaterally. 2. Pulsatile waveforms at the central veins bilaterally suggesting either elevated right heart pressures or valvular heart disease. Chest/Abdomen CTA 05/11/20 14:47 IMPRESSION: 1. There is no pulmonary embolism. No acute pulmonary disease. 2. Marked cardiomegaly. There is reflux of contrast into the hepatic veins which can be seen with elevated right heart pressure/right heart failure. Clinical correlation. 3. Pulmonary artery enlargement which can be seen with pulmonary arterial hypertension. Echocardiogram may provide additional information. Head CT 05/12/20 00:00 IMPRESSION: No acute intracranial findings. Chest X-Ray 05/16/20 05:00 IMPRESSION: STABLE APPEARANCE OF THE CHEST. Assessment and Plan - Diagnosis (1) Acute respiratory failure with hypoxia and hypercapnia Is this a current diagnosis for this admission?: Yes Plan: Patient required endotracheal intubation this hospitalization ABG from 05/21/2020 noted. Continue supplemental oxygen with SPO2 goal of 88 to 93%; currently maintaining SpO2 on RA Continue BiPAP 16/8 nightly and PRN titrate FiO2 to keep SPO2 88 to 93% Continue prednisone 10 mg daily x3 days. (2) Acute systolic heart failure Is this a current diagnosis for this admission?: Yes Plan: Per echo on 05/20/2020 LVEF is 40 to 45% however they were unable to assess LV diastolic function 2/2 atrial fibrillation Clinically appears euvolemic Unfortunately, weights are not accurate - appears she may be down ~5kg this week and 13 kg since admission Resume home dose furosemide Continue metoprolol tartrate 50 mg p.o. every 8 hours Start low-dose lisinopril; tolerating well. Cardiac diet, daily weights (3) Atrial fibrillation with rapid ventricular response Is this a current diagnosis for this admission?: Yes Plan: HR now controlled Continue beta-renard as noted above for rate control Continue rivaroxaban 15 mg p.o. daily (4) COPD exacerbation Is this a current diagnosis for this admission?: Yes Plan: Resolved. Continue steroid weaning. As needed nebulizer treatments. Supplemental oxygen and BiPAP as needed to maintain saturation; currently maintaining oxygen saturations on room air. Encourage pulmonary toilet. (5) Chronic kidney disease, stage III (moderate) Is this a current diagnosis for this admission?: No Plan: Creatinine WNL on last chemistry Resume home dose furosemide Continue to avoid nephrotoxins Strict I's and O's. (6) Delirium Is this a current diagnosis for this admission?: Yes Plan: Patient's mental status waxes and wanes, orientated to self and place only today Per previous providers assessment it is felt that the patient has prolonged bereavement and depressive mood disorder Continue citalopram 20 mg p.o. daily (started this hospitalization) Continue gabapentin 300 mg p.o. every 8 hours (7) Stasis dermatitis of left lower extremity with venous ulcer due to chronic peripheral venous hypertension Is this a current diagnosis for this admission?: Yes Plan: Continue current dressing changes and monitor for signs of infection, none present (8) Type 2 diabetes mellitus Is this a current diagnosis for this admission?: Yes Plan: Glucose more significantly elevated since starting on prednisone Continue basal (glargine) insulin but increase to 15 units subcutaneous daily, titrate as needed - hopefully insulin needs will go down as steroids weaned Continue glipizide 5 mg p.o. twice daily Continue FS BS with SSI correction scale Hypoglycemia protocol in place (9) COVID-19 virus detected Is this a current diagnosis for this admission?: Yes Plan: COVID PCR testing -05/11/2020. Screening COVID testing (for SNF placement) on 05/24/2020 was positive Patient is asymptomatic and maintaining oxygen saturations on room air. Afebrile, CBC reassuring, clear although diminished lung sounds. Discussed with the patient's sister/POA yesterday. Discussed potential for false negative on her initial testing versus her potentially being exposed here. As the sister had spent quite a bit of time with the patient the day prior, I did recommend that she initiate self-monitoring and home quarantine. We did discuss that the sister could request testing from a COVID clinic or her PCP but advised that it would be best for her to wait an additional 2 to 3 days to allow time for her body to develop the necessary antibodies. Repeat PCR testing was requested; I did discuss that it is likely too soon for repeat PCR to be accurate and that the risks of not appropriately adhering to guidelines far outweighed a potential "over reaction" should the test have been falsely positive. We also discussed that false negatives were much more likely than false positives and that all positive test results should be taken seriously in order to protect self/family/community. At the conclusion of our conversation yesterday, sister seemed understanding and agreeable. Today, I was informed that the sister/poa was again requesting testing. This was declined, as described as above. This afternoon, I was able to speak with Dr. Ohara, Infectious Disease, to seek guidance on repeat testing for COVID clearance. Dr. Ohara advises that PCR testing indicates active viral shedding and that this can occur, and thus tests remain positive, for several weeks. She recommends COVID IgG testing as this would indicate immunity and therefore patient would no longer be contagious. Discussed w/ lab, testing is available as a send out [facility] test with 2 week turn around time. However, in the interim, it appears that the patient has already been swabbed for repeat PCR testing, therefore, will hold on IgG testing until this test has resulted in an effort to to not duplicate elizabeth ting/costs/etc.. If repeat PCR is also positive, would recommend IgG testing vs. additional PCR testing. - Time Time Spent with patient: 35 or more minutes Medications reviewed and adjusted accordingly: Yes Anticipated Discharge Disposition: Snf Facility Anticipated Discharge Timeframe: when bed available
[2020-05-29] MEDS: RIVAROXABAN 15 MG TABLET PO SCH (16:25)
[2020-05-29] MEDS: MELATONIN 5 MG TABLET PO SCH (21:33)
[2020-05-29] MEDS: MICONAZOLE NITRATE 200 MG/SUPP (3 SUPP/BOX) VG SCH (21:46)
[2020-05-30] MEDS: GABAPENTIN 300 MG CAPSULE PO SCH ×3 (05:17→21:39)
[2020-05-30] MEDS: INSULIN LISPRO 100 UNIT/ML 3 ML VIAL SUBCUT SCH ×4 (10:31→21:43)
[2020-05-30] MEDS: DOCUSATE SODIUM 100 MG CAPSULE PO SCH (10:52)
[2020-05-30] MEDS: FERROUS SULFATE 325 MG TABLET PO SCH (10:53)
[2020-05-30] MEDS: PREDNISONE 20 MG TABLET PO SCH (10:53)
[2020-05-30] MEDS: ASCORBIC ACID 500 MG TABLET PO SCH ×2 (10:53→17:43)
[2020-05-30] MEDS: LISINOPRIL 5 MG TABLET PO SCH (10:53)
[2020-05-30] MEDS: GLIPIZIDE 5 MG TABLET PO SCH ×2 (10:53→17:43)
[2020-05-30] MEDS: ZINC SULFATE 220 MG CAPSULE PO SCH (10:53)
[2020-05-30] MEDS: METOPROLOL TARTRATE 50 MG TABLET PO SCH ×2 (10:54→21:39)
[2020-05-30] MEDS: FAMOTIDINE 20 MG TABLET PO SCH ×2 (10:54→21:39)
[2020-05-30] MEDS: FUROSEMIDE 20 MG TABLET PO SCH (10:54)
[2020-05-30] MEDS: CITALOPRAM HYDROBROMIDE 20 MG TABLET PO SCH (10:54)
[2020-05-30] MEDS: CYANOCOBALAMIN (VITAMIN B-12) 1,000 MCG TABLET PO SCH (10:54)
[2020-05-30] MEDS: CHOLECALCIFEROL (D3) 1,000 UNIT (25 MCG) TABLET PO SCH (10:54)
[2020-05-30] MEDS: INSULIN GLARGINE,HUM.REC.ANLOG 1,000 UNIT/10 ML VIAL SUBCUT SCH (10:55)
--- NOTE | 2020-05-30 16:34 | PDOC PROGRESS REPORT ---
Subjective Progress Note for:: 05/30/20 Subjective:: Patient was seen on morning rounds. She is found resting bed, comfortably, on room air. She is alert and oriented to self and place. She complains of diarrhea; reports that she needs assistance getting cleaned up. Otherwise she denies all complaints; no fever, chills, chest pain, dyspnea, abd pain, nausea, vomiting, constipation. She does appear to be comfortable and is not noted to be in any acute distress at this time. Nursing reports multiple episodes of copious, watery, stools Awaiting SNF placement. Reason For Visit: RESPIRATORY FAILURE,AFIB WITH RVR (RESOLVED) Physical Exam Vital Signs: Temp Pulse Resp BP Pulse Ox 98.2 F 66 16 144/78 H 93 05/30/20 10:48 05/30/20 14:00 05/30/20 10:48 05/30/20 10:48 05/30/20 10:48 Intake & Output 05/29/20 05/30/20 05/31/20 06:59 06:59 06:59 Output Total 1505 1450 Balance -1505 -1450 Weight 134 kg 133 kg General appearance: PRESENT: no acute distress, morbidly obese, well-developed, well-nourished Head exam: PRESENT: atraumatic, normocephalic Eye exam: PRESENT: conjunctiva pink, EOMI, PERRLA. ABSENT: scleral icterus Mouth exam: PRESENT: moist, tongue midline Teeth exam: PRESENT: poor dentation Respiratory exam: PRESENT: clear to auscultation dwayne, decreased breath sounds - Throughout secondary to body habitus, patient participation, and positioning, symmetrical, unlabored, other - Room air. ABSENT: rales, rhonchi, wheezes Cardiovascular exam: PRESENT: RRR. ABSENT: diastolic murmur, rubs, systolic murmur Pulses: PRESENT: normal dorsalis pedis pul Vascular exam: PRESENT: normal capillary refill GI/Abdominal exam: PRESENT: normal bowel sounds, soft. ABSENT: distended, guarding, mass, organolmegaly, rebound, tenderness Rectal exam: PRESENT: deferred Extremities exam: ABSENT: calf tenderness, clubbing, pedal edema Neurological exam: PRESENT: alert, awake, oriented to person, oriented to place, CN II-XII grossly intact, other - Intermittent mild confusion. ABSENT: motor sensory deficit Psychiatric exam: PRESENT: appropriate affect, normal mood. ABSENT: homicidal ideation, suicidal ideation Skin exam: PRESENT: dry, intact, warm. ABSENT: cyanosis, rash Results Laboratory Results: 05/28/20 05:16 05/28/20 05:16 05/11/20 05/11/20 05/11/20 10:43 12:20 21:40 Creatine Kinase 39 CK-MB (CK-2) Troponin I 0.057 0.054 NT-Pro-B Natriuret Pep [id number] H 05/11/20 05/12/20 05/12/20 21:40 03:10 03:10 Creatine Kinase 173 H CK-MB (CK-2) 1.81 3.17 Troponin I 0.042 0.041 NT-Pro-B Natriuret Pep 05/12/20 05/13/20 05/15/20 03:10 04:30 04:27 Creatine Kinase CK-MB (CK-2) Troponin I NT-Pro-B Natriuret Pep 90830 H 77337 H 8880 H 05/16/20 05/16/20 06:11 07:27 Creatine Kinase CK-MB (CK-2) Troponin I NT-Pro-B Natriuret Pep Cancelled [id number] H Impressions: Venous Doppler Study 05/11/20 14:45 IMPRESSION: 1. Limited examination demonstrating no definitive lower extremity DVT bilaterally. 2. Pulsatile waveforms at the central veins bilaterally suggesting either elevated right heart pressures or valvular heart disease. Chest/Abdomen CTA 05/11/20 14:47 IMPRESSION: 1. There is no pulmonary embolism. No acute pulmonary disease. 2. Marked cardiomegaly. There is reflux of contrast into the hepatic veins which can be seen with elevated right heart pressure/right heart failure. Clinical correlation. 3. Pulmonary artery enlargement which can be seen with pulmonary arterial hypertension. Echocardiogram may provide additional information. Head CT 05/12/20 00:00 IMPRESSION: No acute intracranial findings. Chest X-Ray 05/16/20 05:00 IMPRESSION: STABLE APPEARANCE OF THE CHEST. Assessment and Plan - Diagnosis (1) COVID-19 virus detected Is this a current diagnosis for this admission?: Yes Plan: COVID PCR testing -05/11/2020. Screening COVID testing (for SNF placement) on 05/24/2020 was positive Repeat COVID PCR (05/29/2020) positive. Afebrile, CBC reassuring, clear although diminished lung sounds, maintaining o xygen saturations on room air, although, now with diarrhea. Will place patient on vitamin C, vitamin D, zinc, melatonin supplementation. Will check a d-dimer, ferritin, CRP with a.m. lab work. Appropriate isolation precautions. Encourage pulmonary toilet. (2) Acute respiratory failure with hypoxia and hypercapnia Is this a current diagnosis for this admission?: Yes Plan: Patient required endotracheal intubation this hospitalization ABG from 05/21/2020 noted. Continue supplemental oxygen with SPO2 goal of 88 to 93%; currently maintaining SpO2 on RA Continue BiPAP 16/8 nightly and PRN titrate FiO2 to keep SPO2 88 to 93% Continue prednisone 10 mg daily x3 days. (3) Acute systolic heart failure Is this a current diagnosis for this admission?: Yes Plan: Per echo on 05/20/2020 LVEF is 40 to 45% however they were unable to assess LV diastolic function 2/2 atrial fibrillation Clinically appears euvolemic Unfortunately, weights are not accurate - appears she may be down ~5kg this week and 13 kg since admission Resume home dose furosemide Continue metoprolol tartrate 50 mg p.o. every 8 hours Start low-dose lisinopril; tolerating well. Cardiac diet, daily weights (4) Atrial fibrillation with rapid ventricular response Is this a current diagnosis for this admission?: Yes Plan: HR now controlled Continue beta-renard as noted above for rate control Continue rivaroxaban 15 mg p.o. daily (5) COPD exacerbation Is this a current diagnosis for this admission?: Yes Plan: Resolved. Continue steroid weaning. As needed nebulizer treatments. Supplemental oxygen and BiPAP as needed to maintain saturation; currently maintaining oxygen saturations on room air. Encourage pulmonary toilet. (6) Chronic kidney disease, stage III (moderate) Is this a current diagnosis for this admission?: No Plan: Creatinine WNL on last chemistry Resume home dose furosemide Continue to avoid nephrotoxins Strict I's and O's. (7) Delirium Is this a current diagnosis for this admission?: Yes Plan: Patient's mental status waxes and wanes, orientated to self and place only today Per previous providers assessment it is felt that the patient has prolonged bereavement and depressive mood disorder Continue citalopram 20 mg p.o. daily (started this hospitalization) Continue gabapentin 300 mg p.o. 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 twice daily Continue FS BS with SSI correction scale Hypoglycemia protocol in place - Time Time Spent with patient: 25-34 minutes Medications reviewed and adjusted accordingly: Yes Anticipated Discharge Disposition: [facility] Facility Anticipated Discharge Timeframe: when bed available
[2020-05-30] MEDS: RIVAROXABAN 15 MG TABLET PO SCH (17:44)
[2020-05-30 19:23] LABS: C DIFFICILE GDH POSITIVE (NEGATIVE)
[2020-05-30] MEDS: MELATONIN 3 MG TABLET PO SCH (21:38)
[2020-05-30] MEDS: MELATONIN 5 MG TABLET PO SCH (21:38)
[2020-05-30] MEDS: VANCOMYCIN HCL INJ 500 MG VIAL PO SCH (23:19)
[2020-05-31] MEDS: GABAPENTIN 300 MG CAPSULE PO SCH ×3 (05:14→21:42)
[2020-05-31] MEDS: VANCOMYCIN HCL INJ 500 MG VIAL PO SCH ×3 (05:14→17:00)
[2020-05-31 05:15] LABS: ABSOLUTE EOSINOPHILS # (AUTO) 0.1 10^3/uL (0.0-0.6); ABSOLUTE LYMPHOCYTES (AUTO) 0.6 10^3/uL (0.5-4.7); ABSOLUTE MONOCYTES (AUTO) 0.3 10^3/uL (0.1-1.4); ABSOLUTE NEUT (AUTO) 3.1 10^3/uL (1.7-8.2); BASOPHILS % (AUTO) 0.6 % (0-2); EOSINOPHILS % (AUTO) 1.3 % (0-6); HEMATOCRIT 47.2 % (36.0-47.0); HEMOGLOBIN 15.8 g/dL (12.0-15.5); LYMPHOCYTES % (AUTO) 13.6 % (13-45); MEAN CORPUSCULAR HEMOGLOBIN 31.3 pg (27.0-33.4); MEAN CORPUSCULAR HGB CONC 33.5 g/dL (32.0-36.0); MEAN CORPUSCULAR VOLUME 93 fl (80-97); MONOCYTES % (AUTO) 8.4 % (3-13); PLATELET COUNT 101 10^3/uL (150-450); RED BLOOD COUNT 5.05 10^6/uL (3.72-5.28); RED CELL DISTRIBUTION WIDTH 14.2 % (11.5-14.0); SEGMENTED NEUTROPHILS % (AUTO) 76.1 % (42-78); TOTAL CELLS COUNTED % (AUTO) 100 %; WHITE BLOOD COUNT 4.1 10^3/uL (4.0-10.5)
[2020-05-31 05:29] LABS: ANION GAP 6 (5-19); BLOOD UREA NITROGEN 30 mg/dL (7-20); C-REACTIVE PROTEIN 72.2 mg/L (<10.0); CALCIUM 9.6 mg/dL (8.4-10.2); CARBON DIOXIDE 23 mmol/L (22-30); CHLORIDE 102 mmol/L (98-107); GLUCOSE 113 mg/dL (75-110); POTASSIUM 4.7 mmol/L (3.6-5.0)
[2020-05-31] MEDS ORDERED: NORMAL SALINE 1000 ML 1,000 ML IV PRN (07:41)
[2020-05-31] MEDS: INSULIN LISPRO 100 UNIT/ML 3 ML VIAL SUBCUT SCH ×4 (08:23→22:58)
[2020-05-31] MEDS: FAMOTIDINE 20 MG TABLET PO SCH ×2 (09:02→21:41)
[2020-05-31] MEDS: INSULIN GLARGINE,HUM.REC.ANLOG 1,000 UNIT/10 ML VIAL SUBCUT SCH (09:02)
[2020-05-31] MEDS: FERROUS SULFATE 325 MG TABLET PO SCH (09:02)
[2020-05-31] MEDS: ASCORBIC ACID 500 MG TABLET PO SCH ×2 (09:02→17:00)
[2020-05-31] MEDS: CYANOCOBALAMIN (VITAMIN B-12) 1,000 MCG TABLET PO SCH (09:02)
[2020-05-31] MEDS: ZINC SULFATE 220 MG CAPSULE PO SCH (09:03)
[2020-05-31] MEDS: CHOLECALCIFEROL (D3) 1,000 UNIT (25 MCG) TABLET PO SCH (09:03)
[2020-05-31] MEDS: DOCUSATE SODIUM 100 MG CAPSULE PO SCH (10:40)
[2020-05-31] MEDS: GLIPIZIDE 5 MG TABLET PO SCH ×2 (10:40→17:00)
[2020-05-31] MEDS: FUROSEMIDE 20 MG TABLET PO SCH (10:40)
[2020-05-31] MEDS: METOPROLOL TARTRATE 50 MG TABLET PO SCH ×2 (10:40→21:42)
[2020-05-31] MEDS: LISINOPRIL 5 MG TABLET PO SCH (10:41)
[2020-05-31] MEDS: CITALOPRAM HYDROBROMIDE 20 MG TABLET PO SCH (11:03)
--- NOTE | 2020-05-31 13:26 | PDOC PROGRESS REPORT ---
Subjective Progress Note for:: 05/31/20 Subjective:: Patient was seen on morning rounds. She is found resting bed, comfortably, on room air. She is alert and oriented to self. She answers yes or no questions by nodding her head, but it is difficult to tell her orientation. She denies dyspnea, abdominal pain, nausea and vomiting. She does appear to be comfortable and is not noted to be in any acute distress at this time. Per nursing notes, patient was agitated and combative this morning; refusing medications. Awaiting SNF placement. Reason For Visit: RESPIRATORY FAILURE,AFIB WITH RVR (RESOLVED) Physical Exam Vital Signs: Temp Pulse Resp BP Pulse Ox 98.5 F 68 16 135/60 H 93 05/31/20 11:14 05/31/20 11:14 05/31/20 11:14 05/31/20 11:14 05/31/20 11:14 Intake & Output 05/30/20 05/31/20 06/01/20 06:59 06:59 06:59 Intake Total 237 Output Total 1450 2350 Balance -1450 -2113 Weight 133 kg 131.8 kg General appearance: PRESENT: no acute distress, disheveled, morbidly obese, well-developed, well-nourished Head exam: PRESENT: atraumatic, normocephalic Eye exam: PRESENT: conjunctiva pink, EOMI, PERRLA. ABSENT: scleral icterus Ear exam: PRESENT: normal external ear exam Mouth exam: PRESENT: moist, tongue midline Respiratory exam: PRESENT: clear to auscultation dwayne, decreased breath sounds - r/t body habitus, patient particpation, positioning, symmetrical, unlabored. ABSENT: rales, rhonchi, wheezes Cardiovascular exam: PRESENT: RRR. ABSENT: diastolic murmur, rubs, systolic murmur Pulses: PRESENT: normal dorsalis pedis pul Rectal exam: PRESENT: deferred Gentrourinary exam: PRESENT: indwelling catheter Extremities exam: PRESENT: full ROM, +2 edema - RLE, other - chronic venous stasis changes LLE. ABSENT: calf tenderness, clubbing, pedal edema Neurological exam: PRESENT: alert, awake, oriented to person, CN II-XII grossly intact, other - intermittently confused/agitated. ABSENT: motor sensory deficit Psychiatric exam: PRESENT: appropriate affect, normal mood. ABSENT: homicidal ideation, suicidal ideation Skin exam: PRESENT: dry, intact, warm. ABSENT: cyanosis, rash Results Laboratory Results: 05/31/20 04:19 05/31/20 04:19 05/31/20 05/31/20 04:19 04:19 WBC 4.1 RBC 5.05 Hgb 15.8 H Hct 47.2 H MCV 93 MCH 31.3 MCHC 33.5 RDW 14.2 H Plt Count 101 L Seg Neutrophils % 76.1 Sodium 131.4 L Potassium 4.7 Chloride 102 Carbon Dioxide 23 Anion Gap 6 BUN 30 H Creatinine 1.11 Est GFR ( Amer) 59 L Glucose 113 H Calcium 9.6 Ferritin 418.00 H C-Reactive Protein 72.2 H 05/11/20 05/11/20 05/11/20 10:43 12:20 21:40 Creatine Kinase 39 CK-MB (CK-2) Troponin I 0.057 0.054 NT-Pro-B Natriuret Pep 57706 H 05/11/20 05/12/20 05/12/20 21:40 03:10 03:10 Creatine Kinase 173 H CK-MB (CK-2) 1.81 3.17 Troponin I 0.042 0.041 NT-Pro-B Natriuret Pep 05/12/20 05/13/20 05/15/20 03:10 04:30 04:27 Creatine Kinase CK-MB (CK-2) Troponin I NT-Pro-B Natriuret Pep 49413 H 44993 H 8880 H 05/16/20 05/16/20 06:11 07:27 Creatine Kinase CK-MB (CK-2) Troponin I NT-Pro-B Natriuret Pep Cancelled 49977 H Impressions: Venous Doppler Study 05/11/20 14:45 IMPRESSION: 1. Limited examination demonstrating no definitive lower extremity DVT bilaterally. 2. Pulsatile waveforms at the central veins bilaterally suggesting either elevated right heart pressures or valvular heart disease. Chest/Abdomen CTA 05/11/20 14:47 IMPRESSION: 1. There is no pulmonary embolism. No acute pulmonary disease. 2. Marked cardiomegaly. There is reflux of contrast into the hepatic veins which can be seen with elevated right heart pressure/right heart failure. Clinical correlation. 3. Pulmonary artery enlargement which can be seen with pulmonary arterial hypertension. Echocardiogram may provide additional information. Head CT 05/12/20 00:00 IMPRESSION: No acute intracranial findings. Chest X-Ray 05/16/20 05:00 IMPRESSION: STABLE APPEARANCE OF THE CHEST. Assessment and Plan - Diagnosis (1) C. difficile colitis Is this a current diagnosis for this admission?: Yes Plan: Stool (+) for C. diff Rectal tube for stool management r/t patient's mobility Start p.o. Vancomycin q6 x10 days Start lactobacillus 500 mg BID (2) COVID-19 virus detected Is this a current diagnosis for this admission?: Yes Plan: COVID PCR testing negative 05/11/2020. Screening COVID testing (for SNF placement) on 05/24/2020 was positive Repeat COVID PCR (05/29/2020) positive. Afebrile, CBC reassuring, clear although diminished lung sounds, maintaining oxygen saturations on room air. D. dimer 6.73; continues on home dose Xarelto. Ferritin 418, CRP 72.2 Continue on vitamin C, vitamin D, zinc, melatonin supplementation. Appropriate isolation precautions. Encourage pulmonary toilet. (3) Acute respiratory failure with hypoxia and hypercapnia Is this a current diagnosis for this admission?: Yes Plan: Patient required endotracheal intubation this hospitalization ABG from 05/21/2020 noted. Continue supplemental oxygen with SPO2 goal of 88 to 93%; currently maintaining SpO2 on RA Continue BiPAP 16/8 nightly and PRN titrate FiO2 to keep SPO2 88 to 93% Has weaned from steroids (4) Acute systolic heart failure Is this a current diagnosis for this admission?: Yes Plan: Per echo on 05/20/2020 LVEF is 40 to 45% however they were unable to assess LV diastolic function 2/2 atrial fibrillation Clinically appears euvolemic Unfortunately, weights are not accurate - appears she may be down ~5kg this week and 13 kg since admission Resume home dose furosemide Continue metoprolol tartrate 50 mg p.o. every 8 hours Start low-dose lisinopril; tolerating well. Cardiac diet, daily weights (5) Atrial fibrillation with rapid ventricular response Is this a current diagnosis for this admission?: Yes Plan: HR now controlled Continue beta-renard as noted above for rate control Continue rivaroxaban 15 mg p.o. daily (6) COPD exacerbation Is this a current diagnosis for this admission?: Yes Plan: Resolved. Continue steroid weaning. As needed nebulizer treatments. Supplemental oxygen and BiPAP as needed to maintain saturation; currently maintaining oxygen saturations on room air. Encourage pulmonary toilet. (7) Chronic kidney disease, stage III (moderate) Is this a current diagnosis for this admission?: No Plan: Creatinine WNL on last chemistry Resume home dose furosemide Continue to avoid nephrotoxins Strict I's and O's. (8) Delirium Is this a current diagnosis for this admission?: Yes Plan: Patient's mental status waxes and wanes, orientated to self and place only today Per previous providers assessment it is felt that the patient has prolonged bereavement and depressive mood disorder Continue citalopram 20 mg p.o. daily (started this hospitalization) Continue gabapentin 300 mg p.o. every 8 hours (9) Stasis dermatitis of left lower extremity with venous ulcer due to chronic peripheral venous hypertension Is this a current diagnosis for this admission?: Yes Plan: Continue current dressing changes and monitor for signs of infection, none present (10) Type 2 diabetes mellitus Is this a current diagnosis for this admission?: Yes Plan: Glucose more significantly elevated since starting on prednisone Continue basal (glargine) insulin but increase to 15 units subcutaneous daily, titrate as needed - hopefully insulin needs will go down as steroids weaned Continue glipizide 5 mg p.o. twice daily Continue FS BS with SSI correction scale Hypoglycemia protocol in place - Time Time Spent with patient: 25-34 minutes Medications reviewed and adjusted accordingly: Yes Anticipated Discharge Disposition: Nursing Home Facility Anticipated Discharge Timeframe: when bed available
[2020-05-31] MEDS: RIVAROXABAN 15 MG TABLET PO SCH (17:00)
[2020-05-31] MEDS: LACTOBACILLUS ACIDOPHILUS 250 MG TAB PO SCH (17:01)
[2020-05-31] MEDS: ACETAMINOPHEN 325 MG TABLET PO PRN (20:06)
[2020-05-31] MEDS: MELATONIN 5 MG TABLET PO SCH (21:40)
[2020-05-31] MEDS: MELATONIN 3 MG TABLET PO SCH (21:41)
[2020-06-01] MEDS: VANCOMYCIN HCL INJ 500 MG VIAL PO SCH ×4 (01:03→17:02)
[2020-06-01] MEDS: GABAPENTIN 300 MG CAPSULE PO SCH ×3 (05:48→22:30)
[2020-06-01 07:25] LABS: HEMATOCRIT 46.4 % (36.0-47.0); HEMOGLOBIN 15.4 g/dL (12.0-15.5); MEAN CORPUSCULAR HEMOGLOBIN 30.8 pg (27.0-33.4); MEAN CORPUSCULAR HGB CONC 33.1 g/dL (32.0-36.0); MEAN CORPUSCULAR VOLUME 93 fl (80-97); RED CELL DISTRIBUTION WIDTH 14.4 % (11.5-14.0); WHITE BLOOD COUNT 3.8 10^3/uL (4.0-10.5)
[2020-06-01 07:46] LABS: BLOOD UREA NITROGEN 24 mg/dL (7-20); CALCIUM 9.5 mg/dL (8.4-10.2); CARBON DIOXIDE 29 mmol/L (22-30); GLUCOSE 114 mg/dL (75-110); POTASSIUM 4.4 mmol/L (3.6-5.0)
[2020-06-01 07:52] LABS: CHLORIDE 103 mmol/L (98-107)
[2020-06-01 07:53] LABS: ANION GAP 3 (5-19)
[2020-06-01] MEDS: INSULIN LISPRO 100 UNIT/ML 3 ML VIAL SUBCUT SCH ×4 (07:53→22:30)
[2020-06-01 08:35] LABS: PLATELET COUNT 93 10^3/uL (150-450)
[2020-06-01] MEDS: CHOLECALCIFEROL (D3) 1,000 UNIT (25 MCG) TABLET PO SCH (09:57)
[2020-06-01] MEDS: CITALOPRAM HYDROBROMIDE 20 MG TABLET PO SCH (09:57)
[2020-06-01] MEDS: LACTOBACILLUS ACIDOPHILUS 250 MG TAB PO SCH ×2 (09:57→17:01)
[2020-06-01] MEDS: ASCORBIC ACID 500 MG TABLET PO SCH ×2 (09:57→17:01)
[2020-06-01] MEDS: FERROUS SULFATE 325 MG TABLET PO SCH (09:57)
[2020-06-01] MEDS: ZINC SULFATE 220 MG CAPSULE PO SCH (09:57)
[2020-06-01] MEDS: LISINOPRIL 5 MG TABLET PO SCH (09:57)
[2020-06-01] MEDS: METOPROLOL TARTRATE 50 MG TABLET PO SCH ×2 (09:57→22:29)
[2020-06-01] MEDS: CYANOCOBALAMIN (VITAMIN B-12) 1,000 MCG TABLET PO SCH (09:57)
[2020-06-01] MEDS: INSULIN GLARGINE,HUM.REC.ANLOG 1,000 UNIT/10 ML VIAL SUBCUT SCH (09:57)
[2020-06-01] MEDS: FAMOTIDINE 20 MG TABLET PO SCH ×2 (09:57→22:29)
[2020-06-01] MEDS: GLIPIZIDE 5 MG TABLET PO SCH ×2 (09:57→17:01)
[2020-06-01] MEDS: FUROSEMIDE 20 MG TABLET PO SCH (09:57)
[2020-06-01] MEDS: DOCUSATE SODIUM 100 MG CAPSULE PO SCH (09:58)
--- NOTE | 2020-06-01 12:58 | PDOC PROGRESS REPORT ---
Subjective Progress Note for:: 06/01/20 Subjective:: Patient was seen on morning rounds. She is found resting bed, comfortably, on room air. She was sleeping but woke easily when I said her name. She is oriented to self and place. She tells me that she is feeling well today and denies all concerns. Noted that she is not yet had breakfast; patient states that she is not hungry and denies abdominal discomfort. She further denies fever, dyspnea, nausea and vomiting. She does appear to be comfortable and is not noted to be in any acute distress at this time. Per nursing, the patient is now having infrequent, semi-formed, stools. Awaiting SNF placement. Reason For Visit: RESPIRATORY FAILURE,AFIB WITH RVR (RESOLVED) Physical Exam Vital Signs: Temp Pulse Resp BP Pulse Ox 98.0 F 71 16 117/63 91 L 06/01/20 11:22 06/01/20 11:22 06/01/20 11:22 06/01/20 11:22 06/01/20 11:22 Intake & Output 05/31/20 06/01/20 06/02/20 06:59 06:59 06:59 Intake Total 237 400 Output Total 2350 1974 -2112 400 Weight 131.8 kg 131 kg General appearance: PRESENT: no acute distress, disheveled, morbidly obese, well-developed, well-nourished Head exam: PRESENT: atraumatic, normocephalic Eye exam: PRESENT: conjunctiva pink, EOMI, PERRLA. ABSENT: scleral icterus Mouth exam: PRESENT: moist, tongue midline Teeth exam: PRESENT: poor dentation Respiratory exam: PRESENT: clear to auscultation dwayne, decreased breath sounds - r/t body habitus, patient particpation, positioning, symmetrical, unlabored, other - Room air. ABSENT: rales, rhonchi, wheezes Cardiovascular exam: PRESENT: RRR. ABSENT: diastolic murmur, rubs, systolic murmur Pulses: PRESENT: normal dorsalis pedis pul Vascular exam: PRESENT: normal capillary refill GI/Abdominal exam: PRESENT: normal bowel sounds, soft. ABSENT: distended, guarding, mass, organolmegaly, rebound, tenderness Rectal exam: PRESENT: deferred Extremities exam: PRESENT: full ROM, +1 edema - RLE, other - Chronic venous stasis changes L LE. ABSENT: calf tenderness, clubbing, pedal edema Neurological exam: PRESENT: alert, awake, oriented to person, oriented to place, CN II-XII grossly intact. ABSENT: motor sensory deficit Psychiatric exam: PRESENT: flat affect, normal mood. ABSENT: homicidal ideation, suicidal ideation Skin exam: PRESENT: dry, intact, warm. ABSENT: cyanosis, rash Results Laboratory Results: 06/01/20 07:00 06/01/20 07:00 06/01/20 06/01/20 07:00 07:00 WBC 3.8 L RBC 5.00 Hgb 15.4 Hct 46.4 MCV 93 MCH 30.8 MCHC 33.1 RDW 14.4 H Plt Count 93 L Sodium 135.4 L Potassium 4.4 Chloride 103 Carbon Dioxide 29 Anion Gap 3 L BUN 24 H Creatinine 1.18 Est GFR ( Amer) 55 L Glucose 114 H Calcium 9.5 05/11/20 05/11/20 05/11/20 10:43 12:20 21:40 Creatine Kinase 39 CK-MB (CK-2) Troponin I 0.057 0.054 NT-Pro-B Natriuret Pep 33137 H 05/11/20 05/12/20 05/12/20 21:40 03:10 03:10 Creatine Kinase 173 H CK-MB (CK-2) 1.81 3.17 Troponin I 0.042 0.041 NT-Pro-B Natriuret Pep 05/12/20 05/13/20 05/15/20 03:10 04:30 04:27 Creatine Kinase CK-MB (CK-2) Troponin I NT-Pro-B Natriuret Pep 45016 H 70664 H 8880 H 05/16/20 05/16/20 06:11 07:27 Creatine Kinase CK-MB (CK-2) Troponin I NT-Pro-B Natriuret Pep Cancelled 31015 H Impressions: Venous Doppler Study 05/11/20 14:45 IMPRESSION: 1. Limited examination demonstrating no definitive lower extremity DVT bilaterally. 2. Pulsatile waveforms at the central veins bilaterally suggesting either elevated right heart pressures or valvular heart disease. Chest/Abdomen CTA 05/11/20 14:47 IMPRESSION: 1. There is no pulmonary embolism. No acute pulmonary disease. 2. Marked cardiomegaly. There is reflux of contrast into the hepatic veins which can be seen with elevated right heart pressure/right heart failure. Clinical correlation. 3. Pulmonary artery enlargement which can be seen with pulmonary arterial hypertension. Echocardiogram may provide additional information. Head CT 05/12/20 00:00 IMPRESSION: No acute intracranial findings. Chest X-Ray 05/16/20 05:00 IMPRESSION: STABLE APPEARANCE OF THE CHEST. Assessment and Plan - Diagnosis (1) C. difficile colitis Is this a current diagnosis for this admission?: Yes Plan: Improved; nursing reports patient is now having infrequent, semi-formed, stools. Stool (+) for C. diff Start p.o. Vancomycin q6 x10 days. Day #2 Start lactobacillus 500 mg BID (2) COVID-19 virus detected Is this a current diagnosis for this admission?: Yes Plan: COVID PCR testing negative 05/11/2020. Screening COVID testing (for SNF placement) on 05/24/2020 was positive Repeat COVID PCR (05/29/2020) positive. Afebrile, CBC reassuring, clear although diminished lung sounds, maintaining oxygen saturations on room air. D. dimer 6.73; continues on home dose Xarelto. Ferritin 418, CRP 72.2 Continue on vitamin C, vitamin D, zinc, melatonin supplementation. Appropriate isolation precautions. Encourage pulmonary toilet. (3) Acute respiratory failure with hypoxia and hypercapnia Is this a current diagnosis for this admission?: Yes Plan: Patient required endotracheal intubation this hospitalization ABG from 05/21/2020 noted. Continue supplemental oxygen with SPO2 goal of 88 to 93%; currently maintaining SpO2 on RA Continue BiPAP / nightly Has weaned from steroids (4) Acute systolic heart failure Is this a current diagnosis for this admission?: Yes Plan: Per echo on 05/20/2020 LVEF is 40 to 45% however they were unable to assess LV diastolic function 2/2 atrial fibrillation Clinically appears euvolemic Unfortunately, weights are not accurate - appears she may be down ~13 kg since admission Resume home dose furosemide Continue metoprolol tartrate 50 mg p.o. every 8 hours Start low-dose lisinopril; tolerating well. Cardiac diet, daily weights (5) Atrial fibrillation with rapid ventricular response Is this a current diagnosis for this admission?: Yes Plan: HR now controlled Continue beta-renard as noted above for rate control Continue rivaroxaban 15 mg p.o. daily (6) COPD exacerbation Is this a current diagnosis for this admission?: Yes Plan: Resolved. Continue steroid weaning. As needed nebulizer treatments. Supplemental oxygen and BiPAP as needed to maintain saturation; currently maintaining oxygen saturations on room air. Encourage pulmonary toilet. (7) Chronic kidney disease, stage III (moderate) Is this a current diagnosis for this admission?: No Plan: Creatinine WNL on last chemistry Resume home dose furosemide Continue to avoid nephrotoxins Strict I's and O's. (8) Delirium Is this a current diagnosis for this admission?: Yes Plan: Patient's mental status waxes and wanes, orientated to self and place only today Per previous providers assessment it is felt that the patient has prolonged bereavement and depressive mood disorder Continue citalopram 20 mg p.o. daily (started this hospitalization) Continue gabapentin 300 mg p.o. 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 twice daily Continue FS BS with SSI correction scale Hypoglycemia protocol in place - Plan Summary Summary: Patient remained stable for discharge to SNF. Awaiting placement. - Time Time Spent with patient: 25-34 minutes Medications reviewed and adjusted accordingly: Yes Anticipated Discharge Disposition: Long Term Facility Anticipated Discharge Timeframe: when bed available
[2020-06-01] MEDS: RIVAROXABAN 15 MG TABLET PO SCH (17:01)
[2020-06-01] MEDS: MELATONIN 3 MG TABLET PO SCH (22:29)
[2020-06-01] MEDS: MELATONIN 5 MG TABLET PO SCH (22:30)
[2020-06-02] MEDS: VANCOMYCIN HCL INJ 500 MG VIAL PO SCH ×4 (01:50→17:21)
[2020-06-02] MEDS: GABAPENTIN 300 MG CAPSULE PO SCH ×3 (05:32→22:37)
[2020-06-02] MEDS: INSULIN LISPRO 100 UNIT/ML 3 ML VIAL SUBCUT SCH (08:38)
[2020-06-02] MEDS: GLIPIZIDE 5 MG TABLET PO SCH ×2 (09:54→17:21)
[2020-06-02] MEDS: CHOLECALCIFEROL (D3) 1,000 UNIT (25 MCG) TABLET PO SCH (09:55)
[2020-06-02] MEDS: LACTOBACILLUS ACIDOPHILUS 250 MG TAB PO SCH ×2 (09:55→17:21)
[2020-06-02] MEDS: ZINC SULFATE 220 MG CAPSULE PO SCH (09:55)
[2020-06-02] MEDS: LISINOPRIL 5 MG TABLET PO SCH (09:55)
[2020-06-02] MEDS: FAMOTIDINE 20 MG TABLET PO SCH ×2 (09:55→22:37)
[2020-06-02] MEDS: FERROUS SULFATE 325 MG TABLET PO SCH (09:55)
[2020-06-02] MEDS: FUROSEMIDE 20 MG TABLET PO SCH (09:55)
[2020-06-02] MEDS: CITALOPRAM HYDROBROMIDE 20 MG TABLET PO SCH (09:55)
[2020-06-02] MEDS: CYANOCOBALAMIN (VITAMIN B-12) 1,000 MCG TABLET PO SCH (09:55)
[2020-06-02] MEDS: ASCORBIC ACID 500 MG TABLET PO SCH ×2 (09:55→17:21)
[2020-06-02] MEDS: METOPROLOL TARTRATE 50 MG TABLET PO SCH ×2 (09:55→22:36)
[2020-06-02] MEDS: RIVAROXABAN 15 MG TABLET PO SCH (17:21)
--- NOTE | 2020-06-02 17:59 | PDOC PROGRESS REPORT ---
Subjective Progress Note for:: 06/02/20 Subjective:: Patient was seen on afternoon rounds. She is found resting bed, comfortably, on room air. She is pulling at her clothes and undressing herself; when asked what she is doing, she states "I'm just tangled up, help me get untangled." Otherwise, she states she is "fine" when asked how she is doing and to any further questions, she responds by asking me to help her move the gown and blankets. She denies fever, dyspnea, nausea and vomiting. She does appear to be comfortable and is not noted to be in any acute distress at this time. No concerns per nursing. Awaiting SNF placement. Reason For Visit: RESPIRATORY FAILURE,AFIB WITH RVR (RESOLVED) Physical Exam Vital Signs: Temp Pulse Resp BP Pulse Ox 98.2 F 80 16 129/71 H 92 06/02/20 15:20 06/02/20 15:20 06/02/20 15:20 06/02/20 15:20 06/02/20 15:20 Intake & Output 06/01/20 06/02/20 06/03/20 06:59 06:59 06:59 Intake Total 1300 120 Output Total 1975 1000 Balance -1974 300 120 Weight 131 kg 132.5 kg General appearance: PRESENT: no acute distress, cooperative, morbidly obese, well-developed, well-nourished Head exam: PRESENT: atraumatic, normocephalic Eye exam: PRESENT: conjunctiva pink, EOMI, PERRLA. ABSENT: scleral icterus Mouth exam: PRESENT: moist, tongue midline Teeth exam: PRESENT: poor dentation Respiratory exam: PRESENT: clear to auscultation dwayne, decreased breath sounds - throughout, symmetrical, unlabored. ABSENT: rales, rhonchi, wheezes Cardiovascular exam: PRESENT: RRR, +S1, +S2. ABSENT: diastolic murmur, rubs, systolic murmur Pulses: PRESENT: normal dorsalis pedis pul Vascular exam: PRESENT: normal capillary refill Gentrourinary exam: PRESENT: indwelling catheter Extremities exam: PRESENT: full ROM, other - Chronic venous stasis changes LLE. ABSENT: calf tenderness, clubbing, pedal edema, +1 edema Neurological exam: PRESENT: alert, awake, oriented to person, oriented to place, CN II-XII grossly intact. ABSENT: motor sensory deficit Psychiatric exam: PRESENT: appropriate affect, normal mood. ABSENT: homicidal ideation, suicidal ideation Skin exam: PRESENT: dry, intact, warm. ABSENT: cyanosis, rash Results Laboratory Results: 06/01/20 07:00 06/01/20 07:00 05/11/20 05/11/20 05/11/20 10:43 12:20 21:40 Creatine Kinase 39 CK-MB (CK-2) Troponin I 0.057 0.054 NT-Pro-B Natriuret Pep 14783 H 05/11/20 05/12/20 05/12/20 21:40 03:10 03:10 Creatine Kinase 173 H CK-MB (CK-2) 1.81 3.17 Troponin I 0.042 0.041 NT-Pro-B Natriuret Pep 05/12/20 05/13/20 05/15/20 03:10 04:30 04:27 Creatine Kinase CK-MB (CK-2) Troponin I NT-Pro-B Natriuret Pep 92278 H 20232 H 8880 H 05/16/20 05/16/20 06:11 07:27 Creatine Kinase CK-MB (CK-2) Troponin I NT-Pro-B Natriuret Pep Cancelled 51234 H Impressions: Venous Doppler Study 05/11/20 14:45 IMPRESSION: 1. Limited examination demonstrating no definitive lower extremity DVT bilaterally. 2. Pulsatile waveforms at the central veins bilaterally suggesting either elevated right heart pressures or valvular heart disease. Chest/Abdomen CTA 05/11/20 14:47 IMPRESSION: 1. There is no pulmonary embolism. No acute pulmonary disease. 2. Marked cardiomegaly. There is reflux of contrast into the hepatic veins which can be seen with elevated right heart pressure/right heart failure. Clinical correlation. 3. Pulmonary artery enlargement which can be seen with pulmonary arterial hypertension. Echocardiogram may provide additional information. Head CT 05/12/20 00:00 IMPRESSION: No acute intracranial findings. Chest X-Ray 05/16/20 05:00 IMPRESSION: STABLE APPEARANCE OF THE CHEST. Assessment and Plan - Diagnosis (1) C. difficile colitis Is this a current diagnosis for this admission?: Yes Plan: Improved; nursing reports patient is now having infrequent, semi-formed, stools. Stool (+) for C. diff Continue p.o. Vancomycin q6 x10 days. Day #3 Continue lactobacillus 500 mg BID (2) COVID-19 virus detected Is this a current diagnosis for this admission?: Yes Plan: COVID PCR testing negative 05/11/2020. Screening COVID testing (for SNF placement) on 05/24/2020 was positive Repeat COVID PCR (05/29/2020) positive. Afebrile, CBC reassuring, clear although diminished lung sounds, maintaining oxygen saturations on room air. D. dimer 6.73; continues on home dose Xarelto. Ferritin 418, CRP 72.2 Continue on vitamin C, vitamin D, zinc, melatonin supplementation. Appropriate isolation precautions. Encourage pulmonary toilet. (3) Acute respiratory failure with hypoxia and hypercapnia Is this a current diagnosis for this admission?: Yes Plan: Resolved. Patient required endotracheal intubation this hospitalization ABG from 05/21/2020 noted. Continue supplemental oxygen with SPO2 goal of 88 to 93%; currently maintaining SpO2 on RA Continue BiPAP 16/8 nightly Has weaned from steroids (4) Acute systolic heart failure Is this a current diagnosis for this admission?: Yes Plan: Per echo on 05/20/2020 LVEF is 40 to 45% however they were unable to assess LV diastolic function 2/2 atrial fibrillation Clinically appears euvolemic Unfortunately, weights are not accurate - appears she may be down ~13 kg since admission Resume home dose furosemide Continue metoprolol tartrate 50 mg p.o. every 8 hours Start low-dose lisinopril; tolerating well. Cardiac diet, daily weights (5) Atrial fibrillation with rapid ventricular response Is this a current diagnosis for this admission?: Yes Plan: HR now controlled Continue beta-renard as noted above for rate control Continue rivaroxaban 15 mg p.o. daily (6) COPD exacerbation Is this a current diagnosis for this admission?: Yes Plan: Resolved. As needed nebulizer treatments. Supplemental oxygen and BiPAP as needed to maintain saturation; currently maintaining oxygen saturations on room air. Encourage pulmonary toilet. (7) Chronic kidney disease, stage III (moderate) Is this a current diagnosis for this admission?: No Plan: Creatinine WNL on last chemistry Continue home dose furosemide Continue to avoid nephrotoxins Strict I's and O's. (8) Delirium Is this a current diagnosis for this admission?: Yes Plan: Patient's mental status waxes and wanes, orientated to self and place only for the last several days Per previous providers assessment it is felt that the patient has prolonged bereavement and depressive mood disorder Continue citalopram 20 mg p.o. daily (started this hospitalization) Continue gabapentin 300 mg p.o. 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 twice daily Hypoglycemia protocol in place - Plan Summary Summary: Patient remained stable for discharge to SNF. Awaiting placement. - Time Time Spent with patient: 15-24 minutes Medications reviewed and adjusted accordingly: Yes Anticipated Discharge Disposition: [facility] Facility Anticipated Discharge Timeframe: when bed available
[2020-06-02] MEDS: MELATONIN 3 MG TABLET PO SCH (22:37)
[2020-06-02] MEDS: ACETAMINOPHEN 325 MG TABLET PO PRN (22:37)
[2020-06-02] MEDS: MELATONIN 5 MG TABLET PO SCH (22:37)
[2020-06-03] MEDS: VANCOMYCIN HCL INJ 500 MG VIAL PO SCH ×5 (02:10→23:55)
[2020-06-03] MEDS: GABAPENTIN 300 MG CAPSULE PO SCH ×3 (05:54→21:53)
[2020-06-03] MEDS: CITALOPRAM HYDROBROMIDE 20 MG TABLET PO SCH (10:16)
[2020-06-03] MEDS: LACTOBACILLUS ACIDOPHILUS 250 MG TAB PO SCH ×2 (10:16→17:12)
[2020-06-03] MEDS: CYANOCOBALAMIN (VITAMIN B-12) 1,000 MCG TABLET PO SCH (10:17)
[2020-06-03] MEDS: LISINOPRIL 5 MG TABLET PO SCH (10:17)
[2020-06-03] MEDS: METOPROLOL TARTRATE 50 MG TABLET PO SCH ×2 (10:17→21:53)
[2020-06-03] MEDS: FERROUS SULFATE 325 MG TABLET PO SCH (10:17)
[2020-06-03] MEDS: ZINC SULFATE 220 MG CAPSULE PO SCH (10:17)
[2020-06-03] MEDS: CHOLECALCIFEROL (D3) 1,000 UNIT (25 MCG) TABLET PO SCH (10:17)
[2020-06-03] MEDS: GLIPIZIDE 5 MG TABLET PO SCH ×2 (10:17→17:12)
[2020-06-03] MEDS: FAMOTIDINE 20 MG TABLET PO SCH ×2 (10:17→21:53)
[2020-06-03] MEDS: ASCORBIC ACID 500 MG TABLET PO SCH ×2 (10:17→17:12)
[2020-06-03] MEDS: FUROSEMIDE 20 MG TABLET PO SCH (10:17)
[2020-06-03] MEDS: RIVAROXABAN 15 MG TABLET PO SCH (17:12)
--- NOTE | 2020-06-03 19:34 | PDOC PROGRESS REPORT ---
Subjective Progress Note for:: 06/03/20 Subjective:: Patient was seen on afternoon rounds. She is found resting bed, comfortably, on room air. She is alert and oriented to self and place today. She states that she is feeling well. She appears to be comfortable and is not noted to be in any acute distress at this time. She reports occasional abdominal discomfort and diarrhea; Per nursing nursing notes, she did have 1 bowel movement today. She denies fever, dyspnea, nausea and vomiting. She does appear to be comfortable and is not noted to be in any acute distress at this time. No concerns per nursing. Awaiting SNF placement. Reason For Visit: RESPIRATORY FAILURE,AFIB WITH RVR (RESOLVED) Physical Exam Vital Signs: Temp Pulse Resp BP Pulse Ox 98.2 F 76 16 113/85 93 06/03/20 17:19 06/03/20 17:19 06/03/20 17:19 06/03/20 17:19 06/03/20 17:19 Intake & Output 06/02/20 06/03/20 06/04/20 06:59 06:59 06:59 Intake Total 1300 120 237 Output Total 1000 825 500 Balance 300 -705 -263 Weight 132.5 kg 130.9 kg General appearance: PRESENT: no acute distress, morbidly obese, well-developed, well-nourished Head exam: PRESENT: atraumatic, normocephalic Eye exam: PRESENT: conjunctiva pink, EOMI, PERRLA. ABSENT: scleral icterus Mouth exam: PRESENT: moist, tongue midline Respiratory exam: PRESENT: clear to auscultation dwayne, decreased breath sounds - Throughout; secondary to body habitus, positioning, patient effort, symmetrical, unlabored, other - Room air. ABSENT: rales, rhonchi, wheezes Cardiovascular exam: PRESENT: RRR. ABSENT: diastolic murmur, rubs, systolic murmur Pulses: PRESENT: normal dorsalis pedis pul Vascular exam: PRESENT: normal capillary refill GI/Abdominal exam: PRESENT: normal bowel sounds, soft. ABSENT: distended, guarding, mass, organolmegaly, rebound, tenderness Rectal exam: PRESENT: deferred Extremities exam: PRESENT: full ROM, other - Chronic venous stasis changes left lower extremity. ABSENT: calf tenderness, clubbing, pedal edema, +1 edema Neurological exam: PRESENT: alert, awake, oriented to person, oriented to place, CN II-XII grossly intact. ABSENT: motor sensory deficit Psychiatric exam: PRESENT: appropriate affect, normal mood. ABSENT: homicidal ideation, suicidal ideation Skin exam: PRESENT: dry, intact, warm. ABSENT: cyanosis, rash Results Laboratory Results: 06/01/20 07:00 06/01/20 07:00 05/11/20 05/11/20 05/11/20 10:43 12:20 21:40 Creatine Kinase 39 CK-MB (CK-2) Troponin I 0.057 0.054 NT-Pro-B Natriuret Pep [id number] H 05/11/20 05/12/20 05/12/20 21:40 03:10 03:10 Creatine Kinase 173 H CK-MB (CK-2) 1.81 3.17 Troponin I 0.042 0.041 NT-Pro-B Natriuret Pep 05/12/20 05/13/20 05/15/20 03:10 04:30 04:27 Creatine Kinase CK-MB (CK-2) Troponin I NT-Pro-B Natriuret Pep 07927 H 17722 H 8880 H 05/16/20 05/16/20 06:11 07:27 Creatine Kinase CK-MB (CK-2) Troponin I NT-Pro-B Natriuret Pep Cancelled [id number] H Impressions: Venous Doppler Study 05/11/20 14:45 IMPRESSION: 1. Limited examination demonstrating no definitive lower extremity DVT bilaterally. 2. Pulsatile waveforms at the central veins bilaterally suggesting either elevated right heart pressures or valvular heart disease. Chest/Abdomen CTA 05/11/20 14:47 IMPRESSION: 1. There is no pulmonary embolism. No acute pulmonary disease. 2. Marked cardiomegaly. There is reflux of contrast into the hepatic veins which can be seen with elevated right heart pressure/right heart failure. Clinical correlation. 3. Pulmonary artery enlargement which can be seen with pulmonary arterial hypertension. Echocardiogram may provide additional information. Head CT 05/12/20 00:00 IMPRESSION: No acute intracranial findings. Chest X-Ray 05/16/20 05:00 IMPRESSION: STABLE APPEARANCE OF THE CHEST. Assessment and Plan - Diagnosis (1) C. difficile colitis Is this a current diagnosis for this admission?: Yes Plan: Improved; only 1 stool documented today Stool (+) for C. diff Continue p.o. Vancomycin q6 x10 days. Day #4 Continue lactobacillus 500 mg BID (2) COVID-19 virus detected Is this a current diagnosis for this admission?: Yes Plan: COVID PCR testing negative 05/11/2020. Screening COVID testing (for SNF placement) on 05/24/2020 was positive Repeat COVID PCR (05/29/2020) positive. Afebrile, CBC reassuring, clear although diminished lung sounds, maintaining oxygen saturations on room air. D. dimer 6.73; continues on home dose Xarelto. Ferritin 418, CRP 72.2 Continue on vitamin C, vitamin D, zinc, melatonin supplementation. Appropriate isolation precautions. Encourage pulmonary toilet. (3) Acute respiratory failure with hypoxia and hypercapnia Is this a current diagnosis for this admission?: Yes Plan: Resolved. Patient required endotracheal intubation this hospitalization ABG from 05/21/2020 noted. Continue supplemental oxygen with SPO2 goal of 88 to 93%; currently maintaining SpO2 on RA Continue BiPAP 16/8 nightly Has weaned from steroids (4) Acute systolic heart failure Is this a current diagnosis for this admission?: Yes Plan: Per echo on 05/20/2020 LVEF is 40 to 45% however they were unable to assess LV diastolic function 2/2 atrial fibrillation Clinically appears euvolemic Unfortunately, weights are not accurate - appears she may be down ~15 kg since admission Resume home dose furosemide Continue metoprolol tartrate 50 mg p.o. every 8 hours Start low-dose lisinopril; tolerating well. Cardiac diet, daily weights (5) Atrial fibrillation with rapid ventricular response Is this a current diagnosis for this admission?: Yes Plan: HR now controlled Continue beta-renard as noted above for rate control Continue rivaroxaban 15 mg p.o. daily (6) COPD exacerbation Is this a current diagnosis for this admission?: Yes Plan: Resolved. As needed nebulizer treatments. Supplemental oxygen and BiPAP as needed to maintain saturation; currently maintaining oxygen saturations on room air. Encourage pulmonary toilet. (7) Chronic kidney disease, stage III (moderate) Is this a current diagnosis for this admission?: No Plan: Creatinine WNL on last chemistry Continue home dose furosemide Continue to avoid nephrotoxins Strict I's and O's. (8) Delirium Is this a current diagnosis for this admission?: Yes Plan: Patient's mental status waxes and wanes, orientated to self and place only for the last several days Per previous providers assessment it is felt that the patient has prolonged bereavement and depressive mood disorder Continue citalopram 20 mg p.o. daily (started this hospitalization) Continue gabapentin 300 mg p.o. 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 twice daily Hypoglycemia protocol in place - Plan Summary Summary: Patient remained stable for discharge to SNF. Awaiting placement. - Time Time Spent with patient: 15-24 minutes Anticipated Discharge Disposition: [facility] Anticipated Discharge Timeframe: when bed available
[2020-06-03] MEDS: MELATONIN 3 MG TABLET PO SCH (21:52)
[2020-06-04] MEDS: GABAPENTIN 300 MG CAPSULE PO SCH ×3 (05:36→22:08)
[2020-06-04] MEDS: VANCOMYCIN HCL INJ 500 MG VIAL PO SCH ×3 (05:36→18:08)
[2020-06-04] MEDS: FERROUS SULFATE 325 MG TABLET PO SCH (10:42)
[2020-06-04] MEDS: ASCORBIC ACID 500 MG TABLET PO SCH ×2 (10:42→18:09)
[2020-06-04] MEDS: GLIPIZIDE 5 MG TABLET PO SCH ×2 (10:42→18:08)
[2020-06-04] MEDS: LACTOBACILLUS ACIDOPHILUS 250 MG TAB PO SCH ×3 (10:42→18:08)
[2020-06-04] MEDS: CITALOPRAM HYDROBROMIDE 20 MG TABLET PO SCH (10:42)
[2020-06-04] MEDS: CYANOCOBALAMIN (VITAMIN B-12) 1,000 MCG TABLET PO SCH (10:42)
[2020-06-04] MEDS: METOPROLOL TARTRATE 50 MG TABLET PO SCH ×2 (10:42→22:08)
[2020-06-04] MEDS: ZINC SULFATE 220 MG CAPSULE PO SCH (10:42)
[2020-06-04] MEDS: CHOLECALCIFEROL (D3) 1,000 UNIT (25 MCG) TABLET PO SCH (10:42)
[2020-06-04] MEDS: FAMOTIDINE 20 MG TABLET PO SCH ×2 (10:43→22:08)
[2020-06-04] MEDS: LISINOPRIL 5 MG TABLET PO SCH (10:43)
[2020-06-04] MEDS: FUROSEMIDE 20 MG TABLET PO SCH (10:43)
[2020-06-04] MEDS: ACETAMINOPHEN 325 MG TABLET PO PRN (12:13)
[2020-06-04] MEDS: INSULIN LISPRO 100 UNIT/ML 3 ML VIAL SUBCUT SCH ×3 (12:14→23:30)
[2020-06-04] MEDS: RIVAROXABAN 15 MG TABLET PO SCH (18:09)
--- NOTE | 2020-06-04 18:25 | PDOC PROGRESS REPORT ---
Subjective Progress Note for:: 06/04/20 Subjective:: Trinity Jacobs is a 69-year-old female past medical history of systolic heart failure EF of 40 to 45% %, recurrent admissions for heart failure exacerbation, atrial fibrillation CKD stage III, type 2 diabetes, COPD, admitted on May 11 due to dyspnea. She was transferred to the ICU on May 12, 2020 due to respiratory failure, COVID negative. She was intubated on May 12, treated with diuresis and looks was successfully extubated on May 14. On May 20 on BiPAP. She continued to diurese well. Patient had episodes of diarrhea, C. diff was positive hence she was started on vancomycin D24 of admission 06/04/20: Seen and examined at bedside. Complains of pain all over, denies SOB, palpitations, chest pain, no diarrhea, no nausea/vomiting. Still awaiting SNF placement Reason For Visit: RESPIRATORY FAILURE,AFIB WITH RVR (RESOLVED) Physical Exam Vital Signs: Temp Pulse Resp BP Pulse Ox 98.5 F 76 21 H 126/61 H 93 06/04/20 16:45 06/04/20 16:45 06/04/20 16:45 06/04/20 16:45 06/04/20 16:45 Intake & Output 06/03/20 06/04/20 06/05/20 06:59 06:59 06:59 Intake Total 120 592 Output Total 825 2000 Balance -705 -1408 Weight 130.9 kg 126 kg General appearance: PRESENT: cooperative, mild distress, morbidly obese Head exam: PRESENT: atraumatic, normocephalic Eye exam: PRESENT: EOMI, PERRLA Ear exam: PRESENT: normal external ear exam Mouth exam: PRESENT: moist Neck exam: PRESENT: full ROM. ABSENT: JVD Respiratory exam: PRESENT: rales - Minimal, symmetrical. ABSENT: stridor, tachypnea, wheezes Cardiovascular exam: PRESENT: irregular rhythm, +S1, +S2. ABSENT: tachycardia Pulses: PRESENT: +2 pedal pulses bilateral Vascular exam: ABSENT: pallor GI/Abdominal exam: PRESENT: normal bowel sounds, soft. ABSENT: tenderness Extremities exam: PRESENT: +1 edema Musculoskeletal exam: PRESENT: full ROM Neurological exam: PRESENT: alert, awake, oriented to person, oriented to place, oriented to time Psychiatric exam: PRESENT: normal mood Skin exam: PRESENT: other - Venous stasis dermatitis. ABSENT: cyanosis Results Laboratory Results: 06/01/20 07:00 06/01/20 07:00 05/11/20 05/11/20 05/11/20 10:43 12:20 21:40 Creatine Kinase 39 CK-MB (CK-2) Troponin I 0.057 0.054 NT-Pro-B Natriuret Pep [id number] H 05/11/20 05/12/20 05/12/20 21:40 03:10 03:10 Creatine Kinase 173 H CK-MB (CK-2) 1.81 3.17 Troponin I 0.042 0.041 NT-Pro-B Natriuret Pep 05/12/20 05/13/20 05/15/20 03:10 04:30 04:27 Creatine Kinase CK-MB (CK-2) Troponin I NT-Pro-B Natriuret Pep 56347 H 30315 H 8880 H 05/16/20 05/16/20 06:11 07:27 Creatine Kinase CK-MB (CK-2) Troponin I NT-Pro-B Natriuret Pep Cancelled [id number] H Impressions: Venous Doppler Study 05/11/20 14:45 IMPRESSION: 1. Limited examination demonstrating no definitive lower extremity DVT bilaterally. 2. Pulsatile waveforms at the central veins bilaterally suggesting either elevated right heart pressures or valvular heart disease. Chest/Abdomen CTA 05/11/20 14:47 IMPRESSION: 1. There is no pulmonary embolism. No acute pulmonary disease. 2. Marked cardiomegaly. There is reflux of contrast into the hepatic veins which can be seen with elevated right heart pressure/right heart failure. Clinical correlation. 3. Pulmonary artery enlargement which can be seen with pulmonary arterial hypertension. Echocardiogram may provide additional information. Head CT 05/12/20 00:00 IMPRESSION: No acute intracranial findings. Chest X-Ray 05/16/20 05:00 IMPRESSION: STABLE APPEARANCE OF THE CHEST. Assessment and Plan - Diagnosis (1) C. difficile colitis Is this a current diagnosis for this admission?: Yes Plan: -No diarrhea currently -Continue vancomycin for 10 days currently day 5 (2) COVID-19 virus detected Is this a current diagnosis for this admission?: Yes Plan: COVID PCR testing negative 05/11/2020. Screening COVID testing (for SNF placement) on 05/24/2020 was positive Repeat COVID PCR (05/29/2020) positive. Afebrile, CBC reassuring, clear although diminished lung sounds, maintaining oxygen saturations on room air. D. dimer 6.73; continues on home dose Xarelto. Ferritin 418, CRP 72.2 Continue on vitamin C, vitamin D, zinc, melatonin supplementation. Appropriate isolation precautions. Encourage pulmonary toilet. (3) Acute respiratory failure with hypoxia and hypercapnia Is this a current diagnosis for this admission?: Yes Plan: - RESOLVED - inbtubated 05/12-05/14 - 2/2 CHF - currently on PRN bipap saturating 98% - continue O2 support (4) Acute systolic heart failure Is this a current diagnosis for this admission?: Yes Plan: -echo on 05/20/2020 LVEF is 40 to 45% however they were unable to assess LV diastolic function 2/ atrial fibrillation - Clinically appears euvolemic - continue lasix - Continue metoprolol tartrate 50 mg p.o. every 8 hours - low-dose lisinopril; tolerating well. - daily weights - strict IO (5) Atrial fibrillation with rapid ventricular response Is this a current diagnosis for this admission?: Yes Plan: -Clear rate controlled on beta-renard -Continue Xarelto - Plan Summary Summary: Patient remained stable for discharge to SNF. Awaiting placement. - Time Time Spent with patient: 15-24 minutes Medications reviewed and adjusted accordingly: Yes Anticipated Discharge Disposition: [facility] Anticipated Discharge Timeframe: to be determined
[2020-06-04] MEDS: MELATONIN 3 MG TABLET PO SCH (22:08)
[2020-06-05] MEDS: ACETAMINOPHEN 325 MG TABLET PO PRN (05:47)
[2020-06-05] MEDS: VANCOMYCIN HCL INJ 500 MG VIAL PO SCH ×3 (05:47→11:26)
[2020-06-05] MEDS: GABAPENTIN 300 MG CAPSULE PO SCH (05:48)
[2020-06-05] MEDS ORDERED: METOPROLOL TARTRATE PF/INJ 5 MG/5 ML SDV IV PRN (07:32)
[2020-06-05] MEDS: INSULIN LISPRO 100 UNIT/ML 3 ML VIAL SUBCUT SCH (08:12)
[2020-06-05 09:02] VITALS: BP 128/66
[2020-06-05] MEDS ORDERED: METOPROLOL TARTRATE 50 MG TABLET PO SCH (10:00)
[2020-06-05] MEDS: GLIPIZIDE 5 MG TABLET PO SCH (11:17)
[2020-06-05] MEDS: CHOLECALCIFEROL (D3) 1,000 UNIT (25 MCG) TABLET PO SCH (11:17)
[2020-06-05] MEDS: ZINC SULFATE 220 MG CAPSULE PO SCH (11:18)
[2020-06-05] MEDS: LACTOBACILLUS ACIDOPHILUS 250 MG TAB PO SCH (11:18)
[2020-06-05] MEDS: CITALOPRAM HYDROBROMIDE 20 MG TABLET PO SCH (11:18)
[2020-06-05] MEDS: LISINOPRIL 5 MG TABLET PO SCH (11:18)
[2020-06-05] MEDS: CYANOCOBALAMIN (VITAMIN B-12) 1,000 MCG TABLET PO SCH (11:19)
[2020-06-05] MEDS: FAMOTIDINE 20 MG TABLET PO SCH (11:19)
[2020-06-05] MEDS: FUROSEMIDE 20 MG TABLET PO SCH (11:19)
[2020-06-05] MEDS: ASCORBIC ACID 500 MG TABLET PO SCH (11:19)
[2020-06-05] MEDS: FERROUS SULFATE 325 MG TABLET PO SCH (11:19)
--- NOTE | 2020-06-05 13:44 | PDOC TRANSFER SUMMARY ---
General Admission Date/PCP: 05/11/20 20:29 Admission Date: 05/11/20 Transfer Date: 06/05/20 Accepting Facility: Other (Comments) Resuscitation Status: Do Not Resuscitate - Transfer Diagnosis (1) C. difficile colitis Is this a current diagnosis for this admission?: Yes Diagnosis Summary: - on day 4 of 10 of oral vancomycin - C.diff toxin and GDH positive (2) COVID-19 virus detected Is this a current diagnosis for this admission?: Yes Diagnosis Summary: -positive on May 29, 2020, done for placement - patient was not treated with remdesivir and dexa because of clinical improvement - intubated on May 12 (3) Acute respiratory failure with hypoxia and hypercapnia Is this a current diagnosis for this admission?: Yes Diagnosis Summary: - intubated May 12 for CHF (4) Acute systolic heart failure Is this a current diagnosis for this admission?: Yes Diagnosis Summary: - resumedd lasix home dose (5) Atrial fibrillation with rapid ventricular response Is this a current diagnosis for this admission?: Yes Diagnosis Summary: - on xarelto 15 mg daily - metoprolol for rate control - Transfer Medications Home Medications: Furosemide [Lasix 20 mg Tablet] 20 mg PO DAILY 03/28/19 Glipizide [Glucotrol 5 mg Tablet] 5 mg PO BID 03/28/19 Ferrous Sulfate [Feosol 325 mg Tablet] 325 mg PO DAILY 10/12/19 Gabapentin [Neurontin 300 mg Capsule] 300 mg PO Q8 10/12/19 Bisacodyl [Dulcolax 5 mg Tablet] 5 mg PO DAILYP PRN 05/12/20 Diphenhydramine HCl [Benadryl 25 mg Capsule] 25 mg PO DAILYP PRN 05/12/20 Docusate Sodium [Dok] 250 mg PO DAILY 05/12/20 Transfer Medications: Current Medications Acetaminophen (Tylenol 325 Mg Tablet) 650 mg PO Q4HP PRN PRN Reason: For headache, pain or fever Stop: 06/10/20 20:29 Last Admin: 06/05/20 05:47 Dose: 650 mg Documented by: Albuterol (Ventolin 0.083% Neb 2.5 Mg/3 Ml Ampul) 2.5 mg NEB RTQ2HP PRN PRN Reason: SHORTNESS OF BREATH Stop: 06/11/20 12:05 Last Admin: 05/12/20 12:59 Dose: 2.5 mg Documented by: Ascorbic Acid (Vitamin C 500 Mg Tablet) 500 mg PO BID DAVID Stop: 06/26/20 19:29 Last Admin: 06/05/20 11:19 Dose: 500 mg Documented by: Bisacodyl (Dulcolax 5 Mg Tablet) 5 mg PO DAILYP PRN PRN Reason: UNRESOLVED CONSTIPATION Stop: 06/15/20 18:38 Cholecalciferol (Vitamin D3 1000 Unit Tablet) 3,000 unit PO DAILY DAVID Stop: 06/27/20 09:59 Last Admin: 06/05/20 11:17 Dose: 3,000 unit Documented by: Citalopram Hydrobromide (Celexa 20 Mg Tablet) 20 mg PO DAILY DAVID Stop: 06/19/20 09:59 Last Admin: 06/05/20 11:18 Dose: 20 mg Documented by: Cyanocobalamin (Vitamin B-12 1000 Mcg Tablet) 1,000 mcg PO DAILY DAVID Stop: 06/19/20 09:59 Last Admin: 06/05/20 11:19 Dose: 1,000 mcg Documented by: Dextrose (Dextrose Inj 50% Syringe (25 Gm/50 Ml)) 12.5 gm IV PRN PRN; Protocol PRN Reason: FOR BG 50-69 IN ALERT PATIENT Stop: 06/11/20 03:01 Dextrose (Dextrose Inj 50% Syringe (25 Gm/50 Ml)) 25 gm IV PRN PRN; Protocol PRN Reason: See Label Comments Stop: 06/11/20 03:01 Famotidine (Pepcid 20 Mg Tablet) 20 mg PO Q12 DAVID Stop: 06/26/20 21:59 Last Admin: 06/05/20 11:19 Dose: 20 mg Documented by: Ferrous Sulfate (Feosol 325 Mg Tablet) 325 mg PO DAILY DAVID Stop: 06/19/20 09:59 Last Admin: 06/05/20 11:19 Dose: 325 mg Documented by: Furosemide (Lasix 20 Mg Tablet) 20 mg PO DAILY DAVID Stop: 06/23/20 09:59 Last Admin: 06/05/20 11:19 Dose: 20 mg Documented by: Gabapentin (Neurontin 300 Mg Capsule) 300 mg PO Q8 DAVID Stop: 06/14/20 21:59 Last Admin: 06/05/20 05:48 Dose: 300 mg Documented by: Glipizide (Glucotrol 5 Mg Tablet) 5 mg PO BID [facility] Stop: 06/18/20 17:59 Last Admin: 06/05/20 11:17 Dose: 5 mg Documented by: Glucagon (Glucagen Inj 1 Mg Vial) 1 mg SUBCUT PRN PRN; Protocol PRN Reason: Evaluate for BG < 70 Stop: 06/11/20 03:01 Glucose (Glutose 40% Gel 15 Gm Tube) 15 gm PO PRN PRN; Protocol PRN Reason: For BG 50-69 in Alert Patient Stop: 06/11/20 03:01 Glucose (Glutose 40% Gel 15 Gm Tube) 30 gm PO PRN PRN; Protocol PRN Reason: FOR BG < 50 IN ALERT PATIENT Stop: 06/11/20 03:01 Insulin Human Lispro (Humalog Insulin 100 Unit/1 Ml 3 Ml Vial) 0 - 12 unit SUB CUT ACHS [facility]; Protocol Stop: 07/04/20 10:59 Last Admin: 06/05/20 08:12 Dose: Not Given Documented by: Lactobacillus Acidophilus (Bacid 250 Mg Tablet) 500 mg PO BID [facility] Stop: 06/30/20 17:59 Last Admin: 06/05/20 11:18 Dose: 500 mg Documented by: Lisinopril (Prinivil 5 Mg Tablet) 5 mg PO DAILY [facility] Stop: 06/28/20 09:59 Last Admin: 06/05/20 11:18 Dose: 5 mg Documented by: Melatonin (Melatonin 3 Mg Tablet) 6 mg PO QHS [facility] Stop: 06/29/20 21:59 Last Admin: 06/04/20 22:08 Dose: 6 mg Documented by: Metoprolol Tartrate (Lopressor Inj/Pf 5 Mg/5 Ml Sdv) 5 mg IV Q4HP PRN PRN Reason: Give For Sbp > 160 / Dbp > 100 Stop: 06/10/20 20:29 Metoprolol Tartrate (Lopressor 50 Mg Tablet) 50 mg PO Q12 [facility] Stop: 06/27/20 09:59 Last Admin: 06/05/20 11:18 Dose: 50 mg Documented by: Rivaroxaban (Xarelto 15 Mg Tablet) 15 mg PO WSUPPER [facility] Stop: 06/11/20 16:59 Last Admin: 06/04/20 18:09 Dose: 15 mg Documented by: Simethicone (Mylicon 80 Mg Chewable Tablet) 120 mg PO QIDP PRN PRN Reason: FOR GAS (FLATULENCE) Stop: 06/23/20 16:56 Sodium Chloride (Saline Flush 2.5 Ml Monoject Prefil Syrin) 2.5 ml IV Q8 [facility] Stop: 06/11/20 05:59 Last Admin: 06/05/20 05:47 Dose: 2.5 ml Documented by: Vancomycin HCl (Vancocin Inj 500 Mg Vial) 125 mg PO Q6 [facility] Stop: 06/07/20 00:00 Last Admin: 06/05/20 11:26 Dose: 125 mg Documented by: Zinc Sulfate (Zinc-220 Capsule) 220 mg PO DAILY [facility] Stop: 06/26/20 19:59 Last Admin: 06/05/20 11:18 Dose: 220 mg Documented by: - Allergies Allergies/Adverse Reactions: adhesive Allergy (Verified 10/11/19 16:42) bacitracin [From Neosporin ([id number])] Allergy (Verified 10/11/19 16:42) latex Allergy (Verified 10/11/19 16:42) neomycin [From Neosporin ([id number])] Allergy (Verified 10/11/19 16:42) polymyxin B [From Neosporin ([id number])] Allergy (Verified 10/11/19 16:42) sulfur dioxide Allergy (Verified 10/11/19 16:42) - Diet/Activity Discharge Diet: Cardiac, Diabetic Discharge Activity: Activity As Tolerated Hospital Course Hospital Course: 69-year-old female was admitted on 05/12/2020 with complaints of chest pain. She was known to be in atrial fibrillation with rapid ventricular response. Incidentally, she also reported anosmia and dysgeusia. Rapid COVID testing was negative. In the emergency department, the patient initially was treated with metoprolol for rate control. This did slow down her ventricular rate; however, she apparently responded with significant elevation in her blood pressure. She was subsequently given nitroglycerin and morphine, which resulted in a precipitous drop in blood pressure, associated with decreased mentation and CO2 retention. She was intubated for acute hypercapnic respiratory failure. However, she was also noted to have a significant Aa gradient. She was admitted to the ICU. 05/13: Has responded favorably to diuretic therapy. She has been on PSVT 07/08, FiO2 40%. Hemodynamically stable. AB.47, PCO2 41, PO2 132. 05/14: Successfully extubated yesterday. Spent the night on BiPAP 16/8, FiO2 60%. Currently, she is on face tent. [place], moans and groans. She does provide verbal responses. Unknown baseline mental status. He does have periods of lucidity and is conversant, especially with the nurse. It is come to our attention through the patient's son that the patient is a 2 pack/day smoker. 05/15: The patient's son is at the bedside today. Updated. He adds that he is u nder the impression that his mother is a DNR; however, he is not the power of commercial litigation attorney. He states that his and (patient's sister) maintains power of commercial litigation attorney and healthcare power of commercial litigation attorney responsibilities. Yesterday evening, the patient had a severe episode of delirium, characterized by screaming and howling and combative behavior. Was ultimately controlled with 0.5 mg Ativan. The patient's son also adds that at home, she predominately sleeps all day. She has been using the excuse that her primary care provider suggested that she "stay off her feet" to help relieve venous stasis and cellulitic problems in her lower extremities. She has taken this to mean that she should be on absolute bedrest. She remains in atrial fibrillation, rate controlled. Blood pressure elevated (SBP 060373). She remains extubated. He is on 5 LPM via nasal cannula. She is on BiPAP 16/8 during sleep. 05/16: The patient did tolerate BiPAP 16/8 during sleep. Appears to be mentating somewhat better. Did not experience significant delirium overnight. Event dose was reduced to 0.25 mg; however, overnight staff reported that she did require an additional Ativan dose. Review of her ABG results suggest that her respiratory drive is quite sensitive to her PaO2. She demonstrates repeated episodes of acute hypercapnia and suppression of ventilatory drive when her PaO2 is over 100. 05/17: The patient has been compliant with BiPAP during sleep. Still moans and groans. Notably, when she is interrupted, she is appropriately interactive but immediately resumes moaning and groaning. She denies pain, however. 05/18: The patient did wear BiPAP during sleep. Still moans and groans but is quite a bit more conversant today. The patient's sister is at the bedside to the visit. She is the healthcare power of commercial litigation attorney. She was able to provide quite a bit of background information about the patient's recent deterioration in health. 05/19: Mentation has significantly improved over the past 2 days. She is compliant with nighttime BiPAP (and during sleep). On 2 LPM via nasal cannula when awake. 05/20/2020-patient is confused and lethargic this morning for agitation received Ativan last night. Physical therapy is in the room try to work with the patient. Patient able to give me her name and unable to give further information. No acute events in the last 24 hours. Heart rate is around 98 this morning. Patient needed BiPAP during the night. In the daytime she can be on oxygen 2 L via nasal cannula. Cover test is negative during the hospital stay. Patient came in with chest pains found to have A. fib with RVR and elevated blood pressure she was given nitroglycerin and morphine that led to hypotension associated with decreased mentation and a CO2 retention. She was admitted to ICU for hypercapnic respiratory failure status post intubation and extubation. WBC count is 7500. Febrile. 05/22/20 - clinical improvement 05/29/20- COVID test positive that was done for SNF transfer. She was not started on remdesivir and dexa due to clinical improvement, not requiring oxygen. 05/31/20 - developed diarrhea. C.diff positive, started on oral vanc 06/05/20 - continued improvement. OK for transfer. Physical Exam Vital Signs: Temp Pulse Resp BP Pulse Ox 97.5 F 86 16 128/66 H 93 06/05/20 10:00 06/05/20 07:54 06/05/20 07:54 06/05/20 07:54 06/04/20 23:52 Intake & Output 06/04/20 06/05/20 06/06/20 06:59 06:59 06:59 Intake Total 592 100 Output Total 2000 Balance -1408 100 Weight 126 kg 128.5 kg General appearance: PRESENT: no acute distress, cooperative Head exam: PRESENT: atraumatic, normocephalic Eye exam: PRESENT: EOMI, PERRLA Mouth exam: PRESENT: moist Neck exam: PRESENT: full ROM Respiratory exam: PRESENT: clear to auscultation dwayne, symmetrical, unlabored. ABSENT: crackles Cardiovascular exam: PRESENT: RRR, +S1, +S2 Pulses: PRESENT: +2 pedal pulses bilateral GI/Abdominal exam: PRESENT: normal bowel sounds, soft. ABSENT: tenderness Extremities exam: PRESENT: other - venous stasis dermatitis Neurological exam: PRESENT: alert, aphasic, other Psychiatric exam: PRESENT: normal mood Results Laboratory Results: 06/01/20 07:00 06/01/20 07:00 05/11/20 05/11/20 05/11/20 10:43 12:20 21:40 Creatine Kinase 39 CK-MB (CK-2) Troponin I 0.057 0.054 NT-Pro-B Natriuret Pep 53140 H 05/11/20 05/12/20 05/12/20 21:40 03:10 03:10 Creatine Kinase 173 H CK-MB (CK-2) 1.81 3.17 Troponin I 0.042 0.041 NT-Pro-B Natriuret Pep 05/12/20 05/13/20 05/15/20 03:10 04:30 04:27 Creatine Kinase CK-MB (CK-2) Troponin I NT-Pro-B Natriuret Pep 34438 H 73179 H 8880 H 05/16/20 05/16/20 06:11 07:27 Creatine Kinase CK-MB (CK-2) Troponin I NT-Pro-B Natriuret Pep Cancelled [id number] H Impressions: Venous Doppler Study 05/11/20 14:45 IMPRESSION: 1. Limited examination demonstrating no definitive lower extremity DVT bilaterally. 2. Pulsatile waveforms at the central veins bilaterally suggesting either elevated right heart pressures or valvular heart disease. Chest/Abdomen CTA 05/11/20 14:47 IMPRESSION: 1. There is no pulmonary embolism. No acute pulmonary disease. 2. Marked cardiomegaly. There is reflux of contrast into the hepatic veins which can be seen with elevated right heart pressure/right heart failure. Clinical correlation. 3. Pulmonary artery enlargement which can be seen with pulmonary arterial hypertension. Echocardiogram may provide additional information. Head CT 05/12/20 00:00 IMPRESSION: No acute intracranial findings. Chest X-Ray 05/16/20 05:00 IMPRESSION: STABLE APPEARANCE OF THE CHEST. Plan Discharge Plan: trasnfer to SNF for rehab Time Spent: Greater than 30 Minutes
== END 2020-06-05 14:08 | DRG 208 ==
LOC: ER 10:33 → EH 20:29 → ICU 05-12 01:50 → 3S 05-19 16:02 → 3N 05-27 18:27
PROVIDERS: ADMIT Internal Medicine Critical Care Medicine; ATTEND Internal Medicine
PROC: 5A1945Z Respiratory Ventilation, 24-96 Consecutive Hours (ICD-10-PCS; principal; 2020-05-12)
PROC: 0BH17EZ Insertion of Endotracheal Airway into Trachea, Via Natural or Artificial Opening (ICD-10-PCS; 2020-05-12)
PROC: 5A09357 Assistance with Respiratory Ventilation, Less than 24 Consecutive Hours, Continuous Positive Airway Pressure (ICD-10-PCS; 2020-05-14)
DX: J96.02 Acute respiratory failure with hypercapnia (principal); I50.21 Acute systolic (congestive) heart failure; U07.1 COVID-19; N17.9 Acute kidney failure, unspecified; I13.0 Hypertensive heart and chronic kidney disease with heart failure and stage 1 through stage 4 chronic kidney disease, or unspecified chronic kidney disease; J44.1 Chronic obstructive pulmonary disease with (acute) exacerbation; L97.829 Non-pressure chronic ulcer of other part of left lower leg with unspecified severity; Z68.43 Body mass index [BMI] 50.0-59.9, adult; N39.0 Urinary tract infection, site not specified; A04.72 Enterocolitis due to Clostridium difficile, not specified as recurrent; R41.0 Disorientation, unspecified; J96.01 Acute respiratory failure with hypoxia; I48.91 Unspecified atrial fibrillation; I83.028 Varicose veins of left lower extremity with ulcer other part of lower leg; I87.8 Other specified disorders of veins; I27.20 Pulmonary hypertension, unspecified; E11.22 Type 2 diabetes mellitus with diabetic chronic kidney disease; E11.65 Type 2 diabetes mellitus with hyperglycemia; N18.3 Chronic kidney disease, stage 3 (moderate); B96.20 Unspecified Escherichia coli [E. coli] as the cause of diseases classified elsewhere; E66.01 Morbid (severe) obesity due to excess calories; Z79.01 Long term (current) use of anticoagulants; Z79.84 Long term (current) use of oral hypoglycemic drugs; Z86.14 Personal history of Methicillin resistant Staphylococcus aureus infection; Z79.899 Other long term (current) drug therapy
CPT/HCPCS: 36415; 36600; 51702; 70450; 71045; 71275; 80048; 80053; 81001; 82550; 82553; 82728; 82746; 82803; 82962; 83605; 83735; 83880; 84100; 84425; 84484; 85025; 85027; 85379; 85610; 86140; 87040; 87086; 87088; 87186; 87324; 87449; 87635; 93005; 93010; 93306; 93970; 94002; 94003; 94640; 94660; 96374; 96375; 96376; 99291; 99292; C9113; C9803; J0330; J0696; J1630; J1644; J1815; J1940; J2060; J2270; J2310; J2405; J2920; J2930; J3370; J3475; J3490; J7030; J7120; J7512; S0028